=== PATIENT | female | born 1960 | race Caucasian/White ===

== ENCOUNTER → 2017-09-06 17:30 | Outpatient (CLI) | payer BC, SELFPAY ==
--- NOTE | 2017-09-06 17:23 | BI_ITS ---
MAMMOGRAPHY - BILATERAL SCREENING REASON FOR EXAM: Female, 57 years old. Routine annual screening examination. PERTINENT HISTORY: Mother with breast cancer. TECHNIQUE: Digital bilateral breast michael (3D mammographic acquisition) in the CC and MLO projections. 2-D mediolateral oblique (MLO) and craniocaudad (CC) views of both breasts were obtained. CAD: Full Field Digital Mammography with Computer Added Detection was performed. COMPARISON: Comparison is made with prior study dated August 08, 2016 and August 04, 2015. FINDINGS: Breast Composition: There are scattered areas of fibroglandular density. There are no dominant masses or suspicious calcifications. Stable benign-appearing bilateral axillary lymph nodes. Stable 5.5 mm well-defined nodule in the axillary region of the right breast No other significant abnormalities are identified. There has been no significant change since the prior study. BI/SCREENING MAMM (CAD), BILAT IMPRESSION: Stable bilateral screening mammogram. Yearly follow-up mammogram recommended. (A) ASSESSMENT CATEGORY: BIRADS Category 2: Benign. A letter regarding these results will be sent to the patient by the facility within 30 days. Approximately 10% of breast cancers are not detected by mammography. A normal mammogram should not delay biopsy of a clinically suspicious abnormality. [id number] Electronically Signed: Denys Radford MD at 8:23 EDT Tel [phone], Service support ,
== END ==
PROVIDERS: Family Provider Family Medicine; PCP Family Medicine; Visit Provider Family Medicine
DX: Z12.31 Encounter for screening mammogram for malignant neoplasm of breast (principal)
CPT/HCPCS: 77063; 77067

== ENCOUNTER → 2017-10-16 07:35 | Outpatient (CLI) | payer BC, SELFPAY ==
[2017-10-16 08:57] LABS: Cholesterol 206 mg/dL (200); High Density Lipoprotein 72 mg/dL; Triglycerides 88 mg/dL; Very Low Density Lipoprotein 18 mg/dL (5-40)
== END ==
PROVIDERS: Family Provider Family Medicine; PCP Family Medicine; Visit Provider Family Medicine
DX: E78.5 Hyperlipidemia, unspecified (principal)
CPT/HCPCS: 36415; 80061

== ENCOUNTER → 2018-09-21 | Outpatient (CLI) | payer BC, SELFPAY ==
--- NOTE | 2018-09-21 08:50 | BI_ITS ---
MAMMOGRAPHY - BILATERAL SCREENING REASON FOR EXAM: Female, 58 years old. Routine annual screening examination. PERTINENT HISTORY: Mother with breast cancer. TECHNIQUE: Digital bilateral breast bello (3D mammographic acquisition) in the CC and MLO projections. 2-D mediolateral oblique (MLO) and craniocaudad (CC) views of both breasts were obtained. CAD: Full Field Digital Mammography with Computer Added Detection was performed. COMPARISON: Comparison is made with prior study dated September 06, 2017 and August 08, 2016. FINDINGS: Breast Composition: There are scattered areas of fibroglandular density. There are no dominant masses or suspicious calcifications. Stable 5.5 mm well-defined nodule in the axillary region of the right breast suggestive of a small lymph node. No other significant abnormalities are identified. There has been no significant change since the prior study. BI/SCREEN MAMM (CAD) W/BELLO BILAT IMPRESSION: Stable bilateral screening mammogram. Yearly follow-up mammogram recommended. (A) ASSESSMENT CATEGORY: BIRADS Category 2: Benign. A letter regarding these results will be sent to the patient by the facility within 30 days. Approximately 10% of breast cancers are not detected by mammography. A normal mammogram should not delay biopsy of a clinically suspicious abnormality. [id number] Electronically Signed: Denys Radford, at 12:36 EDT , Service support ,
== END | disposition home or self-care (01) ==
LOC: OPBI 08:49
PROVIDERS: Family Provider Family Medicine; PCP Family Medicine; Referring Provider Family Medicine; Visit Provider Family Medicine
DX: Z12.31 Encounter for screening mammogram for malignant neoplasm of breast (principal)
CPT/HCPCS: 77063; 77067

== ENCOUNTER → 2018-10-16 | Outpatient (CLI) | payer BC, SELFPAY ==
[2018-10-16 12:19] LABS: Absolute Lymphocyte Count 1.86 X10^3/uL (0.83-4.51); Basophil# 0.05 X10^3/uL; Basophil% 0.8 % (0-1); Eosinophil# 0.16 X10^3/uL; Eosinophils% 2.4 % (0-5); Hematocrit 39.4 % (37-47); Hemoglobin 12.8 g/dL (12.0-15.0); Lymphocyte # 1.86 X10^3/ul (4.0); Mean Corp Hgb Conc 32.5 g/dL (32-36); Mean Corpuscular Hgb 28.1 pg (27.0-32.0); Mean Corpuscular Volume 86.6 fL (81-99); Mean Platelet Vol. 8.7 fl (6.2-12.0); Monocyte# 0.52 X10^3/uL; Monocyte% 7.8 % (0-10); NRBC Flagged by Analyzer 0 % (0-5); Neutrophil # 4.02 X10^3/uL (2.7-7.7); Neutrophil % 60.5 % (47-70); Platelet Count 369 K/mm3 (150-450); RBC Distribution Width CV 12.9 % (11.6-14.6); RBC Distribution Width SD 40.4 fl (35.1-43.9); Red Blood Count 4.55 M/mm3 (4.2-5.4); White Blood Count 6.6 K/mm3 (4.4-11.0)
[2018-10-16 12:57] LABS: AST(SGOT) 20 U/L (15-37); Alanine Aminotransfer ALT/SGPT 25 U/L (13-56); Albumin, Serum 3.7 g/dL (3.2-5.0); Alkaline Phosphatase 113 U/L (45-117); Anion Gap 5 (5-15); BUN 14 mg/dL (7-18); BUN/Creat Ratio 15.6 RATIO (10-20); Calcium,Total 9.2 mg/dL (8.5-10.1); Chloride 107 mmol/L (98-107); EST Glomerular Filtration Rate 69 mL/min (>60); Est Glom Filt Rate - Afr Amer 83 mL/min (>60); Free T3 2.5 pg/mL (2.18-3.98); Globulin 3.6 g/dL (2.2-4.2); Glucose 89 mg/dL (74-106); Protein, Total 7.3 g/dL (6.4-8.2); Sodium Level 138 mmol/L (136-145); T4 Free Direct 1.13 ng/dL (0.76-1.46); Thyroid Stim Hormone (TSH) 0.96 uIU/mL (0.358-3.74)
== END | disposition home or self-care (01) ==
LOC: BFHLAB 08:37
PROVIDERS: Family Provider Family Medicine; PCP Family Medicine; Visit Provider Family Medicine
DX: E78.5 Hyperlipidemia, unspecified (principal); R53.83 Other fatigue; Z51.81 Encounter for therapeutic drug level monitoring
CPT/HCPCS: 36415; 80053; 84439; 84443; 84481; 85025

== ENCOUNTER → 2018-12-20 | Outpatient (CLI) | payer BC, SELFPAY ==
[2018-12-12 13:25] VITALS: BMI 34.0
[2018-12-20 07:55] LABS: Absolute Lymphocyte Count 1.53 X10^3/uL (0.83-4.51); Absolute Neutrophil Count 2.3 X10^3/uL (2.0-7.7); Basophil# 0.08 X10^3/uL; Basophil% 1.7 % (0-1); Eosinophil# 0.22 X10^3/uL; Eosinophils% 4.8 % (0-5); Hematocrit 38.3 % (37-47); Hemoglobin 11.9 g/dL (12.0-15.0); Lymphocyte # 1.53 X10^3/ul (4.0); Lymphocyte % 33.3 % (19-41); Mean Corp Hgb Conc 31.1 g/dL (32-36); Mean Corpuscular Volume 83.8 fL (81-99); Mean Platelet Vol. 8.3 fl (6.2-12.0); Monocyte# 0.42 X10^3/uL; Monocyte% 9.1 % (0-10); NRBC Flagged by Analyzer 0 % (0-5); Neutrophil # 2.33 X10^3/uL (2.7-7.7); Neutrophil % 50.7 % (47-70); Platelet Count 378 K/mm3 (150-450); RBC Distribution Width CV 13.9 % (11.6-14.6); RBC Distribution Width SD 42.5 fl (35.1-43.9); Red Blood Count 4.57 M/mm3 (4.2-5.4); White Blood Count 4.6 K/mm3 (4.4-11.0)
== END | disposition home or self-care (01) ==
LOC: LAB 07:31
PROVIDERS: Family Provider Family Medicine; PCP Family Medicine; Referring Provider Family Medicine; Visit Provider Family Medicine
DX: A04.72 Enterocolitis due to Clostridium difficile, not specified as recurrent (principal)
CPT/HCPCS: 36415; 85025

== ENCOUNTER 2018-12-27 04:50 | Emergency (ER) | payer BC, SELFPAY ==
[2018-12-12 13:25] VITALS: BMI 34.0
[2018-12-27 04:50] VITALS: BP 140/73; PULSE 103; RESP 18; TEMP 36.4; O2SAT 96; BMI 33.6
--- NOTE | 2018-12-27 05:00 | CT_ITS ---
STUDY: CT ABDOMEN AND PELVIS WITH CONTRAST REASON FOR EXAM: Female, 58 years old. Abdomen pain elevated white blood count RADIATION DOSAGE (If Supplied By Facility): CTDIvol = ( 16.91 ) mGy, DLP = ( 1313.95 ) mGycm TECHNIQUE: Transaxial images were obtained from the dome of the diaphragm to the symphysis pubis without oral contrast. IV/Oral Isovue 300 100CC was administered. Sagittal and coronal images were reconstructed. Individualized dose optimization techniques were used for this CT. COMPARISON: None. FINDINGS: The visualized lung bases are unremarkable. The visualized portions of the heart are within normal limits. Normal liver. There are surgical clips in the gallbladder fossa consistent with a prior cholecystectomy. Normal spleen. Normal pancreas. Normal bilateral adrenal glands. Normal right kidney. Normal left kidney. Normal visualized stomach. Normal small intestine. There is thickening of the man of the descending colon and sigmoid colon suggesting colitis. Multiple diverticula are seen in the sigmoid colon. The appendix is visualized and appears normal. Normal abdominal aorta. Normal inferior vena cava. Normal retroperitoneum. Normal urinary bladder. Normal uterus and ovaries. Normal abdominal wall. Normal osseous structures. CT/Abdomen/Pelvis WITH Contrast IMPRESSION: Colitis in the descending colon and sigmoid colon. Electronically Signed: Libertad Morgan, at 7:37 EDT Tel , Service support ,
--- NOTE | 2018-12-27 05:02 | ED.VIS.GEN ---
History of Present Illness Chief Complaint: Nausea/Vomiting/Diarrhea Narrative: Patient is a 58-year-old female who presents with diarrhea. She is concerned she may have diverticulitis or C. difficile as she has had both of these in the past. She reports 8 episodes of diarrhea over the last 24 hours. She complains of intermittent lower abdominal cramping. She actually contacted her physician regarding the symptoms yesterday morning and asked if she should go to the emergency department. She was told to come to the office and give a stool sample instead. She did get the lab order and specimen collection, but due to ongoing diarrhea came to the emergency department this morning. She did bring a stool sample. No fevers. She reports nausea without vomiting. Past Medical History - Allergies and Home Meds Allergies/Adverse Reactions: Allergies No Known Allergies Allergy (Verified 12/12/18 13:25) Primary Care Physician: Yuliya Vasquez DO [Primary Care Provider] - Past Medical History: - - Anxiety, history of diverticulitis Smoking Status: Never smoker Review of Systems All systems negative except as indicated General: Denies: Fever Cardiovascular: Denies: Chest pain Respiratory: Denies: Dyspnea Gastrointestinal: Reports: Abdominal pain, Nausea, Diarrhea. Denies: Vomiting Physical Exam Vital Signs/Narrative: Vital Signs Temp Pulse Resp BP Pulse Ox 12/27/18 04:50 97.6 F L 103 H 18 140/73 H 96 Inital Vital Signs reviewed: Yes General: Well nourished Head: Normocephalic Eyes: EOMI ENT: Moist mucous membranes Neck: Supple Cardiovascular: - - Heart is regular rhythm, slightly tachycardic Respiratory: No distress, CTA bilaterally Abdomen: Soft, Tender - Lower abdominal tenderness without guarding without rebound Skin: Normal color Neurological: Alert Psychological: Normal affect Diagnostic/Tx/Re-eval 12/27/18 05:00 Abdomen/Pelvis WITH Contrast [CT] Stat 12/27/18 04:45 Stool C. difficile DNA Amplification - Final Toxigenic C. difficile DNA Laboratory Results 12/27/18 12/27/18 05:10 05:10 WBC 13.0 H RBC 4.60 Hgb 12.0 Hct 38.0 MCV 82.6 MCH 26.1 L MCHC 31.6 L RDW Std Deviation 41.8 RDW Coeff of Marsha 14.1 Plt Count 322 MPV 8.8 Immature Gran % (Auto) 0.400 Neut % (Auto) 80.0 H Lymph % (Auto) 11.8 L Wilkinson % (Auto) 6.5 Eos % (Auto) 0.8 Baso % (Auto) 0.5 Absolute Neuts (auto) 10.4 H Absolute Lymphs (auto) 1.53 Nucleated RBC % 0 Sodium 141 Potassium 3.5 Chloride 108 H Carbon Dioxide 23.0 Anion Gap 10 BUN 9 Creatinine 0.88 Estim Creat Clear Calc 52.58 Est GFR (MDRD) Af Amer 85 Est GFR (MDRD) Non-Af 70 BUN/Creatinine Ratio 10.3 Glucose 105 Calcium 8.9 - Medical Decision Making Labs as above notable for mild leukocytosis and C. difficile is positive. At the time of this dictation a CT of the abdomen and pelvis is pending but if this shows no acute intra-abdominal process patient will be discharged on oral vancomycin. She was advised to follow-up with Dr. Murphy and her family physician. ED Disposition - Plan for ED Patient: Disposition: Home or Assisted Living Diagnosis: C. difficile colitis Instructions: Clostridium difficile Infection Prescriptions: Vancomycin [Vancocin] 125 mg PO Q6H #40 cap Prescription Printed Referrals: Yuliya Vasquez DO [Primary Care Provider] - Selma Muprhy MD [STAFF PHYSICIAN] -
[2018-12-27] MEDS: 0.9% Normal Saline 1,000 ML 1000 ML IV (05:08)
[2018-12-27] MEDS: Ketorolac 30 MG/ML Syringe IV (05:09)
[2018-12-27] MEDS: Ondansetron 4 MG/2 ML Vial IV (05:09)
[2018-12-27 05:26] LABS: Absolute Lymphocyte Count 1.53 X10^3/uL (0.83-4.51); Absolute Neutrophil Count 10.4 X10^3/uL (2.0-7.7); Basophil# 0.07 X10^3/uL; Basophil% 0.5 % (0-1); Eosinophils% 0.8 % (0-5); Lymphocyte # 1.53 X10^3/ul (4.0); Lymphocyte % 11.8 % (19-41); Mean Corp Hgb Conc 31.6 g/dL (32-36); Mean Corpuscular Hgb 26.1 pg (27.0-32.0); Mean Corpuscular Volume 82.6 fL (81-99); Mean Platelet Vol. 8.8 fl (6.2-12.0); Monocyte# 0.84 X10^3/uL; Monocyte% 6.5 % (0-10); NRBC Flagged by Analyzer 0 % (0-5); Neutrophil # 10.41 X10^3/uL (2.7-7.7); Platelet Count 322 K/mm3 (150-450); RBC Distribution Width CV 14.1 % (11.6-14.6); RBC Distribution Width SD 41.8 fl (35.1-43.9)
[2018-12-27 05:37] LABS: Anion Gap 10 (5-15); BUN 9 mg/dL (7-18); BUN/Creat Ratio 10.3 RATIO (10-20); Calcium,Total 8.9 mg/dL (8.5-10.1); Chloride 108 mmol/L (98-107); Creatinine, Serum 0.88 mg/dL (0.55-1.02); EST Glomerular Filtration Rate 70 mL/min (>60); Est Glom Filt Rate - Afr Amer 85 mL/min (>60); Estimated Creatinine Clearance 52.58 ml/min; Glucose 105 mg/dL (74-106); Potassium 3.5 mmol/L (3.5-5.1); Sodium Level 141 mmol/L (136-145)
[2018-12-27 08:00] VITALS: BP 143/68; PULSE 99; RESP 18; TEMP 37; O2SAT 98
[2018-12-27 08:31] VITALS: BP 143/68; PULSE 89; RESP 18; TEMP 37; O2SAT 98; O2SAT 99
[2018-12-27] MEDS: Ondansetron 4 MG/2 ML Vial IM (08:57)
[2018-12-27] MEDS: Morphine 4 MG/ML Syringe IM (08:57)
== END 2018-12-27 09:16 | disposition home or self-care (01) ==
PROVIDERS: Emergency Medicine; Emergency Provider Emergency Medicine; Family Provider Family Medicine; PCP Family Medicine
DX: A04.72 Enterocolitis due to Clostridium difficile, not specified as recurrent (principal); F41.9 Anxiety disorder, unspecified; Z79.899 Other long term (current) drug therapy
CPT/HCPCS: 74177; 80048; 85025; 87493; 96361; 96374; 96375; 99283; J7030; Q9967; J2405

== ENCOUNTER → 2019-02-11 15:44 | Outpatient (CLI) | payer BC, SELFPAY ==
[2018-12-12 13:25] VITALS: BMI 34.0
[2019-01-22 13:10] VITALS: BMI 33.6
== END ==
PROVIDERS: Family Provider Family Medicine; PCP Family Medicine; Visit Provider Family Medicine
DX: A04.72 Enterocolitis due to Clostridium difficile, not specified as recurrent (principal); R19.7 Diarrhea, unspecified
CPT/HCPCS: 83630; 87493; 87506

== ENCOUNTER → 2019-02-13 08:33 | Outpatient (CLI) | payer BC, SELFPAY ==
[2019-01-22 13:10] VITALS: BMI 33.6
[2019-02-13 09:13] LABS: Absolute Lymphocyte Count 1.92 X10^3/uL (0.83-4.51); Absolute Neutrophil Count 4.1 X10^3/uL (2.0-7.7); Basophil# 0.05 X10^3/uL; Basophil% 0.8 % (0-1); Eosinophil# 0.09 X10^3/uL; Eosinophils% 1.4 % (0-5); Hematocrit 39.8 % (37-47); Hemoglobin 12.5 g/dL (12.0-15.0); Lymphocyte # 1.92 X10^3/ul (4.0); Lymphocyte % 29.2 % (19-41); Mean Corp Hgb Conc 31.4 g/dL (32-36); Mean Corpuscular Hgb 25.7 pg (27.0-32.0); Mean Corpuscular Volume 81.9 fL (81-99); Mean Platelet Vol. 8.5 fl (6.2-12.0); Monocyte# 0.42 X10^3/uL; Monocyte% 6.4 % (0-10); NRBC Flagged by Analyzer 0 % (0-5); Neutrophil # 4.08 X10^3/uL (2.7-7.7); Neutrophil % 61.9 % (47-70); Platelet Count 343 K/mm3 (150-450); RBC Distribution Width CV 15.4 % (11.6-14.6); Red Blood Count 4.86 M/mm3 (4.2-5.4); White Blood Count 6.6 K/mm3 (4.4-11.0)
[2019-02-13 09:56] LABS: ALB/GLOB Ratio 1.1 RATIO (0.9-2.4); AST(SGOT) 20 U/L (15-37); Alanine Aminotransfer ALT/SGPT 26 U/L (13-56); Albumin, Serum 3.8 g/dL (3.2-5.0); Alkaline Phosphatase 84 U/L (45-117); Anion Gap 7 (5-15); BUN 13 mg/dL (7-18); BUN/Creat Ratio 16.7 RATIO (10-20); Calcium,Total 9.5 mg/dL (8.5-10.1); Chloride 108 mmol/L (98-107); Creatinine, Serum 0.78 mg/dL (0.55-1.02); EST Glomerular Filtration Rate 81 mL/min (>60); Est Glom Filt Rate - Afr Amer 98 mL/min (>60); Globulin 3.4 g/dL (2.2-4.2); Glucose 86 mg/dL (74-106); Potassium 3.4 mmol/L (3.5-5.1); Protein, Total 7.2 g/dL (6.4-8.2); Sodium Level 140 mmol/L (136-145)
== END ==
PROVIDERS: Family Provider Family Medicine; PCP Family Medicine; Referring Provider Internal Medicine Infectious Disease; Visit Provider Internal Medicine Infectious Disease
DX: A04.71 Enterocolitis due to Clostridium difficile, recurrent (principal)
CPT/HCPCS: 36415; 80053; 85025

== ENCOUNTER 2019-05-26 06:57 | Day surgery (SDC) | payer BC, SELFPAY ==
[2019-05-07 13:10] VITALS: BMI 33.6
[2019-05-26 07:16] VITALS: BP 147/61; PULSE 83; RESP 15; TEMP 36.3; O2SAT 99; BMI 31.9
[2019-05-26] MEDS: Lactated Ringers 1,000 ML 100 ML IV (07:25)
--- NOTE | 2019-05-26 07:52 | HP.PCM_ITS ---
History and Physical Date of Admission: 05/26/19 Date of Service: 05/07/19 MR#: [id number] Acct: [id number] Name: JOSESITO EASLEY Rep #: [id number] : 1960 Provider: Selma lundberg MD Age/Sex: 58/F Location: [facility] Status: Signed Intake Vital Signs 05/07/19 Height 5 ft 1.5 in 05/07/19 Weight: 180 lb 05/07/19 BMI 33.4 05/07/19 BP 107/74 05/07/19 Blood Pressure Location Rt brachial 05/07/19 Position Sitting 05/07/19 Respiration 18 Intake Visit Reasons: negative for c diff, update for cscope Claim Attorney Required: No Is patient in pain?: No Allergies No Known Allergies Allergy (Verified 05/07/19 13:10) Medications etodolac 400 mg tablet 400 mg PO ONCE #180 tab 12/12/18 [History Confirmed 03/14] fluoxetine 10 mg capsule 10 mg PO DAILY #30 cap 12/12/18 [History Confirmed 05/07/19] lactobacillus combination no.8 3 billion cell capsule 3,000 mmu cells PO DAILY 12/12/18 [History Confirmed 05/07/19] polyethylene glycol 3350 17 gram/dose oral powder 17 g PO DAILY 12/12/18 [History Confirmed 05/07/19] Ondansetron [Zofran Odt] 4 mg PO Q8H PRN PRN #10 tab 12/27/18 [Rx Confirmed 05/07/19] PFSH Social History (Updated 05/07/19 @ 13:36 by Selma Murphy MD) Smoking Status: Never smoker alcohol intake: never HPI HPI HPI: JOSESITO EASLEY, is a 58 F who presents to the office today for HPI HPI HPI: JOSESITO EASLEY, is a 58 F who presents to the office today for scheduling of colonoscopy due to history of polyps. Patient's last colonoscopy was in [address] Saucedo she did have an adenomatous polyp at that time. Patient previously tried to schedule last year however she did have diverticulitis and then she went on to have C. difficile in January. Patient denies any further diarrhea since then. Patient also denies any abdominal pain, patient has bowel movements daily she does take MiraLAX about 3 times a day unsure the amount of fiber she gets. ROS General General: Yes appetite (Good); no fatigue Gastro Gastrointestinal: No abdominal pain, No nausea or vomiting, No diarrhea, No constipation, No blood in stool, No acid reflux, No hemorrhoids, No ulcers, No gallbladder problem, No black,tarry stools Exam Const General: cooperative, comfortable, no acute distress Resp Effort & Inspection: normal respiratory effort Cardio Rate: regular rate GI Inspection: non-distended Palpation: soft, no guarding, nontender Assessment & Plan Problems 1. Hx of diverticulitis of colon Z87.19 2. Hx of Clostridium difficile infection Z86.19 3. Hx of adenomatous polyp of colon Z86.010 Plan Did encourage patient to follow a high-fiber diet recommend 25 g of fiber daily this may be able to decrease amount of MiraLAX she takes. I have discussed the above with the patient. I have offered the patient colonoscopy for evaluation. I have explained the risks/benefits of the procedure and described the procedure. I have discussed the risks with the patient, including but not limited to: infection, bleeding, perforation of the GI tract requiring emergency surgery, inability to complete the procedure, injury to any internal organs, complications of anesthesia, etc. - the patient understands and agrees to proceed. I have answered all the patient's questions to the patient's satisfaction and the patient has no further questions. The patient has been given instructions for the colon cleansing preparation. One day of clears, MiraLAX/Dulcolax split prep Selma Murphy M.D. Pager: [phone] [facility] [address] [place] [address], [address] [place] [address] Office: [phone] Plan Detail Follow Up We will schedule screening colonoscopy Coding Level of Care Code Off vis,est,level 3 Diagnoses Hx of diverticulitis of colon Z87.19 Hx of Clostridium difficile infection Z86.19 Hx of adenomatous polyp of colon Z86.010 05/07/19 1336 <Electronically signed by Selma Mcmahon am, MD> Date _ Selma Murphy MD
--- NOTE | 2019-05-26 08:00 | COLBX_PTH ---
PATIENT: JOSESITO EASLEY LOC: EN U#:[id number] AGE/SX: 58/F ROOM: RE05/26/[address]: Dr. Selma Murphy MD : 1960 BED: DIS: 05/26/2019 SPEC #: [id number] RECD: 05/26/19 08:54 STATUS: HOANG REChris #: [id number] ANIYA: 05/26/19 08:[address]: Selma Murphy DEPT: SURGICAL PATHOLOGY RECD BY: Adrian Barrios ENTERED: 05/26/19 12:04 SP TYPE: COLON BX OTHR DR: Dr. Yuliya Vasquez DO Tissues: A - Transverse colon B - Rectum, NOS Procedures: Surgery Specimen Level IV HEADER OPERATION: Colonoscopy (MAC) PRE-OP DIAGNOSIS: Screening TISSUE SUBMITTED: A - Transverse polyp biopsy, B - Rectal polyp biopsy MICROSCOPIC DIAGNOSIS A. Transverse colon polyp, biopsy: Tubular adenoma. B. Rectal polyp, biopsy: Fragments of tubular adenoma. LISA:stacia 05/27/19 MICROSCOPIC DESCRIPTION Slides are reviewed. GROSS DESCRIPTION A - Received in fixative is one container labeled with the patient's name and designated transverse polyp biopsy. The specimen consists of two irregular fragments of light mcelroy soft tissue that in aggregate measure 0.3 x 0.2 x 0.1 cm. The specimen is totally submitted in one cassette. B - Received in fixative is one container labeled with the patient's name and designated rectal polyp biopsy. The specimen consists of multiple irregular fragments of light mcelroy soft tissue that in aggregate measure 1.5 x 0.3 x 0.1 cm. The specimen is totally submitted in one cassette. / LISA:stacia 05/26/19 TC:5 CPT: 68127 x2
[2019-05-26 08:37] VITALS: BP 147/61; BP 99/80; PULSE 78; RESP 16; TEMP 36.6; O2SAT 100
--- NOTE | 2019-05-26 08:41 | OP.COLON_ITS ---
Patient Name: Destinee Chapman Procedure Date: 05/26/2019 8:05 AM Date of : 1960 Age: 58 Procedure: Colonoscopy Indications: Surveillance: Personal history of adenomatous polyps on last colonoscopy > 5 years ago Providers: Selma Murphy MD Referring MD: Yuliya Vasquez Medicines: Monitored Anesthesia Care Patient Profile: This is a 58 year old female. Last Colonoscopy: 7 years ago. Complications: No immediate complications. Procedure: Pre-Anesthesia Assessment: - Prior to the procedure, a History and Physical was performed, and patient medications and allergies were reviewed. The patient's tolerance of previous anesthesia was also reviewed. The risks and benefits of the procedure and the sedation options and risks were discussed with the patient. All questions were answered, and informed consent was obtained. Prior Anticoagulants: The patient has taken no previous anticoagulant or antiplatelet agents. ASA Grade Assessment: II - A patient with mild systemic disease. After reviewing the risks and benefits, the patient was deemed in satisfactory condition to undergo the procedure. After I obtained informed consent, the scope was passed under direct vision. Throughout the procedure, the patient's blood pressure, pulse, and oxygen saturations were monitored continuously. The pediatric colonoscope was introduced through the anus and advanced to the cecum, identified by the appendiceal orifice, ileocecal valve and palpation. The colonoscopy was performed without difficulty. The patient tolerated the procedure well. The quality of the bowel preparation was good. Scope In: 8:11:42 AM Scope Withdrawal Time 0 hours 15 minutes 12 seconds Scope Out: 8:33:49 AM Total Procedure Duration Time 0 hours 22 minutes 7 seconds Findings: The perianal and digital rectal examinations were normal. Two sessile polyps were found in the rectum and transverse colon. The polyps were less than 5 mm in size. These polyps were removed with a cold biopsy forceps. Resection and retrieval were complete. A few small-mouthed diverticula were found in the sigmoid colon. The exam was otherwise without abnormality on direct and retroflexion views. Impression: - Two less than 5 mm polyps in the rectum and in the transverse colon, removed with a cold biopsy forceps. Resected and retrieved. - Diverticulosis in the sigmoid colon. - The examination was otherwise normal on direct and retroflexion views. Recommendation: - Discharge patient to home. - High fiber diet. - Continue present medications. - Await pathology results. - Repeat colonoscopy in 3 - 5 years for surveillance based on pathology results. Procedure Code(s): --- Professional --- 53995, PT, Colonoscopy, flexible; with biopsy, single or multiple Diagnosis Code(s): --- Professional --- Z86.010, Personal history of colonic polyps K62.1, Rectal polyp D12.3, Benign neoplasm of transverse colon (hepatic flexure or splenic flexure) K57.30, Diverticulosis of large intestine without perforation or abscess without bleeding CPT copyright 2017 [employer]. All rights reserved. The codes documented in this report are preliminary and upon credit portfolio advisor review may be revised to meet current compliance requirements. MD Selma Bowens MD 05/26/2019 8:41:05 AM This report has been signed electronically. Number of Addenda: 0 Note Initiated On: 05/26/2019 8:05 AM
--- NOTE | 2019-05-26 08:41 | OP.CCLET_ITS ---
05/26/2019 Yuliya Vasquez [address] [place] [address] Re : Colonoscopy procedure for Destinee Chapman Dear Dr. Vasquez This procedure was performed on Sunday, May 26, 2019. My impressions and recommendations are as follows: Impressions : - Two less than 5 mm polyps in the rectum and in the transverse colon, removed with a cold biopsy forceps. Resected and retrieved. - Diverticulosis in the sigmoid colon. - The examination was otherwise normal on direct and retroflexion views. Recommendations : - Discharge patient to home. - High fiber diet. - Continue present medications. - Await pathology results. - Repeat colonoscopy in 3 - 5 years for surveillance based on pathology results. My findings are described in the full procedure note, which is enclosed. If I can be of further assistance, please feel free to contact me at Doctor phone number(s): , Work: . Sincerely, MD Selma Bowens MD 05/26/2019 8:41:05 AM This report has been signed electronically.
[2019-05-26 08:42] VITALS: BP 106/63; BP 147/61; PULSE 70; RESP 16; O2SAT 98
[2019-05-26 08:47] VITALS: BP 112/58; BP 147/61; PULSE 76; RESP 16; O2SAT 99
[2019-05-26 08:52] VITALS: BP 117/67; BP 147/61; PULSE 69; RESP 16; TEMP 36.7; O2SAT 98
[2019-05-26 09:26] VITALS: BP 147/61
== END 2019-05-26 09:27 | disposition home or self-care (01) ==
LOC: EN 06:57 → AC 06:58
PROVIDERS: PCP Family Medicine; Referring Provider Family Medicine; Visit Provider Surgery
PROC: 0DJD8ZZ Inspection of Lower Intestinal Tract, Via Natural or Artificial Opening Endoscopic (ICD-10-PCS; CPT 45378; principal; 2019-05-26 07:55)
DX: D12.3 Benign neoplasm of transverse colon (principal); D12.8 Benign neoplasm of rectum; K57.30 Diverticulosis of large intestine without perforation or abscess without bleeding; F41.9 Anxiety disorder, unspecified; J45.909 Unspecified asthma, uncomplicated; Z87.19 Personal history of other diseases of the digestive system; Z86.19 Personal history of other infectious and parasitic diseases; Z79.51 Long term (current) use of inhaled steroids; Z79.899 Other long term (current) drug therapy
CPT/HCPCS: 45380; 88305; J7120; J2405

== ENCOUNTER → 2019-06-02 08:26 | Outpatient (CLI) | payer BC, SELFPAY ==
[2019-05-26 07:16] VITALS: BMI 31.9
[2019-06-02 09:01] LABS: Absolute Lymphocyte Count 1.88 X10^3/uL (0.83-4.51); Absolute Neutrophil Count 2.9 X10^3/uL (2.0-7.7); Basophil# 0.07 X10^3/uL; Basophil% 1.2 % (0-1); Eosinophil# 0.32 X10^3/uL; Eosinophils% 5.6 % (0-5); Hematocrit 37.7 % (37-47); Hemoglobin 11.7 g/dL (12.0-15.0); Lymphocyte # 1.88 X10^3/ul (4.0); Lymphocyte % 33.1 % (19-41); Mean Corpuscular Hgb 25.4 pg (27.0-32.0); Mean Corpuscular Volume 81.8 fL (81-99); Mean Platelet Vol. 8.2 fl (6.2-12.0); Monocyte# 0.48 X10^3/uL; Monocyte% 8.5 % (0-10); NRBC Flagged by Analyzer 0 % (0-5); Neutrophil # 2.91 X10^3/uL (2.7-7.7); Neutrophil % 51.2 % (47-70); Platelet Count 325 K/mm3 (150-450); RBC Distribution Width CV 14.9 % (11.6-14.6); RBC Distribution Width SD 44.7 fl (35.1-43.9); Red Blood Count 4.61 M/mm3 (4.2-5.4); White Blood Count 5.7 K/mm3 (4.4-11.0)
[2019-06-02 09:25] LABS: Calcium,Total 9.4 mg/dL (8.5-10.1)
== END ==
PROVIDERS: PCP Family Medicine; Referring Provider Internal Medicine Rheumatology; Visit Provider Internal Medicine Rheumatology
DX: D64.9 Anemia, unspecified (principal); E55.9 Vitamin D deficiency, unspecified
CPT/HCPCS: 36415; 82306; 82310; 85025

== ENCOUNTER → 2019-10-13 | Outpatient (CLI) | payer BC, SELFPAY ==
--- NOTE | 2019-10-13 07:23 | BI_ITS ---
MAMMOGRAPHY - BILATERAL SCREENING 3-D TOMOSYNTHESIS REASON FOR EXAM: Female, 59 years old. Routine screening PERTINENT HISTORY: Mother with breast cancer.. Previous left breast aspiration TECHNIQUE: 2-D mammograms and 3-D Tomosynthesis of the breast (s) were performed. CAD was performed. COMPARISON: 09/21/2018 FINDINGS: The breast composition is heterogeneously dense that can obscure small breast masses. Scattered benign calcifications are seen. No dense spiculated masses or suspicious microcalcifications are identified. No architectural distortion is identified. There is no skin thickening or retraction. There has been no significant change since the prior study. BI/SCREEN MAMM (CAD) W/BELLO BILAT IMPRESSION: No mammographic signs of malignancy. Routine yearly mammograms recommended. ASSESSMENT CATEGORY: BIRADS Category 2: Benign. A letter regarding these results will be sent to the patient by the facility within 30 days. FOLLOW UP RECOMMENDATION: Yearly follow up mammogram recommended. (A) Approximately 10% of breast cancers are not detected by mammography. A normal mammogram should not delay biopsy of a clinically suspicious abnormality. Electronically Signed: Arnol Kaur MD at 8:44 EDT , Service support ,
== END | disposition home or self-care (01) ==
LOC: OPBI 07:22
PROVIDERS: PCP Family Medicine; Referring Provider Family Medicine; Visit Provider Family Medicine
DX: Z12.31 Encounter for screening mammogram for malignant neoplasm of breast (principal)
CPT/HCPCS: 77063; 77067

== ENCOUNTER 2020-01-08 07:30 | Outpatient (RCR) | payer BC, SELFPAY ==
--- NOTE | 2019-12-22 13:37 | HP.PTEVAL ---
Patient's Visit Information JOSESITO EASLEY is a 59 year old F referred to Physical Therapy by BONY CAICEDO with a diagnosis of Right Shoulder Pain. Date of Evaluation: 12/22/19 Physical Therapist: Brinda Fulton DPT - Visit Plan Frequency: 2x /Week Duration: 4 Weeks Plan: Scapular strength/stabilization. HEP given 12/21:Postural education, MR, LAE, Adduction, IR, ER, [place] - Subjective In the winter she was going to an exercise class- she felt like she pulled something. It came and went and she just put up with it. Now when she is using it overhead it really bothers her. Right hand dominate. Went and saw her PCP who gave her a cortisone injection that put her back to 100% and now she wants to get stronger. Agg: sleeping on it, pushing off of it, getting her mail out of the inbox at work, curling iron. Worst: 7/10. Once she put it back down the pain subsided. Best: 0/10. Pain was in the shoulder and radiated to the deltoid. No pain since Cortisone injection on . Did not have finger dexterity issues- but does feel like she has some decreasedgrip strength. No blurred vision, dizziness- LAURA but its allergy season and some neck pain but needs a new mattress. Sleep: side sleeper- was waking her up but not anymore after the cortisone injection. She is active-walks and does weights 2x a week. Has 2 grandsons (1 years and 3 years) she takes care of 3 days a week. 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 PMHx: bilateral hip replacements (5 years and 7 years ago), asthma. Did have x-rays of the shoulder Meds: fluxotine, iron every other day. - Objective Posture: FH, RS, Increased kyphosis- can correct but does not maintain. Gait: no deviation noted- good arm swing and trunk rotation. Palpation: tender along infraspinatus, deltoid, upper trap- trigger points in medial border of the scapula. ROM: WFL in all planes of the cervical and UE- does report discomfort and tightness at end range flexion of the shoulder. Strength: scap: fair, Shoulder: 4+/5 throughout pain with abd and flexion testing, Elbow/Wrist/Hand: 5/5. Sensation: WNL to gross touch. Special Test: Impingment: positive, Empty can: positive - Goals Goal 1:: Patient will be I with HEP and progression Goal Time Frame: 4-6 Weeks Goal 2:: Patient will maintain proper posture t/o treatment session to demo increased scap s/s. Goal Time Frame: 4-6 Weeks Goal 3:: Patient will report 0/10 pain for 1 week with all normal ADL's. - Rehabilitation Potential Physical Therapy Diagnosis: Patient presents with hypomobility- she has decreased painfree ROM,strength and muscular endurance leading to poor posture and increased pain with ADL's. Rehabilitation Potential: Fair - Anticipated Interventions Patient/Client Instruction: Educate patient on: Benefits of Fitness Program Therapeutic Exercise to Include: Strength training, Endurance training, Balance training, Coordination, Agility training, Body mechanics, Postural training, Flexibilty training, Gait and locomotor training, Neuromotor development, Passive ROM, Active ROM, Dynamic Lumbar Stabilization, Scapular Strength/Stabilization For the Purpose of:: To improve muscle performance and motor function TENS: Yes Cryotherapy (ice pack, ice massage): Yes Thermo therapy (hot pack): Yes Ultrasound (thermal/non thermal): Yes Thank you for the opportunity to evaluate your patient. For Medicare and Medicare HMO plans, please review the plan of care and approve it. It will need to be FAXED BACK to us at [phone] for Medicare purposes. For Medicare only, by signing this I certify the plan of care. Please let me know if there are questions or concerns regarding this plan of care. Physician Signature: Date:
--- NOTE | 2020-01-08 08:07 | HP.PTDCSUM_ITS ---
It has been my pleasure to treat JOSESITO EASLEY referred by BONY CAICEDO, with the diagnosis of Right Shoulder Pain for a total of 4 visit(s). Discharge Date: Please see the following information for a summary of their discharge status. Subjective: Feels that she is getting better. % Improvement: 85 Objective/Function: Patient was able to complete without incidence. She has full ROM and only has pain with abduction with weights. Encouraged compliance with HEP and to call if questions arise. Goal 1:: Patient will be I with HEP and progression Goal Progress: Goal Met Goal 2:: Patient will maintain proper posture t/o treatment session to demo increased scap s/s. Goal Progress: Goal Met Goal 3:: Patient will report 0/10 pain for 1 week with all normal ADL's. Goal Progress: Progressing Plan: Discharge to [facility] If there are questions or concerns regarding this patient's physical therapy, please feel free to call me at [phone]. Thank you for the referral of this patient. Sincerely, Brinda Fulton DPT
== END 2020-01-08 10:12 | disposition home or self-care (01) ==
LOC: PT 07:30
PROVIDERS: PCP Family Medicine
DX: M75.41 Impingement syndrome of right shoulder (principal)
CPT/HCPCS: 97110; 97162

== ENCOUNTER → 2020-02-27 11:52 | Outpatient (CLI) | payer BC, SELFPAY ==
[2020-02-27 15:42] LABS: ALB/GLOB Ratio 1.2 RATIO (0.9-2.4); AST(SGOT) 17 U/L (15-37); Alanine Aminotransfer ALT/SGPT 23 U/L (13-56); Alkaline Phosphatase 88 U/L (45-117); Anion Gap 9 (5-15); BUN 12 mg/dL (7-18); BUN/Creat Ratio 14.2 RATIO (10-20); Calcium,Total 9.4 mg/dL (8.5-10.1); Chloride 109 mmol/L (98-107); Creatinine, Serum 0.85 mg/dL (0.55-1.02); EST Glomerular Filtration Rate 73 mL/min (>60); Est Glom Filt Rate - Afr Amer 88 mL/min (>60); Free T3 2.7 pg/mL (2.18-3.98); Globulin 3.4 g/dL (2.2-4.2); Glucose 91 mg/dL (74-106); Magnesium 2.3 mg/dL (1.6-2.6); Potassium 4.1 mmol/L (3.5-5.1); Protein, Total 7.4 g/dL (6.4-8.2); Sodium Level 142 mmol/L (136-145); T4 Free Direct 1.11 ng/dL (0.76-1.46); Thyroid Stim Hormone (TSH) 0.65 uIU/mL (0.358-3.74)
== END ==
PROVIDERS: PCP Family Medicine; Visit Provider Family Medicine
DX: R53.83 Other fatigue (principal); K59.00 Constipation, unspecified; R68.89 Other general symptoms and signs; Z51.81 Encounter for therapeutic drug level monitoring
CPT/HCPCS: 36415; 80053; 83735; 84439; 84443; 84481

== ENCOUNTER 2020-06-08 10:17 | Outpatient (RCR) | payer OTHER, SELFPAY ==
[2020-06-08] MEDS: COVID-19 VACC, MRNA(PFIZER)/PF 30 MCG/0.3 ML SYRINGE IM (10:18)
[2020-06-29] MEDS: COVID-19 VACC, MRNA(PFIZER)/PF 30 MCG/0.3 ML SYRINGE IM (10:03)
== END 2020-08-31 23:59 ==
LOC: IMMUN 10:17
PROVIDERS: PCP Family Medicine; Visit Provider Family Medicine
DX: Z23 Encounter for immunization (principal)
CPT/HCPCS: 0001A; 0002A; 91300

== ENCOUNTER → 2020-10-13 07:15 | Outpatient (CLI) | payer OTHER, SELFPAY ==
--- NOTE | 2020-10-13 07:18 | BI_ITS ---
MAMMOGRAPHY - BILATERAL SCREENING REASON FOR EXAM: Female, 60 years old. Routine annual screening examination. PERTINENT HISTORY: Mother with breast cancer. TECHNIQUE: Digital bilateral breast bello (3D mammographic acquisition) in the CC and MLO projections. 2-D mediolateral oblique (MLO) and craniocaudad (CC) views of both breasts were obtained. CAD: Full Field Digital Mammography with Computer Added Detection was performed. COMPARISON: Comparison is made with prior study 10/13/2019 and 09/21/2018 FINDINGS: Breast Composition: The breasts are heterogeneously dense, which may obscure small masses. There are no dominant masses or suspicious calcifications. Stable benign-appearing bilateral axillary lymph nodes. No other significant abnormalities are identified. There has been no significant change since the prior study. BI/SCRN MAMM (CAD)W/BELLO BILAT IMPRESSION: Stable bilateral screening mammogram. Yearly follow-up mammogram recommended. (A) ASSESSMENT CATEGORY: BIRADS Category 2: Benign. A letter regarding these results will be sent to the patient by the facility within 30 days. Approximately 10% of breast cancers are not detected by mammography. A normal mammogram should not delay biopsy of a clinically suspicious abnormality. [id number] Electronically Signed: Denys Radford MD at 8:50 EDT , Service support ,
== END ==
PROVIDERS: PCP Family Medicine; Referring Provider Family Medicine; Visit Provider Family Medicine
DX: Z12.31 Encounter for screening mammogram for malignant neoplasm of breast (principal)
CPT/HCPCS: 77063; 77067

== ENCOUNTER → 2021-10-13 | Outpatient (CLI) | payer BC, SELFPAY ==
[2021-10-19 09:08] LABS: Age Gdln ACOG Testing 30-65 (.)
[2021-10-19 10:54] LABS: HPV APTIMA, High Risk Negative (Negative)
[2021-10-19 10:56] LABS: HPV Reflexed? YES, CHARGE PATIENT
== END | disposition home or self-care (01) ==
PROVIDERS: PCP Family Medicine; Visit Provider Family Medicine
DX: Z01.419 Encounter for gynecological examination (general) (routine) without abnormal findings (principal); Z12.4 Encounter for screening for malignant neoplasm of cervix
CPT/HCPCS: 87624; 88175; G0145

== ENCOUNTER → 2021-10-17 | Outpatient (CLI) | payer BC, SELFPAY ==
--- NOTE | 2021-10-17 07:17 | BI_ITS ---
MAMMOGRAPHY - BILATERAL SCREENING REASON FOR EXAM: Female, 61 years old. Routine annual screening examination. PERTINENT HISTORY: Mother with breast cancer. TECHNIQUE: Digital bilateral breast bello (3D mammographic acquisition) in the CC and MLO projections. 2-D mediolateral oblique (MLO) and craniocaudad (CC) views of both breasts were obtained. CAD: Full Field Digital Mammography with Computer Added Detection was performed. COMPARISON: Comparison is made with prior study dated 10/13/2020 and 10/13/2019. FINDINGS: Breast Composition: The breasts are heterogeneously dense, which may obscure small masses. There are no dominant masses or suspicious calcifications. Stable small benign-appearing bilateral axillary lymph nodes. No other significant abnormalities are identified. There has been no significant change since the prior study. BI/SCRN MAMM (CAD)W/BELLO BILAT IMPRESSION: Stable bilateral screening mammogram. Yearly follow-up mammogram recommended. (A) ASSESSMENT CATEGORY: BIRADS Category 2: Benign. A letter regarding these results will be sent to the patient by the facility within 30 days. Approximately 10% of breast cancers are not detected by mammography. A normal mammogram should not delay biopsy of a clinically suspicious abnormality. [id number] Electronically Signed: Denys Radford MD at 8:31 EDT ,
== END | disposition home or self-care (01) ==
LOC: OPBI 07:15
PROVIDERS: PCP Family Medicine; Referring Provider Family Medicine; Visit Provider Family Medicine
DX: Z12.31 Encounter for screening mammogram for malignant neoplasm of breast (principal); Z80.3 Family history of malignant neoplasm of breast
CPT/HCPCS: 77063; 77067

== ENCOUNTER → 2021-10-26 | Outpatient (CLI) | payer BC, SELFPAY ==
[2021-10-26 10:03] LABS: Absolute Lymphocyte Count 2.16 X10^3/uL (0.83-4.51); Basophil# 0.07 X10^3/uL; Basophil% 1.2 % (0-1); Eosinophil# 0.16 X10^3/uL; Eosinophils% 2.7 % (0-5); Hematocrit 39.2 % (37-47); Hemoglobin 12.2 g/dL (12.0-15.0); Lymphocyte # 2.16 X10^3/ul (0.83-4.51); Lymphocyte % 36.5 % (19-41); Mean Corp Hgb Conc 31.1 g/dL (32-36); Mean Corpuscular Hgb 26.7 pg (27.0-32.0); Mean Corpuscular Volume 85.8 fL (81-99); Mean Platelet Vol. 8.3 fl (6.2-12.0); Monocyte# 0.51 X10^3/uL; Monocyte% 8.6 % (0-10); NRBC Flagged by Analyzer 0 % (0-5); Neutrophil % 50.8 % (47-70); Platelet Count 359 K/mm3 (150-450); RBC Distribution Width CV 13.2 % (11.6-14.6); RBC Distribution Width SD 41.1 fl (35.1-43.9); Red Blood Count 4.57 M/mm3 (4.2-5.4); White Blood Count 5.9 K/mm3 (4.4-11.0)
[2021-10-26 10:19] LABS: AST(SGOT) 18 U/L (15-37); Alanine Aminotransfer ALT/SGPT 26 U/L (13-56); Albumin, Serum 3.5 g/dL (3.2-5.0); Alkaline Phosphatase 87 U/L (45-117); Anion Gap 5 (5-15); BUN 12 mg/dL (7-18); BUN/Creat Ratio 13.2 RATIO (10-20); Calcium,Total 9.7 mg/dL (8.5-10.1); Chloride 110 mmol/L (98-107); Cholesterol 204 mg/dL (200); Creatinine, Serum 0.91 mg/dL (0.55-1.02); EST Glomerular Filtration Rate 67 mL/min (>60); Est Glom Filt Rate - Afr Amer 81 mL/min (>60); Globulin 3.5 g/dL (2.2-4.2); Glucose 86 mg/dL (74-106); High Density Lipoprotein 62 mg/dL; Potassium 3.9 mmol/L (3.5-5.1); Sodium Level 141 mmol/L (136-145); Triglycerides 78 mg/dL; Very Low Density Lipoprotein 16 mg/dL (5-40)
== END | disposition home or self-care (01) ==
LOC: MTLAB 07:21
PROVIDERS: PCP Family Medicine; Referring Provider Family Medicine; Visit Provider Family Medicine
DX: Z00.00 Encounter for general adult medical examination without abnormal findings (principal); E78.5 Hyperlipidemia, unspecified
CPT/HCPCS: 36415; 80053; 80061; 85025

== ENCOUNTER → 2022-05-08 | Outpatient (CLI) | payer BC, SELFPAY ==
[2022-05-08 18:11] LABS: Bacteria 0 SEEN /hpf (None Seen); Mucous, Urine 0 SEEN /hpf (<or=2+); Red Blood Cells-Urine 0 SEEN /hpf (0-5); Squamous Epithelial Cells - UA 0 SEEN /hpf (5-10); White Blood Cells 0 SEEN /hpf (0-5)
[2022-05-08 18:26] LABS: Color, Urine Yellow (Yellow); Glucose, Dipstick Normal (Normal); Ketone-Dipstick Negative (Negative); Leukocyte Esterase-Dipstick Negative /ul (Negative); Nitrite-Dipstick Negative (Negative); Occult Blood-Urine 50 /ul (Negative); Protein-Dipstick Negative (Negative); Urine Bilirubin Dipstick Negative (Negative); Urine Clarity Clear (Clear); Urine Urobilinogen Normal (Normal)
== END | disposition home or self-care (01) ==
PROVIDERS: PCP Family Medicine; Visit Provider Physician Assistant Surgical
DX: R30.0 Dysuria (principal)
CPT/HCPCS: 81001; 87086; 87088

== ENCOUNTER → 2022-11-14 | Outpatient (CLI) | payer BC, SELFPAY ==
--- NOTE | 2022-11-14 07:42 | BI_ITS ---
MAMMOGRAPHY - BILATERAL SCREENING REASON FOR EXAM: Female, 62 years old. Routine annual screening examination. PERTINENT HISTORY: Mother with breast cancer. TECHNIQUE: Digital bilateral breast bello (3D mammographic acquisition) in the CC and MLO projections. 2-D mediolateral oblique (MLO) and craniocaudad (CC) views of both breasts were obtained. CAD: Full Field Digital Mammography with Computer Added Detection was performed. COMPARISON: Screening mammogram from 10/17/2021, 10/13/2020. FINDINGS: Breast Composition: The breasts are heterogeneously dense, which may obscure small masses. There are no suspicious masses or suspicious calcifications. Stable small benign-appearing bilateral axillary and intramammary lymph nodes. No other significant abnormalities are identified. There has been no significant change since the prior study. BI/SCRN MAMM (CAD)W/BELLO BILAT IMPRESSION: Stable bilateral screening mammogram. Yearly follow-up mammogram recommended. (A) ASSESSMENT CATEGORY: BIRADS Category 2: Benign. A letter regarding these results will be sent to the patient by the facility within 30 days. Approximately 10% of breast cancers are not detected by mammography. A normal mammogram should not delay biopsy of a clinically suspicious abnormality. Electronically Signed: Sam Small DO at 11:49 EDT ,
== END | disposition home or self-care (01) ==
LOC: OPBI 07:40
PROVIDERS: PCP Family Medicine; Referring Provider Family Medicine; Visit Provider Family Medicine
DX: Z12.31 Encounter for screening mammogram for malignant neoplasm of breast (principal); Z80.3 Family history of malignant neoplasm of breast
CPT/HCPCS: 77063; 77067

== ENCOUNTER 2022-12-06 13:47 | Observation (INO) | payer BC, SELFPAY ==
[2022-12-06 13:49] VITALS: BP 127/87; PULSE 116; RESP 22; TEMP 36.6; O2SAT 99; BMI 34.6
--- NOTE | 2022-12-06 15:26 | ED.VIS.GI ---
HPI HPI - GI History of Present Illness Chief Complaint: Constipation Detail of Chief Complaint: Constipation Informant: patient Narrative Narrative: Patient presents to the emergency department complaining constipation. She has history of chronic constipation and takes Linzess. Patient recently had right knee replacement on November 21. She had been on oxycodone. Patient states that 5 days ago she started with just watery stool and went to the ER at [facility] where they did a CAT scan of her abdomen and pelvis and they put her on medication for diarrhea. Patient then unable to have bowel movement since that time and saw her primary care physician yesterday. She was told to stay on her Linzess. This morning patient went back to [facility] where they did a fleets enema and gave her magnesium citrate and discharge her to home. Patient continues to not be able to have a bowel movement. While waiting in the waiting room she states she is passed a small hard pebble of stool. She describes of diffuse abdominal discomfort. She had no vomiting. She had no fever. [facility] Medical History C. difficile diarrhea Depression Diverticulitis Home Medications etodolac 400 mg tablet 400 mg PO DAILY #180 tabs 12/12/18 [History Last Taken Unknown] albuterol sulfate 90 mcg/actuation aerosol inhaler 1 - 2 puff inhalation Q6H PRN PRN Sob &/Or Wheezing 05/21/19 [History Last Taken Unknown] aspirin 81 mg tablet,delayed release (Adult Aspirin Regimen) 81 mg PO BID 12/06/22 [History Last Taken Unknown] linaclotide .ROUTE 12/06/22 [History Last Taken Unknown] Allergy/AdvReac Type Severity Reaction Status Date / Time No Known Allergies Allergy Verified 12/06/22 19:49 Family History Father Asthma Diabetes Hypertension CAD (coronary artery disease) Sister Asthma Mother Breast cancer Diabetes Hypertension Surgical History H/O section S/P bilateral hip replacements S/P laparoscopic cholecystectomy Social History Smoking Status: Never smoker alcohol intake: never ROS ROS ED Review of Systems ROS Unobtainable: other Constitutional Constitutional ED: Reports lethargy; Denies chills, fever(s), sweats or weight loss Eyes Eyes: Denies blurry vision, change in vision or diplopia ENT ENT ED: Denies rhinorrhea or sore throat Cardiovascular Cardiovascular: Denies chest pain, orthopnea or racing heartbeat Respiratory/Chest Respiratory/Chest: Denies cough, dyspnea, dyspnea on exertion, orthopnea or sputum Gastrointestinal Gastrointestinal: Reports abdominal pain and constipation; Denies diarrhea, nausea or vomiting Genitourinary Genitourinary ED: Denies dysuria, hematuria or urinary frequency Musculoskeletal Musculoskeletal: Denies arthralgias, back pain, myalgias or neck pain Integumentary Denies abscess, Abrasions or rash Neurologic Neurologic: Denies headache(s) or weakness Psychiatric Psychiatric: Denies anxiety, depression or suicidal thoughts Endocrine Endocrinology: Denies polydipsia, polyphagia or polyuria Hematologic/Lymphatic Hematologic/Lymphatic: Denies easy bleeding, easy bruising or lymphadenopathy Allergic/Immunologic Allergic/Immunologic ED: Denies mouth swelling, tongue swelling or urticaria EXAM Physical Exam Const Vital Signs: 12/06/22 13:49 Temperature 97.8 F Temperature Source Temporal Pulse Rate 116 H Respiratory Rate 22 H Blood Pressure 127/87 H Blood Pressure Mean 100 Pulse Ox 99 Oxygen Delivery Method Room Air Positive well nourished and well developed General Appearance ED: well developed and NAD HEENT Reports TM's clear and moist mucous membranes normocephalic and atraumatic; Negative for trauma or tenderness Tympanic Membrane ED: Yes TM's clear Eyes PERRL and EOMs intact bilaterally General Eye ED: Negative for pale conjunctiva or scleral icterus Neck no lymphadenopathy, supple and no JVD General: Negative for tenderness Chest Wall inspection of chest normal and palpation of chest normal Chest: Negative for tenderness Resp normal respiratory effort and clear to auscultation bilaterally Effort and Inspection: Negative for respiratory distress or pain with movement Auscultation: Negative for rhonchi, wheezes or diminished lung sounds Cardio regular rate, regular rhythm, S1 normal heart sound, S2 normal heart sound and no murmurs Peripheral Pulses: pulses 2+ throughout GI normal to inspection, nondistended, normoactive bowel sounds, soft to palpation, non-distended and no masses GI Narrative: Mild diffuse tenderness throughout the abdomen. There is no rebound, rigidity, or peritoneal signs. No mass palpated. Rectal exam performed and patient did have brown stool in the rectal vault that seem to soft however not amenable to any type of disimpaction as it was relatively high up in the rectum. Back/Spine no CVA tenderness and no thoracic nor lumbar tenderness Extremity normal to inspection General Extremety ED: Negative for edema General Extremity: Negative for edema Neuro oriented x3, CN's II-XII intact bilaterally, no sensory deficits noted and gait normal Sensorium / Orientation: awake, alert, oriented to person, oriented to place and oriented to time Motor Exam: strength 5/5 throughout and strength abnormal Psych mental status grossly normal Skin no rashes or lesions noted and no wounds MDM MDM MDM Narrative Medical decision making narrative: We will obtain a KUB. We will perform soapsuds enemas. Patient had small results with enema here. She complains of being very uncomfortable having dry heaves and does not think she can tolerate a repeat enema right away. She does not feel she can go home as she is too uncomfortable. I discussed case with general surgeon on-call who recommended obtaining a CT scan to evaluate further. I did order basic labs and she had a white count of 12.7 with hemoglobin of 12 and platelet count of 773. Chemistries were unremarkable. CT scan of the abdomen pelvis without contrast obtained showed dilated colon with questionable transition point within the mid lower colon concerning for obstruction or ileus. Skin was evaluated by Dr. Murphy and she did not have any concerns regarding these findings. Recommend admission to medicine for enemas till relief. Discussed case with hospitalist will evaluate patient for admission. Etiology of thrombocytosis unclear though may be reactive. Lab Data Attestation: I reviewed the patient's lab results. Labs: Laboratory Results - last 24 hr 12/06/22 17:10 WBC 12.7 H RBC 4.70 Hgb 12.0 Hct 38.5 MCV 81.9 MCH 25.5 L MCHC 31.2 L RDW Std Deviation 50.8 H RDW Coeff of Marsha 17.1 H Plt Count 773 H* MPV 7.9 Immature Gran % (Auto) 0.500 Neut % (Auto) 85.1 H Lymph % (Auto) 9.4 L [place] % (Auto) 4.3 Eos % (Auto) 0.1 Baso % (Auto) 0.6 Absolute Neuts (auto) 10.8 H Absolute Lymphs (auto) 1.20 Nucleated RBC % 0 Diff Path Review May Sodium 137 Potassium 3.6 Chloride 106 Carbon Dioxide 23.0 Anion Gap 8 BUN 14 Creatinine 0.69 Estim Creat Clear Calc 63.79 Est GFR (MDRD) Af Amer 111 Est GFR (MDRD) Non-Af 92 BUN/Creatinine Ratio 20.4 H Glucose 104 Calcium 9.4 Radiography Diagnostic Testing: Clinical Impression(s) from Imaging Studies KUB X-Ray 12/06/22 15:40 IMPRESSION: Moderate amount of gas throughout the colon. Electronically Signed: Viridiana Hooks MD at 16:10 EDT , Abdomen/Pelvis CT 12/06/22 16:53 IMPRESSION: Limited examination given the lack of intravenous and oral contrast and significant beam hardening artifact secondary to bilateral hip arthroplasties demonstrating a dilated colon with a questionable transition point within the mid/lower colon, concerning for an obstruction or possible ileus, consider repeat examination with IV and oral contrast for further characterization. Electronically Signed: Viridiana Hooks MD at 17:49 EDT , 1 view abdomen/KUB obtained shows gaseous distention of the bowel on my interpretation without evidence of bowel obstruction. There was moderate stool within the sigmoid and rectum. Radiology in agreement. Discharge Plan Dx/Rx/DC Orders Clinical Impression: Thrombocytosis, Abdominal pain, Constipation Disposition Disposition: Acute Care Hospital [facility] Discharge Date/Time: 12/06/22 20:49
--- NOTE | 2022-12-06 15:40 | RAD_ITS ---
INDICATION: constipation EXAMINATION/TECHNIQUE: X-RAY - XR Abdomen 1 View COMPARISON: No relevant prior comparison study available FINDINGS: BOWEL GAS PATTERN: There is a moderate amount of gas throughout the colon. There is stool visualized within the rectum. Bowel or stomach distention. FREE AIR: Not assessed on a single supine view. LOWER CHEST: No acute pathology. BONES AND SOFT TISSUES: There are bilateral total hip arthroplasties in place and are grossly anatomic in alignment. RAD/Abdomen Single View (Portable) IMPRESSION: Moderate amount of gas throughout the colon. Electronically Signed: Viridiana Hooks MD at 16:10 EDT ,
--- NOTE | 2022-12-06 16:53 | CT_ITS ---
INDICATION: Pain EXAMINATION: CT ABDOMEN AND PELVIS WITHOUT CONTRAST - CT Abdomen And Pelvis W/O Contrast Injection TECHNIQUE: Helically acquired images were obtained of the abdomen and pelvis without oral or IV contrast. A radiation dose optimization technique was used for this scan. IV Contrast dosage and agent: None. Oral contrast: None. RADIATION DOSAGE (If Supplied By Facility): CTDIvol = ( 16.08 ) mGy, DLP = ( 771.41 ) mGycm COMPARISON: Prior study dated: December 27, 2018 FINDINGS: LOWER CHEST: Lung bases are clear. No cardiomegaly or pericardial effusion. The lack of intravenous contrast limits evaluation of solid visceral organs. LIVER: Homogeneous. No focal mass. GALLBLADDER AND BILIARY TREE: There are surgical clips within the gallbladder fossa consistent with prior cholecystectomy. No intra- or extrahepatic biliary ductal dilation. PANCREAS: No focal cystic or solid mass. SPLEEN: Normal size without focal cystic or solid mass. ADRENAL GLANDS: No nodules. KIDNEYS AND URETERS: Normal renal size and position. No hydronephrosis. PERITONEUM: No ascites or free air. No other fluid collection. BOWEL: No evidence of acute appendicitis. There are dilated gas-filled loops of colon. There appears to be a transition point within the left mid/lower abdomen. LYMPH NODES: No enlarged mesenteric or retroperitoneal lymph nodes. VESSELS: Aorta is non-dilated. URINARY BLADDER: Unremarkable. REPRODUCTIVE ORGANS: No pelvic masses. ABDOMINAL WALL: No discrete abdominal or pelvic wall hernia. BONES: Bilateral hip arthroplasties create significant beam hardening artifact and obscure anatomic detail within the pelvis. There are degenerative changes of the lumbar spine. CT/Abdomen/Pelvis without Cont IMPRESSION: Limited examination given the lack of intravenous and oral contrast and significant beam hardening artifact secondary to bilateral hip arthroplasties demonstrating a dilated colon with a questionable transition point within the mid/lower colon, concerning for an obstruction or possible ileus, consider repeat examination with IV and oral contrast for further characterization. Electronically Signed: Viridiana Hooks MD at 17:49 EDT ,
[2022-12-06] MEDS: 0.9% Normal Saline (1000mL) 1,000 ML 125 ML IV ×2 (17:12→21:29)
[2022-12-06 17:19] LABS: Absolute Neutrophil Count 10.8 X10^3/uL (2.0-7.7); Basophil# 0.08 X10^3/uL; Basophil% 0.6 % (0-1); Eosinophil# 0.01 X10^3/uL; Eosinophils% 0.1 % (0-5); Hematocrit 38.5 % (37-47); Lymphocyte % 9.4 % (19-41); Mean Corp Hgb Conc 31.2 g/dL (32-36); Mean Corpuscular Hgb 25.5 pg (27.0-32.0); Mean Corpuscular Volume 81.9 fL (81-99); Mean Platelet Vol. 7.9 fl (6.2-12.0); Monocyte# 0.55 X10^3/uL; Monocyte% 4.3 % (0-10); NRBC Flagged by Analyzer 0 % (0-5); Neutrophil # 10.81 X10^3/uL (2.7-7.7); Neutrophil % 85.1 % (47-70); POSITIVE COUNT YES; RBC Distribution Width CV 17.1 % (11.6-14.6); RBC Distribution Width SD 50.8 fl (35.1-43.9); White Blood Count 12.7 K/mm3 (4.4-11.0)
[2022-12-06 17:23] LABS: Differential Indicated SCAN CRITERIA MET; Platelet Count 773 K/mm3 (150-450)
[2022-12-06 17:45] LABS: Anion Gap 8 (5-15); BUN 14 mg/dL (7-18); BUN/Creat Ratio 20.4 RATIO (10-20); Calcium,Total 9.4 mg/dL (8.5-10.1); Chloride 106 mmol/L (98-107); Creatinine, Serum 0.69 mg/dL (0.55-1.02); EST Glomerular Filtration Rate 92 mL/min (>60); Est Glom Filt Rate - Afr Amer 111 mL/min (>60); Estimated Creatinine Clearance 63.79 ml/min; Glucose 104 mg/dL (74-106); Potassium 3.6 mmol/L (3.5-5.1); Sodium Level 137 mmol/L (136-145)
--- NOTE | 2022-12-06 19:42 | HP.PCM.HOS_ITS ---
HPI - General General Date of Admission: 12/06/22 Date of Service: 12/06/22 Chief Complaint: Constipation HPI Narrative JOSESITO EASLEY, is a 62 F with a significant history of chronic constipation on Linzess that she takes about 2-3 times per week and with knee replacement on November 21, 2022 presents emergency department with 3-day history of constipation. Patient has been to [facility] ER 2 times because of her constipation. The first that she was given Bentyl. The second time reportedly she was given a Fleet enema and then discharged home on magnesium citrate. Reportedly she had some loose stools following the intervention at the [facility] ED. On presentation to the hospital ED physician had a KUB. ED physician discussed the case with general surgeon who recommended the patient stay at the hospital for further fluids. On this presentation at [facility] ED; of note the patient received a first Fleet at the emergency department and had a bowel movement. However she did not feel adequately emptied from her stool plus she had abdominal pain. She felt uncomfortable and could not receive a second enema as she was nauseous and had dry heaving. [facility] Medical History C. difficile diarrhea Depression Diverticulitis Home Medications etodolac 400 mg tablet 400 mg PO DAILY #180 tabs 12/12/18 [History Last Taken Unknown] albuterol sulfate 90 mcg/actuation aerosol inhaler 1 - 2 puff inhalation Q6H PRN PRN Sob &/Or Wheezing 05/21/19 [History Last Taken Unknown] aspirin 81 mg tablet,delayed release (Adult Aspirin Regimen) 81 mg PO BID 12/06/22 [History Last Taken Unknown] linaclotide .ROUTE 12/06/22 [History Last Taken Unknown] Allergy/AdvReac Type Severity Reaction Status Date / Time No Known Allergies Allergy Verified 12/06/22 19:49 Family History Father Asthma Diabetes Hypertension CAD (coronary artery disease) Sister Asthma Mother Breast cancer Diabetes Hypertension Surgical History H/O section S/P bilateral hip replacements S/P laparoscopic cholecystectomy Social History Smoking Status: Never smoker alcohol intake: never ROS ROS Narrative Pertinent positives and pertinent negatives as noted in HPI. All other systems were reviewed and are negative Vital Signs Vital Signs Vital Signs: 12/06/22 13:49 Temperature 97.8 F Temperature Source Temporal Pulse Rate 116 H Respiratory Rate 22 H Blood Pressure 127/87 H Blood Pressure Mean 100 Pulse Ox 99 Oxygen Delivery Method Room Air Weight Weight: 83.189 kg Body Mass Index (BMI) 34.6 Physical Exam Narrative Physical exam: General: Well-nourished, well-developed. Head: Normocephalic, atraumatic, no tenderness Eyes: Vision is grossly intact. EOMI ENT, no trauma, moist mucous membranes, no rhinorrhea Neck: Nontender, No thyromegaly. CVS: Regular rate and rhythm. S1-S2 present. No murmur, gallop or rub. Respiratory : clear to auscultation bilaterally, chest wall nontender Abdomen: Soft, tender abdomen, nondistended, normal bowel sounds, no masses : Deferred Back: Nontender, no CVA tenderness. Extremities: Right knee with hutchinson of removed archie, tender. Left knee nontender. Skin: Normal color, no trauma, abrasions Neuro: Alert, oriented, cranial nerves II through XII grossly intact. Psychiatry: Normal mood. Normal affect. Not depressed. Not anxious. Results Lab / Micro Data 12/06/22 17:10 12/06/22 17:10 Labs: Laboratory Results - last 24 hr 12/06/22 17:10: WBC 12.7 H, RBC 4.70, Hgb 12.0, Hct 38.5, MCV 81.9, MCH 25.5 L, MCHC 31.2 L, RDW Std Deviation 50.8 H, RDW Coeff of Marsha 17.1 H, Plt Count 773 H* , MPV 7.9, Immature Gran % (Auto) 0.500, Neut % (Auto) 85.1 H, Lymph % (Auto) 9.4 L, [place] % (Auto) 4.3, Eos % (Auto) 0.1, Baso % (Auto) 0.6, Absolute Neuts (auto) 10.8 H, Absolute Lymphs (auto) 1.20, Nucleated RBC % 0, Diff Path Review May foll, Sodium 137, Potassium 3.6, Chloride 106, Carbon Dioxide 23.0, Anion Gap 8, BUN 14, Creatinine 0.69, Estim Creat Clear Calc 63.79, Est GFR (MDRD) Af Amer 111, Est GFR (MDRD) Non-Af 92, BUN/Creatinine Ratio 20.4 H, Glucose 104, Calcium 9.4 Radiology Impression KUB X-Ray 12/06/22 15:40 IMPRESSION: Moderate amount of gas throughout the colon. Electronically Signed: Viridiana Hooks MD at 16:10 EDT , Abdomen/Pelvis CT 12/06/22 16:53 IMPRESSION: Limited examination given the lack of intravenous and oral contrast and significant beam hardening artifact secondary to bilateral hip arthroplasties demonstrating a dilated colon with a questionable transition point within the mid/lower colon, concerning for an obstruction or possible ileus, consider repeat examination with IV and oral contrast for further characterization. Electronically Signed: Viridiana Hooks MD at 17:49 EDT , Assessment & Plan Assessment/Plan (1) Constipation: QUALIFIERS: Constipation type: drug induced constipation Quali fied Code(s): K59.03 - Drug induced constipation (2) Abdominal pain: QUALIFIERS: Abdominal location: right upper quadrant Qualified Code(s): R10.11 - Right upper quadrant pain (3) Thrombocytosis: PLAN: Plan Constipation Per General surgery recommendation will repeat Fleet enema in a.m. Radiologist impression of CT scan of abdomen and pelvis: Limited examination given the lack of intravenous and oral contrast and significant beam hardening artifact secondary to bilateral hip arthroplasties demonstrating a dilated colon with a questionable transition point within the mid/lower colon, concerning for an obstruction or possible ileus, consider repeat examination with IV and oral contrast for further characterization. Abdomen/pelvis CT was independently interpreted. Dilated bowels seen. Transition point not appreciated. General surgery recommendations as above. CBC showed white count of 12,700. Platelet count of 773,000. Likely reactive. Trend. DVT prophylaxis Subcutaneous Lovenox ordered. Time spent in the patient's overall evaluation,decision-making process, review of diagnostic data, adjustment of management, discussion with other providers, nursing and ancillary staff involved in patient's care documentation, 45 minutes. Charges/Coding Visit Charges Inpatient E&M: 32644 Init Hosp L2
[2022-12-06 19:58] VITALS: BP 156/83; PULSE 95; RESP 18; TEMP 37; O2SAT 97
[2022-12-06 21:03] VITALS: BP 172/85; PULSE 100; RESP 18; TEMP 36.4; O2SAT 97
[2022-12-06 21:08] VITALS: BP 172/85; PULSE 100; RESP 18; TEMP 37.1; O2SAT 97
[2022-12-06] MEDS: Acetaminophen 325 MG Tablet 650 MG PO (21:22)
[2022-12-06] MEDS: Ondansetron 4 MG/2 ML Vial IV (21:23)
[2022-12-06] MEDS: 0.9% Saline Lock 10 ML Syringe IV (21:24)
[2022-12-06 21:32] VITALS: BMI 35.2
[2022-12-07] MEDS: MELATONIN 3 MG TABLET PO (01:25)
[2022-12-07 03:00] VITALS: BP 168/81; PULSE 98; RESP 16; RESP 18; TEMP 37.1; O2SAT 96
[2022-12-07] MEDS: Acetaminophen 325 MG Tablet 650 MG PO ×2 (03:27→19:56)
[2022-12-07] MEDS: 0.9% Normal Saline (1000mL) 1,000 ML 125 ML IV ×2 (05:34→13:35)
[2022-12-07] MEDS: Fleet Enema 1 ML RC (05:45)
[2022-12-07 07:28] LABS: Absolute Lymphocyte Count 1.81 X10^3/uL (0.83-4.51); Absolute Neutrophil Count 7.7 X10^3/uL (2.0-7.7); Basophil# 0.09 X10^3/uL; Basophil% 0.9 % (0-1); Eosinophil# 0.09 X10^3/uL; Eosinophils% 0.9 % (0-5); Hematocrit 34.5 % (37-47); Hemoglobin 10.4 g/dL (12.0-15.0); Lymphocyte # 1.81 X10^3/ul (0.83-4.51); Lymphocyte % 17.4 % (19-41); Mean Corp Hgb Conc 30.1 g/dL (32-36); Mean Corpuscular Hgb 25.2 pg (27.0-32.0); Mean Corpuscular Volume 83.7 fL (81-99); Monocyte# 0.64 X10^3/uL; Monocyte% 6.2 % (0-10); NRBC Flagged by Analyzer 0 % (0-5); Neutrophil # 7.71 X10^3/uL (2.7-7.7); Neutrophil % 74.2 % (47-70); POSITIVE COUNT YES; RBC Distribution Width CV 17.2 % (11.6-14.6); RBC Distribution Width SD 52.7 fl (35.1-43.9); Red Blood Count 4.12 M/mm3 (4.2-5.4); White Blood Count 10.4 K/mm3 (4.4-11.0)
[2022-12-07 07:49] LABS: Differential Indicated SCAN CRITERIA MET; Platelet Count 762 K/mm3 (150-450)
[2022-12-07 07:50] LABS: Anion Gap 8 (5-15); BUN 11 mg/dL (7-18); BUN/Creat Ratio 17.2 RATIO (10-20); Calcium,Total 8.7 mg/dL (8.5-10.1); Chloride 109 mmol/L (98-107); Creatinine, Serum 0.64 mg/dL (0.55-1.02); EST Glomerular Filtration Rate 100 mL/min (>60); Est Glom Filt Rate - Afr Amer 121 mL/min (>60); Estimated Creatinine Clearance 68.77 ml/min; Glucose 104 mg/dL (74-106); Potassium 3.5 mmol/L (3.5-5.1); Sodium Level 140 mmol/L (136-145)
[2022-12-07 08:45] LABS: Platelet Count 766 K/mm3 (150-450); RET-HE 26.6 pg (30-35); Reticulocyte Count 2.68 % (0.5-1.5)
[2022-12-07 09:02] LABS: Ferritin 44 ng/mL (8-252); Iron 31 ug/dL (50-170); Iron Binding Capacity,Total 308 ug/dL (250-450); PERCENT IRON SATURATION 10.1 % (15.0-55.0)
[2022-12-07 09:26] LABS: Platelet Estimate MKD INC (ADEQ)
[2022-12-07 10:00] VITALS: BP 144/84; PULSE 98; RESP 16; TEMP 36.9; O2SAT 98
[2022-12-07] MEDS: Etodolac 200 MG Capsule 400 MG PO (10:39)
[2022-12-07] MEDS: Aspirin E.C. 81 MG Tablet PO ×2 (10:39→18:14)
[2022-12-07] MEDS: Enoxaparin 40 MG/0.4 ML Syringe SC (10:39)
[2022-12-07] MEDS: Polyethylene Glycol 3350 17 GM PACKET PO ×2 (12:24→22:03)
[2022-12-07] MEDS: Ondansetron 4 MG/2 ML Vial IV (12:24)
[2022-12-07] MEDS: 0.9% Saline Lock 10 ML Syringe IV (12:25)
[2022-12-07 16:00] VITALS: BP 144/82; PULSE 85; RESP 16; TEMP 36.9; O2SAT 98
--- NOTE | 2022-12-07 17:01 | PCM.PN.HOSP ---
Reason for Visit Reason for Visit: Constipation Subjective Subjective Mrs. Chapman is a 62-year-old white female who came to the emergency department for constipation. She has a history of chronic constipation due to IBS and takes Linzess to 3 times a week. She had a total knee arthroplasty done on 11/21/2022 and has been on oxycodone with decreased mobility and decreased fluid intake since that point time. She reports she has a 3-day history of constipation. She was at [place] emergency department 2 times because of her constipation. Initially they gave her Benadryl and the second time she was given a fleets enema then discharged home on mag citrate. She had not been taking any stool softeners prior to this. She states she eats prunes intermittently but does not like prune juice. KUB in the emergency department showed moderate gas throughout the colon and general surgery was called by the emergency department physician. They recommended a CT scan of the abdomen pelvis was performed and this showed limited examination due to lack of contrast however there was some concern of obstruction. The images were reviewed by general surgery and they feel that she has a large stool burden that is causing the obstruction and there is no mechanical etiology for this other than stool. Objective Data Objective Data Vital Signs: Vital Signs Temp Pulse Resp BP Pulse Ox O2 Del Method 98.5 F 98 16 144/84 H 88 Room Air 12/07/22 10:00 12/07/22 10:00 12/07/22 10:00 12/07/22 10:00 12/07/22 10:00 12/07/22 10:00 Oxygen Delivery Method Room Air Weight: 84.5 kg Body Mass Index (BMI) 35.2 Intake & Output: Intake and Output for Last 24 Hours 12/05/22 12/06/22 12/07/22 23:59 23:59 23:59 Intake Total 1000 / 1100 2200 / 2200 Balance 1000 / 1100 2200 / 2200 Lab / Micro Data 12/07/22 06:35 12/07/22 06:35 Labs: Laboratory Results - last 24 hr 12/06/22 17:10: WBC 12.7 H, RBC 4.70, Hgb 12.0, Hct 38.5, MCV 81.9, MCH 25.5 L, MCHC 31.2 L, RDW Std Deviation 50.8 H, RDW Coeff of Marsha 17.1 H, Plt Count 773 H*, MPV 7.9, Immature Gran % (Auto) 0.500, Neut % (Auto) 85.1 H, Lymph % (Auto) 9.4 L, [place] % (Auto) 4.3, Eos % (Auto) 0.1, Baso % (Auto) 0.6, Absolute Neuts (auto) 10.8 H, Absolute Lymphs (auto) 1.20, Nucleated RBC % 0, Diff Path Review July abhijit, Sodium 137, Potassium 3.6, Chloride 106, Carbon Dioxide 23.0, Anion Gap 8, BUN 14, Creatinine 0.69, Estim Creat Clear Calc 63.79, Est GFR (MDRD) Af Amer 111, Est GFR (MDRD) Non-Af 92, BUN/Creatinine Ratio 20.4 H, Glucose 104, Calcium 9.4 12/07/22 06:35: WBC 10.4, RBC 4.12 L, Hgb 10.4 L, Hct 34.5 L, MCV 83.7, MCH 25.2 L, MCHC 30.1 L, RDW Std Deviation 52.7 H, RDW Coeff of Marsha 17.2 H, Plt Count 762 H*, MPV 8.0, Immature Gran % (Auto) 0.400, Neut % (Auto) 74.2 H, Lymph % (Auto) 17.4 L, [place] % (Auto) 6.2, Eos % (Auto) 0.9, Baso % (Auto) 0.9, Absolute Neuts (auto) 7.7, Absolute Lymphs (auto) 1.81, Nucleated RBC % 0, Diff Path Review July abhijit, Platelet Estimate MKD INC, Retic Count 2.68 H, Immature Retic Fraction 24.60 H, Retic Hgb Equivalent 26.6 L, Sodium 140, Potassium 3.5, Chloride 109 H, Carbon Dioxide 23.0, Anion Gap 8, BUN 11, Creatinine 0.64, Estim Creat Clear Calc 68.77, Est GFR (MDRD) Af Amer 121, Est GFR (MDRD) Non-Af 100, BUN/Creatinine Ratio 17.2, Glucose 104, Calcium 8.7, Iron 31 L, TIBC 308, Iron Saturation 10.1 L, Ferritin 44 Radiography Diagnostic Testing: Radiology Impression Abdomen/Pelvis CT 12/06/22 16:53 IMPRESSION: Limited examination given the lack of intravenous and oral contrast and significant beam hardening artifact secondary to bilateral hip arthroplasties demonstrating a dilated colon with a questionable transition point within the mid/lower colon, concerning for an obstruction or possible ileus, consider repeat examination with IV and oral contrast for further characterization. Electronically Signed: Viridiana Hooks MD at 17:49 EDT , Physical Exam Const alert, oriented x3, healthy appearing and well nourished Constitutional Narrative: Tearful, upper middle-aged, obese, white female, sitting up in bed, appears comfortable and nontoxic however quite emotional HEENT head/scalp atraumatic and moist oral mucous membranes HEENT Narrative: Mallampati 3, no thrush Head and Scalp: normocephalic Resp normal respiratory effort, no retractions, no use of accessory muscles and clear to auscultation bilaterally Auscultation: Negative for rales, rhonchi or wheezes Cardio regular rate, regular rhythm, S1 normal heart sound, S2 normal heart sound, no murmurs, no rub, no gallops and no clicks GI soft to palpation GI Narrative: Mild distention but abdomen is not tense, mild diffuse tenderness with no focal point tenderness, bowel sounds are normoactive Extremity no clubbing, cyanosis or edema Extremity Narrative: Pedal pulses are 2+, right knee incision appears to be healing well, appears that there is just about full extension but flexion seems to be limited to 45 to 60 degrees at this time Neuro oriented x3, moves all extremities and no focal motor deficits Speech: speech normal Psych Psych Narrative: Affect is flat and mood is depressed, patient is tearful during our conversation Assessment & Plan Assessment/Plan (1) Constipation: QUALIFIERS: Constipation type: drug induced constipation Qualified Code(s): K59.03 - Drug induced constipation (2) Abdominal pain: QUALIFIERS: Abdominal location: right upper quadrant Qualified Code(s): R10.11 - Right upper quadrant pain (3) Thrombocytosis: PLAN: Plan Abdominal pain secondary to constipation -Constipation is likely multifactorial related to her baseline tendencies towards constipation with IBS, decreased water intake, decreased activity, and narcotic use -Patient has not really been on a bowel regimen at home -Start MiraLAX 17 g twice daily -We will give 2 doses of lactulose -Start Dulcolax -Continue enemas to help clean up the stool and hopefully help stimulate gut motility -Once patient is having bowel movements and eating I think we can get her home Thrombocytosis -Suspect reactive -We do not have any baseline lab on her previous to yesterday and about the last 9 years -We will repeat in a.m. Leukocytosis -Resolved Anemia -Mild -May be related to recent surgery -Baseline is unclear -Was 12 on admission but did get IV fluids -I did obtain iron studies and they do appear to be low with a total iron of 31 TIBC of 308 and iron saturation of 10.1 -I will dose some IV iron and start her on some oral iron but will have to discuss with her the impact of oral iron on constipation as well prior to discharge IBS -Continue Linzess after discharge Right knee osteoarthritis with recent right knee arthroplasty -Surgical date was 11/21/2022 -We will have PT/OT see her tomorrow if she is not able to go home -Recommend outpatient follow-up History of C. difficile with diarrhea -No current concerns DVT prophylaxis -Continue enoxaparin daily -We will continue aspirin 81 mg p.o. twice daily at discharge CODE STATUS -Full code Charges/Coding Visit Charges Inpatient E&M: 68006 Subs Hosp L2
[2022-12-07] MEDS: Sodium Ferric Gluconat/Sucrose 250 MG in 0.9% Normal Saline (250mL Bag) 250 ML 135 MG IV (18:11)
[2022-12-07 20:10] VITALS: BP 184/91; PULSE 85; RESP 18; TEMP 36.8; O2SAT 97
[2022-12-07 20:12] VITALS: O2SAT 97
--- NOTE | 2022-12-07 20:17 | NURSING ---
Pt refused 2200 and 0600 enemas as she states she has had seven already and is very sore. Educated on need for enemas, states she will drink the lactolose.
[2022-12-07 21:07] VITALS: BP 184/91; PULSE 85
[2022-12-07] MEDS: hydrALAZINE 20 MG/ML Vial 5 MG IV (21:07)
[2022-12-07] MEDS: Lactulose 20 GM/30 ML UDC PO (22:03)
[2022-12-08] MEDS: Ondansetron 4 MG/2 ML Vial IV (01:23)
[2022-12-08] MEDS: 0.9% Saline Lock 10 ML Syringe IV ×2 (01:26→03:21)
[2022-12-08 02:45] VITALS: BP 169/89; PULSE 82; RESP 16; TEMP 36.3; O2SAT 99
[2022-12-08 03:16] VITALS: BP 161/79; PULSE 84
[2022-12-08 03:18] VITALS: BP 161/79; PULSE 84
[2022-12-08] MEDS: hydrALAZINE 20 MG/ML Vial 5 MG IV (03:18)
[2022-12-08 05:16] VITALS: BP 157/80; PULSE 96; RESP 18; TEMP 36.4; O2SAT 96
[2022-12-08] MEDS: Acetaminophen 325 MG Tablet 650 MG PO (05:20)
[2022-12-08 06:52] LABS: Absolute Lymphocyte Count 1.59 X10^3/uL (0.83-4.51); Absolute Neutrophil Count 5.2 X10^3/uL (2.0-7.7); Basophil# 0.11 X10^3/uL; Basophil% 1.4 % (0-1); Eosinophil# 0.26 X10^3/uL; Eosinophils% 3.3 % (0-5); Hematocrit 34.6 % (37-47); Hemoglobin 10.4 g/dL (12.0-15.0); Lymphocyte # 1.59 X10^3/ul (0.83-4.51); Lymphocyte % 20.2 % (19-41); Mean Corp Hgb Conc 30.1 g/dL (32-36); Mean Corpuscular Hgb 25.1 pg (27.0-32.0); Mean Corpuscular Volume 83.4 fL (81-99); Mean Platelet Vol. 7.9 fl (6.2-12.0); Monocyte% 8.9 % (0-10); NRBC Flagged by Analyzer 0 % (0-5); Neutrophil # 5.16 X10^3/uL (2.7-7.7); Neutrophil % 65.7 % (47-70); Platelet Count 694 K/mm3 (150-450); RBC Distribution Width CV 17.1 % (11.6-14.6); RBC Distribution Width SD 51.8 fl (35.1-43.9); Red Blood Count 4.15 M/mm3 (4.2-5.4); White Blood Count 7.9 K/mm3 (4.4-11.0)
[2022-12-08 10:07] VITALS: BP 117/64; PULSE 90; RESP 18; TEMP 36.8; O2SAT 97
[2022-12-08] MEDS: Etodolac 200 MG Capsule 400 MG PO (10:14)
[2022-12-08] MEDS: Polyethylene Glycol 3350 17 GM PACKET PO (10:14)
[2022-12-08] MEDS: Aspirin E.C. 81 MG Tablet PO (10:14)
--- NOTE | 2022-12-08 10:49 | PCM.DC.SUM ---
Providers Date of Admission: 12/06/22 Date of Discharge: 12/08/22 Primary Care Physician: Dr. Yuliya Vasquez DO Reason For Visit: CONSTIPATION Diagnosis Discharge Diagnosis (1) Constipation: Status: Acute Code(s): K59.00 - Constipation, unspecified Qualifiers: Constipation type: drug induced constipation Qualified Code(s): K59.03 - Drug induced constipation (2) Abdominal pain: Status: Acute Code(s): R10.9 - Unspecified abdominal pain Qualifiers: Abdominal location: right upper quadrant Qualified Code(s): R10.11 - Right upper quadrant pain (3) Thrombocytosis: Status: Acute Code(s): D75.839 - Thrombocytosis, unspecified Medications at Discharge Home Medications etodolac 400 mg tablet 400 mg PO DAILY #180 tabs 12/12/18 albuterol sulfate 90 mcg/actuation aerosol inhaler 1 - 2 puff inhalation Q6H PRN PRN Sob &/Or Wheezing 05/21/19 aspirin 81 mg tablet,delayed release (Adult Aspirin Regimen) 81 mg PO BID 12/06/22 linaclotide .ROUTE 12/06/22 ferrous sulfate 325 mg (65 mg iron) tablet (FeroSul) 325 mg PO 1200,1700 #60 tabs 12/08/22 polyethylene glycol 3350 17 gram oral powder packet 17 g PO BID #0 ea 12/08/22 Hospital Course Operations None Procedures - (KUB/CT abdomen pelvis) Summary of Care Provided Minutes Spent on Discharge: 30 Hospital Course: Mrs. Chapman is a 62-year-old white female who came to the emergency department for constipation. She has a history of chronic constipation due to IBS and takes Linzess to 3 times a week. She had a total knee arthroplasty done on 11/21/2022 and has been on oxycodone with decreased mobility and decreased fluid intake since that point time. She reports she has a 3-day history of constipation. She was at [place] emergency department 2 times because of her constipation. Initially they gave her Benadryl and the second time she was given a fleets enema then discharged home on mag citrate. She had not been taking any stool softeners prior to this. She states she eats prunes intermittently but does not like prune juice. KUB in the emergency department showed moderate gas throughout the colon and general surgery was called by the emergency department physician. They recommended a CT scan of the abdomen pelvis was performed and this showed limited examination due to lack of contrast however there was some concern of obstruction. The images were reviewed by general surgery and they feel that she has a large stool burden that is causing the obstruction and there is no mechanical etiology for this other than stool. She received multiple enemas and was placed on an aggressive bowel regimen with MiraLAX twice daily, Dulcolax, and received 1 dose of lactulose. We were finally able to get a nice large bowel movement overnight from 12/07/2022 to 12/08/2022 and her abdominal pain had significantly improved. We did note that she had a thrombocytosis and a mild anemia. Hemoglobin was 10.4 and stable while she was hospitalized. I did assess iron studies and her iron studies are consistent with iron deficiency anemia. She was given 1 dose of IV iron and discharged home on ferrous sulfate 325 mg p.o. twice daily. We did advise her that this could worsen constipation and also make her stool dark. She was encouraged to use MiraLAX 17 g twice daily and decrease to once daily if she started having loose stool or diarrhea. I recommended a repeat CBC to be done in the next month after she has had 1 month of iron supplementation. I have asked her to take her iron supplementation with orange juice to improve absorption. I suspect this is likely related to her recent knee surgery however if it does not improve she may need to pursue colonoscopy if she has not done one recently. I have asked her to follow-up with her primary care physician within the next 2 weeks. She is to continue her physical therapy for her right knee and follow-up with orthopedic surgery as previously scheduled. She was able to be discharged home in stable condition on 12/08/2022. Discharge diagnoses: Abdominal pain Severe constipation Thrombocytosis Leukocytosis-resolved Iron deficiency anemia IBS Right knee osteoarthritis status post right knee total arthroplasty History of C. difficile colitis Weight / BMI Weight Weight: 84.5 kg Body Mass Index (BMI) 35.2 ABG / Lab / Microbiology Data 12/08/22 06:20 12/07/22 06:35 Laboratory: Laboratory Results - last 24 hr 12/08/22 06:20: WBC 7.9, RBC 4.15 L, Hgb 10.4 L, Hct 34.6 L, MCV 83.4, MCH 25.1 L, MCHC 30.1 L, RDW Std Deviation 51.8 H, RDW Coeff of Marsha 17.1 H, Plt Count 694 H, MPV 7.9, Immature Gran % (Auto) 0.500, Neut % (Auto) 65.7, Lymph % (Auto) 20.2, [place] % (Auto) 8.9, Eos % (Auto) 3.3, Baso % (Auto) 1.4 H, Absolute Neuts (auto) 5.2, Absolute Lymphs (auto) 1.59, Nucleated RBC % 0 D/C Instructions Discharge Diet: No restrictions Discharge Activity: Return to Normal Activity Meaningful Use Info Meaningful Use Diagnoses (Choose all that apply): None applicable Discharge Plan Admission Admit Date/Time: 12/06/22 19:37 Primary Reason for Your Visit: Constipation Attending Provider: Florencia Kim Primary Care Provider: Yuliya Vasquez Consulting Providers: Wilfrid Ruelas Instructions Additional Instructions / Restrictions: 1. Please take MiraLAX 17 g twice daily and continue unless having significantly loose stool. If that occurs, decrease to once daily and may stop altogether if loose stool or diarrhea continues. 2. Would recommend continuing some sort of stool softener while on narcotics and having decreased mobility 3. Your blood counts were found to be slightly low and I assessed iron studies. Your iron was found to be a bit low so I did start iron tablets. I would continue this for 1 month supply and then have your primary care physician repeat a complete blood count to reassess your anemia. Your hemoglobin at the time of discharge was stable at 10.4. Iron can make you constipated and make your stool a bit darker than normal so please be aware of this. 4. Please take your iron with orange juice to help with absorption Discharge Orders/Prescriptions Prescriptions: New ferrous sulfate [FeroSul] 325 mg (65 mg iron) Tablet 325 mg PO 1200,1700 Qty: 60 0RF polyethylene glycol 3350 17 gram Powder In Packet 17 g PO BID Qty: 0 0RF Continued etodolac 400 mg tablet 400 mg PO DAILY Qty: 180 albuterol sulfate 1 PUFF inhaler 1 - 2 puff inhalation Q6H PRN PRN (Reason: Sob &/Or Wheezing) linaclotide [Linzess] .ROUTE aspirin [Adult Aspirin Regimen] 81 mg tablet,delayed release (DR/EC) 81 mg PO BID Referrals / Follow Up: Yuliya Vasquez DO [Primary Care Provider] - Within 2 Weeks Disposition Disposition (needs filled in before D/C Order can be placed): Home, Self Care Charges/Coding Visit Charges Inpatient E&M: 36837 Disch Hosp
--- NOTE | 2022-12-08 11:20 | CASEMGMT ---
Patient has order for discharge. RN CM in to discuss needs at discharge. Patient denies needs at discharge. Patient had no further questions or concerns.
[2022-12-08] MEDS: Ferrous Sulfate 325 MG Tablet PO (11:34)
[2022-12-11 09:38] LABS: Pathologist Review Reviewed
[2022-12-11 09:39] LABS: Pathologist Review Reviewed
== END 2022-12-08 12:00 | disposition home or self-care (01) ==
LOC: ED 19:42 → PCU 20:48
PROVIDERS: Admitting Provider Hospitalist; Emergency Provider Emergency Medicine; PCP Family Medicine; Visit Provider Internal Medicine
DX: K59.03 Drug induced constipation (principal); R11.0 Nausea; D50.9 Iron deficiency anemia, unspecified; I10 Essential (primary) hypertension; K58.1 Irritable bowel syndrome with constipation; T50.905A Adverse effect of unspecified drugs, medicaments and biological substances, initial encounter; Z79.82 Long term (current) use of aspirin; Z79.899 Other long term (current) drug therapy; D75.839 Thrombocytosis, unspecified; R10.11 Right upper quadrant pain; Z98.890 Other specified postprocedural states
CPT/HCPCS: 36415; 74018; 74176; 80048; 82728; 83540; 83550; 85025; 85045; 96361; 96365; 96366; 96372; 96375; 96376; 97802; 99221; 99285; J7030; J7050; A4216; G0378; J2405; J2916

== ENCOUNTER → 2023-10-18 | Outpatient (CLI) | payer BC, SELFPAY ==
[2023-10-18 09:58] LABS: Absolute Lymphocyte Count 2.19 X10^3/uL (0.83-4.51); Absolute Neutrophil Count 3.9 X10^3/uL (2.0-7.7); Basophil# 0.09 X10^3/uL; Basophil% 1.3 % (0-1); Eosinophil# 0.28 X10^3/uL; Hematocrit 43.2 % (37-47); Hemoglobin 13.9 g/dL (12.0-15.0); Lymphocyte # 2.19 X10^3/ul (0.83-4.51); Lymphocyte % 31.2 % (19-41); Mean Corp Hgb Conc 32.2 g/dL (32-36); Mean Corpuscular Hgb 27.9 pg (27.0-32.0); Mean Corpuscular Volume 86.6 fL (81-99); Mean Platelet Vol. 8.2 fl (6.2-12.0); Monocyte# 0.57 X10^3/uL; Monocyte% 8.1 % (0-10); NRBC Flagged by Analyzer 0 % (0-5); Neutrophil # 3.86 X10^3/uL (2.7-7.7); Neutrophil % 55.1 % (47-70); Platelet Count 361 K/mm3 (150-450); RBC Distribution Width CV 13.2 % (11.6-14.6); Red Blood Count 4.99 M/mm3 (4.2-5.4)
[2023-10-18 10:24] LABS: ALB/GLOB Ratio 0.9 RATIO (0.9-2.4); AST(SGOT) 17 U/L (15-37); Alanine Aminotransfer ALT/SGPT 24 U/L (13-56); Albumin, Serum 3.5 g/dL (3.2-5.0); Alkaline Phosphatase 101 U/L (45-117); Anion Gap 5 (5-15); BUN 15 mg/dL (7-18); BUN/Creat Ratio 16.3 RATIO (10-20); Calcium,Total 9.5 mg/dL (8.5-10.1); Chloride 111 mmol/L (98-107); Cholesterol 199 mg/dL (200); Creatinine, Serum 0.92 mg/dL (0.55-1.02); EST Glomerular Filtration Rate 65 mL/min (>60); Est Glom Filt Rate - Afr Amer 79 mL/min (>60); Free T3 2.3 pg/mL (2.18-3.98); Globulin 3.8 g/dL (2.2-4.2); Glucose 89 mg/dL (74-106); High Density Lipoprotein 64 mg/dL; Protein, Total 7.3 g/dL (6.4-8.2); Sodium Level 143 mmol/L (136-145); T4 Free Direct 1.08 ng/dL (0.76-1.46); Thyroid Stim Hormone (TSH) 0.81 uIU/mL (0.358-3.74); Triglycerides 67 mg/dL; Very Low Density Lipoprotein 13 mg/dL (5-40)
== END | disposition home or self-care (01) ==
LOC: MTLAB 07:02
PROVIDERS: PCP Family Medicine; Referring Provider Family Medicine; Visit Provider Family Medicine
DX: E03.9 Hypothyroidism, unspecified (principal); E78.5 Hyperlipidemia, unspecified; R53.83 Other fatigue
CPT/HCPCS: 36415; 80053; 80061; 84439; 84443; 84481; 85025

== ENCOUNTER → 2023-11-16 | Outpatient (CLI) | payer BC, SELFPAY ==
--- NOTE | 2023-11-16 07:09 | BI_ITS ---
MAMMOGRAPHY - BILATERAL SCREENING REASON FOR EXAM: Female, 63 years old. Routine annual screening examination. PERTINENT HISTORY: Mother with breast cancer. TECHNIQUE: Digital bilateral breast bello (3D mammographic acquisition) in the CC and MLO projections. 2-D mediolateral oblique (MLO) and craniocaudad (CC) views of both breasts were obtained. CAD: Full Field Digital Mammography with Computer Added Detection was performed. COMPARISON: Comparison is made with prior study dated November 14, 2022 and October 17, 2021. FINDINGS: Breast Composition: The breasts are heterogeneously dense, which may obscure small masses. There are no dominant masses or suspicious calcifications. Stable small benign appearing bilateral axillary lymph nodes. No other significant abnormalities are identified. There has been no significant change since the prior study. BI/SCRN MAMM (CAD)W/BELLO BILAT IMPRESSION: Stable bilateral screening mammogram. Yearly follow-up mammogram recommended. (A) ASSESSMENT CATEGORY: BIRADS Category 2: Benign. A letter regarding these results will be sent to the patient by the facility within 30 days. Approximately 10% of breast cancers are not detected by mammography. A normal mammogram should not delay biopsy of a clinically suspicious abnormality. [id number] Electronically Signed: Denys Radford MD at 7:50 EDT ,
== END | disposition home or self-care (01) ==
PROVIDERS: PCP Family Medicine; Referring Provider Family Medicine; Visit Provider Family Medicine
DX: Z12.31 Encounter for screening mammogram for malignant neoplasm of breast (principal); Z80.3 Family history of malignant neoplasm of breast
CPT/HCPCS: 77063; 77067

== ENCOUNTER → 2024-01-29 | Outpatient (CLI) | payer BC, SELFPAY ==
--- NOTE | 2024-01-29 10:44 | RAD_ITS ---
STUDY: X-RAY - ABDOMEN/PELVIS REASON FOR EXAM: Female, 63 years old. KUB- STONES TECHNIQUE: Single AP view of the abdomen / pelvis. COMPARISON: 12/06/2022 FINDINGS: Status post cholecystectomy. There is an unremarkable bowel gas pattern. The visualized liver, spleen and kidneys are grossly normal in size and morphology. Normal soft tissue structures. Status post bilateral total hip arthroplasty. RAD/Abdomen Single View IMPRESSION: Normal x-ray examination of the abdomen and pelvis. Electronically Signed: Geovany Hutson MD at 9:40 EST ,
[2024-01-29 12:07] LABS: Absolute Lymphocyte Count 1.94 X10^3/uL (0.83-4.51); Absolute Neutrophil Count 7.2 X10^3/uL (2.0-7.7); Basophil# 0.04 X10^3/uL; Basophil% 0.4 % (0-1); Eosinophil# 0.17 X10^3/uL; Eosinophils% 1.7 % (0-5); Hematocrit 40.8 % (37-47); Hemoglobin 12.9 g/dL (12.0-15.0); Lymphocyte # 1.94 X10^3/ul (0.83-4.51); Lymphocyte % 19.2 % (19-41); Mean Corp Hgb Conc 31.6 g/dL (32-36); Mean Corpuscular Hgb 27.9 pg (27.0-32.0); Mean Corpuscular Volume 88.3 fL (81-99); Mean Platelet Vol. 8.3 fl (6.2-12.0); Monocyte# 0.75 X10^3/uL; Monocyte% 7.4 % (0-10); NRBC Flagged by Analyzer 0 % (0-5); Neutrophil # 7.21 X10^3/uL (2.7-7.7); Neutrophil % 71.1 % (47-70); Platelet Count 393 K/mm3 (150-450); RBC Distribution Width SD 41.7 fl (35.1-43.9); Red Blood Count 4.62 M/mm3 (4.2-5.4); White Blood Count 10.1 K/mm3 (4.4-11.0)
[2024-01-29 12:30] LABS: AST(SGOT) 24 U/L (15-37); Alanine Aminotransfer ALT/SGPT 36 U/L (13-56); Albumin, Serum 3.8 g/dL (3.2-5.0); Alkaline Phosphatase 101 U/L (45-117); Amylase 57 U/L (25-115); Anion Gap 9 (5-15); BUN 14 mg/dL (7-18); BUN/Creat Ratio 16.5 RATIO (10-20); Calcium,Total 9.5 mg/dL (8.5-10.1); Chloride 108 mmol/L (98-107); Creatinine, Serum 0.85 mg/dL (0.55-1.02); EST Glomerular Filtration Rate 72 mL/min (>60); Est Glom Filt Rate - Afr Amer 87 mL/min (>60); Globulin 3.7 g/dL (2.2-4.2); Glucose 93 mg/dL (74-106); Lipase 24 U/L (13-75); Potassium 3.7 mmol/L (3.5-5.1); Protein, Total 7.5 g/dL (6.4-8.2); Sodium Level 140 mmol/L (136-145)
== END | disposition home or self-care (01) ==
PROVIDERS: PCP Nurse Practitioner Family; Referring Provider Nurse Practitioner Family; Visit Provider Nurse Practitioner Family
DX: R10.12 Left upper quadrant pain (principal); M54.6 Pain in thoracic spine
CPT/HCPCS: 36415; 74018; 80053; 82150; 83690; 85025

== ENCOUNTER → 2024-02-04 | Outpatient (CLI) | payer BC, SELFPAY ==
--- NOTE | 2024-02-04 14:02 | CT_ITS ---
STUDY: CT ABDOMEN AND PELVIS WITHOUT CONTRAST REASON FOR EXAM: Female, 63 years old. ASSESS FOR KIDNEY STONES OR ANY ABNORMALITIES RADIATION DOSAGE (If Supplied By Facility): CTDIvol = ( 19.5 ) mGy, DLP = ( 867.04 ) mGycm TECHNIQUE: Transaxial images were obtained from the dome of the diaphragm to the symphysis pubis without oral contrast, and without intravenous contrast. Sagittal and coronal images were reconstructed. Individualized dose optimization techniques were used for this CT. COMPARISON: Comparison is made with prior study dated December 06, 2022. FINDINGS: The visualized lung bases are unremarkable. The visualized portions of the heart are within normal limits. Normal liver. There are surgical clips in the gallbladder fossa consistent with a prior cholecystectomy. Normal spleen. Normal pancreas. Normal bilateral adrenal glands. Normal right kidney. Normal left kidney. There is a small hiatal hernia. Normal small intestine. Normal colon. The appendix is visualized and appears normal. Normal abdominal aorta. Normal inferior vena cava. Normal retroperitoneum. Normal urinary bladder. Normal abdominal wall. Status post bilateral total hip replacement limits the evaluation of pelvic structures. CT/Abdomen/Pelvis without Cont IMPRESSION: No renal calcification is seen. Status post cholecystectomy. Electronically Signed: Denys Radford MD at 15:33 EST ,
== END | disposition home or self-care (01) ==
PROVIDERS: PCP Nurse Practitioner Family; Referring Provider Nurse Practitioner Family; Visit Provider Nurse Practitioner Family
DX: R10.9 Unspecified abdominal pain (principal); M54.6 Pain in thoracic spine
CPT/HCPCS: 74176

== ENCOUNTER → 2024-02-12 | Outpatient (CLI) | payer BC, SELFPAY ==
--- NOTE | 2024-02-12 | CYSPIN_PTH ---
PATIENT: JOSESITO EASLEY LOC: [place] U#:[id number] AGE/SX: 63/F ROOM: RE02/12/[address]: SUSAN Prabhakar : 1960 BED: DIS: 02/12/2024 SPEC #: [id number] RECD: 02/12/24 15:00 STATUS: HOANG CHERRY #: [id number] ANIYA: 02/12/24 00:[address]: Jayda Jolly DEPT: CYTOLOGY RECD BY: José Miguel Schroeder Tissues: Urine Procedures: Pap Stain (control) Special Stain Group II Cytospin Fluid HEADER OPERATION: Not noted PRE-OP DIAGNOSIS: Hematuria TISSUE SUBMITTED: Urine for cytology DIAGNOSIS CYTOLOGY Urine for cytology (cytospin): Negative for high grade urothelial carcinoma (NHGUC), Livia System category II. See lagn. 02/13/2024 COMMENT This specimen predominantly consists of squamous epithelial cells. The Livia System for urine cytology diagnostic categorization was used in the evaluation of this case. CYTOLOGY STUDY Slides are reviewed. CYTOLOGY GROSS Received is 5 ml of hazy-yellow fluid labeled with the patient's name and and designated per the requisition as urine. Submitted for cytology preparation. 02/13/2024 TC:4 CPT: 10357
[2024-02-12 13:22] LABS: Cytology, Body Fluid / CSF SEE PATHOLOGY REPORT
[2024-02-12 16:32] LABS: Color, Urine Straw (Yellow); Glucose, Dipstick Normal (Normal); Ketone-Dipstick Negative (Negative); Leukocyte Esterase-Dipstick Negative /ul (Negative); Nitrite-Dipstick Negative (Negative); Occult Blood-Urine 50 /ul (Negative); Protein-Dipstick Negative (Negative); Urine Bilirubin Dipstick Negative (Negative); Urine Clarity Clear (Clear); Urine Urobilinogen Normal (Normal)
== END | disposition home or self-care (01) ==
LOC: LABSPEC 13:20
PROVIDERS: PCP Nurse Practitioner Family; Referring Provider Nurse Practitioner Family; Visit Provider Nurse Practitioner Family
DX: R31.9 Hematuria, unspecified (principal)
CPT/HCPCS: 81002; 87086; 88108; 88313

== ENCOUNTER → 2024-06-16 | Outpatient (CLI) | payer BC, SELFPAY ==
[2024-06-16 08:37] LABS: Bacteria 0 SEEN /hpf (None Seen); Mucous, Urine 0 SEEN /hpf (<or=2+); Squamous Epithelial Cells - UA 0 SEEN /hpf (5-10); White Blood Cells 0 SEEN /hpf (0-5)
[2024-06-16 10:28] LABS: Color, Urine Straw (Yellow); Glucose, Dipstick Normal (Normal); Ketone-Dipstick Negative (Negative); Leukocyte Esterase-Dipstick Negative /ul (Negative); Nitrite-Dipstick Negative (Negative); Occult Blood-Urine 25 /ul (Negative); Protein-Dipstick Negative (Negative); Specific Gravity, Urine 1.005 (1.002-1.030); Urine Bilirubin Dipstick Negative (Negative); Urine Clarity Clear (Clear); Urine Urobilinogen Normal (Normal); Urine pH 6.5 (5.0 - 8.0)
[2024-06-16 15:16] LABS: Red Blood Cells-Urine 0 SEEN /hpf (0-5)
== END | disposition home or self-care (01) ==
LOC: LABSPEC 08:35
PROVIDERS: PCP Nurse Practitioner Family; Visit Provider Nurse Practitioner Family
DX: N39.0 Urinary tract infection, site not specified (principal); R30.0 Dysuria
CPT/HCPCS: 81001; 87086; 87088

== ENCOUNTER 2024-07-21 06:53 | Day surgery (SDC) | payer BC, SELFPAY ==
[2024-07-21] VITALS (8 sets, daily range): BP systolic 111–148; BP diastolic 66–90; PULSE 70–81; RESP 16; TEMP 36.2–36.4; O2SAT 97–100; BMI 35.9
--- NOTE | 2024-07-21 07:14 | PCM.PRE.AN2 ---
ASA Classification* ASA Classification ASA Classification: 2 Assessment & Plan Anesthesia* Anesthesia Assessment Anesthesia Assessment: Discussed sedation and/or anesthesia options, risks, benefits, and alternatives with patient/parents/legal guardian/POA. Questions invited. The patient/parents/legal guardian/POA seems to understand and agrees to proceed with anesthesia plan. Reviewed the physical assessment, medical history, allergy history and patient home medications list prior to surgery/procedure/anesthetic and documented any changes. Performed airway and anesthesia risk assessments. Anesthesia Type Anesthesia Type: MAC Anesthesia Focused Assessment* Airway Assessment Mouth opens: >3 cm Mallampati Score: II Focused Labs Anesthesia Preop lab: CBC WBC 10.1 K/mm3 (4.4-11.0) 01/29/24 10:01/29/24 RBC 4.62 M/mm3 (4.2-5.4) 01/29/24 10:01/29/24 Hgb 12.9 g/dL (12.0-15.0) 01/29/24 10:01/29/24 Hct 40.8 % (37-47) 01/29/24 10:01/29/24 Plt Count 393 K/mm3 (150-450) 01/29/24 10:01/29/24 CHEMISTRY Potassium 3.7 mmol/L (3.5-5.1) 01/29/24 10:01/29/24 Sodium 140 mmol/L (136-145) 01/29/24 10:01/29/24 Magnesium 2.3 mg/dL (1.6-2.6) 02/27/20 11:53 02/27/20 BUN 14 mg/dL (7-18) 01/29/24 10:01/29/24 Creatinine 0.85 mg/dL (0.55-1.02) 01/29/24 10:01/29/24 Glucose 93 mg/dL (74-106) 01/29/24 10:01/29/24 TSH 0.81 uIU/mL (0.358-3.74) 10/18/23 07:02 10/18/23 COAG Pre-Assessment Diagnosis/Proposed Procedure Planned Operative Procedure(s): COLONOSCOPY Anesthesia History 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 When Was Last Pacemaker Check QUESTION #4 FULL TEXT: You/Your Family Experience fever (hyperthermia) with Anesthesia Last Oral Intake Last Oral intake: Last Oral Intake NPO since Meds taken in AM with sips of water? Meds patient instructed to take am of surgery PONV PONV - hog pusher: PONV - hog pusher Female Yes 07/17/24 08:57 HX of Motion Sickness No 07/17/24 08:57 HX of N/V After Surgery No 07/17/24 08:57 Non-Smoker Yes 07/17/24 08:57 Duration of Surgery greater No 07/17/24 08:57 than 60 minutes Number of Risk Factors 2 07/17/24 08:57 PONV Score Moderate Risk 07/17/24 08:57 Height & Weight Height & Weight: Anesthesia: Height & Weight Height 5 ft 1 in 04/30/24 13:54 Respiratory Assessment Respiratory Assessment - hog pusher: Respiratory Tract Infection Hx - hog pusher Hx Respiratory Tract Infection No 07/17/24 08:57 STOP Sleep Apnea STOP Sleep Apnea - hog pusher: STOP Sleep Apnea - hog pusher Hx Hypertension No 07/17/24 08:57 Hx Sleep Apnea No 07/17/24 08:57 CPAP BIPAP Do you snore loudly (louder No 07/17/24 08:57 than talking or can be heard Do you often feel tired/ No 07/17/24 08:57 fatigued/ sleepy during daytime? Has anyone observed you stop No 07/17/24 08:57 breathing during sleep? STOP Results Negative 07/17/24 08:57 QUESTION #5 FULL TEXT : Do you snore loudly (louder than talking or can be heard through closed doors)? 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 Specify any problems Hx of Preganancy in last 3 No 07/17/24 08:57 Months Nurse Filling Out Transfusion VLEHMAN 07/17/24 08:57 & Questions: Date: 07/17/24 07/17/24 08:57 Time: 09:03 07/17/24 08:57 Patient unable to answer at this time (ie. confused, unrespo /Reproduction History /Reproductive History - hog pusher: /Reproductive Hx- hog pusher Hx Now No 07/17/24 08:57 Gestational Age (in weeks): EDC: Hx Hx Para Hx Section SAB Active Medications Active Medications: Current Medications Generic Name Dose Route Start Last Admin Trade Name Freq PRN Reason Stop Dose Admin Lactated Ringer's 1,000 mls @ 15 mls/hr 07/21/24 07:15 IV .Q48H JILLIAN PFSH Medical History Wears glasses Wears contact lenses History of Clostridium difficile infection Anxiety Arthritis Low iron Gastric reflux Non-smoker Asthma GERD (gastroesophageal reflux disease) Depression Diverticulitis C. difficile diarrhea Home Medications ?Medication ?Instructions ?Recorded ?Last Taken ?Type etodolac 400 mg tablet 400 mg PO DAILY #180 tabs 12/12/18 Unknown History albuterol sulfate 90 mcg/actuation 1 - 2 puff inhalation Q6H PRN PRN 05/21/19 Unknown History aerosol inhaler Sob &/Or Wheezing buspirone 5 mg tablet 5 mg PO BID 04/30/24 Unknown History cetirizine 10 mg tablet 10 mg PO QDAY PRN allergy symptoms 04/30/24 Unknown History ferrous sulfate 325 mg (65 mg 325 mg PO 1200,1700 04/30/24 Unknown History iron) tablet (FeroSul) linaclotide [Linzess] 145 mcg PO 3XW 04/30/24 Unknown History Allergy/AdvReac Type Severity Reaction Status Date / Time No Known Allergies Allergy Verified 07/17/24 08:54 Family History Father Asthma Diabetes Hypertension CAD (coronary artery disease) Sister Asthma Mother Breast cancer Diabetes Hypertension Surgical History History of right knee joint replacement Hx of colonoscopy with polypectomy S/P bilateral hip replacements H/O section S/P laparoscopic cholecystectomy Social History current occupational status: employed Smoking Status: Never smoker alcohol intake: never substance use type: does not use Review of Systems (Anesthesia) ROS Narrative System reviewed and no additional complaints, except as documented.
[2024-07-21] MEDS: Lactated Ringers 1,000 ML 15 ML IV (07:36)
--- NOTE | 2024-07-21 08:24 | PCM.HP.STD ---
[facility] - General General Date of Admission: 07/21/24 Date of Service: 07/21/24 Chief Complaint: Surveillance colonoscopy HPI Narrative JOSESITO EASLEY, is a 63 F who presents today for his surveillance colonoscopy. She had a colonoscopy back in 2019. She had 2 adenomatous polyps that removed on a time. She comes back in for surveillance colonoscopy. [facility] Medical History Wears glasses Wears contact lenses History of Clostridium difficile infection Anxiety Arthritis Low iron Gastric reflux Non-smoker Asthma GERD (gastroesophageal reflux disease) Depression Diverticulitis C. difficile diarrhea Home Medications ?Medication ?Instructions ?Recorded ?Last Taken ?Type etodolac 400 mg tablet 400 mg PO DAILY #180 tabs 12/12/18 07/19/24 History albuterol sulfate 90 mcg/actuation 1 - 2 puff inhalation Q6H PRN PRN 05/21/19 Unknown History aerosol inhaler Sob &/Or Wheezing buspirone 5 mg tablet 5 mg PO BID 04/30/24 07/20/24 History cetirizine 10 mg tablet 10 mg PO QDAY PRN allergy symptoms 04/30/24 Unknown History ferrous sulfate 325 mg (65 mg 325 mg PO 1200,1700 04/30/24 06/30/24 History iron) tablet (FeroSul) linaclotide [Linzess] 145 mcg PO 3XW 04/30/24 07/17/24 History mometasone 100 mcg/actuation HFA 1 puff inhalation DAILY 07/21/24 07/20/24 History aerosol inhaler (Asmanex HFA) Allergy/AdvReac Type Severity Reaction Status Date / Time No Known Allergies Allergy Verified 07/21/24 07:18 Family History Father Asthma Diabetes Hypertension CAD (coronary artery disease) Sister Asthma Mother Breast cancer Diabetes Hypertension Surgical History History of right knee joint replacement Hx of colonoscopy with polypectomy S/P bilateral hip replacements H/O section S/P laparoscopic cholecystectomy Social History current occupational status: employed Smoking Status: Never smoker alcohol intake: never substance use type: does not use ROS Constitutional Constitutional: Denies fatigue, fever(s), poor appetite, weight gain or weight loss Gastrointestinal Gastrointestinal: Denies belching, bloating, change in bowel habits, change in stool character, chewing difficulty, coffee ground emesis, constipation, cramping, diarrhea, dyspepsia, dysphagia, early satiety, excessive flatus, fecal incontinence, heartburn, hematemesis, hematochezia, hemorrhoids, loose stools, melena, nausea, odynophagia, rectal bleeding, tenesmus, vomiting or weight changes Vital Signs Vital Signs Vital Signs: 07/21/24 07:22 07/21/24 07:25 Temperature 97.1 F L Temperature Source Temporal Pulse Rate 81 Respiratory Rate 16 Respiratory Pattern Normal Blood Pressure 148/90 H Blood Pressure Mean 109 Blood Pressure Source Monitor Blood Pressure Position Semi-Fowlers Blood Pressure Location Left Arm Pulse Ox 100 Oxygen Delivery Method Room Air Weight Weight: 190 lb Body Mass Index (BMI) 35.9 Physical Exam Const alert, oriented x3, no apparent distress and healthy appearing General Appearance: cooperative GI normal to inspection, nondistended, normoactive bowel sounds, soft to palpation, non-tender and non-distended Percussion: normal to percussion Rectal Exam: deferred Assessment & Plan Assessment/Plan (1) Encounter for screening for malignant neoplasm of colon: PLAN: She will undergo surveillance colonoscopy. She was explained alternatives, risk and benefits include understanding bleeding, infection, sepsis, perforation, need emergent surgery . She will have an ASA of 3.
--- NOTE | 2024-07-21 09:03 | OP.CCLET_ITS ---
07/21/2024 Corina Prabhakar Re : Colonoscopy procedure for Destinee Chapman Dear Rik This procedure was performed on Sunday, July 21, 2024. My impressions and recommendations are as follows: Impressions : - Four 1 to 2 mm polyps in the sigmoid colon, at the splenic flexure and at the hepatic flexure, removed with a hot snare. Resected and retrieved. - One 4 mm polyp in the transverse colon, removed with a jumbo cold forceps. Resected and retrieved. - Diverticulosis in the recto-sigmoid colon, in the sigmoid colon and in the descending colon. Recommendations : - Discharge patient to home. - Resume previous diet. - Continue present medications. - Await pathology results. - Repeat colonoscopy in 3 years for surveillance. - Return to GI office. My findings are described in the full procedure note, which is enclosed. If I can be of further assistance, please feel free to contact me at . Sincerely, Roderick Dye, 07/21/2024 9:03:00 AM This report has been signed electronically.
--- NOTE | 2024-07-21 09:03 | OP.COLON_ITS ---
Patient Name: Destinee Chapman Procedure Date: 07/21/2024 8:30 AM Date of : 1960 Age: 63 Procedure: Colonoscopy Indications: Screening for colorectal malignant neoplasm Providers: Roderick Dye DO Referring MD: Corina Prabhakar Medicines: Monitored Anesthesia Care Patient Profile: This is a 63 year old female. Refer to note in patient chart for documentation of history and physical. Last Colonoscopy: 5 years ago. Complications: No immediate complications. Procedure: Pre-Anesthesia Assessment: - Prior to the procedure, a History and Physical was performed, and patient medications and allergies were reviewed. The patient is competent. The risks and benefits of the procedure and the sedation options and risks were discussed with the patient. All questions were answered and informed consent was obtained. Patient identification and proposed procedure were verified by the physician in the pre-procedure area. Mental Status Examination: alert and oriented. Airway Examination: normal oropharyngeal airway and neck mobility. Respiratory Examination: clear to auscultation. CV Examination: normal. Prophylactic Antibiotics: The patient does not require prophylactic antibiotics. Prior Anticoagulants: The patient has taken no anticoagulant or antiplatelet agents except for NSAID medication. ASA Grade Assessment: II - A patient with mild systemic disease. After reviewing the risks and benefits, the patient was deemed in satisfactory condition to undergo the procedure. The anesthesia plan was to use monitored anesthesia care (MAC). Immediately prior to administration of medications, the patient was re-assessed for adequacy to receive sedatives. The heart rate, respiratory rate, oxygen saturations, blood pressure, adequacy of pulmonary ventilation, and response to care were monitored throughout the procedure. The physical status of the patient was re-assessed after the procedure. After I obtained informed consent, the scope was passed under direct vision. Throughout the procedure, the patient's blood pressure, pulse, and oxygen saturations were monitored continuously. The adult colonoscope was introduced through the anus and advanced to the cecum, identified by appendiceal orifice and ileocecal valve. The colonoscopy was performed without difficulty. The patient tolerated the procedure well. The quality of the bowel preparation was adequate. The ileocecal valve, appendiceal orifice, and rectum were photographed. Scope In: 8:38:55 AM Scope Withdrawal Time 0 hours 11 minutes 15 seconds Scope Out: 8:55:33 AM Total Procedure Duration Time 0 hours 16 minutes 38 seconds Findings: The perianal and digital rectal examinations were normal. Four sessile polyps were found in the sigmoid colon, splenic flexure and hepatic flexure. The polyps were 1 to 2 mm in size. These polyps were removed with a hot snare. Resection and retrieval were complete. Verification of patient identification for the specimen was done. Estimated blood loss was minimal. A 4 mm polyp was found in the transverse colon. The polyp was sessile. The polyp was removed with a jumbo cold forceps. Resection and retrieval were complete. Verification of patient identification for the specimen was done. Estimated blood loss was minimal. Multiple small and large-mouthed diverticula were found in the recto-sigmoid colon, sigmoid colon and descending colon. Impression: - Four 1 to 2 mm polyps in the sigmoid colon, at the splenic flexure and at the hepatic flexure, removed with a hot snare. Resected and retrieved. - One 4 mm polyp in the transverse colon, removed with a jumbo cold forceps. Resected and retrieved. - Diverticulosis in the recto-sigmoid colon, in the sigmoid colon and in the descending colon. Recommendation: - Discharge patient to home. - Resume previous diet. - Continue present medications. - Await pathology results. - Repeat colonoscopy in 3 years for surveillance. - Return to GI office. Procedure Code(s): --- Professional --- 15955, Colonoscopy, flexible; with removal of tumor(s), polyp(s), or other lesion(s) by snare technique 32743, 59, Colonoscopy, flexible; with biopsy, single or multiple CPT copyright 2021 [employer]. All rights reserved. The codes documented in this report are preliminary and upon bale opener review may be revised to meet current compliance requirements. Roderick Dye DO 07/21/2024 9:03:00 AM This report has been signed electronically. Number of Addenda: 0 Note Initiated On: 07/21/2024 8:30 AM
--- NOTE | 2024-07-21 09:05 | PCM.POST.ANE ---
Anesthesia: Postop Eval I Current Vital Signs Temperature: 97.1 F Pulse Rate: 77 Blood Pressure: 117/70 Respiratory Rate: 16 Pulse Ox: 98 Oxygen Delivery Method: Room Air Assessment Airway patent: Yes Spontaneous unlabored respirations: Yes Mental status: Awake and Calm nausea: No Vomiting: No Anesthesia Complication: No Fluid Hydration Crystalloid volume administer (ml): 400 Total IV fluid infused: 400 Progress Note Anesthesia document: Postop Eval 1 completed: Yes
--- NOTE | 2024-07-21 09:29 | PCM.POSTANE2 ---
Anesthesia Postop Eval I Sum Postop Eval Completion status Anesthesia document: Postop Eval 1 completed: Yes Anesthesia Postop Eval I Summary Anesthesia Postop Eval I Summary: Anesthesia Postop Eval I: Assessment Summary Airway patent Yes 07/21/24 09:06 [email or web address] Spontaneous unlabored Yes 07/21/24 09:06 [email or web address] respirations Mental status Awake,Calm 07/21/24 09:06 [email or web address] nausea No 07/21/24 09:06 [email or web address] Vomiting No 07/21/24 09:06 [email or web address] Anesthesia Postop Eval I: Fluid Summary Crystalloid volume administer 400 07/21/24 09:06 [email or web address] (ml) Colloids volume administered ( ml) Blood Product volume administered (ml) Total IV fluid infused 400 07/21/24 09:06 [email or web address] Anesthesia Postop Eval I: Summary Notes Anesthesia Complication No 07/21/24 09:06 [email or web address] Anesthesia Complication Comment: Post-operative progress note Anesthesia: Postop Eval II Evaluation Mental status: Awake Pain Level: 0 nausea: No Vomiting: No
--- NOTE | 2024-07-21 12:54 | COLBX_PTH ---
PATIENT: JOSESITO EASLEY LOC: EN U#:[id number] AGE/SX: 63/F ROOM: RE07/21/[address]: Dr. Roderick Dye DO : 1960 BED: DIS: 07/21/2024 SPEC #: [id number] RECD: 07/21/24 13:58 STATUS: HOANG REQ #: [id number] ANIYA: 07/21/24 12:[address]: Roderick Dye DEPT: SURGICAL PATHOLOGY RECD BY: Marcelo Campbell ENTERED: 07/21/24 13:58 SP TYPE: COLON BX OTHR DR: Jayda Jolly, HOSPITAL LABORATORY TECHNICIAN-C Tissues: A - Sigmoid colon biopsy B - Transverse colon C - COLON BIOPSY D - COLON BIOPSY Procedures: Surgery Specimen Level IV HEADER OPERATION: Colonoscopy, polypectomy PRE-OP DIAGNOSIS: Screening TISSUE SUBMITTED: A- Sigmoid polyp, B- Transverse colon polyp, C- Hepatic flexure polyp biopsy, D- Splenic flexure polyp MICROSCOPIC DIAGNOSIS A. Sigmoid colon, polyp, biopsy: Tubulovillous adenoma, multiple fragments. B. Transverse colon, polyp, biopsy: Tubulovillous adenoma, multiple fragments. C. Colon, hepatic flexure, polyp, biopsy: Tubular adenoma. D. Colon, splenic flexure, polyp, biopsy: Tubulovillous adenoma, multiple fragments. MICROSCOPIC DESCRIPTION Slides are reviewed. GROSS DESCRIPTION A. Received in formalin in a container labeled with the patient's name, date of , and sigmoid polyp are 2 mcelroy-pink and polypoid fragments of mucosal tissue measuring 0.6 x 0.5 x 0.4 cm and 0.9 x 0.9 x 0.6 cm. No margin is identified. Each are sectioned and submitted entirely in A1. B. Received in formalin in a container labeled with the patient's name, date of , and transverse colon polyp are multiple small mcelroy-pink fragments of mucosal tissue measuring 0.7 x 0.4 x 0.2 cm in aggregate. Submitted in toto in B1. C. Received in formalin in a container labeled with the patient's name, date of , and hepatic flexure polyp biopsy is a 0.3 x 0.3 x 0.3 cm fragment of mcelroy-pink mucosal tissue. Submitted in toto in C1. D. Received in formalin in a container labeled with the patient's name, date of , and splenic flexure polyp are multiple mcelroy-pink fragments of mucosal tissue measuring 1.3 x 0.7 x 0.3 cm in aggregate. Submitted in toto in D1. B 07-21-2024 CPT:20346y3
== END 2024-07-21 09:46 | disposition home or self-care (01) ==
LOC: EN 06:54 → AC 06:55
PROVIDERS: PCP Nurse Practitioner Family; Referring Provider Nurse Practitioner Family; Visit Provider Internal Medicine Gastroenterology
PROC: 0DJD8ZZ Inspection of Lower Intestinal Tract, Via Natural or Artificial Opening Endoscopic (ICD-10-PCS; CPT 45378; principal; 2024-07-21 08:10)
DX: Z12.11 Encounter for screening for malignant neoplasm of colon (principal); K63.5 Polyp of colon; Z79.51 Long term (current) use of inhaled steroids; K57.30 Diverticulosis of large intestine without perforation or abscess without bleeding; Z86.0100 Personal history of colon polyps, unspecified; K21.9 Gastro-esophageal reflux disease without esophagitis; J45.909 Unspecified asthma, uncomplicated; D12.5 Benign neoplasm of sigmoid colon; D12.3 Benign neoplasm of transverse colon
CPT/HCPCS: 45380; 45385; 88305; J2405

== ENCOUNTER → 2024-10-03 | Outpatient (CLI) | payer BC, SELFPAY ==
[2024-10-03 12:44] LABS: Hematocrit 38.1 % (37-47); Hemoglobin 11.9 g/dL (12.0-15.0); Immature Granulocytes Count 0.010 X10^3/uL (0.0-0.0); Mean Corp Hgb Conc 31.2 g/dL (32-36); Mean Corpuscular Volume 78.7 fL (81-99); Mean Platelet Vol. 8.3 fl (6.2-12.0); NRBC Flagged by Analyzer 0 % (0-5); Platelet Count 396 K/mm3 (150-450); RBC Distribution Width CV 16.3 % (11.6-14.6); RBC Distribution Width SD 46.5 fl (35.1-43.9); Red Blood Count 4.84 M/mm3 (4.2-5.4); White Blood Count 7.4 K/mm3 (4.4-11.0)
[2024-10-03 13:40] LABS: AST(SGOT) 27 U/L (<=31); Alanine Aminotransfer ALT/SGPT 23 U/L (<=34); Albumin, Serum 4.1 g/dL (3.4-4.8); Alkaline Phosphatase 88 U/L (35-104); Anion Gap 12 (5-15); BUN 12 mg/dL (4-19); BUN/Creat Ratio 15.0 RATIO (10-20); Calcium,Total 9.4 mg/dL (7.6-11.0); Carbon Dioxide 22.3 mmol/L (21.0-32.0); Chloride 106 mmol/L (98-108); Ferritin 28 ng/mL (22-378); Globulin 2.9 g/dL (2.2-4.2); Glucose 95 mg/dL (70-99); Iron 48 ug/dL (50-170); Potassium 3.7 mmol/L (3.3-5.1); Vitamin B12 1578 pg/mL (180-914); Vitamin D,25 Hydroxy 22.9 ng/mL (30-100)
--- OUTSIDE RECORDS SUMMARY | 2024-10-03 18:55 | XMS RPT_ITS | CCD ---
Author Organization [facility] Care Team Providers Care Certified Diabetes Educator Name Role Phone Yuliya Vasquez Primary Care Provider PEDRO MENDOZA, DR YULIYA Brunner Primary Care Physician Dr. Yuliya Vasquez Primary Care Provider [phone] Dr. Reece Stein Emergency Provider Dr. Wilfrid Ruelas Admit Provider Dr. Wilfrid Ruelas Attending Provider Dr. Wilfrid Ruelas Other Provider Dr. Florencia Kim Attending Provider [phone] Florencia Kim Other Provider PEDRO MENDOZA, DR YULIYA Brunner Primary Care Unavailable TONY AKHTAR, PATRICIA Méndez Attending Unavail able PEDRO MENDOZA, DR YULIYA Brunner Primary Care Unavailable NINO AKHTAR, SHIRA Shaver Attending Unavailable PEDRO MENDOZA, DR YULIYA Brunner Primary Care Unavailable MALLORY AKHTAR, PATRICIA Lauren Attending Unavailable PEDRO MENDOZA, DR YULIYA Brunner Primary Care Unavailable SPENCER AKHTAR, DR RIC Brunner Attending Unavailab le PEDRO MENDOZA, DR YULIYA Brunner Primary Care Unavailable BONNY RICHARDSON, RAY W Attending Unavailable PEDRO MENDOZA, DR YULIYA Brunner Primary Care Unavailable SPENCER AKHTAR, DR RIC Brunner Attending Unavailab YULIYA Portillo Consulting Unavaila ble PEDRO MENDOZA, DR YULIYA Brunner Primary Care Unavailable SPENCER AKHTAR, DR RIC Brunner Referring Unavailab maría PALMER MD, DR RIC Brunner Admitting Unavailab maría MCKEON, YULIYA Logan Attending Unavaila ble Pedro MENDOZA, Yuliya Brunner Primary Care Provider Rik JUNIOR DATA ANALYST-C, Jayda Primary Care Provider Leesa Crockett Attending Provider Unavailable Rik JUNIOR DATA ANALYST-C, Jayda Referring Provider Roof JUNIOR DATA ANALYST-C, Juan Luis Knox Attending Provider [phone] Rik, Jayda Primary Care Unavailable Rik, Jayda Attending Unavailable Rik, Jayda Referring Unavailable Rik, Jayda Primary Care Unavailable Roof JUNIOR DATA ANALYST, Juan Luis Knox Attending Unavailable Rik, Jayda Referring Unavailable Rik, Jayda Primary Care Unavailable Leesa Crockett Attending Unavailable Friend, Roderick Consulting Unavailable Friend, Roderick Attending Unavailable Rik, Jayda Referring Unavailable Rik, Jayda Primary Care Unavailable Malys, Yuliya Primary Care Unavailable Malys, Yuliya Attending Unavailable Malys, Yuliya Referring Unavailable Malys, Yuliya Attending Unavailable Malys, Yuliya Referring Unavailable Malys, Yuliya Primary Care Unavailable Rik, Jayda Primary Care Unavailable Roof JUNIOR DATA ANALYST, Juan Luis Knox Attending Unavailable Rik, Jayda Primary Care Unavailable Rik, Jayda Attending Unavailable Rik, Jayda Referring Unavailable Rik, Jayda Primary Care Unavailable Rik, Jayda Attending Unavailable Rik, Jayda Referring Unavailable Rik, Jayda Primary Care Unavailable Friend, Roderick Attending Unavailable Rik, Jayda Referring Unavailable MALYS DO, DR YULIYA Brunner Primary Care Unavailable OWOC DO, DR LUIS Otero Attending Unavailabl e Allergies Allergy Classification Reported Allergen(s) Allergy Type Date of Onset Reaction(s) Facility (1 source) Seasonal allergy Propensity to adverse reactions to substance 12-18-2019 [place], [place] Medications Current Medications Medication Drug Class(es) Dates Sig (Normalized) Sig (Original) acetaminophen 500 mg oral tablet (1 source) Start: 11-22-2022 End: 12-06-2022 take 1 tablet by mouth once daily acetaminophen 500 mg oral tablet Dose : 1,000 mg = 2 tab(s), Oral, TID, PRN as needed for pain, not to exceed 3000 mg/day, # 100 tab(s), 0 Refill(s), 12/06/22 7:20:00 AM EDT, Pharmacy: [id number], 154.9, cm, 11/21/22 14:49:00 EDT, Height, kg, 11/21/22 14:49:00 EDT, Dosing Weight Start Date: 11/22/22 Stop Date: 12/06/22 Status: Ordered acetaminophen 325 mg / HYDROcodone bitartrate 5 mg oral tablet (12 sources) Opioid Agonist Start: 10-29-2022 End: 11-01-2022 take 1 tablet by mouth every four hours as needed for pain [place] 325- 5 mg oral tablet Dose = 1 tab(s), Oral, q4h, PRN for pain, X 3 day(s), # 12 tab(s), 0 Refill(s), Diverticulitis, 81.8 Start Date: 10/29/22 Stop Date: 11/01/22 Status: Ordered Start: 12-27-2018 End: 01-01-2019 Hydrocodone-Acetaminophen 1 TABLET tablet Discontinued 1 {tbl} PO EVERY 4 HOURS NEEDED as needed for Pain 12 25December 27, 2018 December 28, 2018 12:00am January 01, 2019 12:09am Start: 12-27-2018 End: 01-01-2019 take 1 tablet by mouth every four hours as needed Hydrocodone-Acetaminophen Discontinued 1 TABLET PO EVERY 4 HOURS NEEDED 12 25December 27, 2018 January 01, 2019 12:09am Start: 11-12-2018 End: 11-14-2018 take 1 tablet by mouth every six hours as needed for pain [place] 325- 5 mg oral tablet Dose = 1 tab(s), Oral, q6h, PRN as needed for pain, # 7 tab(s), 0 Refill(s), Acute diverticulitis Start Date: 11/12/18 Stop Date: 11/14/18 Status: Ordered Start: 12-18-2014 HYDROcodone-ac etaminophen (NORCO) 5-325 mg per tablet [id number] actuat albuterol 0.09 mg/actuat metered dose inhaler (8 sources) beta2-Adrenergic Agonist Start: 05-21-2019 Albut lazara Sulfate 1 PUFF inhaler Active 1 - 2 NMA INHALATION EVERY 6 HOURS NEEDED as needed for Sob &/Or Wheezing May 21, 2019 1:00am Start: 05-21-2019 take 1 puff(s) by in halation every six hours as needed Albuterol Sulfate Active 1 - 2 PUFF inhalation EVERY 6 HOURS NEEDED May 21, 2019 1:00am Start: 09-22-2014 PROVENTIL HFA 90 mcg/actuation inhaler busPIRone hydrochloride 5 mg oral tablet (2 sources) Start: 04-30-2024 take 1 tablet by mouth twice daily Buspirone 5 mg tablet Active 5 mg PO TWICE A DAY April 30, 2024 1:00am Start: 09-04-2016 busPIRone (BUS PAR) 5 mg tablet cetirizine hydrochloride 10 mg oral tablet (3 sources) Histamine-1 Receptor Antagonist Start: 04-30-2024 take 1 tablet by mouth once daily as needed Cetirizine 10 mg tablet Active 10 mg PO daily as needed April 30, 2024 1:00am CETIRIZINE HCL ( ZYRTEC ORAL) Take by mouth. 0 Active take 1 tablet by mouth once [place] y cetirizine (ZYRTEC) 10 MG tablet Take 10 mg by mouth daily 0 Active Comment on above: Take by mouth. ciprofloxacin 500 mg oral tablet (3 sources) Quinolone Antimicrobial Start: 11-03-2022 End: 11-12-2022 ciprofloxacin 500 mg oral tablet Dose : 500 mg = 1 tab(s), Oral, q12h, # 20 tab(s), 0 Refill(s), 81.8 Start Date: 11/03/22 Stop Date: 11/12/22 Status: Ordered Start: 10-29-2022 End: 10-30-2022 Cipro 500 mg oral tablet Dos e : 500 mg = 1 tab(s), PO, q12hr, # 14 tab(s), 0 Refill(s), 10/30/22 7:46:00 AM EDT, 81.8 Start Date: 10/29/22 Stop Date: 10/30/22 Status: Ordered cyclobenzaprine hydrochloride 5 mg oral tablet (1 source) Muscle Relaxant Start: 09-27-2024 End: 10-04-2024 cyclobenzaprine 5 mg oral tablet Dose : 5 mg = 1 tab(s), Oral, TID, X 7 day(s), # 21 tab(s), 0 Refill(s), 10/04/24 10:51:00 AM EDT Start Date: 09/27/24 Stop Date: 10/04/24 Status: Ordered Quantity: 21.0 Unit: tab(s) Repeat number: 1 etodolac 400 mg oral tablet (20 sources) Nonsteroidal Anti-inflammatory Drug Start: 12-24-2014 End: 12-12-2018 etodolac 400 mg oral tablet Dose : 400 mg = 1 tab(s), Oral, BID, # 180 tab(s), 0 Refill(s) Start Date: 11/12/18 Status: Ordered Quantity: 180.0 Unit: tab(s) Repeat number: 1 famotidine 20 mg oral tablet (4 sources) Histamine-2 Receptor Antagonist Start: 11-22-2022 Pepcid 20 mg oral tablet Dose : 20 mg = 1 tab(s), Oral, qDay, # 30 tab(s), 0 Refill(s), Pharmacy: [id number], 154.9, cm, 11/21/22 14:49:00 EDT, Height, kg, 11/21/22 14:49:00 EDT, Dosing Weight Start Date: 11/22/22 Status: Ordered Quantity: 30.0 Unit: tab(s) Repeat number: 1 ferrous gluconate 240 mg oral tablet (1 source) take 1 tablet by mouth every other day ferrous gluconate (IRON 27) 240 (27 Fe) MG tablet Take 240 mg by mouth every other day 0 Active ferrous sulfate 325 mg oral tablet (3 sources) Start: 04-30-2024 take 1 tablet by mouth once Ferrous Sulfate (Ferosul) 325 mg (65 mg iron) tablet Active 325 mg PO 1200,1700 April 30, 2024 2:48pm For the week prior to giving blood Start: 12-08-2022 End: 04-30-2024 Ferrous Sulfate (Ferosul) 32 5 mg (65 mg iron) Tablet Discontinued 325 mg PO 1200,1700 60 December 08, 2022 12:00am April 30, 2024 2:51pm linaclotide (4 sources) Guanylate Cyclase-C Agonist Start: 04-30-2024 take 145 ug by mouth three times weekly linaclotide (Linzess) Active 145 ug PO 3 TIMES A WEEK April 30, 2024 2:49pm Start: 12-06-2022 End: 04-30-2024 linaclotide Discontinued .[place] December 06, 2022 12:00am April 30, 2024 2:51pm Start: 09-13-2023 linaclotide Ac tive .ROUTE December 06, 2022 12:00am metroNIDAZOLE 500 mg oral tablet (3 sources) Nitroimidazole Antimicrobial Start: 10-29-2022 End: 11-05-2022 metroNIDAZOLE 500 mg oral tablet Dose : 500 mg = 1 tab(s), Oral, q8hr, X 7 day(s), # 21 tab(s), 0 Refill(s), 11/05/22 7:45:00 AM EDT, 81.8 Start Date: 10/29/22 Stop Date: 11/05/22 Status: Ordered Mometasone 220 mcg/ actuation (14) aerosol powdr breath activated (1 source) Start: 04-30-2024 Mometasone 220 mcg/ actuation (14) aerosol powdr breath activated Active 1 NMA INHALATION daily April 30, 2024 1:00am ondansetron 4 mg oral tablet (8 sources) Serotonin-3 Receptor Antagonist Start: 10-29-2022 End: 10-30-2022 Zofran 4 mg oral tablet Dose : 4 mg = 1 tab(s), PO, q8h, # 12 tab(s), 0 Refill(s), 10/30/22 7:46:00 AM EDT Start Date: 10/29/22 Stop Date: 10/30/22 Status: Ordered Start: 12-27-2018 End: 12-06-2022 take 1 tablet by mouth every eight hours as needed for nausea Ondansetron 4 MG tablet Discontinued 4 mg PO EVERY 8 HOURS NEEDED as needed for Nausea December 27, 2018 12:00am December 06, 2022 7:30pm pantoprazole 40 mg delayed release oral tablet (1 source) Proton Pump Inhibitor Start: 11-30-2018 Protonix 40 mg oral enteric coated tablet Dose : 40 mg = 1 tab(s), Oral, qDay, # 30 tab(s), 0 Refill(s), Pharmacy: [id number] Start Date: 11/30/18 Status: Ordered vancomycin 125 mg oral capsule (20 sources) Glycopeptide Antibacterial Start: 12-03-2022 End: 12-13-2022 vancomycin 125 mg oral capsule Dose : 125 mg = 1 cap(s), Oral, q6h, X 10 day(s), # 40 cap(s), 0 Refill(s), 12/13/22 6:56:00 AM EDT, 81.8 Start Date: 12/03/22 Stop Date: 12/13/22 Status: Ordered Start: 12-27-2018 End: 05-07-2019 take 1 capsule by mouth every six hours Vancomycin (Vancocin) 125 MG capsule Discontinued 125 mg PO EVERY 6 HOURS 40 December 27, 2018 12:00am May 07, 2019 2:10pm Start: 12-12-2018 End: 12-12-2018 take 500 mg by mouth every six hours Vancomycin 50 mg/mL recon soln Discontinued 500 mg PO EVERY 6 HOURS 300 December 12, 2018 1:24pm December 12, 2018 1:25pm Start: 12-12-2018 End: 12-12-2018 Vancomycin 50 mg/mL recon so ln Discontinued PO 300 December 12, 2018 12:00am December 12, 2018 1:24pm Start: 12-12-2018 End: 12-12-2018 take 500 mg by mouth every six hours Vancomycin Discontinued 500 MG PO EVERY 6 HOURS 300 December 12, 2018 1:24pm December 12, 2018 1:25pm Vitamin D3 (6 sources) Start: 11-03-2022 Vitamin D3 Dos e : 100 mcg = 1 tab(s), Oral, Daily, 0 Refill(s) Start Date: 11/03/22 Status: Ordered Repeat number: 1 Start: 11-03-2022 Vitamin D3 Dos e : 100 mcg = 1 tab(s), Oral, Daily, 0 Refill(s) Start Date: 11/03/22 Status: Ordered Zofran ODT 4 mg oral tablet, disintegrating (3 sources) Start: 11-12-2018 Zofran ODT 4 m g oral tablet, disintegrating Dose : 4 mg = 1 tab(s), Oral, q4h, PRN as needed for nausea/vomiting, # 10 tab(s), 0 Refill(s) Start Date: 11/12/18 Status: Ordered Completed/Discontinued Medications Medication Drug Class(es) Dates Sig (Normalized) Sig (Original) amoxicillin 500 mg oral capsule (1 source) Penicillin-class Antibacterial Start: 10-08-2014 amoxicillin (POLYMOX, AMOXIL) 500 mg capsule amoxicillin 875 mg / clavulanate 125 mg oral tablet (1 source) Penicillin-class Antibacterial Start: 11-11-2014 amoxicillin-clavulan ic acid (AUGMENTIN) 875-125 mg per tablet aspirin 81 mg delayed release oral tablet (7 sources) Platelet Aggregation Inhibitor, Nonsteroidal Anti-inflammatory Drug Start: 11-22-2022 End: 04-30-2024 take 1 tablet by mouth twice daily aspirin 81 mg oral delayed release tablet Dose : 81 mg = 1 tab(s), Oral, BID, Take 81 mg aspirin twice daily with food for 4 weeks postoperatively for DVT prophylaxis., # 60 tab(s), 0 Refill(s), Pharmacy: [id number], 154.9, cm, 11/21/22 14:49:00 EDT, Height, kg, 11/21/22 14:49:00 EDT, Dosing Weight Start Date: 11/22/22 Stop Date: 12/22/22 Status: Ordered Quantity: 60.0 Unit: tab(s) Repeat number: 1 cholecalciferol 0.075 mg oral tablet (2 sources) Vitamin D Cholecalciferol, Vitamin D3, 3,000 unit tab Take by mouth. 0 Active Cholecalciferol (VITAMIN D3) 125 MCG (5000 UT) TABS Take by mouth 0 Active Comment on above: Take by mouth. dicyclomine hydrochloride 10 mg oral capsule (4 sources) Anticholinergic Start: 12-03-2022 End: 12-10-2022 dicyclomine 10 mg oral capsule Dose : 10 mg = 1 cap(s), Oral, QID, # 30 cap(s), 0 Refill(s) Start Date: 12/03/22 Stop Date: 12/10/22 Status: Ordered Quantity: 30.0 Unit: cap(s) Repeat number: 1 docosahexaenoic acid 350 mg / eicosapentaenoic acid 35 mg / folic acid 1 mg / phytosterols 200 mg / vitamin b12 0.5 mg / vitamin b6 12.5 mg oral capsule (1 source) Vitamin B12 [place] [id number] l 500 mg-500 mcg -1 mg-12.5 mg cap Take by mouth. 0 Active Comment on above: Take by mouth. doxycycline anhydrous 40 mg delayed release oral capsule (2 sources) Tetracycline-class Drug Start: 10-09-2014 ORACEA 40 mg capsule Comment on above: Take 40 mg by mouth. 0.4 ml enoxaparin sodium 100 mg/ml prefilled syringe (1 source) Low Molecular Weight Heparin Start: 12-11-2014 enoxaparin (LOVENOX) 40 mg/0.4 mL syrg FLUoxetine 10 mg oral capsule (16 sources) Serotonin Reuptake Inhibitor Start: 12-12-2018 End: 12-12-2018 Fluoxetine 10 mg capsule Discontinued PO December 12, 2018 12:00am December 12, 2018 1:24pm Start: 11-12-2018 End: 12-06-2022 take 1 capsule by mouth once daily Fluoxetine 10 mg capsule Discontinued 10 mg PO DAILY December 12, 2018 1:24pm December 06, 2022 7:30pm fluticasone propionate 0.05 mg/actuat metered dose nasal spray (9 sources) Corticosteroid Start: 02-11-2023 End: 02-26-2023 take 50 ug nasal route twice daily Fluticasone Propionate (Flonase Allergy Relief) 50 mcg/actuation spray,suspension Discontinued 1 NMA INTRANASAL TWICE A DAY February 11, 2023 1:00am February 25, 2023 1:00am February 26, 2023 1:04am administer into each nostril Start: 11-27-2018 take 1 puff(s) by in halation twice daily as needed for wheezing Flovent HFA 220 mcg/inh inhalation aerosol 1 puff(s), Inhalation, BID, PRN Shortness of breath or wheezing, 0 Refill(s) Start Date: 11/27/18 Status: Ordered Repeat number: 1 Start: 09-05-2016 FLOVENT DISKUS 50 mcg/actuation diskus inhaler L.ACID/L.CASEI/B.BIF/B.CASSIDY/F OS (PROBIOTIC BLEND ORAL) (1 source) L.ACID/L.CASEI/B .BIF/B.CASSIDY/FOS (PROBIOTIC BLEND ORAL) Take by mouth. 0 Active Comment on above: Take by mouth. Lactobacillus Combination No .8 (Adult Probiotic) 3 billion cell capsule (7 sources) Sta rt: 9 End : 3 take 3 capsules by mouth once daily Lactobacillus Combination No.8 (Adult Probiotic) 3 billion cell capsule Discontinued 3000 NMA PO DAILY December 12, 2018 12:00am December 06, 2022 7:30pm Start: 12-12-2018 End: 12-06-2022 take 3 capsules by mouth once daily Lactobacillus Combination No.8 (Adult Probiotic) 3 billion cell capsule Discontinued 3000 MMU CELLS PO DAILY December 12, 2018 12:00am December 06, 2022 7:30pm Start: 12-12-2018 take 3 capsules by m outh once daily Lactobacillus Combination No.8 (Adult Probiotic) 3 billion cell capsule Active 3000 MMU CELLS PO DAILY December 12, 2018 12:00am LORazepam 0.5 mg oral tablet (1 source) Benzodiazepine Start: 12-20-2015 LORazepam (ATIVAN) 0.5 mg tab methylPREDNISolone 4 mg oral tablet (7 sources) Corticosteroid Start: 05-09-2021 End: 05-14-2021 take 1 tablet by mouth once Methylprednisolone (Medrol (Kushal)) 4 mg tablets,dose pack Discontinued 4 mg PO per package directions 13 08May 09, 2021 1:00am May 13, 2021 1:00am May 14, 2021 1:05am 30 actuat mometasone furoate 0.22 mg/actuat dry powder inhaler (3 sources) Corticosteroid Start: 12-12-2015 ASMANEX TWISTHALER 220 mcg (30 doses) inhaler Start: 11-27-2014 ASMANEX TWISTH ALER 220 mcg (60 doses) aepb MOMETASONE FUROA TE (ASMANEX HFA INHALATION) Inhale as instructed. 0 Active Comment on above: Inhale as instructed . nitrofurantoin, macrocrystals 25 mg / nitrofurantoin, monohydrate 75 mg oral capsule (5 sources) Nitrofuran Antibacterial Start: 025 End: 025 take 1 capsule by mouth every twelve hours at mealtime Nitrofurantoin Monohyd/M-Cryst (Macrobid) 100 mg capsule Discontinued 100 mg PO Q12H 14 June 15, 2024 12:00am June 21, 2024 12:00am June 22, 2024 6:34am must administer with a meal/food Start: 05-08-2022 End: 05-15-2022 take 1 capsule by mouth every twelve hours at mealtime Nitrofurantoin Monohyd/M-Cryst 100 mg capsule Discontinued 1 NMA PO Q12H 14 May 08, 2022 1:00am May 14, 2022 1:00am May 15, 2022 1:04am administer with a meal/food; swallow whole; do not open, crush, dissolve , or chew olopatadine hydrochloride 0.665 mg/actuat metered dose nasal spray (1 source) Histamine-1 Receptor Inhibitor Start: 02-04-2015 Olopatadine 0.6 % spry oxyCODONE hydrochloride 5 mg oral tablet (1 source) Opioid Agonist Start: 12-11-2014 oxyCODONE immediate release (PERCOLONE) 5 mg immediate release tablet pimecrolimus 10 mg/ml topical cream (1 source) Calcineurin Inhibitor Immunosuppressant Start: 02-19-2015 ELIDEL 1 % cream polyethylene glycol 3350 72420 mg powder for oral solution (10 sources) Osmotic Laxative Start: 12-08-2022 End: 04-30-2024 take 17 g by mouth twice daily Polyethylene Glycol 3350 17 gram Powder In Packet Discontinued 17 g PO TWICE A DAY 0 December 08, 2022 12:00am April 30, 2024 2:49pm Start: 12-12-2018 End: 12-06-2022 Polyethylene Glycol 3350 (Mi ralax) 17 gram/dose powder Discontinued 17 g PO MOWEFR December 12, 2018 12:00am December 06, 2022 7:30pm Start: 12-12-2018 End: 12-06-2022 Polyethylene Glycol 3350 (Mi ralax) 17 gram/dose powder Discontinued 17 GM PO MOWEFR December 12, 2018 12:00am December 06, 2022 7:30pm traMADol hydrochloride 50 mg oral tablet (1 source) Opioid Agonist Start: 10-07-2014 traMADol (ULTR AM) 50 mg tablet Problems Active Problems Problem Classification Problem Date Documented Da te Episodic/Chronic Administrative/social admission (4 sources) Patient encounter status; Translations: [Persons encountering health services in other specified circumstances] Onset: 01-29-2023 01-29-2023 Episodic Asthma (7 sources) Asthma 12-06-2014 Chronic Diverticulosis and diverticulitis (15 sources) Diverticulitis; Translations: [Diverticulitis of intestine, part unspecified, without perforation or abscess without bleeding] Onset: 10-29-2022 Chronic Genitourinary symptoms and ill-defined conditions (2 sources) Dysuria; Translations: [Hematuria, unspecified] Onset: 03-04-2024 Episodic Intestinal infection (14 sources) Clostridium difficile colitis; Translations: [Enterocolitis due to Clostridium difficile, not specified as recurrent] 12-28-2018 Episodic Mood disorders (7 sources) Depressive disorder; Translations: [Depression] 05-07-2019 Chronic Neoplasms of unspecified nature or uncertain behavior (5 sources) Thrombocytosis; Translations: [Thrombocythemia] 12-06-2022 Episodic Open wounds of head; neck; and trunk (2 sources) Laceration of head; Translations: [Laceration without foreign body of other part of head, initial encounter] Onset: 09-27-2024 Episodic Osteoarthritis (2 sources) Osteoarthritis; Translations: [Unspecified osteoarthritis, unspecified site] Onset: 02-16-2016 01-07-2016 Chronic Other aftercare (1 source) Follow-up orthopedic assessment; Translations: [Aftercare following joint replacement surgery] Chronic Other connective tissue disease (7 sources) History of repair of hip joint; Translations: [Presence of artificial hip joint, bilateral] 05-07-2019 Chronic Other connective tissue disease (1 source) Artificial knee joint present; Translations: [Presence of right artificial knee joint] Chronic Other connective tissue disease (1 source) History of total hip arthroplasty; Translations: [Presence of unspecified artificial hip joint] Onset: 02-16-2016 02-16-2016 Chronic Other connective tissue disease (1 source) Other symptoms and signs involving the musculoskeletal system; Translations: [Other symptoms and signs involving the musculoskeletal system] Episodic Other gastrointestinal disorders (1 source) Diarrhea; Translations: [Diarrhea, unspecified] Onset: 12-03-2022 Episodic Other gastrointestinal disorders (3 sources) Constipation; Translations: [Constipation, unspecified] 12-06-2022 Episodic Other gastrointestinal disorders (2 sources) Constipation, unspecified; Translations: [Constipation, unspecified] 12-06-2022 Episodic Other gastrointestinal disorders (1 source) Other constipation; Translations: [Other constipation] Onset: 12-06-2022 Episodic Other injuries and conditions due to external causes (1 source) Injury of head; Translations: [Unspecified injury of head, initial encounter] Onset: 09-27-2024 Episodic Other injuries and conditions due to external causes (1 source) Unspecified injury of head, initial encounter; Translations: [Unspecified injury of head, initial encounter] Onset: 09-27-2024 Episodic Other nervous system disorders (1 source) Walking disability; Translations: [Difficulty in walking, not elsewhere classified] Chronic Other nervous system disorders (1 source) Incoordination; Translations: [Other lack of coordination] Episodic Other non-traumatic joint disorders (1 source) Pain in right knee; Translations: [Pain of right knee joint] Episodic Other non-traumatic joint disorders (1 source) Knee stiff; Translations: [Stiffness of right knee, not elsewhere classified] Episodic Other screening for suspected conditions (not mental disorders or infectious disease) (3 sources) Encounter for screening for malignant neoplasm of colon; Translations: [Encounter for screening mammogram for malignant neoplasm of breast] Onset: 12-03-2023 Episodic Other upper respiratory infections (2 sources) Viral upper respiratory tract infection; Translations: [Acute upper respiratory infection, unspecified] 02-11-2023 Episodic Sprains and strains (5 sources) Strain of foot; Translations: [Strain of unspecified muscle and tendon at ankle and foot level, left foot, initial encounter] 05-09-2021 Episodic Syncope (2 sources) Syncope and collapse; Translations: [Syncope and collapse] Onset: 09-27-2024 Episodic Thyroid disorders (1 source) Hypothyroidism, unspecified; Translations: [Hypothyroidism, unspecified] Onset: 11-09-2023 Chronic Urinary tract infections (5 sources) Cystitis; Translations: [Cystitis, unspecified without hematuria] Onset: 06-15-2024 05-08-2022 Episodic Past or Other Problems Problem Classification Problem Date Documented Da te Episodic/Chronic Abdominal pain (8 sources) Abdominal pain; Translations: [Unspecified abdominal pain] Onset: 12-03-2022 Episodic Results Test Name Value Interpretation Reference Range Facility .Auto Diffon 09-27-2024 Basophil, Absolute 0.1 10 3/mcL Normal 0.0-0.3 [facility] Comment on above: Performed By: #### A DIFF, GFR, ALC, CMP, TROPHS, CBC, ANEU, MDW #### [facility] [address] [place], [place] [address] Basophils/100 WBC (Bld) 0.9 % Normal 0.0-2.5 [facility] Comment on above: Performed By: #### A DIFF, GFR, ALC, CMP, TROPHS, CBC, ANEU, MDW #### [address] [address] Eosinophil, Absolute 0.2 10 3/mcL Normal 0.0-0.7 [facility] Comment on above: Performed By: #### A DIFF, GFR, ALC, CMP, TROPHS, CBC, ANEU, MDW #### [address] [address] Eosinophils/100 WBC (Bld) 3.2 % Normal 0.0-6.0 [facility] Comment on above: Performed By: #### A DIFF, GFR, ALC, CMP, TROPHS, CBC, ANEU, MDW #### [address] [address] Lymphocyte, Absolute 2.3 10 3/mcL Normal 0.9-4.3 [facility] Comment on above: Performed By: #### A DIFF, GFR, ALC, CMP, TROPHS, CBC, ANEU, MDW #### [address] [address] Lymphocytes/100 WBC (Bld) 32.1 % Normal 20.0-40.0 [facility] Comment on above: Performed By: #### A DIFF, GFR, ALC, CMP, TROPHS, CBC, ANEU, MDW #### [address] [address] Monocyte, Absolute 0.8 10 3/mcL Normal 0.1-1.4 [facility] Comment on above: Performed By: #### A DIFF, GFR, ALC, CMP, TROPHS, CBC, ANEU, MDW #### [address] [address] Monocytes/100 WBC (Bld) 10.6 % Normal 2.0-13.0 [facility] Comment on above: Performed By: #### A DIFF, GFR, ALC, CMP, TROPHS, CBC, ANEU, MDW #### [address] [address] Neutrophils/100 WBC (Bld) 53.2 % Normal 50.0-75.0 [facility] Comment on above: Performed By: #### A DIFF, GFR, ALC, CMP, TROPHS, CBC, ANEU, PIETER #### [address] [address] .GFRon 09-27-2024 Estimated Glomerular Filtration Rate 65 ml/min/1.73sqm Normal [facility] Comment on above: Result Comment: Stages of Chronic Kidney Disease (CKD) Stage Description eGFR(ml/min/1.73 sq.m.) CKD 1 Normal kidney function or >=90 normal kindney function with possible kidney damage (ex. Proteinuria) CKD 2 Kidney damage with mild loss 60-89 of kidney function CKD 3a Mild to moderate loss of kidney 45-59 function CKD 3b Moderate to severe loss of 30-44 of kindey function CKD 4 Severe loss of kidney function 15-29 CKD 5 Kidney failure <15 Note: (go live 2024) the eGFR calculation was updated to the 2020 CKD-EPI creatinine equation without a race factor to calculate the eGFR results. Performed By: #### A DIFF, GFR, ALC, CMP, TROPHS, CBC, ANEU, MDW ####[address] [address] .MDWon 09-27-2024 Monocyte Distribution Width 19.39 Normal 0.00-20.00 [facility] Comment on above: Result Comment: For ED adult patients suspected of sepsis, MDW<=20.0 does not rule out sepsis or risk of sepsis Performed By: #### A DIFF, GFR, ALC, CMP, TROPHS, CBC, ANEU, MDW #### [address] [address] .NEUABSon 09-27-2024 Neutrophil, Absolute 3.8 10 3/mcL Normal 2.3-8.1 [facility] Comment on above: Performed By: #### A DIFF, GFR, ALC, CMP, TROPHS, CBC, ANEU, MDW #### [address] [address] Alexis 09-27-2024 Ethanol Level <3 Normal [facility] Comment on above: Performed By: #### A DIFF, GFR, ALC, CMP, TROPHS, CBC, PIETER CARTAGENA ####[address] [address] CBCon 09-27-2024 Erythrocyte distribution width (RBC) [Ratio] 17.9 % High 11.5-15.5 [facility] Comment on above: Performed By: #### A DIFF, GFR, ALC, CMP, TROPHS, CBC, PIETER CARTAGENA #### [place] [address] Hematocrit (Bld) [Volume fraction] 42.6 % Normal 34.0-46.0 [facility] Comment on above: Performed By: #### A DIFF, GFR, ALC, CMP, TROPHS, CBC, PIETER CARTAGENA #### [place] [address] Hgb 13.7 G/dL Normal 12.0-16.0 [facility] Comment on above: Performed By: #### A DIFF, GFR, ALC, CMP, TROPHS, CBC, PIETER CARTAGENA #### [place] [id number] MCH (RBC) [Entitic mass] 24.8 pg Low 27.0-33.0 [facility] Comment on above: Performed By: #### A DIFF, GFR, ALC, CMP, TROPHS, CBC, PIETER CARTAGENA #### [place] [address] MCHC 32.1 G/dL Normal 32.0-36.0 [facility] Comment on above: Performed By: #### A DIFF, GFR, ALC, CMP, TROPHS, CBC, PIETER CARTAGENA #### [place] [id number] MCV (RBC) [Entitic vol] 77.2 fL Low 80.0-99.0 [facility] Comment on above: Performed By: #### A DIFF, GFR, ALC, CMP, TROPHS, CBC, PIETER CARTAGENA #### [place] [address] Platelet 333 10 3/mcL Normal 150-450 [facility] Comment on above: Performed By: #### A DIFF, GFR, ALC, CMP, TROPHS, CBC, PIETER CARTAGENA #### [address] [address] Platelet mean volume (Bld) [Entitic vol] 6.5 fL Low 6.6-10.5 [facility] Comment on above: Performed By: #### A DIFF, GFR, ALC, CMP, TROPHS, CBC, PIETER CARTAGENA #### [address] [address] RBC 5.52 10 6/mcL High 4.10-5.30 [facility] Comment on above: Performed By: #### A DIFF, GFR, ALC, CMP, TROPHS, CBC, PIETER CARTAGENA #### [address] [address] WBC 7.2 10 3/mcL Normal 4.5-10.8 [facility] Comment on above: Performed By: #### A DIFF, GFR, ALC, CMP, TROPHS, MARIA ELENA, PIETER CARTAGENA #### [address] [address] CMPon 09-27-2024 Albumin Level 3.6 G/dL Normal 3.4-4.8 [facility] Comment on above: Performed By: #### A DIFF, GFR, ALC, CMP, TROPHS, CBC, PIETER CARTAGENA ####[address] [address] Albumin/Globulin [Mass ratio] 0.8 {ratio} Low 1.1-2.5 [facility] Comment on above: Performed By: #### A DIFF, GFR, ALC, CMP, TROPHS, CBC, PIETER CARTAGENA ####[address] [address] ALP [Catalytic activity/Vol] 104 U/L Normal 40-135 [facility] Comment on above: Performed By: #### A DIFF, GFR, ALC, CMP, TROPHS, CBC, PIETER CARTAGENA ####[facility] [place], [place] [address] ALT [Catalytic activity/Vol] 36 U/L Normal 14-59 [facility] Comment on above: Performed By: #### A DIFF, GFR, ALC, CMP, TROPHS, CBC, PIETER CARTAGENA ####[facility] [place], [place] [address] AST [Catalytic activity/Vol] 23 U/L Normal 10-40 [facility] Comment on above: Performed By: #### A DIFF, GFR, ALC, CMP, TROPHS, CBC, PIETER CARTAGENA ####[facility] [place], [place] [address] Bili Total 0.2 mg/dL Normal 0.2-1.0 [facility] Comment on above: Result Comment: Use of this assay is not recommended for patients undergoing treatment with eltrombopag due to the potential for falsely elevated results. Performed By: #### A DIFF, GFR, ALC, CMP, TROPHS, CBC, PIETER CARTAGENA ####[address] [place], [place] [address] BUN/Creatinine Ratio 14 ratio Normal 7-27 [facility] Comment on above: Performed By: #### A DIFF, GFR, ALC, CMP, TROPHS, CBC, PIETER CARTAGENA ####[facility] [place], [place] [address] Calcium [Mass/Vol] 9.2 mg/dL Normal 8.4-10.2 [facility] Comment on above: Performed By: #### A DIFF, GFR, ALC, CMP, TROPHS, CBC, PIETER CARTAGENA ####[facility] [place], [place] [address] Chloride [Moles/Vol] 105 mmol/L Normal 98-107 [facility] Comment on above: Performed By: #### A DIFF, GFR, ALC, CMP, TROPHS, CBC, PIETER CARTAGENA ####[facility] [place], [place] [address] CO2 [Moles/Vol] 26 mmol/L Normal 23-31 [facility] Comment on above: Performed By: #### A DIFF, GFR, ALC, CMP, TROPHS, CBC, ANEUMDW ####[address] [place], [place] [address] Creatinine [Mass/Vol] 0.97 mg/dL High 0.51-0.95 [facility] Comment on above: Performed By: #### A DIFF, GFR, ALC, CMP, TROPHS, CBC, ANEUMDW ####[address] [place], [place] [address] Electrolyte Balance 13.0 mEq/L Normal 4.0-15.0 [facility] Comment on above: Performed By: #### A DIFF, GFR, ALC, CMP, TROPHS, CBC, ANEUMDW ####[address] [place], [place] [address] Globulin 4.6 G/dL High 2.7-4.4 [facility] Comment on above: Performed By: #### A DIFF, GFR, ALC, CMP, TROPHS, CBC, ANEU, PIETER ####[address] [place], [place] [address] Glucose [Mass/Vol] 131 mg/dL High 80-115 [facility] Comment on above: Performed By: #### A DIFF, GFR, ALC, CMP, TROPHS, CBC, ANEU, W ####[address] [place], [place] [address] Potassium [Moles/Vol] 3.6 mmol/L Normal 3.5-5.1 [facility] Comment on above: Performed By: #### A DIFF, GFR, ALC, CMP, TROPHS, CBC, ANEU, W ####[address] [place], [place] [address] Sodium [Moles/Vol] 144 mmol/L Normal 136-145 [facility] Comment on above: Performed By: #### A DIFF, GFR, ALC, CMP, TROPHS, CBC, ANEUMDW ####[address] [place], [place] [address] Total Protein 8.2 G/dL Normal 6.4-8.2 [facility] Comment on above: Performed By: #### A DIFF, GFR, ALC, CMP, TROPHS, CBC, MD MITZIW ####[facility] [place], [place] [address] Urea nitrogen [Mass/Vol] 14 mg/dL Normal 7-18 [facility] Comment on above: Performed By: #### A DIFF, GFR, ALC, CMP, TROPHS, CBC, MD MITZIW ####[facility] [place], [place] [address] CT HEAD OR BRAIN W/O CONTRAS Ton 09-27-2024 CT HEAD OR BRAIN W/O CONTRAST ORIGINAL EXAMINATION: CT OF THE HEAD WITHOUT CONTRAST09/27/2024 8:58 am TECHNIQUE: CT of the head was performed without the administration of intravenous contrast. Automated exposure control, iterative reconstruction, and/or weight based adjustment of the mA/kV was utilized to reduce the radiation dose to as low as reasonably achievable. COMPARISON: None. HISTORY: ORDERING SYSTEM PROVIDED HISTORY: Reason for Exam: Head trauma, abnormal mental status FINDINGS: There is no intracranial hemorrhage, mass, mass effect or abnormal extra-axial fluid collection. No evidence of an acute territorial infarct. The ventricles are normal. The skull base and calvarium demonstrate no abnormality. The included paranasal sinuses and mastoid air cells are clear. IMPRESSION: No acute intracranial abnormality. Interpreted by: Hubert Hunt MD Preliminary Report By: Hubert Hunt MD Electronically signed By Hubert Hunt MD Dictated Date: 09/27/2024 9:18:45 AM Prelim Date: 09/27/2024 9:19:44 AM Sign Date: 09/27/2024 9:19:44 AM Ordering Provider: LUIS ALBARADO Interpreted by: Hubetr Hunt MD Preliminary Report By: Hubert Hunt MD Electronically signed By Hubert Hunt MD Dictated Date: 09/27/2024 9:18:45 AM Prelim Date: 09/27/2024 9:19:44 AM Sign Date: 09/27/2024 9:19:44 AM Ordering Provider: LUIS ALBARADO Normal [facility] CT SPINE CERVICAL W/O CONTRA STon 09-27-2024 CT SPINE CERVICAL W/O CONTRAST ORIGINAL EXAMINATION: CT OF THE CERVICAL SPINE WITHOUT CONTRAST09/27/2024 8:58 am TECHNIQUE: CT of the cervical spine was performed without the administration of intravenous contrast. Multiplanar reformatted images are provided for review. Automated exposure control, iterative reconstruction, and/or weight based adjustment of the mA/kV was utilized to reduce the radiation dose to as low as reasonably achievable. COMPARISON: None. HISTORY: ORDERING SYSTEM PROVIDED HISTORY: Reason for Exam: Neck pain, acute, no red flags FINDINGS: No fracture or traumatic malalignment. Vertebral body heights are maintained. There are mild to moderate multilevel degenerative changes in the spine. The prevertebral and paraspinal soft tissues demonstrate no acute abnormality. There is a 1.7 cm left thyroid lobe nodule. IMPRESSION: No acute fracture or traumatic malalignment. 1.7 cm left thyroid lobe nodule. Further evaluation with a non emergent thyroid ultrasound is recommended. Interpreted by: Hubert Hunt MD Preliminary Report By: Hubert Hunt MD Electronically signed By Hubert Hunt MD Dictated Date: 09/27/2024 9:12:14 AM Prelim Date: 09/27/2024 9:17:04 AM Sign Date: 09/27/2024 9:17:04 AM Ordering Provider: LUIS ALBARADO Interpreted by: Hubert Hunt MD Preliminary Report By: Hubert Hunt MD Electronically signed By Hubert Hunt MD Dictated Date: 09/27/2024 9:12:14 AM Prelim Date: 09/27/2024 9:17:04 AM Sign Date: 09/27/2024 9:17:04 AM Ordering Provider: LUIS ALBARADO Normal [facility] LABORATORYOrdered By: Karina Jones on 09-27-2024 Appearance (U) Clear (09/27/24 10:07 AM) Normal Clear AO Auto Urine SS Bilirubin Ql (U) Negative (09/27/24 10:07 AM) Normal Negative AO Auto Urine SS Color (U) Yellow (09/27/24 10:07 AM) Normal AO Auto Urine SS Glucose Test strip (U) [Mass/Vol] Negative Normal Negative AO Auto Urine SS Hemoglobin Auto test strip (U) [Mass/Vol] Large *ABN* (09/27/24 10:07 AM) Invalid Interpretation Code Negative AO Auto Urine SS Ketones Ql (U) Negative Normal Negative AO Auto Ur ine SS UA Hyal Cast 0-2 /LPF Invalid Interpretation Code AO Auto Urine SS UA Leuk Est Negative (09/27/24 10:07 AM) Normal Negative AO Auto Urine SS UA Mucous 1+ /HPF Normal AO Auto Urine SS UA Nitrite Negative (09/27/24 10:07 AM) Normal Negative AO Auto Urine SS UA pH 5.5 (09/27/24 10:07 AM) Normal 5.0 - 8.0 AO Auto Urine SS UA Protein 30 mg/dL Normal Negative AO Auto Urine SS UA RBC 10-20 /HPF Invalid Interpretation Code 0-2 AO Auto Urine SS UA Spec Grav 1.025 (09/27/24 10:07 AM) Normal 1.015-1.025 AO Auto Urine SS UA Specimen Type Void (09/27/24 10:07 AM) Normal AO Auto Urine SS UA Squam Epithelial 3-5 /HPF Normal 0-20 AO Au to Urine SS UA Urobilinogen 0.2 E.U./dL Normal 0.2-1.0 AO Auto Urine SS WBC LM.HPF (Urine sed) [#/Area] 0-2 /HPF Normal 0-5 AO Auto Urine SS Ethanol [Mass/Vol] mg/dL Invalid Interpretation Code AO Chemistry S LABORATORYOrdered By: SYSTEM SYSTEM on 09-27-2024 Troponin I.cardiac DL <= 0.01 ng/mL [Mass/Vol] 13 ng/L Normal 0 - 51 ng/L AO ADM SS Comment on above: Interpretive Data: H igh Sensitive Troponin I Reference Ranges: Female: 0-51 ng/L Male: 0-76 ng/L Testing performed on [employer] using a homogeneous sandwich chemiluminescent immunoassay based on [employer] technology. Albumin BCP dye [Mass/Vol] 3.6 G/dL Normal 3.4 - 4.8 G/dL AO ADM SS Albumin/Globulin [Mass ratio] 0.8 {ratio} Low 1.1 - 2.5 ratio AO ADM SS ALP [Catalytic activity/Vol] 104 U/L Normal 40 - 135 U/L AO ADM SS ALT With P-5'-P [Catalytic activity/Vol] 36 U/L Normal 14 - 59 U/L AO ADM SS AST With P-5'-P [Catalytic activity/Vol] 23 U/L Normal 10 - 40 U/L AO ADM SS Basophils (Bld) [#/Vol] 0.1 103/mcL Normal 0.0 - 0.3 10^3/mcL AO Workflow SS Basophils/100 WBC (Bld) 0.9 % Normal 0.0 - 2.5 % AO Workflow SS Bilirubin [Mass/Vol] 0.2 mg/dL Normal 0.2 - 1 .0 mg/dL AO ADM SS Comment on above: Interpretive Data: U se of this assay is not recommended for patients undergoing treatment with eltrombopag due to the potential for falsely elevated results. Calcium [Mass/Vol] 9.2 mg/dL Normal 8.4 - 10. 2 mg/dL AO ADM SS Chloride [Moles/Vol] 105 mmol/L Normal 98 - 10 7 mmol/L AO ADM SS CO2 [Moles/Vol] 26 mmol/L Normal 23 - 31 mmol/L AO ADM SS Creatinine [Mass/Vol] 0.97 mg/dL High 0.51 - 0.95 mg/dL AO ADM SS Electrolyte Balance 13.0 mEq/L Normal 4.0 - 15 .0 mEq/L AO ADM SS Eosinophil, Absolute 0.2 103/mcL Normal 0.0 - 0 .7 10^3/mcL AO Workflow SS Eosinophils/100 WBC (Bld) 3.2 % Normal 0.0 - 6.0 % AO Workflow SS Erythrocyte distribution width (RBC) [Ratio] 17.9 % High 11.5 - 15.5 % AO Workflow SS Estimated Glomerular Filtration Rate 65 ml/min/1.73sqm Invalid Interpretation Code AO Chemistry S Comment on above: Interpretive Data: Stages of Chronic Kidney Disease (CKD) Stage Description eGFR(ml/min/1.73 sq.m.) CKD 1 Normal kidney function or >=90 normal kindney function with possible kidney damage (ex. Proteinuria) CKD 2 Kidney damage with mild loss 60-89 of kidney function CKD 3a Mild to moderate loss of kidney 45-59 function CKD 3b Moderate to severe loss of 30-44 of kindey function CKD 4 Severe loss of kidney function 15-29 CKD 5 Kidney failure <15 Note: (go live 2024) the eGFR calculation was updated to the 2020 CKD-EPI creatinine equation without a race factor to calculate the eGFR results. Globulin 4.6 G/dL High 2.7 - 4.4 G/dL AO ADM SS Glucose [Mass/Vol] 131 mg/dL High 80 - 115 mg/dL AO ADM SS Hematocrit (Bld) [Volume fraction] 42.6 % Normal 34.0 - 46.0 % AO Workflow SS Hemoglobin (Bld) [Mass/Vol] 13.7 G/dL Normal 12.0 - 16.0 G/dL AO Workflow SS Lymphocytes (Bld) [#/Vol] 2.3 103/mcL Normal 0.9 - 4.3 10^3/mcL AO Workflow SS Lymphocytes/100 WBC (Bld) 32.1 % Normal 20.0 - 40.0 % AO Workflow SS MCH (RBC) [Entitic mass] 24.8 pg Low 27.0 - 33.0 pg AO Workflow SS MCHC 32.1 G/dL Normal 32.0 - 36.0 G/dL AO Workflow SS MCV (RBC) [Entitic vol] 77.2 fL Low 80.0 - 99.0 fL AO Workflow SS Monocyte distribution width Auto (Bld) [Entitic vol] 19.39 1 Normal 0.00 - 20.00 AO Workflow SS Comment on above: Result Comment: For ED adult patients suspected of sepsis, MDW<=20.0 does not rule out sepsis or risk of sepsis Monocytes (Bld) [#/Vol] 0.8 103/mcL Normal 0.1 - 1.4 10^3/mcL AO Workflow SS Monocytes/100 WBC (Bld) 10.6 % Normal 2.0 - 13.0 % AO Workflow SS Neutrophils (Bld) [#/Vol] 3.8 103/mcL Normal 2.3 - 8.1 10^3/mcL AO Workflow SS Neutrophils/100 WBC (Bld) 53.2 % Normal 50.0 - 75.0 % AO Workflow SS Platelet mean volume (Bld) [Entitic vol] 6.5 fL Low 6.6 - 10.5 fL AO Workflow SS Platelets (Bld) [#/Vol] 333 103/mcL Normal 150 - 450 10^3/mcL AO Workflow SS Potassium [Moles/Vol] 3.6 mmol/L Normal 3.5 - 5.1 mmol/L AO ADM SS Protein [Mass/Vol] 8.2 G/dL Normal 6.4 - 8.2 G/dL AO ADM SS RBC (Bld) [#/Vol] 5.52 106/mcL High 4.10 - 5.3 0 10^6/mcL AO Workflow SS Sodium [Moles/Vol] 144 mmol/L Normal 136 - 145 mmol/L AO ADM SS Troponin I.cardiac DL <= 0.01 ng/mL [Mass/Vol] 5 ng/L Normal 0 - 51 ng/L AO ADM SS Comment on above: Interpretive Data: H igh Sensitive Troponin I Reference Ranges: Female: 0-51 ng/L Male: 0-76 ng/L Testing performed on [employer] using a homogeneous sandwich chemiluminescent immunoassay based on [employer] technology. Urea nitrogen [Mass/Vol] 14 mg/dL Normal 7 - 18 mg/dL AO ADM SS Urea nitrogen/Creatinine [Mass ratio] 14 ratio Normal 7 - 27 ratio AO ADM SS WBC (Bld) [#/Vol] 7.2 103/mcL Normal 4.5 - 10.8 10^3/mcL AO Workflow SS TROPHSon 09-27-2024 High Sensitivity Troponin I 13 ng/L Normal 0-51 [facility] Comment on above: Result Comment: High Sensitive Troponin I Reference Ranges: Female: 0-51 ng/L Male: 0-76 ng/L Testing performed on [employer] using a homogeneous sandwich chemiluminescent immunoassay based on [employer] technology. Performed By: #### T ROP #### [address] [address] High Sensitivity Troponin I 5 ng/L Normal 0-51 [facility] Comment on above: Result Comment: High Sensitive Troponin I Reference Ranges: Female: 0-51 ng/L Male: 0-76 ng/L Testing performed on [employer] [facility] using a homogeneous sandwich chemiluminescent immunoassay based on [employer] technology. Performed By: #### A DIFF, GFR, ALC, CMP, TROPHS, CBC, ANEU, MDW #### [address] [address] UAon 09-27-2024 Color (U) Yellow Normal [facility] Comment on above: Performed By: #### U AMIC, UA #### [address] [address] Glucose (U) [Mass/Vol] Negative Normal Negative [facility] Comment on above: Performed By: #### U AMIC, UA #### [address] [address] Ketones Ql (U) Negative Normal Negative [facility] Comment on above: Performed By: #### U AMIC, UA #### [address] [address] UA Appear Clear Normal Clear [facility] Comment on above: Performed By: #### U AMIC, UA #### [address] [address] UA Blood Large Abnormal Negative [facility] Comment on above: Performed By: #### U AMIC, UA #### [address] [address] UA Leuk Est Negative Normal Negative [facility] Comment on above: Performed By: #### U AMIC, UA #### [address] [address] UA Nitrite Negative Normal Negative [facility] Comment on above: Performed By: #### U AMIC, UA #### [place] [address] UA pH 5.5 Normal 5.0 - 8.0 [facility] Comment on above: Performed By: #### U AMIC, UA #### [address] [address] UA Protein 30 mg/dL Normal Negative [facility] Comment on above: Performed By: #### U AMIC, UA #### [address] [address] UA Spec Grav 1.025 Normal 1.015-1.025 [facility] Comment on above: Performed By: #### U AMIC, UA #### [address] [address] UA Specimen Type Void Normal [facility] Comment on above: Performed By: #### U AMIC, UA #### [address] [address] UA Urobilinogen 0.2 E.U./dL Normal 0.2-1.0 [facility] Comment on above: Performed By: #### U AMIC, UA #### [address] [address] Urobilinogen (U) [Mass/Vol] Negative Normal Negative [facility] Comment on above: Performed By: #### U AMIC, UA #### [place] [address] [place], [place] [address] UAMICon 09-27-2024 UA Hyal Cast 0-2 Abnormal [facility] Comment on above: Performed By: #### U AMIC, UA #### [address] [address] UA Mucous 1+ /hpf Normal [facility] Comment on above: Performed By: #### U AMIC, UA #### [place] [address] UA RBC 10-20 Abnormal 0-2 [facility] Comment on above: Performed By: #### U AMIC, UA #### [place] [address] UA Squam Epithelial 3-5 Normal 0-20 [facility] Comment on above: Performed By: #### U AMIC, UA #### [place] [address] UA WBC 0-2 Normal 0-5 [facility] Comment on above: Performed By: #### U AMIC, UA #### [place] [address] XR CHEST 1 VIEWon 09-27-2024 XR CHEST 1 VIEW ORIGINAL EXAMINATION: ONE XRAY VIEW OF THE CHEST09/27/2024 8:58 am CHEST ONE VIEW AP/PA COMPARISON: None HISTORY: ORDERING SYSTEM PROVIDED HISTORY: Reason for Exam: pain; trauma patient FINDINGS: The cardiomediastinal contours are normal. There are low lung volumes with hypoventilatory changes. There is no pleural effusion or pneumothorax. No acute osseous abnormality. IMPRESSION: Low lung volumes with hypoventilatory changes. Otherwise, no acute radiographic findings. Interpreted by: Hubert Hunt MD Preliminary Report By: Hubert Hunt MD Electronically signed By Hubert Hunt MD Dictated Date: 09/27/2024 9:18:11 AM Prelim Date: 09/27/2024 9:18:37 AM Sign Date: 09/27/2024 9:18:37 AM Ordering Provider: LUIS ALBARADO Interpreted by: Hubert Hunt MD Preliminary Report By: Hubert Hunt MD Electronically signed By Hubert Hunt MD Dictated Date: 09/27/2024 9:18:11 AM Prelim Date: 09/27/2024 9:18:37 AM Sign Date: 09/27/2024 9:18:37 AM Ordering Provider: LUIS ALBARADO Normal [facility] XR PELVIS 1 OR 2 VIEWSon XR PELVIS 1 OR 2 VIEWS ORIGINAL EXAMINATION: ONE XRAY VIEW OF THE PELVIS 09/27/2024 8:59 am COMPARISON: None. HISTORY: ORDERING SYSTEM PROVIDED HISTORY: Reason for Exam: pain; trauma patient FINDINGS: Bilateral hip prostheses are noted. Surgical hardware appears intact without evidence of loosening. There is no acute fracture. The bones are in anatomic alignment. There is no radiopaque foreign body. IMPRESSION: No acute osseous abnormality. Interpreted by: Hubert Hunt MD Preliminary Report By: Hubert Hunt MD Electronically signed By Hubert Hunt MD Dictated Date: 09/27/2024 9:19:48 AM Prelim Date: 09/27/2024 9:20:31 AM Sign Date: 09/27/2024 9:20:31 AM Ordering Provider: LUIS ALBARADO Interpreted by: Hubert Hunt MD Preliminary Report By: Hubert Hunt MD Electronically signed By Hubert Hunt MD Dictated Date: 09/27/2024 9:19:48 AM Prelim Date: 09/27/2024 9:20:31 AM Sign Date: 09/27/2024 9:20:31 AM Ordering Provider: LUIS ALBARADO Normal [facility] Colonoscopy Reporton 025 Colonoscopy Report [facility] Medical Records Department [address] [place] [address] Colonoscopy Report MR#: [id number] Acct: [id number] Name: DESTINEE EASLEY Rep #: [id number] : 1960 63 From: Roderick Friend PCP: SUSAN Prabhakar Status:REG MEC Patient Name: Destinee Easley Procedure Date: 07/21/2024 8:30 AM Date of : 1960 Age: 63 Procedure: Colonoscopy Indications: Screening for colorectal malignant neoplasm Providers: Roderick Dye DO Referring MD: Susan Prabhakar Medicines: Monitored Anesthesia Care Patient Profile: This is a 63 year old female. Refer to note in patient chart for documentation of history and physical. Last Colonoscopy: 5 years ago. Complications: No immediate complications. Procedure: Pre-Anesthesia Assessment: - Prior to the procedure, a History and Physical was performed, and patient medications and allergies were reviewed. The patient is competent. The risks and benefits of the procedure and the sedation options and risks were discussed with the patient. All questions were answered and informed consent was obtained. Patient identification and proposed procedure were verified by the physician in the pre-procedure area. Mental Status Examination: alert and oriented. Airway Examination: normal oropharyngeal airway and neck mobility. Respiratory Examination: clear to auscultation. CV Examination: normal. Prophylactic Antibiotics: The patient does not require prophylactic antibiotics. Prior Anticoagulants: The patient has taken no anticoagulant or antiplatelet agents except for NSAID medication. ASA Grade Assessment: II - A patient with mild systemic disease. After reviewing the risks and benefits, the patient was deemed in satisfactory condition to undergo the procedure. The anesthesia plan was to use monitored anesthesia care (MAC). Immediately prior to administration of medications, the patient was re-assessed for adequacy to receive sedatives. The heart rate, respiratory rate, oxygen saturations, blood pressure, adequacy of pulmonary ventilation, and response to care were monitored throughout the procedure. The physical status of the patient was re-assessed after the procedure. After I obtained informed consent, the scope was passed under direct vision. Throughout the procedure, the patient's blood pressure, pulse, and oxygen saturations were monitored continuously. The adult colonoscope was introduced through the anus and advanced to the cecum, identified by appendiceal orifice and ileocecal valve. The colonoscopy was performed without difficulty. The patient tolerated the procedure well. The quality of the bowel preparation was adequate. The ileocecal valve, appendiceal orifice, and rectum were photographed. Scope In: 8:38:55 AM Scope Withdrawal Time 0 hours 11 minutes 15 seconds Scope Out: 8:55:33 AM Total Procedure Duration Time 0 hours 16 minutes 38 seconds Findings: The perianal and digital rectal examinations were normal. Four sessile polyps were found in the sigmoid colon, splenic flexure and hepatic flexure. The polyps were 1 to 2 mm in size. These polyps were removed with a hot snare. Resection and retrieval were complete. Verification of patient identification for the specimen was done. Estimated blood loss was minimal. A 4 mm polyp was found in the transverse colon. The polyp was sessile. The polyp was removed with a jumbo cold forceps. Resection and retrieval were complete. Verification of patient identification for the specimen was done. Estimated blood loss was minimal. Multiple small and large-mouthed diverticula were found in the recto-sigmoid colon, sigmoid colon and descending colon. Impression: - Four 1 to 2 mm polyps in the sigmoid colon, at the splenic flexure and at the hepatic flexure, removed with a hot snare. Resected and retrieved. - One 4 mm polyp in the transverse colon, removed with a jumbo cold forceps. Resected and retrieved. - Diverticulosis in the recto-sigmoid colon, in the sigmoid colon and in the descending colon. Recommendation: - Discharge patient to home. - Resume previous diet. - Continue present medications. - Await pathology results. - Repeat colonoscopy in 3 years for surveillance. - Return to GI office. Procedure Code(s): --- Professional --- 08486, Colonoscopy, flexible; with removal of tumor(s), polyp(s), or other lesion(s) by snare technique 98288, 59, Colonoscopy, flexible; with biopsy, single or multiple CPT copyright 2021 [employer]. All rights reserved. The codes documented in this report are preliminary and upon director investment banking review may be revised to meet current compliance requirements. Roderick Dye DO 07/21/2024 9:03:00 AM This report has been signed electronically. Number of Addenda: 0 Note Initiated On: (more content not included)... Normal [facility] MR/POSTOP.Georgina 07-21-2024 MR/POSTOP.[facility] Medical Records Department [address] [place] [address] Anesthesia Postop Eval I 07/21/24 0905 MR#: [id number] Acct: [id number] Name: DESTINEE EASLEYN Rep #: [id number] : 1960 63 From: Patricia Hood PCP: SUSAN Prabhakar Status:REG SDC Y Race: C Location: [place] [address] Anesthesia: Postop Eval I Current Vital Signs Temperature: 97.1 F Pulse Rate: 77 Blood Pressure: 117/70 Respiratory Rate: 16 Pulse Ox: 98 Oxygen Delivery Method: Room Air Assessment Airway patent: Yes Spontaneous unlabored respirations: Yes Mental status: Awake and Calm nausea: No Vomiting: No Anesthesia Complication: No Fluid Hydration Crystalloid volume administer (ml): 400 Total IV fluid infused: 400 Progress Note Anesthesia document: Postop Eval 1 completed: Yes 07/21/24905 Date Patricia Murrietaigntony Signature: Date CC: Signed Normal [facility] MR/[id number] 07-21-2024 [facility] Medical Records Department [address] [place] [address] Anesthesia Postop Eval II 07/21/24928 MR#: [id number] Acct: [id number] Name: DESTINEE EASLEY Rep #: [id number] : 1960 63 From: Saman Mcbride MD PCP: SUSAN Prabhakar Status:REG SDC Y Race: C Location: [place] [address] Anesthesia Postop Eval I Sum Postop Eval Completion status Anesthesia document: Postop Eval 1 completed: Yes Anesthesia Postop Eval I Summary Anesthesia Postop Eval I Summary: Anesthesia Postop Eval I: Assessment Summary Airway patent Yes 07/21/24 09:06 [email or web address] Spontaneous unlabored Yes 07/21/24 09:06 [email or web address] respirations Mental status Awake,Calm 07/21/24 09:06 [email or web address] nausea No 07/21/24 09:06 [email or web address] Vomiting No 07/21/24 09:06 [email or web address] Anesthesia Postop Eval I: Fluid Summary Crystalloid volume administer 400 07/21/24 09:06 [email or web address] (ml) Colloids volume administered ( ml) Blood Product volume administered (ml) Total IV fluid infused 400 07/21/24 09:06 [email or web address] Anesthesia Postop Eval I: Summary Notes Anesthesia Complication No 07/21/24 09:06 [email or web address] Anesthesia Complication Comment: Post-operative progress note Anesthesia: Postop Eval II Evaluation Mental status: Awake Pain Level: 0 nausea: No Vomiting: No 07/21/24929 Date Saman Alvares Signature: Date CC: Signed Normal [facility] Surgery Specimen Level Leena 07-21-2024 Surgery Specimen Level IV Patient Age/Sex Location Account Attending Physician DESTINEE EASLEY 63/F EN [id number] Roderick Dye DO Specimen: [id number] Received: 07/21/24 Status: HOANG George Num: [id number] Spec Type: COLON BX Subm Dr: Roderick Dye DO HEADER OPERATION: Colonoscopy, polypectomy PRE-OP DIAGNOSIS: Screening TISSUE SUBMITTED: A- Sigmoid polyp, B- Transverse colon polyp, C- Hepatic flexure polyp biopsy, D- Splenic flexure polyp MICROSCOPIC DIAGNOSIS A. Sigmoid colon, polyp, biopsy: Tubulovillous adenoma, multiple fragments. B. Transverse colon, polyp, biopsy: Tubulovillous adenoma, multiple fragments. C. Colon, hepatic flexure, polyp, biopsy: Tubular adenoma. D. Colon, splenic flexure, polyp, biopsy: Tubulovillous adenoma, multiple fragments. MICROSCOPIC DESCRIPTION Slides are reviewed. GROSS DESCRIPTION A. Received in formalin in a container labeled with the patient's name, date of , and sigmoid polyp are 2 mcelroy-pink and polypoid fragments of mucosal tissue measuring 0.6 x 0.5 x 0.4 cm and 0.9 x 0.9 x 0.6 cm. No margin is identified. Each are sectioned and submitted entirely in A1. B. Received in formalin in a container labeled with the patient's name, date of , and transverse colon polyp are multiple small mcelroy-pink fragments of mucosal tissue measuring 0.7 x 0.4 x 0.2 cm in aggregate. Submitted in toto in B1. C. Received in formalin in a container labeled with the patient's name, date of , and hepatic flexure polyp biopsy is a 0.3 x 0.3 x 0.3 cm fragment of mcelroy-pink mucosal tissue. Submitted in toto in C1. D. Received in formalin in a container labeled with the patient's name, date of , and splenic flexure polyp are multiple mcelroy-pink fragments of mucosal tissue measuring 1.3 x 0.7 x 0.3 cm in aggregate. Submitted in toto in D1. [facility] 07-21-2024 CPT:36967t1 Patient Age/Sex Location Account Attending Physician DESTINEE EASLEY 63/F EN [id number] Roderick Dye DO Signed (signature on file) Dr. Manda Thompson MD 07/25/24 1800 Normal [facility] Comment on above: Performed By: #### P SUIV ####[facility] [id number] [place], [place], [id number] Urine Cultureon 06-18-2024 URC Mixed Gram Pos Gram Neg Org Moira Count 25,000-50,000 MIXC Mixed contaminants. Submit a new specimen if indicated. Normal [facility] Comment on above: Performed By: #### M 100.2200, L400.0001 ####[facility] [id number] [place], [place], [phone] Bilirubin Test strip Ql (U)O rdered By: Juan Luis Goldsmith on 06-16-2024 Bilirubin Ql (U) Negative Negative [facility] Epithelial cells.squamous LM Ql (Urine sed)Ordered By: Juan Luis Goldsmith on 06-16-2024 Epithelial cells.squamous LM.HPF (Urine sed) [#/Area] 0 /[HPF] 5-10 [facility] Glucose Ql (U)Ordered By: Kalyn Goldsmith on 06-16-2024 Urine Glucose (UA) Normal mg/dl Normal [facility] Ketones Test strip Ql (U)Ord ered By: Juan Luis Goldsmith on 06-16-2024 Ketones Ql (U) Negative Negative [facility] Microscopic analysis of urin e for red blood cells (RBC)Ordered By: Juan Luis Goldsmith on 06-16-2024 Urine RBC 0 SEEN /hpf 0-5 [facility] Mucus LM Ql (Urine sed)Order ed By: Juan Luis Goldsmith on 06-16-2024 Mucus Ql (Urine sed) 0 SEEN /hpf [facility] Nitrite Test strip Ql (U)Ord ered By: Juan Luis Goldsmith on 06-16-2024 Nitrite Ql (U) Negative Negative [facility] Protein Test strip Ql (U)Ord ered By: Juan Luis Goldsmith on 06-16-2024 Protein Ql (U) Negative Negative [facility] Urinalysis, Completeon 06-16 RBC 0 SEEN Normal 0-5 [facility] Comment on above: Order Comment: COLLE CTOR TO SPECIFY Performed By: #### M 100.2200, L400.0001 ####[facility] [id number] [place], [address] Urine blood detectionOrdered By: Juan Luis Goldsmith on 06-16-2024 Urine Occult Blood 25 /ul High Negative [facility] Urine clarityOrdered By: Rki Goldsmith on 06-16-2024 Clarity (U) Clear Clear [facility] Urine color determinationOrd ered By: Juan Luis Goldsmith on 06-16-2024 Color (U) Straw Yellow [facility] Urine cultureOrdered By: Rik Goldsmith on 06-16-2024 Bacteria identified Cx Nom (U) Mixed Gram Pos & Gram Neg Org Abnormal [facility] Urine leukocyte esterase det ection by dipstickOrdered By: Juan Luis Goldsmith on 06-16-2024 Leukocyte esterase Test strip Ql (U) Negative Negative [facility] Urine pHOrdered By: Juan Luis stout on 06-16-2024 pH (U) 6.5 [pH] 5.0 - 8.0 [facility] Urine sediment bacteria coun t by microscopy (number/high power field)Ordered By: Juan Luis Goldsmith on 06-16-2024 Bacteria LM.HPF (Urine sed) [#/Area] 0 /[HPF] None Seen [facility] Urine specific gravity measu rementOrdered By: Juan Luis Goldsmith on 06-16-2024 Specific gravity (U) [Rel density] 1.005 1.002-1.030 [facility] Urobilinogen Ql (U)Ordered B y: Juan Luis Goldsmith on 06-16-2024 Urine Urobilinogen Normal mg/dl Normal [facility] White blood cell countOrdere d By: Juan Luis Goldsmith on 06-16-2024 Urine WBC 0 SEEN /hpf 0-5 [facility] Laboratory - Chemistry and C hemistry - challengeOrdered By: Juan Luis Goldsmith on 06-15-2024 Bilirubin Ql (U) Negative [facility] Glucose Ql (U) Negative [facility] Ketones Ql (U) Trace (5) [facility] pH (U) 5.0 [pH] [facility] Specific gravity (U) [Rel density] 1.005 [facility] Urobilinogen (U) [Mass/Vol] Negative [facility] Laboratory - Hematology and Cell countsOrdered By: Juan Luis Goldsmith on 06-15-2024 Hemoglobin Ql (U) Moderate [facility] Laboratory - Specimen inform ationOrdered By: Juan Luis Goldsmith on 06-15-2024 Clarity (U) Clear [facility] Color (U) Colorless [facility] Laboratory - UrinalysisOrder ed By: Juan Luis Goldsmith on 06-15-2024 Nitrite Ql (U) Negative [facility] Protein Ql (U) Negative [facility] No Panel InformationOrdered By: Juan Luis Goldsmith on 06-15-2024 Urine Leukocytes Negatve [facility] Urine Non-Hemolyzed Blood Non-Hemolyzed [facility] Urgent Care Visit Reporton 0 06-15-2024 Urgent Care Visit Report [facility] [address] , [address] [place] [address] OFFICE VISIT Date of Service: 06/15/24 MR#: [id number] Acct: [id number] Name: DESTINEE EASLEY Rep #: [id number] : 1960 Provider: SUSAN stout Age/Sex: 63/F Location: [facility] Status: Signed Intake Vital Signs 04/30/24 13:54 06/15/24 11:25 Height 5 ft 1 in Weight: 185 lb BMI 34.9 BP 110/60 Position Sitting Pulse 78 Temp 97.8 F Temp Source Oral Pulse Oximetry (%) 98 Oxygen Delivery Method room air Intake Visit Reasons: CONCERN FOR BLADDER INFECTION Accompanied by: Self Allergies No Known Allergies Allergy (Verified 06/15/24 11:25) Medications ???Medication ???Instructions ???Recorded ???Confirmed ???Type etodolac 400 mg tablet 400 mg PO DAILY #180 tabs 12/12/18 06/15/24 History albuterol sulfate 90 mcg/actuation 1 - 2 puff inhalation Q6H PRN LA N 05/21/19 06/15/24 History aerosol inhaler Sob /Or Wheezing buspirone 5 mg tablet 5 mg PO BID 04/30/24 06/15/24 Hist ory cetirizine 10 mg tablet 10 mg PO QDAY PRN 04/30/24 5 History ferrous sulfate 325 mg (65 mg 325 mg PO 1200,1700 04/30/2406/15 History iron) tablet (FeroSul) linaclotide [Linzess] 145 mcg PO 3XW 04/30/24 06/15/24 H istory mometasone 220 mcg/actuation(14 1 inh inhalation QDAY 04/30/24 History doses) breath activated powder inhaler nitrofurantoin 100 mg PO Q12H 7 days #14 caps 06/15/24 Rx monohydrate/macrocry stals 100 mg capsule (Macrobid) Nurse's Note: Patient has frequency and burning and lower back pain that started Sunday. 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 difficile diarrhea Surgical History (Updated 04/30/24 @ 13:43 by Leesa Crockett) Hx of colonoscopy with polypectomy S/P bilateral hip replacements H/O section S/P laparoscopic cholecystectomy Family History Father Asthma Diabetes Hypertension CAD (coronary artery disease) Sister Asthma Mother Breast cancer Diabetes Hypertension Social History (Updated 04/30/24 @ 13:44 by Leesa Crockett) current occupational status: employed Smoking Status: Never smoker alcohol intake: never substance use type: does not use HPI HPI Details: DESTINEE EASLEY, is a 63 F who presents to the office today for concerns regarding urinary frequency and dysuria. This is not worsening. She also states low back pain. She states this feels similar to previous UTIs. ROS Const Constitutional: No body ache, chills, fatigue, fever(s) (no fever greater than 99.9 F), malaise, night sweats or other (rigors) Resp Respiratory: No shortness of breath Cardio Cardiology: No chest pain at rest or chest pain with exertion Gastro GI: No abdominal pain Genitourinary-Female : Positive for burning urination and urinary frequency; No painful urination, urinary urgency, blood in urine, suprapubic fullness or side pain Endo Endocrine: No fatigue Exam Const General: cooperative, healthy appearing, comfortable and no acute distress Orientation: alert, awake and oriented x3 Chest Chest palpation inspection: normal inspection of the chest Resp Effort Inspection: normal respiratory effort Auscultation: Bilateral: Clear to Auscultation Cardio Rhythm: other (Normal) Heart Sounds: S1 normal, S2 normal and no murmurs GI Inspection: normal to inspection and non-distended Auscultation: normal bowel sounds Palpation: soft and nontender General: No CVA tenderness Skin General: no rashes or lesions noted Results POC Urinalysis Dip (Clinic) Office Urine Color Colorless Last Edit by Melissa Ramirez MA on 06/15/24 11:38 Office Urine Clarity Clear Last Edit by Melissa Ramirez MA on 06/15/24 11:38 Office Urine Glucose Negative Last Edit by Melissa Ramirez MA on 06/15/24 11:38 Office Urine Ketones Trace (5) Last Edit by Melissa Ramirez MA on 06/15/24 11:38 Off Ur Spec [place] 1.005 Last Edit by Melissa Ramirez MA on 06/15/24 11:38 Office Urine pH 5.0 Last Edit by Melissa Ramirez MA on 06/15/24 11:38 Office Urine Bilirubin Negative Last Edit by Melissa Ramirez MA on 06/15/24 11:38 Office Urine Urobilinogen Negative Last Edit by Melissa Ramirez MA on 06/15/24 11:38 Office Urine Blood Moderate Last Edit by Melissa Ramirez MA on 06/15/24 11:38 Office Urine Blood Hemolyzed Non-Hemolyzed Last Edit by Melissa Ramirez MA on 06/15/24 11:38 Office Urine Protein Negative Last Edit by Melissa Ramirez MA on 06/15/24 11:38 Office Urine Nitrate Negative Last Edit by Melissa Ramirez MA on 06/15/24 11:38 Off Ur Leukocytes Negatve Last Edit by Melissa Ramirez MA on 06/15/24 (more content not included)... Normal [facility] Urine Cultureon 02-13-2024 URC Culture exhibits no growth. Normal [facility] Comment on above: Performed By: #### L 350.1000, L400.2010, M100.2200 #### [facility] Laboratory [address] [place], [place], [phone] Cytology, Body Fluid / CSFon 11-19-2024 CYTOLOGY,BF/CSF SEE PATHOLOGY REPORT Normal [facility] Comment on above: Order Comment: URINE Result Comment: Spec imen submitted to Anatomical Pathology Department for testing. Performed By: #### L 350.999, L400.2010, M100.2199 #### [facility] Laboratory [place], [address] Pap Stain (control)on 2023 Pap Stain (control) Patient Age/Sex Location Account Attending Physician DESTINEE EASLEY 63/F LABSPEC [id number] SUSAN Prabhakar Specimen: [id number] Received: 02/12/24 Status: HOANG George Num: [id number] Spec Type: CYSPIN FL Subm Dr: SUSAN Prabhakar HEADER OPERATION: Not noted PRE-OP DIAGNOSIS: Hematuria TISSUE SUBMITTED: Urine for cytology DIAGNOSIS CYTOLOGY Urine for cytology (cytospin): Negative for high grade urothelial carcinoma (NHGUC), Livia System category II. See comment. SJ.mr 02/13/2024 COMMENT This specimen predominantly consists of squamous epithelial cells. The Livia System for urine cytology diagnostic categorization was used in the evaluation of this case. CYTOLOGY STUDY Slides are reviewed. CYTOLOGY GROSS Received is 5 ml of hazy-yellow fluid labeled with the patient's name and and designated per the requisition as urine. Submitted for cytology preparation. Mr 02/13/2024 TC:4 CPT: 05497 Signed (signature on file) Dr. Raf Ho MD 02/14/24 0920 Normal [facility] Comment on above: Performed By: #### P PAPS ####[facility] [id number] [place], [place], [phone] Urinalysis, Routine (Dipstic k)on 02-12-2024 BILIRUBIN URINE Negative Normal Negative [facility] Comment on above: Order Comment: Urine , Random Performed By: #### L 350.1000, L4, #### [facility] Laboratory [address] [place], [place], [address] Clarity (U) Clear Normal Clear [facility] Comment on above: Order Comment: Urine , Random Performed By: #### L 350.1000, L4, #### [facility] [address] [place], [address] Color (U) Straw Normal Yellow [facility] Comment on above: Order Comment: Urine , Random Performed By: #### L 350.1000, , #### [facility] [address] [place], [address] GLUCOSE, UR Normal Normal Normal [facility] Comment on above: Order Comment: Urine , Random Performed By: #### L 350.1000, , #### [facility] [address] [place], [address] KETONE UR Negative Normal Negative [facility] Comment on above: Order Comment: Urine , Random Performed By: #### L 350.1000, , #### [facility] [address] [place], [address] LEUK ESTERASE Negative Normal Negative [facility] Comment on above: Order Comment: Urine , Random Performed By: #### L 350.999, , #### [facility] [address] [place], [address] Nitrite Ql (U) Negative Normal Negative [facility] Comment on above: Order Comment: Urine , Random Performed By: #### L 350.1000, , #### [facility] [address] [place], [address] OCCULT BLOOD-UR 50 /ul Abnormal Negative [facility] Comment on above: Order Comment: Urine , Random Performed By: #### L 350.1000, , #### [facility] [address] [place], [address] pH UR 6.0 Normal 5.0 - 8.0 [facility] Comment on above: Order Comment: Urine , Random Performed By: #### L 350.1000, L4, #### [facility] [address] [place], [address] PROT DIPSTX Negative Normal Negative [facility] Comment on above: Order Comment: Urine , Random Performed By: #### L 350.1000, L4, #### [facility] [address] [place], [address] SP.GR. DIPSTX 1.010 Normal 1.002-1.030 [facility] Comment on above: Order Comment: Urine , Random Performed By: #### L 350.1000, L4, #### [facility] [address] [place], [address] UROBILI Normal Normal Normal [facility] Comment on above: Order Comment: Urine , Random Performed By: #### L 350.1000, L4, #### [facility] [address] [place], [address] Abdomen/Pelvis without Conto n 02-04-2024 Abdomen/Pelvis without Cont [facility] Imaging Services [address] [place] [address] Abdomen/Pelvis without Cont MR#: [id number] Acct: [id number] Name: DESTINEE EASLEY Rep #: [id number] : 1960 F 63 From: Denys wallace MD PCP: SUSAN Prabhakar Status: REG CLI Study: Abdomen/Pelvis without Cont Date of Exam: 01/24 04/18 Exam# [id number] Ordering Dr: Jayda Jolly [id number] STUDY: CT ABDOMEN AND PELVIS WITHOUT CONTRAST REASON FOR EXAM: Female, 63 years old. ASSESS FOR KIDNEY STONES OR ANY ABNORMALITIES RADIATION DOSAGE (If Supplied By Facility): CTDIvol = ( 19.5 ) mGy, DLP = ( 867.04 ) mGycm TECHNIQUE: Transaxial images were obtained from the dome of the diaphragm to the symphysis pubis without oral contrast, and without intravenous contrast. Sagittal and coronal images were reconstructed. Individualized dose optimization techniques were used for this CT. COMPARISON: Comparison is made with prior study dated December 06, 2022. FINDINGS: The visualized lung bases are unremarkable. The visualized portions of the heart are within normal limits. Normal liver. There are surgical clips in the gallbladder fossa consistent with a prior cholecystectomy. Normal spleen. Normal pancreas. Normal bilateral adrenal glands. Normal right kidney. Normal left kidney. There is a small hiatal hernia. Normal small intestine. Normal colon. The appendix is visualized and appears normal. Normal abdominal aorta. Normal inferior vena cava. Normal retroperitoneum. Normal urinary bladder. Normal abdominal wall. Status post bilateral total hip replacement limits the evaluation of pelvic structures. CT/Abdomen/Pelvis without Cont IMPRESSION: No renal calcification is seen. Status post cholecystectomy. Electronically Signed: Denys Radford MD at 15:33 EST Reading Location ID and State: [address] [place] [address] , Service support , CC: SUSAN Jolly Hot Car Operator: Signed Normal [facility] Abdomen Single Viewon 2023 Abdomen Single View [facility] Imaging Services [address] [place], [place] [address] Abdomen Single View MR#: [id number] Acct: [id number] Name: DESTINEE EASLEY Rep #: [id number] : 1960 F 63 From: Geovany Hutson MD PCP: SUSAN Prabhakar Status: REG CLI Study: Abdomen Single View Date of Exam: 01/29/24 Exam# [id number] Ordering Dr: Jayda Jolly [id number] STUDY: X-RAY - ABDOMEN/PELVIS REASON FOR EXAM: Female, 63 years old. KUB- STONES TECHNIQUE: Single AP view of the abdomen / pelvis. COMPARISON: 12/06/2022 FINDINGS: Status post cholecystectomy. There is an unremarkable bowel gas pattern. The visualized liver, spleen and kidneys are grossly normal in size and morphology. Normal soft tissue structures. Status post bilateral total hip arthroplasty. RAD/Abdomen Single View IMPRESSION: Normal x-ray examination of the abdomen and pelvis. Electronically Signed: Geovany Hutson MD at 9:40 EST , CC: SUSAN Jolly Hot Car Operator: Signed Normal [facility] Amylaseon 01-29-2024 SHANE 57 U/L Normal 25-115 [facility] Comment on above: Performed By: #### L 501.2400, L500.4050, L501.2450, L100.0100 #### [facility] Laboratory [address] [place], [address] CBC W/Diff, Automatedon Absolute Lymph 1.94 X10 3/uL Normal 0.83-4.51 [facility] Comment on above: Performed By: #### L 501.2400, L500.4050, L501.2450, L100.0100 #### [facility] Laboratory [address] [place], [address] Absolute Neut 7.2 X10 3/uL Normal 2.0-7.7 [facility] Comment on above: Performed By: #### L 501.2400, L500.4050, L501.2450, L100.0100 #### [facility] Laboratory [address] [place], [address] Basophils/100 WBC (Bld) 0.4 % Normal 0-1 [facility] Comment on above: Performed By: #### L 501.2400, L500.4050, L501.2450, L100.0100 #### [facility] Laboratory [address] [place], [address] Eosinophils/100 WBC (Bld) 1.7 % Normal 0-5 [facility] Comment on above: Performed By: #### L 501.2400, L500.4050, L501.2450, L100.0100 #### [facility] Laboratory [address] [place], [address] Erythrocyte distribution width (RBC) [Ratio] 13.0 % Normal 11.6-14.6 [facility] Comment on above: Performed By: #### L 501.2400, L500.4050, L501.2450, L100.0100 #### [facility] Laboratory [address] [place], [address] Hematocrit (Bld) [Volume fraction] 40.8 % Normal 37-47 [facility] Comment on above: Performed By: #### L 501.2400, L500.4050, L501.2450, L100.0100 #### [facility] Laboratory [address] [place], [address] Hemoglobin (Bld) [Mass/Vol] 12.9 g/dL Normal 12.0-15.0 [facility] Comment on above: Performed By: #### L 501.2400, L500.4050, L501.2450, L100.0100 #### [facility] Laboratory [address] [place], [address] IG% 0.200 Normal 0.0-0.9 [facility] Comment on above: Result Comment: IG% - Immature Granulocytes (promyelocytes, myelocytes and metamyelocytes) > 1% indicates that a LEFT SHIFT is Present. Performed By: #### L 501.2400, L500.4050, L501.2450, L100.0100 #### [facility] Laboratory [address] [place], [address] Lymphocytes/100 WBC (Bld) 19.2 % Normal 19-41 [facility] Comment on above: Performed By: #### L 501.2400, L500.4050, L501.2450, L100.0100 #### [facility] Laboratory [address] [place], [address] MCH (RBC) [Entitic mass] 27.9 pg Normal 27.0-32.0 [facility] Comment on above: Performed By: #### L 501.2400, L500.4050, L501.2450, L100.0100 #### [facility] Laboratory [address] [place], [address] MCHC (RBC) [Mass/Vol] 31.6 g/dL Low 32-36 [facility] Comment on above: Performed By: #### L 501.2400, L500.4050, L501.2450, L100.0100 #### [facility] Laboratory [address] [place], [address] MCV (RBC) [Entitic vol] 88.3 fL Normal 81-99 [facility] Comment on above: Performed By: #### L 501.2400, L500.4050, L501.2450, L100.0100 #### [facility] Laboratory [address] [place], [address] Monocytes/100 WBC (Bld) 7.4 % Normal 0-10 [facility] Comment on above: Performed By: #### L 501.2400, L500.4050, L501.2450, L100.0100 #### [facility] Laboratory [address] [place], [address] Neutrophils/100 WBC (Bld) 71.1 % High 47-70 [facility] Comment on above: Performed By: #### L 501.2400, L500.4050, L501.2450, L100.0100 #### [facility] Laboratory [address] [place], [address] Nucleated RBC (Bld) [#/Vol] 0 10*3/uL Normal 0-5 [facility] Comment on above: Performed By: #### L 501.2400, L500.4050, L501.2450, L100.0100 #### [facility] Laboratory [address] [place], [address] Platelet mean volume (Bld) [Entitic vol] 8.3 fL Normal 6.2-12.0 [facility] Comment on above: Performed By: #### L 501.2400, L500.4050, L501.2450, L100.0100 #### [facility] Laboratory [address] [place], [address] Platelets (Bld) [#/Vol] 393 10*3/uL Normal 150-450 [facility] Comment on above: Performed By: #### L 501.2400, L500.4050, L501.2450, L100.0100 #### [facility] Laboratory [address] [place], [address] RBC (Bld) [#/Vol] 4.62 10*6/uL Normal 4.2-5.4 [facility] Comment on above: Performed By: #### L 501.2400, L500.4050, L501.2450, L100.0100 #### [facility] Laboratory [address], [address] RDW SD 41.7 fl Normal 35.1-43.9 [facility] Comment on above: Performed By: #### L 501.2400, L500.4050, L501.2450, L100.0100 #### [facility] Laboratory [address] [place], [address] WBC (Bld) [#/Vol] 10.1 10*3/uL Normal 4.4-11.0 [facility] Comment on above: Performed By: #### L 501.2400, L500.4050, L501.2450, L100.0100 #### [facility] Laboratory [address] [place], [address] Comprehensive Metabolic Prof ilon 01-29-2024 Albumin [Mass/Vol] 3.8 g/dL Normal 3.2-5.0 [facility] Comment on above: Performed By: #### L 501.2400, L500.4050, L501.2450, L100.0100 #### [facility] Laboratory [address] [place], [address] Albumin/Globulin [Mass ratio] 1.0 {ratio} Normal 0.9-2.4 [facility] Comment on above: Performed By: #### L 501.2400, L500.4050, L501.2450, L100.0100 #### [facility] Laboratory [address] [place], [address] ALK P 101 U/L Normal 45-117 [facility] Comment on above: Performed By: #### L 501.2400, L500.4050, L501.2450, L100.0100 #### [facility] Laboratory [address] [place], [address] ALT [Catalytic activity/Vol] 36 U/L Normal 13-56 [facility] Comment on above: Performed By: #### L 501.2400, L500.4050, L501.2450, L100.0100 #### [facility] Laboratory [address] [place], [address] AST [Catalytic activity/Vol] 24 U/L Normal 15-37 [facility] Comment on above: Performed By: #### L 501.2400, L500.4050, L501.2450, L100.0100 #### [facility] Laboratory [address] [place], [address] Bilirubin [Mass/Vol] 0.40 mg/dL Normal 0.20-1.00 [facility] Comment on above: Result Comment: For patients on eltrombopag therapy, use of Dimension [place] TBIL is not recommended. Performed By: #### L 501.2400, L500.4050, L501.2450, L100.0100 #### [facility] Laboratory [address] [place], [address] BUN/CRE 16.5 RATIO Normal 10-20 [facility] Comment on above: Performed By: #### L 501.2400, L500.4050, L501.2450, L100.0100 #### [facility] Laboratory [address] [place], [address] CA,Total 9.5 mg/dL Normal 8.5-10.1 [facility] Comment on above: Performed By: #### L 501.2400, L500.4050, L501.2450, L100.0100 #### [facility] Laboratory [address] [place], [address] Chloride [Moles/Vol] 108 mmol/L High 98-107 [facility] Comment on above: Performed By: #### L 501.2400, L500.4050, L501.2450, L100.0100 #### [facility] Laboratory [address] [place], [address] CO2 [Moles/Vol] 24.0 mmol/L Normal 21.0-32.0 [facility] Comment on above: Performed By: #### L 501.2400, L500.4050, L501.2450, L100.0100 #### [facility] Laboratory [address] [place], [address] Creatinine [Mass/Vol] 0.85 mg/dL Normal 0.55-1.02 [facility] Comment on above: Result Comment: The validity of the calculated GFR GFRAA in patients over 70 years has not been determined. Clinical correlation is essential. Performed By: #### L 501.2400, L500.4050, L501.2450, L100.0100 #### [facility] Laboratory [address] [place], [address] EST GFR - AA 87 mL/min Normal >60 [facility] Comment on above: Result Comment: Afri can Prydeinig GFR Calc Performed By: #### L 501.2400, L500.4050, L501.2450, L100.0100 #### [facility] Laboratory [address] [place], [address] GAP 9 Normal 5-15 [facility] Comment on above: Performed By: #### L 501.2400, L500.4050, L501.2450, L100.0100 #### [facility] Laboratory [address] [place], [address] GFR/1.73 sq M.predicted among non-blacks MDRD (S/P/Bld) [Vol rate/Area] 72 mL/min/{1.73_m2} Normal >60 [facility] Comment on above: Result Comment: Non- GFR Calc Performed By: #### L 501.2400, L500.4050, L501.2450, L100.0100 #### [facility] Laboratory [address] [place], [address] Globulin (S) [Mass/Vol] 3.7 g/dL Normal 2.2-4.2 [facility] Comment on above: Performed By: #### L 501.2400, L500.4050, L501.2450, L100.0100 #### [facility] Laboratory [address] [place], [address] Glucose [Mass/Vol] 93 mg/dL Normal 74-106 [facility] Comment on above: Performed By: #### L 501.2400, L500.4050, L501.2450, L100.0100 #### [facility] Laboratory [address] [place], [address] Potassium [Moles/Vol] 3.7 mmol/L Normal 3.5-5.1 [facility] Comment on above: Performed By: #### L 501.2400, L500.4050, L501.2450, L100.0100 #### [facility] Laboratory [address] [place], [address] Sodium [Moles/Vol] 140 mmol/L Normal 136-145 [facility] Comment on above: Performed By: #### L 501.2400, L500.4050, L501.2450, L100.0100 #### [facility] Laboratory [address] [place], [address] T PROT 7.5 g/dL Normal 6.4-8.2 [facility] Comment on above: Performed By: #### L 501.2400, L500.4050, L501.2450, L100.0100 #### [facility] Laboratory [address] [place], [address] Urea nitrogen [Mass/Vol] 14 mg/dL Normal 7-18 [facility] Comment on above: Performed By: #### L 501.2400, L500.4050, L501.2450, L100.0100 #### [facility] Laboratory [address] [place], [address] Lipaseon 01-29-2024 Lipase [Catalytic activity/Vol] 24 U/L Normal 13-75 [facility] Comment on above: Result Comment: Jax rodrigues note: LIPASE revised reference range effective 22. New Lipase methodology. Expected to produce lower values than the previous assay method. NEW Reference Range: 13 - 75 U/L Performed By: #### L 501.2400, L500.4050, L501.2450, L100.0100 #### [facility] Laboratory [address] [place], [address] SCRN MAMM (CAD)W/BELLO BILATo n 11-16-2023 SCRN MAMM (CAD)W/BELLO BILAT [facility] Imaging Services [address] [place] [address] SCRN MAMM (CAD)W/BELLO BILAT MR#: [id number] Acct: [id number] Name: DESTINEE EASLEY Rep #: [id number] : 1960 F 63 From: Denys wallace MD PCP: Dr. Yuliya Vasquez DO Status: [facility] Study: SCRN MAMM (CAD)W/BELLO BILAT Date of Exam: 10/25 06/16 Exam# [id number] Ordering Dr: Yuliya Vasquez DO [id number] MAMMOGRAPHY - BILATERAL SCREENING REASON FOR EXAM: Female, 63 years old. Routine annual screening examination. PERTINENT HISTORY: Mother with breast cancer. TECHNIQUE: Digital bilateral breast bello (3D mammographic acquisition) in the CC and MLO projections. 2-D mediolateral oblique (MLO) and craniocaudad (CC) views of both breasts were obtained. CAD: Full Field Digital Mammography with Computer Added Detection was performed. COMPARISON: Comparison is made with prior study dated November 14, 2022 and October 17, 2021. FINDINGS: Breast Composition: The breasts are heterogeneously dense, which may obscure small masses. There are no dominant masses or suspicious calcifications. Stable small benign appearing bilateral axillary lymph nodes. No other significant abnormalities are identified. There has been no significant change since the prior study. BI/SCRN MAMM (CAD)W/BELLO BILAT IMPRESSION: Stable bilateral screening mammogram. Yearly follow-up mammogram recommended. (A) ASSESSMENT CATEGORY: BIRADS Category 2: Benign. A letter regarding these results will be sent to the patient by the facility within 30 days. Approximately 10% of breast cancers are not detected by mammography. A normal mammogram should not delay biopsy of a clinically suspicious abnormality. [id number] Electronically Signed: Denys Radford MD at 7:50 EDT Reading Location ID and State: [address] [place] [address] , Service support , CC: Dr. Yuliya Vasquez, Hot Car Operator: Signed Normal [facility] CBC W/Diff, Automatedon 07- Absolute Lymph 2.19 X10 3/uL Normal 0.83-4.51 [facility] Comment on above: Performed By: #### L 500.4050, L500.4100, L100.0100, L501.9520, L501.47526, L506.0400 ####[facility] [address] [place], [address] Absolute Neut 3.9 X10 3/uL Normal 2.0-7.7 [facility] Comment on above: Performed By: #### L 500.4050, L500.4100, L100.0100, L501.9520, L501.42180, L506.0400 ####[facility] [address] [place], [address] Basophils/100 WBC (Bld) 1.3 % High 0-1 [facility] Comment on above: Performed By: #### L 500.4050, L500.4100, L100.0100, L501.9520, L501.51733, L506.0400 ####[facility] [address] [place], [address] Eosinophils/100 WBC (Bld) 4.0 % Normal 0-5 [facility] Comment on above: Performed By: #### L 500.4050, L500.4100, L100.0100, L501.9520, L501.26692, L506.0400 ####[facility] [address] [place], [address] Erythrocyte distribution width (RBC) [Ratio] 13.2 % Normal 11.6-14.6 [facility] Comment on above: Performed By: #### L 500.4050, L500.4100, L100.0100, L501.9520, L501.46314, L506.0400 ####[facility] [address] [place], [address] Hematocrit (Bld) [Volume fraction] 43.2 % Normal 37-47 [facility] Comment on above: Performed By: #### L 500.4050, L500.4100, L100.0100, L501.9520, L501.65602, L506.0400 ####[facility] [address] [place], [address] Hemoglobin (Bld) [Mass/Vol] 13.9 g/dL Normal 12.0-15.0 [facility] Comment on above: Performed By: #### L 500.4050, L500.4100, L100.0100, L501.9520, L501.70993, L506.0400 ####[facility] [address] [place], [address] IG% 0.300 Normal 0.0-0.9 [facility] Comment on above: Result Comment: IG% - Immature Granulocytes (promyelocytes, myelocytes and metamyelocytes) > 1% indicates that a LEFT SHIFT is Present. Performed By: #### L 500.4050, L500.4100, L100.0100, L501.9520, L501.69659, L506.0400 ####[facility] [address] [place], [address] Lymphocytes/100 WBC (Bld) 31.2 % Normal 19-41 [facility] Comment on above: Performed By: #### L 500.4050, L500.4100, L100.0100, L501.9520, L501.23884, L506.0400 ####[facility] [address] [place], [address] MCH (RBC) [Entitic mass] 27.9 pg Normal 27.0-32.0 [facility] Comment on above: Performed By: #### L 500.4050, L500.4100, L100.0100, L501.9520, L501.19953, L506.0400 ####[facility] [address] [place], [address] MCHC (RBC) [Mass/Vol] 32.2 g/dL Normal 32-36 [facility] Comment on above: Performed By: #### L 500.4050, L500.4100, L100.0100, L501.9520, L501.15634, L506.0400 ####[facility] [address] [place], [address] MCV (RBC) [Entitic vol] 86.6 fL Normal 81-99 [facility] Comment on above: Performed By: #### L 500.4050, L500.4100, L100.0100, L501.9520, L501.71151, L506.0400 ####[facility] [address] [place], [address] Monocytes/100 WBC (Bld) 8.1 % Normal 0-10 [facility] Comment on above: Performed By: #### L 500.4050, L500.4100, L100.0100, L501.9520, L501.36991, L506.0400 ####[facility] [address] [place], [address] Neutrophils/100 WBC (Bld) 55.1 % Normal 47-70 [facility] Comment on above: Performed By: #### L 500.4050, L500.4100, L100.0100, L501.9520, L501.60702, L506.0400 ####[facility] [address] [place], [address] Nucleated RBC (Bld) [#/Vol] 0 10*3/uL Normal 0-5 [facility] Comment on above: Performed By: #### L 500.4050, L500.4100, L100.0100, L501.9520, L501.03420, L506.0400 ####[facility] [address] [place], [address] Platelet mean volume (Bld) [Entitic vol] 8.2 fL Normal 6.2-12.0 [facility] Comment on above: Performed By: #### L 500.4050, L500.4100, L100.0100, L501.9520, L501.14674, L506.0400 ####[facility] [address] [place], [address] Platelets (Bld) [#/Vol] 361 10*3/uL Normal 150-450 [facility] Comment on above: Performed By: #### L 500.4050, L500.4100, L100.0100, L501.9520, L501.97614, L506.0400 ####[facility] [address] [place], [address] RBC (Bld) [#/Vol] 4.99 10*6/uL Normal 4.2-5.4 [facility] Comment on above: Performed By: #### L 500.4050, L500.4100, L100.0100, L501.9520, L501.89474, L506.0400 ####[facility] [address] [place], [place], [phone]) RDW SD 41.0 fl Normal 35.1-43.9 [facility] Comment on above: Performed By: #### L 500.4050, L500.4100, L100.0100, L501.9520, L501.92675, L506.0400 ####[facility] [address] [place], [place], [phone]) WBC (Bld) [#/Vol] 7.0 10*3/uL Normal 4.4-11.0 [facility] Comment on above: Performed By: #### L 500.4050, L500.4100, L100.0100, L501.9520, L501.96541, L506.0400 ####[facility] [address] [place], [address] Comprehensive Metabolic [facility] 10-18-2023 Albumin [Mass/Vol] 3.5 g/dL Normal 3.2-5.0 [facility] Comment on above: Performed By: #### L 500.4050, L500.4100, L100.0100, L501.9520, L501.60090, L506.0400 ####[facility] [address] [place], [address] Albumin/Globulin [Mass ratio] 0.9 {ratio} Normal 0.9-2.4 [facility] Comment on above: Performed By: #### L 500.4050, L500.4100, L100.0100, L501.9520, L501.62786, L506.0400 ####[facility] [address] [place], [address] ALK P 101 U/L Normal 45-117 [facility] Comment on above: Performed By: #### L 500.4050, L500.4100, L100.0100, L501.9520, L501.08717, L506.0400 ####[facility] [address] [place], [address] ALT [Catalytic activity/Vol] 24 U/L Normal 13-56 [facility] Comment on above: Performed By: #### L 500.4050, L500.4100, L100.0100, L501.9520, L501.70374, L506.0400 ####[facility] [address] [place], [address] AST [Catalytic activity/Vol] 17 U/L Normal 15-37 [facility] Comment on above: Performed By: #### L 500.4050, L500.4100, L100.0100, L501.9520, L501.80634, L506.0400 ####[facility] [address] [place], [address] Bilirubin [Mass/Vol] 0.40 mg/dL Normal 0.20-1.00 [facility] Comment on above: Result Comment: For patients on eltrombopag therapy, use of Dimension [place] TBIL is not recommended. Performed By: #### L 500.4050, L500.4100, L100.0100, L501.9520, L501.12786, L506.0400 ####[facility] [address] [place], [address] BUN/CRE 16.3 RATIO Normal 10-20 [facility] Comment on above: Performed By: #### L 500.4050, L500.4100, L100.0100, L501.9520, L501.44755, L506.0400 ####[facility] [address] [place], [address] CA,Total 9.5 mg/dL Normal 8.5-10.1 [facility] Comment on above: Performed By: #### L 500.4050, L500.4100, L100.0100, L501.9520, L501.18675, L506.0400 ####[facility] [address] [place], [address] Chloride [Moles/Vol] 111 mmol/L High 98-107 [facility] Comment on above: Performed By: #### L 500.4050, L500.4100, L100.0100, L501.9520, L501.51090, L506.0400 ####[facility] [address] [place], [address] CO2 [Moles/Vol] 27.0 mmol/L Normal 21.0-32.0 [facility] Comment on above: Performed By: #### L 500.4050, L500.4100, L100.0100, L501.9520, L501.64560, L506.0400 ####[facility] [address] [place], [address] Creatinine [Mass/Vol] 0.92 mg/dL Normal 0.55-1.02 [facility] Comment on above: Result Comment: The validity of the calculated GFR GFRAA in patients over 70 years has not been determined. Clinical correlation is essential. Performed By: #### L 500.4050, L500.4100, L100.0100, L501.9520, L501.31305, L506.0400 ####[facility] [address] [place], [address] EST GFR - AA 79 mL/min Normal >60 [facility] Comment on above: Result Comment: Afri can Prydeinig GFR Calc Performed By: #### L 500.4050, L500.4100, L100.0100, L501.9520, L501.63285, L506.0400 ####[facility] [address] [place], [address] GAP 5 Normal 5-15 [facility] Comment on above: Performed By: #### L 500.4050, L500.4100, L100.0100, L501.9520, L501.63400, L506.0400 ####[facility] [address] [place], [address] GFR/1.73 sq M.predicted among non-blacks MDRD (S/P/Bld) [Vol rate/Area] 65 mL/min/{1.73_m2} Normal >60 [facility] Comment on above: Result Comment: Non- GFR Calc Performed By: #### L 500.4050, L500.4100, L100.0100, L501.9520, L501.10744, L506.0400 ####[facility] [address] [place], [address] Globulin (S) [Mass/Vol] 3.8 g/dL Normal 2.2-4.2 [facility] Comment on above: Performed By: #### L 500.4050, L500.4100, L100.0100, L501.9520, L501.33962, L506.0400 ####[facility] [address] [place], [address] Glucose [Mass/Vol] 89 mg/dL Normal 74-106 [facility] Comment on above: Performed By: #### L 500.4050, L500.4100, L100.0100, L501.9520, L501.86812, L506.0400 ####[facility] [address] [place], [address] Potassium [Moles/Vol] 4.0 mmol/L Normal 3.5-5.1 [facility] Comment on above: Performed By: #### L 500.4050, L500.4100, L100.0100, L501.9520, L501.93110, L506.0400 ####[facility] [address] [place], [address] Sodium [Moles/Vol] 143 mmol/L Normal 136-145 [facility] Comment on above: Performed By: #### L 500.4050, L500.4100, L100.0100, L501.9520, L501.88260, L506.0400 ####[facility] [address] [place], [address] T PROT 7.3 g/dL Normal 6.4-8.2 [facility] Comment on above: Performed By: #### L 500.4050, L500.4100, L100.0100, L501.9520, L501.67183, L506.0400 ####[facility] [address] [place], [address] Urea nitrogen [Mass/Vol] 15 mg/dL Normal 7-18 [facility] Comment on above: Performed By: #### L 500.4050, L500.4100, L100.0100, L501.9520, L501.46694, L506.0400 ####[facility] [address] [place], [address] Free T3on 10-18-2023 Free T3 [Mass/Vol] 2.3 pg/mL Normal 2.18-3.98 [facility] Comment on above: Performed By: #### L 500.4050, L500.4100, L100.0100, L501.9520, L501.14654, L506.0400 ####[facility] [address] [place], [address] Lipid Profileon 10-18-2023 Cholesterol [Mass/Vol] 199 mg/dL Normal 200 [facility] Comment on above: Result Comment: <200 mg/dL Desirable 200-240 mg/dL Borderline >240 mg/dL High Risk Performed By: #### L 500.4050, L500.4100, L100.0100, L501.9520, L501.13118, L506.0400 ####[facility] [address] [place], [address] Cholesterol in HDL [Mass/Vol] 64 mg/dL Normal [facility] Comment on above: Result Comment: The drugs N-Acetylcysteine and Metamizole may falsely depress this assay. Reference Range HDL <40 mg/dL Low HDL Cholesterol HDL >or= 60 mg/dL High HDL Cholesterol Performed By: #### L 500.4050, L500.4100, L100.0100, L501.9520, L501.16514, L506.0400 ####[facility] [address] [place], [address] Cholesterol in LDL [Mass/Vol] 122 mg/dL Normal 0-130 [facility] Comment on above: Performed By: #### L 500.4050, L500.4100, L100.0100, L501.9520, L501.75840, L506.0400 ####[facility] [address] [place], [address] Cholesterol in VLDL [Mass/Vol] 13 mg/dL Normal 5-40 [facility] Comment on above: Performed By: #### L 500.4050, L500.4100, L100.0100, L501.9520, L501.73844, L506.0400 ####[facility] [address] [place], [place], [address] Triglyceride [Mass/Vol] 67 mg/dL Normal [facility] Comment on above: Result Comment: The drugs N-Acetylcysteine and Metamizole may falsely depress this assay. Serum Triglycerides Reference Interval Normal <150 mg/dL Borderline high 150 - 199 mg/dL High 200 - 499 mg/dL Very High > or = 500 mg/dL Performed By: #### L 500.4050, L500.4100, L100.0100, L501.9520, L501.51187, L506.0400 ####[facility] [address] [place], [place], [address] T4 Free Directon 10-18-2023 T4 FREE DIRECT 1.08 ng/dL Normal 0.76-1.46 [facility] Comment on above: Performed By: #### L 500.4050, L500.4100, L100.0100, L501.9520, L501.23754, L506.0400 ####[facility] [address] [place], [place], [address] Thyroid Stim Hormone (TSH)on 10-18-2023 TSH 0.81 uIU/mL Normal 0.358-3.74 [facility] Comment on above: Performed By: #### L 500.4050, L500.4100, L100.0100, L501.9520, L501.37308, L506.0400 ####[facility] [address] [place], [place], [address] CNPDarcie 01-30-2023 R[facility] Telephone [facility] DESTINEE EASLEY ([id number]) 1960 F T Date Time Provider Department 01/30/23 NIKOLAY ALEMAN During your visit today, we recorded the following information about you: Peter Koch 01/30/2023 9:22 AM Signed NO SHOW LETTER #1 MAILED REGULAR AND CERTIFIED CALLED TO RESCHEDULE NO ANSWER LM TO CALL TO RESCHEDULE Allergies As of Date: 01/30/2023 (No Known Allergies) Date Reviewed: 01/23/2019 Reviewed by: Esdras Crockett (Rn), RN - Fully Assessed Reason for Visit: NO SHOW LETTER #1 [Other] Prescriptions as of 01/30/2023 - busPIRone (BUSPAR) 5 mg tablet - FLOVENT DISKUS 50 mcg/actuation diskus inhaler - LORazepam (ATIVAN) 0.5 mg tab - ASMANEX TWISTHALER 220 mcg (30 doses) inhaler - MOMETASONE FUROATE (ASMANEX HFA INHALATION) Inhale as instructed. - Doxycycline Monohydrate 40 mg capsule Take 40 mg by mouth. - L.ACID/L.CASEI/B.BIF /B.CASSIDY/FOS (PROBIOTIC BLEND ORAL) Take by mouth. - CETIRIZINE HCL (ZYRTEC ORAL) Take by mouth. - Cholecalciferol, Vitamin D3, 3,000 unit tab Take by mouth. - Olopatadine 0.6 % spry - ELIDEL 1 % cream - [place] [id number] rol 500 mg-500 mcg -1 mg-12.5 mg cap Take by mouth. - PROVENTIL HFA 90 mcg/actuation inhaler - amoxicillin (POLYMOX, AMOXIL) 500 mg capsule - amoxicillin-clavulan ic acid (AUGMENTIN) 875-125 mg per tablet - ORACEA 40 mg capsule - enoxaparin (LOVENOX) 40 mg/0.4 mL syrg - etodolac (LODINE) 400 mg tablet - HYDROcodone-acetamin ophen (NORCO) 5-325 mg per tablet - ASMANEX TWISTHALER 220 mcg (60 doses) aepb - oxyCODONE immediate release (PERCOLONE) 5 mg immediate release tablet - traMADol (ULTRAM) 50 mg tablet Problem List As Of Date 01/30/2023 Noted Resolved Osteoarthritis [M19.90] Primary osteoarthritis of right knee [M17.11] 02/16/2016 History of total hip arthroplasty [Z96.649] 02/16/2016 Encounter to establish care with new doctor [Z7*01/29/2023 Preventative health care [Z00.00] 01/29/2023 Screening for breast cancer [Z12.39] 01/29/2023 Screening for colon cancer [Z12.11] 01/29/2023 Letter Text Encounter Status:Closed by PETER KOCH on 01/30/23 [facility] Absolute lymphocyte countOrd ered By: Florencia Kim on 12-08-2022 Lymphocytes Auto (Unsp spec) [#/Vol] 1.59 10*3/uL 0.83-4.51 [facility] Basophil percentageOrdered B y: Florencia Kim on 12-08-2022 Basophils/100 WBC (Bld) 1.4 % 0-1 [facility] Eosinophils/100 WBC (Bld) 3.3 % 0-5 [facility] Neutrophils (Bld) [#/Vol] 5.2 10*3/uL 2.0-7.7 [facility] Neutrophils/100 WBC (Bld) 65.7 % 47-70 [facility] WBC (Bld) [#/Vol] 7.9 10*3/uL 4.4-11.0 [facility] Blood erythrocytes count (nu mber/volume)Ordered By: Florencia Kim on 12-08-2022 RBC (Bld) [#/Vol] 4.15 10*6/uL 4.2-5.4 [facility] Blood hemoglobin measurement (mass/volume)Ordered By: Florencia Kim on 12-08-2022 Hemoglobin (Bld) [Mass/Vol] 10.4 g/dL 12.0-15.0 [facility] Blood lymphocytes/100 leukoc ytesOrdered By: Florencia Kim on 12-08-2022 Lymphocytes/100 WBC (Bld) 20.2 % 19-41 [facility] Blood monocytes/100 leukocyt esOrdered By: Florencia Kim on 12-08-2022 Monocytes/100 WBC (Bld) 8.9 % 0-10 [facility] Blood platelet mean volumeOr dered By: Florencia Kim on 12-08-2022 Platelet mean volume (Bld) [Entitic vol] 7.9 fL 6.2-12.0 [facility] Determination of erythrocyte mean corpuscular volume (MCV)Ordered By: Florencia Kim on 12-08-2022 MCV (RBC) [Entitic vol] 83.4 fL 81-99 [facility] Hematocrit Auto (Bld) [Volum e fraction]Ordered By: Florencia Kim on 12-08-2022 Hematocrit (Bld) [Volume fraction] 34.6 % 37-47 [facility] Laboratory - Hematology and Cell countsOrdered By: Florencia Kim on 12-08-2022 Erythrocyte distribution width (RBC) [Entitic vol] 51.8 fL 35.1-43.9 [facility] Erythrocyte distribution width (RBC) [Ratio] 17.1 % 11.6-14.6 [facility] Immature granulocytes/100 WBC (Bld) 0.500 % 0.0-0.9 [facility] Comment on above: IG% - Immature Granu locytes (promyelocytes, myelocytes and metamyelocytes) > 1% indicates that a LEFT SHIFT is Present. MCH (RBC) [Entitic mass] 25.1 pg 27.0-32.0 [facility] Nucleated RBC/100 WBC (Bld) [Ratio] 0 % 0-5 [facility] MCHC Auto (RBC) [Mass/Vol]Or dered By: Florencia Kim on 12-08-2022 MCHC (RBC) [Mass/Vol] 30.1 g/dL 32-36 [facility] Platelets bldOrdered By: Zenia Kim on 12-08-2022 Platelets (Bld) [#/Vol] 694 10*3/uL 150-450 [facility] Basophil percentageOrdered B y: Wilfrid Ruelas on 12-07-2022 Chloride [Moles/Vol] 109 mmol/L 98-107 [facility] Glucose [Mass/Vol] 104 mg/dL 74-106 [facility] Comment on above: Fasting Glucose resu lt from 100 to 125 mg/dL suggests IMPAIRED HOMEOSTASIS per A.D.A. criteria. Potassium [Moles/Vol] 3.5 mmol/L 3.5-5.1 [facility] Sodium [Moles/Vol] 140 mmol/L 136-145 [facility] Blood platelet adequacy dete ction by light microscopyOrdered By: Wilfrid Ruelas on 12-07-2022 Platelets LM Ql (Bld) MKD INC ADEQ [facility] Hemoglobin in reticulocytes (mass per reticulocyte)Ordered By: Florencia Kim on 12-07-2022 Hemoglobin (Reticulocytes) [Entitic mass] 26.6 pg 30-35 [facility] Iron measurement (mass/mass) Ordered By: Florencia Kim on 12-07-2022 Iron (Unsp spec) [Mass/Mass] 31 ug/dL 50-170 [facility] Laboratory - Chemistry and C hemistry - challengeOrdered By: Wilfrid Ruelas on 12-07-2022 CO2 [Moles/Vol] 23.0 mmol/L 21.0-32.0 [facility] Urea nitrogen/Creatinine [Mass ratio] 17.2 mg/mg 10-20 [facility] No Panel InformationOrdered By: Wilfrid Ruelas on 12-07-2022 Estimated Creatinine Clearance Calc 68.77 ml/min [facility] Estimated GFR (MDRD) Amer 121 mL/min >60 [facility] Comment on above: GFR Calc Estimated GFR (MDRD) Non-Af Amer 100 mL/min >60 [facility] Comment on above: Non- GFR Calc No Panel InformationOrdered By: Florencia Kim on 12-07-2022 Immature Reticulocyte Fraction 24.60 % 3.00-15.90 [facility] Reticulocyte Count 2.68 % 0.5-1.5 [facility] Total Iron Binding Capacity 308 ug/dL 250-450 [facility] Review by pathologistOrdered By: Wilfrid Ruelas on 12-07-2022 Pathologist review Madhu (Unsp spec) [Interp] May foll [facility] Serum or plasma calcium toya urement (mass/volume)Ordered By: Wilfrid Ruelas on 12-07-2022 Calcium [Mass/Vol] 8.7 mg/dL 8.5-10.1 [facility] Serum or plasma creatinine m easurement (mass/volume)Ordered By: Wilfrid Ruelas on 12-07-2022 Creatinine [Mass/Vol] 0.64 mg/dL 0.55-1.02 [facility] Comment on above: The validity of the calculated GFR & GFRAA in patients over 70 years has not been determined. Clinical correlation is essential. Serum or plasma ferritin uyen surement (mass/volume)Ordered By: Florencia Kim on 12-07-2022 Ferritin [Mass/Vol] 44 ng/mL 8-252 [facility] Serum or plasma iron saturat ion measurement (mass fraction)Ordered By: Florencia Kim on 12-07-2022 Iron saturation [Mass fraction] 10.1 % 15.0-55.0 [facility] Serum or plasma urea nitroge n measurement (mass/volume)Ordered By: Wilfrid Ruelas on 12-07-2022 Urea nitrogen [Mass/Vol] 11 mg/dL 7-18 [facility] Thin prep Papanicolaou smear with manual screeningOrdered By: Wilfrid ceci on 12-07-2022 Thin prep Papanicolaou smear with manual screening 8 5-15 [facility] Absolute lymphocyte countOrd ered By: Reece Stein on 12-06-2022 Lymphocytes Auto (Unsp spec) [#/Vol] 1.20 10*3/uL 0.83-4.51 [facility] Basophil percentageOrdered B y: Reece Stein on 12-06-2022 Basophils/100 WBC (Bld) 0.6 % 0-1 [facility] Chloride [Moles/Vol] 106 mmol/L 98-107 [facility] Eosinophils/100 WBC (Bld) 0.1 % 0-5 [facility] Glucose [Mass/Vol] 104 mg/dL 74-106 [facility] Comment on above: Fasting Glucose resu lt from 100 to 125 mg/dL suggests IMPAIRED HOMEOSTASIS per A.D.A. criteria. Neutrophils (Bld) [#/Vol] 10.8 10*3/uL 2.0-7.7 [facility] Neutrophils/100 WBC (Bld) 85.1 % 47-70 [facility] Potassium [Moles/Vol] 3.6 mmol/L 3.5-5.1 [facility] Sodium [Moles/Vol] 137 mmol/L 136-145 [facility] WBC (Bld) [#/Vol] 12.7 10*3/uL 4.4-11.0 [facility] Blood erythrocytes count (nu mber/volume)Ordered By: Reece Stein on 12-06-2022 RBC (Bld) [#/Vol] 4.70 10*6/uL 4.2-5.4 [facility] Blood hemoglobin measurement (mass/volume)Ordered By: Reece Stein on 12-06-2022 Hemoglobin (Bld) [Mass/Vol] 12.0 g/dL 12.0-15.0 [facility] Blood lymphocytes/100 leukoc ytesOrdered By: Reece Stein on 12-06-2022 Lymphocytes/100 WBC (Bld) 9.4 % 19-41 [facility] Blood monocytes/100 leukocyt esOrdered By: Reece Stein on 12-06-2022 Monocytes/100 WBC (Bld) 4.3 % 0-10 [facility] Blood platelet mean volumeOr dered By: Reece Stein on 12-06-2022 Platelet mean volume (Bld) [Entitic vol] 7.9 fL 6.2-12.0 [facility] Determination of erythrocyte mean corpuscular volume (MCV)Ordered By: Reece Stein on 12-06-2022 MCV (RBC) [Entitic vol] 81.9 fL 81-99 [facility] Hematocrit Auto (Bld) [Volum e fraction]Ordered By: Reece Stein on 12-06-2022 Hematocrit (Bld) [Volume fraction] 38.5 % 37-47 [facility] Laboratory - Chemistry and C hemistry - challengeOrdered By: Reece Stein on 12-06-2022 CO2 [Moles/Vol] 23.0 mmol/L 21.0-32.0 [facility] Urea nitrogen/Creatinine [Mass ratio] 20.4 mg/mg 10-20 [facility] Laboratory - Hematology and Cell countsOrdered By: Reece Stein on 12-06-2022 Erythrocyte distribution width (RBC) [Entitic vol] 50.8 fL 35.1-43.9 [facility] Erythrocyte distribution width (RBC) [Ratio] 17.1 % 11.6-14.6 [facility] Immature granulocytes/100 WBC (Bld) 0.500 % 0.0-0.9 [facility] Comment on above: IG% - Immature Granu locytes (promyelocytes, myelocytes and metamyelocytes) > 1% indicates that a LEFT SHIFT is Present. MCH (RBC) [Entitic mass] 25.5 pg 27.0-32.0 [facility] Nucleated RBC/100 WBC (Bld) [Ratio] 0 % 0-5 [facility] MCHC Auto (RBC) [Mass/Vol]Or dered By: Reece Stein on 12-06-2022 MCHC (RBC) [Mass/Vol] 31.2 g/dL 32-36 [facility] No Panel InformationOrdered By: Reece Stein on 12-06-2022 Estimated Creatinine Clearance Calc 63.79 ml/min [facility] Estimated GFR (MDRD) Amer 111 mL/min >60 [facility] Comment on above: GFR Calc Estimated GFR (MDRD) Non-Af Amer 92 mL/min >60 [facility] Comment on above: Non- GFR Calc Platelets bldOrdered By: Felicitas Stein on 12-06-2022 Platelets (Bld) [#/Vol] 773 10*3/uL 150-450 [facility] Comment on above: CRITICAL VALUE VERIF IED. CALLED TO [id number]/13/23 1722 Lisset Lerma.RESULTS READ BACK BY SAME . Review by pathologistOrdered By: Reece Stein on 12-06-2022 Pathologist review Madhu (Unsp spec) [Interp] May foll [facility] Serum or plasma calcium toya urement (mass/volume)Ordered By: Reece Stein on 12-06-2022 Calcium [Mass/Vol] 9.4 mg/dL 8.5-10.1 [facility] Serum or plasma creatinine m easurement (mass/volume)Ordered By: Reece Stein on 12-06-2022 Creatinine [Mass/Vol] 0.69 mg/dL 0.55-1.02 [facility] Comment on above: The validity of the calculated GFR & GFRAA in patients over 70 years has not been determined. Clinical correlation is essential. Serum or plasma urea nitroge n measurement (mass/volume)Ordered By: Reece Stein on 12-06-2022 Urea nitrogen [Mass/Vol] 14 mg/dL 7-18 [facility] Thin prep Papanicolaou smear with manual screeningOrdered By: Reece Stein on 12-06-2022 Thin prep Papanicolaou smear with manual screening 8 5-15 [facility] .Auto Diffon 12-03-2022 Basophil, Absolute 0.1 10 3/mcL Normal 0.0-0.2 [facility] ([place]) Comment on above: Performed By: #### C BRIDGET, EARL, MITZI, MDW, LIP, CMP, GFR #### [address] [address] Basophils/100 WBC (Bld) 0.6 % Normal 0.0-2.5 [facility] ([place]) Comment on above: Performed By: #### C BC, EARL, MITZI, MDW, LIP, CMP, GFR #### [address] [address] Eosinophil, Absolute 0.4 10 3/mcL Normal 0.0-0.4 [facility] ([place]) Comment on above: Performed By: #### C BC, EARL, MITZI, MDW, LIP, CMP, GFR #### [address] [address] Eosinophils/100 WBC (Bld) 3.3 % Normal 0.0-7.0 [facility] ([place]) Comment on above: Performed By: #### C BC, EARL, MITZI, MDW, LIP, CMP, GFR #### [address] [address] Lymphocyte, Absolute 2.0 10 3/mcL Normal 0.8-3.9 [facility] ([place]) Comment on above: Performed By: #### C BC, EARL, MITZI, MDW, LIP, CMP, GFR #### [address] [address] Lymphocytes/100 WBC (Bld) 15.7 % Normal 10.0-50.0 [facility] ([place]) Comment on above: Performed By: #### C BC, ADKENDAL, ANEU, MDW, LIP, CMP, GFR #### [address] [address] Monocyte, Absolute 0.8 10 3/mcL Normal 0.2-1.0 [facility] ([place]) Comment on above: Performed By: #### C BC, ADIFF, ANEU, MDW, LIP, CMP, GFR #### [address] [address] Monocytes/100 WBC (Bld) 6.2 % Normal 1.7-13.0 [facility] ([place]) Comment on above: Performed By: #### C BC, ADKENDAL, ANEU, MDW, LIP, CMP, GFR #### [address] [address] Neutrophils/100 WBC (Bld) 74.2 % Normal 37.0-80.0 [facility] ([place]) Comment on above: Performed By: #### C BC, ADKENDAL, ANEU, MDW, LIP, CMP, GFR #### [address] [address] .GFRon 12-03-2022 GFR 75 ml/min/1.73sqm Normal [facility] ([place]) Comment on above: Result Comment: GFR Population mean for , Non- Americans Ages 20-29 = 116 mL/min/1.73 sq.m. Ages 30-39 = 107 mL/min/1.73 sq.m. Ages 40-49 = 99 mL/min/1.73 sq.m. Ages 50-59 = 93 mL/min/1.73 sq.m. Ages 60-69 = 85 mL/min/1.73 sq.m. Ages 70+ = 75 mL/min/1.73 sq.m. Chronic Kidney Disease: Less than 60 mL/min/1.73 square meters End Stage Renal Disease: Less than 15 mL/min/1.73 square meters Performed By: #### C BC, ADIFF, ANEU, MDW, LIP, CMP, GFR #### [address] [address] GFR Non- 62 ml/min/1.73sqm Normal [facility] ([place]) Comment on above: Result Comment: GFR Population mean for , Non- Americans Ages 20-29 = 116 mL/min/1.73 sq.m. Ages 30-39 = 107 mL/min/1.73 sq.m. Ages 40-49 = 99 mL/min/1.73 sq.m. Ages 50-59 = 93 mL/min/1.73 sq.m. Ages 60-69 = 85 mL/min/1.73 sq.m. Ages 70+ = 75 mL/min/1.73 sq.m. Chronic Kidney Disease: Less than 60 mL/min/1.73 square meters End Stage Renal Disease: Less than 15 mL/min/1.73 square meters Performed By: #### C BRIDGET, EARL, MITZI, MDW, LIP, CMP, GFR #### [address] [address] .MDWon 12-03-2022 Monocyte Distribution Width 19.37 Normal 0.00-20.00 [facility] ([place]) Comment on above: Result Comment: For ED adult patients suspected of sepsis, MDW<=20.0 does not rule out sepsis or risk of sepsis Performed By: #### C BRIDGET, MITZI ELLIOTT, MDW, LIP, CMP, GFR #### [address] [address] .NEUABSon 12-03-2022 Neutrophil, Absolute 9.3 10 3/mcL High 2.9-6.2 [facility] ([place]) Comment on above: Performed By: #### C BRIDGET, MITZI ELLIOTT, MDW, LIP, CMP, GFR #### [address] [address] CBCon 12-03-2022 Erythrocyte distribution width (RBC) [Ratio] 18.8 % High 11.5-14.5 [facility] ([place]) Comment on above: Performed By: #### C BC, EARL, ANEU, MDW, LIP, CMP, GFR #### [place] [id number] Hematocrit (Bld) [Volume fraction] 33.4 % Low 37.0-47.0 [facility] ([place]) Comment on above: Performed By: #### C BC, EARL, ANEU, MDW, LIP, CMP, GFR #### [address] [address] Hgb 10.9 G/dL Low 12.0-16.0 [facility] ([place]) Comment on above: Performed By: #### C BC, ADIFF, ANEU, MDW, LIP, CMP, GFR #### [address] [address] MCH (RBC) [Entitic mass] 25.5 pg Low 27.0-31.2 [facility] ([place]) Comment on above: Performed By: #### C BC, EARL, ANEU, MDW, LIP, CMP, GFR #### [address] [address] MCHC 32.6 G/dL Low 33.0-37.0 [facility] ([place]) Comment on above: Performed By: #### C BC, EARL, ANEU, MDW, LIP, CMP, GFR #### [address] [address] MCV (RBC) [Entitic vol] 78.4 fL Low 80.0-94.0 [facility] ([place]) Comment on above: Performed By: #### C BC, EARL, ANEU, MDW, LIP, CMP, GFR #### [address] [address] Platelet 676 10 3/mcL High 130-400 [facility] ([place]) Comment on above: Performed By: #### C BC, EARL, ANEU, MDW, LIP, CMP, GFR #### [address] [address] Platelet mean volume (Bld) [Entitic vol] 6.1 fL Low 7.4-10.4 [facility] ([place]) Comment on above: Performed By: #### C BC, ADIFF, ANEU, MDW, LIP, CMP, GFR #### [place] [id number] RBC 4.26 10 6/mcL Normal 4.20-5.40 [facility] ([place]) Comment on above: Performed By: #### C EARL GILL ANEU, PIETER, LIP, CMP, GFR #### [place] [address] WBC 12.6 10 3/mcL High 4.6-10.8 [facility] ([place]) Comment on above: Performed By: #### C EARL GILL ANEU, PIETER, LIP, CMP, GFR #### [place] [address] CDIFFAOon 12-03-2022 Clostridium difficile toxin A/B PCR Negative Normal Negative [facility] ([place]) Comment on above: Performed By: #### C DIFFAO #### [place] [address] Clostridium difficile toxin A/B PCR Int Normal [facility] ([place]) Comment on above: Result Comment: Alberto s C. difficile Negative result does not rule out the possibility of infection with toxigenic C. difficile. Brock C. difficile Assay results should not be used as the sole basis for diagnosis, treatment, or patient management decisions and should be interpreted in conjunction with other clinical and laboratory findings. See Below Performed By: #### C DIFFAO #### [place] [address] CMPon 12-03-2022 Albumin Level 3.3 G/dL Low 3.4-4.8 [facility] ([place]) Comment on above: Performed By: #### C EARL GILL ANEU, MDW, LIP, CMP, GFR #### [place] [address] Albumin/Globulin [Mass ratio] 0.9 {ratio} Low 1.1-2.5 [facility] ([place]) Comment on above: Performed By: #### C EARL GILL ANEU, W, LIP, CMP, GFR #### [place] [address] [place], [place] [address] ALP [Catalytic activity/Vol] 121 U/L Normal 40-135 [facility] ([place]) Comment on above: Performed By: #### C EARL GILL ANEU, MDW, LIP, CMP, GFR #### [address] [address] ALT [Catalytic activity/Vol] 48 U/L Normal 14-59 [facility] ([place]) Comment on above: Performed By: #### C EARL GILL ANEU, MDW, LIP, CMP, GFR #### [address] [address] AST [Catalytic activity/Vol] 28 U/L Normal 10-40 [facility] ([place]) Comment on above: Performed By: #### C EARL GLIL ANEU, MDW, LIP, CMP, GFR #### [address] [address] Bili Total 0.4 mg/dL Normal 0.2-1.0 [facility] ([place]) Comment on above: Result Comment: Use of this assay is not recommended for patients undergoing treatment with eltrombopag due to the potential for falsely elevated results. Performed By: #### C EARL GILL ANEU, MDW, LIP, CMP, GFR #### [address] [address] BUN/Creatinine Ratio 17 ratio Normal 7-27 [facility] ([place]) Comment on above: Performed By: #### C EARL GILL ANEU, MDW, LIP, CMP, GFR #### [address] [address] Calcium [Mass/Vol] 9.2 mg/dL Normal 8.4-10.2 [facility] ([place]) Comment on above: Performed By: #### C EARL GILL ANEU, MDW, LIP, CMP, GFR #### [address] [address] Chloride [Moles/Vol] 101 mmol/L Normal 98-107 [facility] ([place]) Comment on above: Performed By: #### C BC, ADIFF, ANEU, MDW, LIP, CMP, GFR #### [address] [address] CO2 [Moles/Vol] 27 mmol/L Normal 23-31 [facility] ([place]) Comment on above: Performed By: #### C BC, ADIFF, ANEU, MDW, LIP, CMP, GFR #### [address] [address] Creatinine [Mass/Vol] 0.92 mg/dL Normal 0.55-1.02 [facility] ([place]) Comment on above: Performed By: #### C BC, ADIFF, ANEU, MDW, LIP, CMP, GFR #### [address] [address] Electrolyte Balance 10.0 mEq/L Normal 4.0-15.0 [facility] ([place]) Comment on above: Performed By: #### C BC, ADIFF, ANEU, MDW, LIP, CMP, GFR #### [address] [address] Globulin 3.5 G/dL Normal [facility] ([place]) Comment on above: Performed By: #### C BC, ADIFF, ANEU, MDW, LIP, CMP, GFR #### [address] [address] Glucose [Mass/Vol] 104 mg/dL Normal 80-115 [facility] ([place]) Comment on above: Performed By: #### C BC, ADIFF, ANEU, MDW, LIP, CMP, GFR #### [address] [address] Potassium [Moles/Vol] 4.2 mmol/L Normal 3.5-5.1 [facility] ([place]) Comment on above: Performed By: #### C BC, ADIFF, ANEU, MDW, LIP, CMP, GFR #### [address] [address] Sodium [Moles/Vol] 138 mmol/L Normal 136-145 [facility] ([place]) Comment on above: Performed By: #### C BC, EARL, MITZI, MDW, LIP, CMP, GFR #### [place] [address] [place], [place] [address] Total Protein 6.8 G/dL Normal 6.4-8.2 [facility] ([place]) Comment on above: Performed By: #### C BC, ADIFF, ANEU, MDW, LIP, CMP, GFR #### [place] [address] [place], [place] [address] Urea nitrogen [Mass/Vol] 16 mg/dL Normal 7-18 [facility] ([place]) Comment on above: Performed By: #### C BC, ADIFF, ANEU, MDW, LIP, CMP, GFR #### [place] [address] [place], [place] [address] CT ABD/PELVIS W/ IV CONTRAST ONLYon 12-03-2022 CT ABD/PELVIS W/ IV CONTRAST ONLY ORIGINAL EXAMINATION: CT OF THE ABDOMEN AND PELVIS WITH CONTRAST 12/03/2022 7:00 am TECHNIQUE: CT of the abdomen and pelvis was performed with the administration of intravenous contrast. Multiplanar reformatted images are provided for review. Automated exposure control, iterative reconstruction, and/or weight based adjustment of the mA/kV was utilized to reduce the radiation dose to as low as reasonably achievable. COMPARISON: None. HISTORY: ORDERING SYSTEM PROVIDED HISTORY: Reason for Exam: pain FINDINGS: Patient refused exam following crane follower images. Underwear Cutter images demonstrate bilateral hip arthroplasty hardware. Nonobstructive bowel gas pattern is noted, large quantity of stool is noted throughout the colon to the level of the rectum. IMPRESSION: On crane follower images large quantity of stool is noted throughout the colon to the level of the rectum which could be seen in the setting of constipation. Bowel gas pattern is nonobstructive. CT examination was refused by the patient. Interpreted by: Yadiel Galdamez MD Preliminary Report By: Yadiel Galdamez MD Electronically signed By Yadiel Galdamez MD Dictated Date: 12/03/2022 7:19:14 AM Prelim Date: 12/03/2022 7:20:28 AM Sign Date: 12/03/2022 7:20:28 AM Ordering Provider: LAW Trotter [facility] ([place]) LABORATORYOrdered By: SYSTEM SYSTEM on 12-03-2022 Albumin BCP dye [Mass/Vol] 3.3 G/dL Invalid Interpretation Code 3.4 - 4.8 G/dL AO ADM SS Albumin/Globulin [Mass ratio] 0.9 {ratio} Invalid Interpretation Code 1.1 - 2.5 ratio AO ADM SS ALP [Catalytic activity/Vol] 121 U/L Invalid Interpretation Code 40 - 135 U/L AO ADM SS ALT With P-5'-P [Catalytic activity/Vol] 48 U/L Invalid Interpretation Code 14 - 59 U/L AO ADM SS AST With P-5'-P [Catalytic activity/Vol] 28 U/L Invalid Interpretation Code 10 - 40 U/L AO ADM SS Basophil, Absolute 0.1 103/mcL Invalid Interpretation Code 0.0 - 0.2 10^3/mcL AO Workflow SS Basophils/100 WBC (Bld) 0.6 % Invalid Interpretation Code 0.0 - 2.5 % AO Workflow SS Bilirubin [Mass/Vol] 0.4 mg/dL Invalid Interpretation Code 0.2 - 1.0 mg/dL AO ADM SS Comment on above: Interpretive Data: U se of this assay is not recommended for patients undergoing treatment with eltrombopag due to the potential for falsely elevated results. Calcium [Mass/Vol] 9.2 mg/dL Invalid Interpretation Code 8.4 - 10.2 mg/dL AO ADM SS Chloride [Moles/Vol] 101 mmol/L Invalid Interpretation Code 98 - 107 mmol/L AO ADM SS CO2 [Moles/Vol] 27 mmol/L Invalid Interpretation Code 23 - 31 mmol/L AO ADM SS Creatinine [Mass/Vol] 0.92 mg/dL Invalid Interpretation Code 0.55 - 1.02 mg/dL AO ADM SS Electrolyte Balance 10.0 mEq/L Invalid Interpretation Code 4.0 - 15.0 mEq/L AO ADM SS Eosinophil, Absolute 0.4 103/mcL Invalid Interpretation Code 0.0 - 0.4 10^3/mcL AO Workflow SS Eosinophils/100 WBC (Bld) 3.3 % Invalid Interpretation Code 0.0 - 7.0 % AO Workflow SS Erythrocyte distribution width (RBC) [Ratio] 18.8 % Invalid Interpretation Code 11.5 - 14.5 % AO Workflow SS GFR/1.73 sq M.predicted among blacks MDRD (S/P/Bld) [Vol rate/Area] 75 ml/min/1.73sqm Invalid Interpretation Code AO Chemistry S Comment on above: Interpretive Data: GFR Population mean for , Non- Americans Ages 20-29 = 116 mL/min/1.73 sq.m. Ages 30-39 = 107 mL/min/1.73 sq.m. Ages 40-49 = 99 mL/min/1.73 sq.m. Ages 50-59 = 93 mL/min/1.73 sq.m. Ages 60-69 = 85 mL/min/1.73 sq.m. Ages 70+ = 75 mL/min/1.73 sq.m. Chronic Kidney Disease: Less than 60 mL/min/1.73 square meters End Stage Renal Disease: Less than 15 mL/min/1.73 square meters GFR/1.73 sq M.predicted among non-blacks MDRD (S/P/Bld) [Vol rate/Area] 62 ml/min/1.73sqm Invalid Interpretation Code AO Chemistry S Comment on above: Interpretive Data: GFR Population mean for , Non- Americans Ages 20-29 = 116 mL/min/1.73 sq.m. Ages 30-39 = 107 mL/min/1.73 sq.m. Ages 40-49 = 99 mL/min/1.73 sq.m. Ages 50-59 = 93 mL/min/1.73 sq.m. Ages 60-69 = 85 mL/min/1.73 sq.m. Ages 70+ = 75 mL/min/1.73 sq.m. Chronic Kidney Disease: Less than 60 mL/min/1.73 square meters End Stage Renal Disease: Less than 15 mL/min/1.73 square meters Globulin 3.5 G/dL Invalid Interpretation Code AO ADM SS Glucose [Mass/Vol] 104 mg/dL Invalid Interpretation Code 80 - 115 mg/dL AO ADM SS Hematocrit (Bld) [Volume fraction] 33.4 % Invalid Interpretation Code 37.0 - 47.0 % AO Workflow SS Hemoglobin (Bld) [Mass/Vol] 10.9 G/dL Invalid Interpretation Code 12.0 - 16.0 G/dL AO Workflow SS Lipase [Catalytic activity/Vol] 25 U/L Invalid Interpretation Code 16 - 77 U/L AO ADM SS Lymphocyte, Absolute 2.0 103/mcL Invalid Interpretation Code 0.8 - 3.9 10^3/mcL AO Workflow SS Lymphocytes/100 WBC (Bld) 15.7 % Invalid Interpretation Code 10.0 - 50.0 % AO Workflow SS MCH (RBC) [Entitic mass] 25.5 pg Invalid Interpretation Code 27.0 - 31.2 pg AO Workflow SS MCHC 32.6 G/dL Invalid Interpretation Code 33.0 - 37.0 G/dL AO Workflow SS MCV (RBC) [Entitic vol] 78.4 fL Invalid Interpretation Code 80.0 - 94.0 fL AO Workflow SS Monocyte distribution width Auto (Bld) [Entitic vol] 19.37 1 Invalid Interpretation Code 0.00 - 20.00 AO Workflow SS Comment on above: Result Comment: For ED adult patients suspected of sepsis, MDW<=20.0 does not rule out sepsis or risk of sepsis Monocyte, Absolute 0.8 103/mcL Invalid Interpretation Code 0.2 - 1.0 10^3/mcL AO Workflow SS Monocytes/100 WBC (Bld) 6.2 % Invalid Interpretation Code 1.7 - 13.0 % AO Workflow SS Neutrophil, Absolute 9.3 103/mcL Invalid Interpretation Code 2.9 - 6.2 10^3/mcL AO Workflow SS Neutrophils/100 WBC (Bld) 74.2 % Invalid Interpretation Code 37.0 - 80.0 % AO Workflow SS Platelet mean volume (Bld) [Entitic vol] 6.1 fL Invalid Interpretation Code 7.4 - 10.4 fL AO Workflow SS Platelets (Bld) [#/Vol] 676 103/mcL Invalid Interpretation Code 130 - 400 10^3/mcL AO Workflow SS Potassium [Moles/Vol] 4.2 mmol/L Invalid Interpretation Code 3.5 - 5.1 mmol/L AO ADM SS Protein [Mass/Vol] 6.8 G/dL Invalid Interpretation Code 6.4 - 8.2 G/dL AO ADM SS RBC (Bld) [#/Vol] 4.26 106/mcL Invalid Interpretation Code 4.20 - 5.40 10^6/mcL AO Workflow SS Sodium [Moles/Vol] 138 mmol/L Invalid Interpretation Code 136 - 145 mmol/L AO ADM SS Urea nitrogen [Mass/Vol] 16 mg/dL Invalid Interpretation Code 7 - 18 mg/dL AO ADM SS Urea nitrogen/Creatinine [Mass ratio] 17 ratio Invalid Interpretation Code 7 - 27 ratio AO ADM SS WBC (Bld) [#/Vol] 12.6 103/mcL Invalid Interpretation Code 4.6 - 10.8 10^3/mcL AO Workflow SS LABORATORYOrdered By: Valarie Senior on 12-03-2022 Appearance (U) Clear (12/03/22 5:24 AM) Invalid Interpretation Code Clear AO Auto Urine SS Bilirubin Ql (U) Small *ABN* (12/03/22 5:24 AM) Invalid Interpretation Code Negative AO Auto Urine SS Color (U) Yellow (12/03/22 5:24 AM) Invalid Interpretation Code AO Auto Urine SS Glucose Test strip (U) [Mass/Vol] Negative Invalid Interpretation Code Negative AO Auto Urine SS Hemoglobin Auto test strip (U) [Mass/Vol] Small *ABN* (12/03/22 5:24 AM) Invalid Interpretation Code Negative AO Auto Urine SS Ketones Ql (U) Negative Invalid Interpretation Code Negative AO Auto Urine SS UA Leuk Est Negative (12/03/22 5:24 AM) Invalid Interpretation Code Negative AO Auto Urine SS UA Nitrite Negative (12/03/22 5:24 AM) Invalid Interpretation Code Negative AO Auto Urine SS UA pH 6.0 (12/03/22 5:24 AM) Invalid Interpretation Code 5.0 - 8.0 AO Auto Urine SS UA Protein Negative Invalid Interpretation Code Negative AO Auto Urine SS UA Spec Grav 1.025 (12/03/22 5:24 AM) Invalid Interpretation Code 1.015-1.025 AO Auto Urine SS UA Specimen Type Clean Catch (12/03/22 5:24 AM) Invalid Interpretation Code AO Auto Urine SS UA Urobilinogen 0.2 E.U./dL Invalid Interpretation Code 0.2-1.0 AO Auto Urine SS LABORATORYOrdered By: Karina Jones on 12-03-2022 C. difficile toxin A+B tcdA+tcdB genes JANEY+probe Ql (Stl) Negative *NA* (12/03/22 5:24 AM) Invalid Interpretation Code Negative AO Auto Urine SS Clostridium difficile toxin A/B PCR Int Brock C. difficile Negative result does not rule out the possibility of infection with toxigenic C. difficile. Brock C. difficile Assay results should not be used as the sole basis for diagnosis, treatment, or patient management decisions and should be interpreted in conjunction with other clinical and laboratory findings. Invalid Interpretation Code AO Auto Urine SS LIPon 12-03-2022 Lipase Level 25 U/L Normal 16-77 [facility] ([place]) Comment on above: Performed By: #### C BRIDGET, MITZI ELLIOTT, W, LIP, CMP, GFR #### [address] [address] UAon 12-03-2022 Color (U) Yellow Normal [facility] ([place]) Comment on above: Performed By: #### C BRIDGET, EARL, MITZI, W, LIP, CMP, GFR #### [address] [address] Glucose (U) [Mass/Vol] Negative Normal Negative [facility] ([place]) Comment on above: Performed By: #### C BRIDGET, MITZI ELLIOTT, W, LIP, CMP, GFR #### [address] [address] Ketones Ql (U) Negative Normal Negative [facility] ([place]) Comment on above: Performed By: #### C BRIDGET, MITZI ELLIOTT, MDW, LIP, CMP, GFR #### [address] [address] UA Appear Clear Normal Clear [facility] ([place]) Comment on above: Performed By: #### C BRIDGET, EARL, MITZI, MDW, LIP, CMP, GFR #### [address] [address] UA Bili Small Abnormal Negative [facility] ([place]) Comment on above: Performed By: #### C BRIDGET, MITZI ELLIOTT, MDW, LIP, CMP, GFR #### [address] [address] UA Blood Small Abnormal Negative [facility] ([place]) Comment on above: Performed By: #### C BRIDGET, MITZI ELLIOTT, MDW, LIP, CMP, GFR #### [address] [address] UA Leuk Est Negative Normal Negative [facility] ([place]) Comment on above: Performed By: #### C BRIDGET, EARL, MITZI, MDW, LIP, CMP, GFR #### [address] [address] UA Nitrite Negative Normal Negative [facility] ([place]) Comment on above: Performed By: #### C BC, ADIFF, ANEU, MDW, LIP, CMP, GFR #### [address] [address] UA pH 6.0 Normal 5.0 - 8.0 [facility] ([place]) Comment on above: Performed By: #### C BC, ADIFF, ANEU, MDW, LIP, CMP, GFR #### [address] [address] UA Protein Negative Normal Negative [facility] ([place]) Comment on above: Performed By: #### C BC, ADIFF, ANEU, MDW, LIP, CMP, GFR #### [address] [address] UA Spec Grav 1.025 Normal 1.015-1.025 [facility] ([place]) Comment on above: Performed By: #### C BC, ADIFF, ANEU, MDW, LIP, CMP, GFR #### [address] [address] UA Specimen Type Clean Catch Normal [facility] ([place]) Comment on above: Performed By: #### C BC, ADIFF, ANEU, MDW, LIP, CMP, GFR #### [address] [address] UA Urobilinogen 0.2 E.U./dL Normal 0.2-1.0 [facility] ([place]) Comment on above: Performed By: #### C BC, ADIFF, ANEU, MDW, LIP, CMP, GFR #### [address] [address] .Auto Diffon 11-22-2022 Basophil, Absolute 0.0 10 3/mcL Normal 0.0-0.2 [facility]) Comment on above: Performed By: #### C BC, ADIFF, ANEU, MDW, LIP, CMP, GFR #### [address] [address] Basophils/100 WBC (Bld) 0.2 % Normal 0.0-2.5 [facility] ([place]) Comment on above: Performed By: #### C BC, ADIFF, ANEU, MDW, LIP, CMP, GFR #### [address] [address] Eosinophil, Absolute 0.0 10 3/mcL Normal 0.0-0.4 [facility] ([place]) Comment on above: Performed By: #### C BC, ADIFF, ANEU, MDW, LIP, CMP, GFR #### [address] [address] Eosinophils/100 WBC (Bld) 0.0 % Normal 0.0-7.0 [facility] ([place]) Comment on above: Performed By: #### C BC, ADIFF, ANEU, MDW, LIP, CMP, GFR #### [address] [address] Lymphocyte, Absolute 1.7 10 3/mcL Normal 0.8-3.9 [facility] ([place]) Comment on above: Performed By: #### C BC, ADIFF, ANEU, MDW, LIP, CMP, GFR #### [address] [address] Lymphocytes/100 WBC (Bld) 12.6 % Normal 10.0-50.0 [facility] ([place]) Comment on above: Performed By: #### C BC, ADIFF, ANEU, MDW, LIP, CMP, GFR #### [address] [address] Monocyte, Absolute 1.4 10 3/mcL High 0.2-1.0 [facility] ([place]) Comment on above: Performed By: #### C BC, ADIFF, ANEU, MDW, LIP, CMP, GFR #### [address] [address] Monocytes/100 WBC (Bld) 10.6 % Normal 1.7-13.0 [facility] ([place]) Comment on above: Performed By: #### C BC, ADIFF, ANEU, PIETER, LIP, CMP, GFR #### [address] [address] Neutrophils/100 WBC (Bld) 76.6 % Normal 37.0-80.0 [facility] ([place]) Comment on above: Performed By: #### C BRIDGET, EARL, MITZI, W, LIP, CMP, GFR #### [address] [address] .GFRon 11-22-2022 GFR 77 ml/min/1.73sqm Normal [facility] ([place]) Comment on above: Result Comment: GFR Population mean for , Non- Americans Ages 20-29 = 116 mL/min/1.73 sq.m. Ages 30-39 = 107 mL/min/1.73 sq.m. Ages 40-49 = 99 mL/min/1.73 sq.m. Ages 50-59 = 93 mL/min/1.73 sq.m. Ages 60-69 = 85 mL/min/1.73 sq.m. Ages 70+ = 75 mL/min/1.73 sq.m. Chronic Kidney Disease: Less than 60 mL/min/1.73 square meters End Stage Renal Disease: Less than 15 mL/min/1.73 square meters Performed By: #### C BRIDGET, EARL, MITZI, W, LIP, CMP, GFR #### [address] [address] GFR Non- 63 ml/min/1.73sqm Normal [facility] ([place]) Comment on above: Result Comment: GFR Population mean for , Non- Americans Ages 20-29 = 116 mL/min/1.73 sq.m. Ages 30-39 = 107 mL/min/1.73 sq.m. Ages 40-49 = 99 mL/min/1.73 sq.m. Ages 50-59 = 93 mL/min/1.73 sq.m. Ages 60-69 = 85 mL/min/1.73 sq.m. Ages 70+ = 75 mL/min/1.73 sq.m. Chronic Kidney Disease: Less than 60 mL/min/1.73 square meters End Stage Renal Disease: Less than 15 mL/min/1.73 square meters Performed By: #### C BC, EARL, MITZI, MDW, LIP, CMP, GFR #### [address] [address] .NEUABSon 11-22-2022 Neutrophil, Absolute 10.4 10 3/mcL High 2.9-6.2 [facility] ([place]) Comment on above: Performed By: #### C BC, EARL, MITZI, MDW, LIP, CMP, GFR #### [address] [address] BMPon 11-22-2022 BUN/Creatinine Ratio 14 ratio Normal 7-27 [facility] ([place]) Comment on above: Performed By: #### C BC, EARL, ANEU, MDW, LIP, CMP, GFR #### [address] [address] Calcium [Mass/Vol] 8.9 mg/dL Normal 8.4-10.2 [facility] ([place]) Comment on above: Performed By: #### C BC, EARL, ANEU, MDW, LIP, CMP, GFR #### [address] [address] Chloride [Moles/Vol] 104 mmol/L Normal 98-107 [facility] ([place]) Comment on above: Performed By: #### C BC, EARL, ANEU, MDW, LIP, CMP, GFR #### [address] [address] CO2 [Moles/Vol] 30 mmol/L Normal 23-31 [facility] ([place]) Comment on above: Performed By: #### C BC, EARL, ANEU, MDW, LIP, CMP, GFR #### [address] [address] Creatinine [Mass/Vol] 0.90 mg/dL Normal 0.55-1.02 [facility] ([place]) Comment on above: Performed By: #### C BC, ADIFF, ANEU, MDW, LIP, CMP, GFR #### [address] [address] Electrolyte Balance 5.0 mEq/L Normal 4.0-15.0 [facility] [place]) Comment on above: Performed By: #### C BRIDGET, EARL, MITZI, MDW, LIP, CMP, GFR #### [address] [address] Glucose [Mass/Vol] 98 mg/dL Normal 80-115 [facility] ([place]) Comment on above: Performed By: #### C BC, EARL, MITZI, MDW, LIP, CMP, GFR #### [address] [address] Potassium [Moles/Vol] 4.7 mmol/L Normal 3.5-5.1 [facility] ([place]) Comment on above: Performed By: #### C BRIDGET, EARL, MITZI, MDW, LIP, CMP, GFR #### [address] [address] Sodium [Moles/Vol] 139 mmol/L Normal 136-145 [facility] ([place]) Comment on above: Performed By: #### C BRIDGET, EARL, MITZI, MDW, LIP, CMP, GFR #### [address] [address] Urea nitrogen [Mass/Vol] 13 mg/dL Normal 7-18 [facility] ([place]) Comment on above: Performed By: #### C BRIDGET, EARL, MITZI, MDW, LIP, CMP, GFR #### [address] [address] CBCon 11-22-2022 Erythrocyte distribution width (RBC) [Ratio] 18.1 % High 11.5-14.5 [facility] ([place]) Comment on above: Performed By: #### C BRIDGET, EARL, MITZI, MDW, LIP, CMP, GFR #### [address] [address] Hematocrit (Bld) [Volume fraction] 33.2 % Low 37.0-47.0 [facility] ([place]) Comment on above: Performed By: #### C BC, ADIFF, ANEU, MDW, LIP, CMP, GFR #### [address] [address] Hgb 10.8 G/dL Low 12.0-16.0 [facility] ([place]) Comment on above: Performed By: #### C BC, ADIFF, ANEU, MDW, LIP, CMP, GFR #### [place] [address] MCH (RBC) [Entitic mass] 25.2 pg Low 27.0-31.2 [facility] ([place]) Comment on above: Performed By: #### C BC, ADIFF, ANEU, MDW, LIP, CMP, GFR #### [place] [address] MCHC 32.5 G/dL Low 33.0-37.0 [facility] ([place]) Comment on above: Performed By: #### C BC, ADIFF, ANEU, MDW, LIP, CMP, GFR #### [place] [address] MCV (RBC) [Entitic vol] 77.6 fL Low 80.0-94.0 [facility] ([place]) Comment on above: Performed By: #### C BC, ADIFF, ANEU, MDW, LIP, CMP, GFR #### [place] [address] Platelet 310 10 3/mcL Normal 130-400 [facility] ([place]) Comment on above: Performed By: #### C BC, ADIFF, ANEU, MDW, LIP, CMP, GFR #### [address] [address] Platelet mean volume (Bld) [Entitic vol] 6.5 fL Low 7.4-10.4 [facility] ([place]) Comment on above: Performed By: #### C BC, ADIFF, ANEU, MDW, LIP, CMP, GFR #### [place] [address] RBC 4.28 10 6/mcL Normal 4.20-5.40 [facility] ([place]) Comment on above: Performed By: #### C BRIDGET, MITZI ELLIOTT, PIETER, LIP, CMP, GFR #### [address] [address] WBC 13.6 10 3/mcL High 4.6-10.8 [facility] ([place]) Comment on above: Performed By: #### C BRIDGET, MITZI ELLIOTT, W, LIP, CMP, GFR #### [address] [address] Gel ABOon 11-21-2022 ABO/Rh Interp Positive Invalid Interpretation Code [facility] ([place]) Comment on above: Performed By: #### C EARL GILL ANEU, PIETER, LIP, CMP, GFR #### [address] [address] Gel ABSon 11-21-2022 Antibody Screen Gel Negative Normal [facility] [place] Comment on above: Performed By: #### C EARL GILL ANEU, PIETER, LIP, CMP, GFR #### [address] [address] XR KNEE 1 OR 2 VIEWS RIGHTon 11-21-2022 XR KNEE 1 OR 2 VIEWS RIGHT ORIGINAL EXAMINATION: TWO XRAY VIEWS OF THE RIGHT KNEE 11/21/2022 1:25 pm COMPARISON: CT knee 11/03/2022. HISTORY: ORDERING SYSTEM PROVIDED HISTORY: Reason for Exam: Status Post Arthroplasty FINDINGS: Patient is status post total knee arthroplasty. There is no evidence of hardware complication. Expected postoperative change of the soft tissues is noted relating to swelling and soft tissue gas. There is a small air-fluid level of the knee joint pseudo capsule. Overlying skin archie are also evident. IMPRESSION: 1. Right total knee arthroplasty without evidence of hardware complication. 2. Expected postoperative changes of the soft tissues. Interpreted by: Stephane Bojorquez DO Preliminary Report By: Stephane Bojorquez DO Electronically signed By Stephane Bojorquez DO Dictated Date: 11/21/2022 2:04:53 PM Prelim Date: 11/21/2022 2:08:07 PM Sign Date: 11/21/2022 2:08:07 PM Ordering Provider: RIC Trotter [facility] ([place]) .Auto Diffon 11-03-2022 Basophil, Absolute 0.1 10 3/mcL Normal 0.0-0.2 [facility] ([place]) Comment on above: Performed By: #### C BC, ADIFF, ANEU, MDW, LIP, CMP, GFR #### [address] [address] Basophils/100 WBC (Bld) 1.1 % Normal 0.0-2.5 [facility] ([place]) Comment on above: Performed By: #### C BC, ADIFF, ANEU, MDW, LIP, CMP, GFR #### [address] [address] Eosinophil, Absolute 0.2 10 3/mcL Normal 0.0-0.4 [facility] ([place]) Comment on above: Performed By: #### C BC, ADIFF, ANEU, MDW, LIP, CMP, GFR #### [address] [address] Eosinophils/100 WBC (Bld) 2.7 % Normal 0.0-7.0 [facility] ([place]) Comment on above: Performed By: #### C BC, ADIFF, ANEU, MDW, LIP, CMP, GFR #### [address] [address] Lymphocyte, Absolute 1.7 10 3/mcL Normal 0.8-3.9 [facility] ([place]) Comment on above: Performed By: #### C BC, ADIFF, ANEU, MDW, LIP, CMP, GFR #### [address] [address] Lymphocytes/100 WBC (Bld) 26.6 % Normal 10.0-50.0 [facility] ([place]) Comment on above: Performed By: #### C BC, ADIFF, ANEU, MDW, LIP, CMP, GFR #### [address] [address] Monocyte, Absolute 0.9 10 3/mcL Normal 0.2-1.0 [facility] ([place]) Comment on above: Performed By: #### C BRIDGET, MITZI ELLIOTT, W, LIP, CMP, GFR #### [address] [address] Monocytes/100 WBC (Bld) 14.3 % High 1.7-13.0 [facility] ([place]) Comment on above: Performed By: #### C BRIDGET, MITZI ELLIOTT, W, LIP, CMP, GFR #### [address] [address] Neutrophils/100 WBC (Bld) 55.3 % Normal 37.0-80.0 [facility] ([place]) Comment on above: Performed By: #### C EARL GILL ANEU, W, LIP, CMP, GFR #### [address] [address] .GFRon 11-03-2022 GFR 69 ml/min/1.73sqm Normal [facility] ([place]) Comment on above: Result Comment: GFR Population mean for , Non- Americans Ages 20-29 = 116 mL/min/1.73 sq.m. Ages 30-39 = 107 mL/min/1.73 sq.m. Ages 40-49 = 99 mL/min/1.73 sq.m. Ages 50-59 = 93 mL/min/1.73 sq.m. Ages 60-69 = 85 mL/min/1.73 sq.m. Ages 70+ = 75 mL/min/1.73 sq.m. Chronic Kidney Disease: Less than 60 mL/min/1.73 square meters End Stage Renal Disease: Less than 15 mL/min/1.73 square meters Performed By: #### C EARL GILL ANEU, W, LIP, CMP, GFR #### [address] [address] GFR Non- 57 ml/min/1.73sqm Normal [facility] ([place]) Comment on above: Result Comment: GFR Population mean for , Non- Americans Ages 20-29 = 116 mL/min/1.73 sq.m. Ages 30-39 = 107 mL/min/1.73 sq.m. Ages 40-49 = 99 mL/min/1.73 sq.m. Ages 50-59 = 93 mL/min/1.73 sq.m. Ages 60-69 = 85 mL/min/1.73 sq.m. Ages 70+ = 75 mL/min/1.73 sq.m. Chronic Kidney Disease: Less than 60 mL/min/1.73 square meters End Stage Renal Disease: Less than 15 mL/min/1.73 square meters Performed By: #### C EARL GILL ANEU, MDW, LIP, CMP, GFR #### [address] [address] .NEUABSon 11-03-2022 Neutrophil, Absolute 3.6 10 3/mcL Normal 2.9-6.2 [facility] ([place]) Comment on above: Performed By: #### C EARL GILL ANEU, MDW, LIP, CMP, GFR #### [address] [address] ALBon 11-03-2022 Albumin Level 3.5 G/dL Normal 3.4-4.8 [facility] ([place]) Comment on above: Performed By: #### C EARL GILL ANEU, MDW, LIP, CMP, GFR #### [address] [address] BMPon 11-03-2022 BUN/Creatinine Ratio 10 ratio Normal 7-27 [facility] ([place]) Comment on above: Performed By: #### C EARL GILL ANEU, MDW, LIP, CMP, GFR #### [address] [address] Calcium [Mass/Vol] 9.3 mg/dL Normal 8.4-10.2 [facility] ([place]) Comment on above: Performed By: #### C EARL GILL ANEU, MDW, LIP, CMP, GFR #### [address] [address] Chloride [Moles/Vol] 107 mmol/L Normal 98-107 [facility] ([place]) Comment on above: Performed By: #### C BC, ADIFF, ANEU, MDW, LIP, CMP, GFR #### [address] [address] CO2 [Moles/Vol] 30 mmol/L Normal 23-31 [facility] ([place]) Comment on above: Performed By: #### C BC, ADIFF, ANEU, MDW, LIP, CMP, GFR #### [address] [address] Creatinine [Mass/Vol] 0.99 mg/dL Normal 0.55-1.02 [facility] ([place]) Comment on above: Performed By: #### C BC, ADIFF, ANEU, MDW, LIP, CMP, GFR #### [address] [address] Electrolyte Balance 8.0 mEq/L Normal 4.0-15.0 [facility] ([place]) Comment on above: Performed By: #### C BC, ADIFF, ANEU, MDW, LIP, CMP, GFR #### [address] [address] Glucose [Mass/Vol] 96 mg/dL Normal 80-115 [facility] ([place]) Comment on above: Performed By: #### C BC, ADIFF, ANEU, MDW, LIP, CMP, GFR #### [address] [address] Potassium [Moles/Vol] 4.4 mmol/L Normal 3.5-5.1 [facility] ([place]) Comment on above: Performed By: #### C BC, ADIFF, ANEU, MDW, LIP, CMP, GFR #### [address] [address] Sodium [Moles/Vol] 145 mmol/L Normal 136-145 [facility] ([place]) Comment on above: Performed By: #### C BC, ADIFF, ANEU, MDW, LIP, CMP, GFR #### [address] [address] Urea nitrogen [Mass/Vol] 10 mg/dL Normal 7-18 [facility] ([place]) Comment on above: Performed By: #### C BC, ADIFF, ANEU, MDW, LIP, CMP, GFR #### [address] [address] CBCon 11-03-2022 Erythrocyte distribution width (RBC) [Ratio] 16.5 % High 11.5-14.5 [facility] ([place]) Comment on above: Order Comment: Pre-A dmission Testing Performed By: #### C BC, ADIFF, ANEU, MDW, LIP, CMP, GFR #### [address] [address] Hematocrit (Bld) [Volume fraction] 36.5 % Low 37.0-47.0 [facility] ([place]) Comment on above: Order Comment: Pre-A dmission Testing Performed By: #### C BC, ADIFF, ANEU, MDW, LIP, CMP, GFR #### [place] [address] Hgb 11.7 G/dL Low 12.0-16.0 [facility] ([place]) Comment on above: Order Comment: Pre-A dmission Testing Performed By: #### C BC, ADIFF, ANEU, MDW, LIP, CMP, GFR #### [address] [address] MCH (RBC) [Entitic mass] 24.7 pg Low 27.0-31.2 [facility] ([place]) Comment on above: Order Comment: Pre-A dmission Testing Performed By: #### C BC, ADIFF, ANEU, MDW, LIP, CMP, GFR #### [address] [address] MCHC 32.1 G/dL Low 33.0-37.0 [facility] ([place]) Comment on above: Order Comment: Pre-A dmission Testing Performed By: #### C BC, ADIFF, ANEU, MDW, LIP, CMP, GFR #### [address] [address] MCV (RBC) [Entitic vol] 77.0 fL Low 80.0-94.0 [facility] ([place]) Comment on above: Order Comment: Pre-A dmission Testing Performed By: #### C BC, ADIFF, ANEU, MDW, LIP, CMP, GFR #### [address] [address] Platelet 418 10 3/mcL High 130-400 [facility] ([place]) Comment on above: Order Comment: Pre-A dmission Testing Performed By: #### C BC, ADIFF, ANEU, MDW, LIP, CMP, GFR #### [address] [address] Platelet mean volume (Bld) [Entitic vol] 6.5 fL Low 7.4-10.4 [facility] ([place]) Comment on above: Order Comment: Pre-A dmission Testing Performed By: #### C BC, ADIFF, ANEU, MDW, LIP, CMP, GFR #### [address] [address] RBC 4.75 10 6/mcL Normal 4.20-5.40 [facility] ([place]) Comment on above: Order Comment: Pre-A dmission Testing Performed By: #### C BC, ADIFF, ANEU, MDW, LIP, CMP, GFR #### [address] [address] WBC 6.5 10 3/mcL Normal 4.6-10.8 [facility] ([place]) Comment on above: Order Comment: Pre-A dmission Testing Performed By: #### C BC, ADIFF, ANEU, MDW, LIP, CMP, GFR #### [address] [address] [address] KNEE W/O CONTRAST RIGHTon 11-03-2022 CT KNEE W/O CONTRAST RIGHT ORIGINAL EXAMINATION: CT OF THE RIGHT KNEE WITHOUT CONTRAST 11/03/2022 9:27 am TECHNIQUE: CT of the right knee was performed without the administration of intravenous contrast. Multiplanar reformatted images are provided for review. Automated exposure control, iterative reconstruction, and/or weight based adjustment of the mA/kV was utilized to reduce the radiation dose to as low as reasonably achievable. COMPARISON: None. 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 Shallow trochlea noted. Tricompartmental degenerative changes are most advanced in the lateral tibiofemoral patellofemoral compartments. There are ossified intra-articular bodies. Joint effusions seen. No aggressive lesion Survey images of the ankle: No aggressive lesion IMPRESSION: Advanced degenerative changes in the right knee. Right knee effusion Lateral subluxation of the patella with a shallow trochlea Interpreted by: Stephane Verduzco MD Preliminary Report By: Stephane Verduzco MD Electronically signed By Stephane Verduzco MD Dictated Date: 11/03/2022 3:04:39 PM Prelim Date: 11/03/2022 3:07:22 PM Sign Date: 11/03/2022 3:07:22 PM Ordering Provider: RIC PALMER Normal [facility]) Gel ABOon 11-03-2022 ABO/Rh Interp Positive Invalid Interpretation Code [facility]) Comment on above: Performed By: #### C EARL GILL ANEU, MDW, LIP, CMP, GFR #### [place] [id number] Gel ABSon 11-03-2022 Antibody Screen Gel Negative Normal [facility]) Comment on above: Performed By: #### C EARL GILL ANEU, MDW, LIP, CMP, GFR #### [address] [address] LABORATORYOrdered By: Karina Jones on 11-03-2022 ABO/Rh Interp Positive Invalid Interpretation Code AO BB SS Antibody Screen Gel Negative ABSC (11/03/22 8:49 AM) Invalid Interpretation Code AO BB SS LABORATORYOrdered By: SYSTEM SYSTEM on 11-03-2022 Albumin BCP dye [Mass/Vol] 3.5 G/dL Invalid Interpretation Code 3.4 - 4.8 G/dL AO ADM SS Basophil, Absolute 0.1 103/mcL Invalid Interpretation Code 0.0 - 0.2 10^3/mcL AO Workflow SS Basophils/100 WBC (Bld) 1.1 % Invalid Interpretation Code 0.0 - 2.5 % AO Workflow SS Calcium [Mass/Vol] 9.3 mg/dL Invalid Interpretation Code 8.4 - 10.2 mg/dL AO ADM SS Chloride [Moles/Vol] 107 mmol/L Invalid Interpretation Code 98 - 107 mmol/L AO ADM SS CO2 [Moles/Vol] 30 mmol/L Invalid Interpretation Code 23 - 31 mmol/L AO ADM SS Creatinine [Mass/Vol] 0.99 mg/dL Invalid Interpretation Code 0.55 - 1.02 mg/dL AO ADM SS Electrolyte Balance 8.0 mEq/L Invalid Interpretation Code 4.0 - 15.0 mEq/L AO ADM SS Eosinophil, Absolute 0.2 103/mcL Invalid Interpretation Code 0.0 - 0.4 10^3/mcL AO Workflow SS Eosinophils/100 WBC (Bld) 2.7 % Invalid Interpretation Code 0.0 - 7.0 % AO Workflow SS Erythrocyte distribution width (RBC) [Ratio] 16.5 % Invalid Interpretation Code 11.5 - 14.5 % AO Workflow SS GFR/1.73 sq M.predicted among blacks MDRD (S/P/Bld) [Vol rate/Area] 69 ml/min/1.73sqm Invalid Interpretation Code AO Chemistry S Comment on above: Interpretive Data: GFR Population mean for , Non- Americans Ages 20-29 = 116 mL/min/1.73 sq.m. Ages 30-39 = 107 mL/min/1.73 sq.m. Ages 40-49 = 99 mL/min/1.73 sq.m. Ages 50-59 = 93 mL/min/1.73 sq.m. Ages 60-69 = 85 mL/min/1.73 sq.m. Ages 70+ = 75 mL/min/1.73 sq.m. Chronic Kidney Disease: Less than 60 mL/min/1.73 square meters End Stage Renal Disease: Less than 15 mL/min/1.73 square meters GFR/1.73 sq M.predicted among non-blacks MDRD (S/P/Bld) [Vol rate/Area] 57 ml/min/1.73sqm Invalid Interpretation Code AO Chemistry S Comment on above: Interpretive Data: GFR Population mean for , Non- Americans Ages 20-29 = 116 mL/min/1.73 sq.m. Ages 30-39 = 107 mL/min/1.73 sq.m. Ages 40-49 = 99 mL/min/1.73 sq.m. Ages 50-59 = 93 mL/min/1.73 sq.m. Ages 60-69 = 85 mL/min/1.73 sq.m. Ages 70+ = 75 mL/min/1.73 sq.m. Chronic Kidney Disease: Less than 60 mL/min/1.73 square meters End Stage Renal Disease: Less than 15 mL/min/1.73 square meters Glucose [Mass/Vol] 96 mg/dL Invalid Interpretation Code 80 - 115 mg/dL AO ADM SS Hematocrit (Bld) [Volume fraction] 36.5 % Invalid Interpretation Code 37.0 - 47.0 % AO Workflow SS Hemoglobin (Bld) [Mass/Vol] 11.7 G/dL Invalid Interpretation Code 12.0 - 16.0 G/dL AO Workflow SS Lymphocyte, Absolute 1.7 103/mcL Invalid Interpretation Code 0.8 - 3.9 10^3/mcL AO Workflow SS Lymphocytes/100 WBC (Bld) 26.6 % Invalid Interpretation Code 10.0 - 50.0 % AO Workflow SS MCH (RBC) [Entitic mass] 24.7 pg Invalid Interpretation Code 27.0 - 31.2 pg AO Workflow SS MCHC 32.1 G/dL Invalid Interpretation Code 33.0 - 37.0 G/dL AO Workflow SS MCV (RBC) [Entitic vol] 77.0 fL Invalid Interpretation Code 80.0 - 94.0 fL AO Workflow SS Monocyte, Absolute 0.9 103/mcL Invalid Interpretation Code 0.2 - 1.0 10^3/mcL AO Workflow SS Monocytes/100 WBC (Bld) 14.3 % Invalid Interpretation Code 1.7 - 13.0 % AO Workflow SS Neutrophil, Absolute 3.6 103/mcL Invalid Interpretation Code 2.9 - 6.2 10^3/mcL AO Workflow SS Neutrophils/100 WBC (Bld) 55.3 % Invalid Interpretation Code 37.0 - 80.0 % AO Workflow SS Platelet mean volume (Bld) [Entitic vol] 6.5 fL Invalid Interpretation Code 7.4 - 10.4 fL AO Workflow SS Platelets (Bld) [#/Vol] 418 103/mcL Invalid Interpretation Code 130 - 400 10^3/mcL AO Workflow SS Potassium [Moles/Vol] 4.4 mmol/L Invalid Interpretation Code 3.5 - 5.1 mmol/L AO ADM SS RBC (Bld) [#/Vol] 4.75 106/mcL Invalid Interpretation Code 4.20 - 5.40 10^6/mcL AO Workflow SS Sodium [Moles/Vol] 145 mmol/L Invalid Interpretation Code 136 - 145 mmol/L AO ADM SS Urea nitrogen [Mass/Vol] 10 mg/dL Invalid Interpretation Code 7 - 18 mg/dL AO ADM SS Urea nitrogen/Creatinine [Mass ratio] 10 ratio Invalid Interpretation Code 7 - 27 ratio AO ADM SS WBC (Bld) [#/Vol] 6.5 103/mcL Invalid Interpretation Code 4.6 - 10.8 10^3/mcL AO Workflow SS LABORATORYOrdered By: Glenna qureshi on 11-03-2022 MRSA DNA JANEY+probe Ql (Unsp spec) Not Detected 1 (11/03/22 8:49 AM) Invalid Interpretation Code Not Detected AH Auto Viro/Sero SS Comment on above: Result Comment: Note s MRSA PCR Int MRSA DNA not detected by Real-Time Polymerase Chain Reaction (PCR). A negative result may be due to intermittent colonization. Colonization may vary depending on patient treatment, patient status, or exposure to high-risk environments.As with all PCR based in vitro diagnostic tests, extremely low levels of target below the limit of detection of the assay may be detected, but results may not be reproducible. Invalid Interpretation Code Auto Viro/Sero SS MRSAPCRon 11-03-2022 MRSA (PCR) Not detected Normal Not Detected [facility] ([place]) Comment on above: Result Comment: Note s Performed By: #### M RSAPCR #### [address] [address] MRSA PCR Int Normal [facility] ([place]) Comment on above: Result Comment: MRSA DNA not detected by Real-Time Polymerase Chain Reaction (PCR). A negative result may be due to intermittent colonization. Colonization may vary depending on patient treatment, patient status, or exposure to high-risk environments. As with all PCR based in vitro diagnostic tests, extremely low levels of target below the limit of detection of the assay may be detected, but results may not be reproducible. See Below Performed By: #### M RSAPCR #### [address], [place] [address] .Auto Diffon 10-29-2022 Basophil, Absolute 0.1 10 3/mcL Normal 0.0-0.2 [facility] ([place]) Comment on above: Performed By: #### C BC, ADIFF, ANEU, MDW, LIP, CMP, GFR #### [address] [address] Basophils/100 WBC (Bld) 0.4 % Normal 0.0-2.5 [facility] ([place]) Comment on above: Performed By: #### C BC, ADIFF, ANEU, MDW, LIP, CMP, GFR #### [address] [address] Eosinophil, Absolute 0.1 10 3/mcL Normal 0.0-0.4 [facility] ([place]) Comment on above: Performed By: #### C BC, ADIFF, ANEU, MDW, LIP, CMP, GFR #### [address] [address] Eosinophils/100 WBC (Bld) 0.8 % Normal 0.0-7.0 [facility] ([place]) Comment on above: Performed By: #### C BC, ADIFF, ANEU, MDW, LIP, CMP, GFR #### [address] [address] Lymphocyte, Absolute 2.1 10 3/mcL Normal 0.8-3.9 [facility] ([place]) Comment on above: Performed By: #### C BC, ADIFF, ANEU, MDW, LIP, CMP, GFR #### [address] [address] Lymphocytes/100 WBC (Bld) 12.7 % Normal 10.0-50.0 [facility] ([place]) Comment on above: Performed By: #### C BC, ADIFF, ANEU, MDW, LIP, CMP, GFR #### [address] [address] Monocyte, Absolute 1.1 10 3/mcL High 0.2-1.0 [facility] ([place]) Comment on above: Performed By: #### C BC, ADKENDAL, ANEU, MDW, LIP, CMP, GFR #### [address] [address] Monocytes/100 WBC (Bld) 7.0 % Normal 1.7-13.0 [facility] ([place]) Comment on above: Performed By: #### C BC, ADIFF, ANEU, MDW, LIP, CMP, GFR #### [address] [address] Neutrophils/100 WBC (Bld) 79.1 % Normal 37.0-80.0 [facility] ([place]) Comment on above: Performed By: #### C BC, EARL, ANEU, MDW, LIP, CMP, GFR #### [address] [address] .GFRon 10-29-2022 GFR 69 ml/min/1.73sqm Normal [facility] ([place]) Comment on above: Result Comment: GFR Population mean for , Non- Americans Ages 20-29 = 116 mL/min/1.73 sq.m. Ages 30-39 = 107 mL/min/1.73 sq.m. Ages 40-49 = 99 mL/min/1.73 sq.m. Ages 50-59 = 93 mL/min/1.73 sq.m. Ages 60-69 = 85 mL/min/1.73 sq.m. Ages 70+ = 75 mL/min/1.73 sq.m. Chronic Kidney Disease: Less than 60 mL/min/1.73 square meters End Stage Renal Disease: Less than 15 mL/min/1.73 square meters Performed By: #### C BC, ADIFF, ANEU, MDW, LIP, CMP, GFR #### [address] [address] GFR Non- 57 ml/min/1.73sqm Normal [facility] ([place]) Comment on above: Result Comment: GFR Population mean for , Non- Americans Ages 20-29 = 116 mL/min/1.73 sq.m. Ages 30-39 = 107 mL/min/1.73 sq.m. Ages 40-49 = 99 mL/min/1.73 sq.m. Ages 50-59 = 93 mL/min/1.73 sq.m. Ages 60-69 = 85 mL/min/1.73 sq.m. Ages 70+ = 75 mL/min/1.73 sq.m. Chronic Kidney Disease: Less than 60 mL/min/1.73 square meters End Stage Renal Disease: Less than 15 mL/min/1.73 square meters Performed By: #### C BRIDGET, MITZI ELLIOTT, MDW, LIP, CMP, GFR #### [address] [address] .MDWon 10-29-2022 Monocyte Distribution Width 18.36 Normal 0.00-20.00 [facility] ([place]) Comment on above: Result Comment: For ED adult patients suspected of sepsis, MDW<=20.0 does not rule out sepsis or risk of sepsis Performed By: #### C BRIDGET, EARL, MITZI, MDW, LIP, CMP, GFR #### [place] [address] .NEUABSon 10-29-2022 Neutrophil, Absolute 12.8 10 3/mcL High 2.9-6.2 [facility] ([place]) Comment on above: Performed By: #### C BRIDGET, EARL, MITZI, MDW, LIP, CMP, GFR #### [place] [address] .Urinalysis Microscopic (AO) on 10-29-2022 UA Bacteria Trace Abnormal [facility] ([place]) Comment on above: Performed By: #### C BRIDGET, EARL, MITZI, MDW, LIP, CMP, GFR #### [address] [address] UA RBC 0-5 Abnormal None Seen [facility] ([place]) Comment on above: Performed By: #### C BC, EARL, MITZI, MDW, LIP, CMP, GFR #### [place] [id number] UA Squam Epithelial 0-5 Abnormal None [facility]en [facility] ([place]) Comment on above: Performed By: #### C BC, ADIFF, ANEU, MDW, LIP, CMP, GFR #### [address] [address] UA WBC 0-5 Abnormal None Seen [facility] ([place]) Comment on above: Performed By: #### C BC, ADIFF, ANEU, MDW, LIP, CMP, GFR #### [address] [address] BMPon 10-29-2022 BUN/Creatinine Ratio 8 ratio Normal 7-27 [facility] ([place]) Comment on above: Performed By: #### C BC, ADIFF, ANEU, MDW, LIP, CMP, GFR #### [address] [address] Calcium [Mass/Vol] 9.0 mg/dL Normal 8.4-10.2 [facility] ([place]) Comment on above: Performed By: #### C BC, ADIFF, ANEU, MDW, LIP, CMP, GFR #### [address] [address] Chloride [Moles/Vol] 103 mmol/L Normal 98-107 [facility] ([place]) Comment on above: Performed By: #### C BC, ADIFF, ANEU, MDW, LIP, CMP, GFR #### [address] [address] CO2 [Moles/Vol] 28 mmol/L Normal 23-31 [facility] ([place]) Comment on above: Performed By: #### C BC, ADIFF, ANEU, MDW, LIP, CMP, GFR #### [address] [address] Creatinine [Mass/Vol] 0.99 mg/dL Normal 0.55-1.02 [facility] ([place]) Comment on above: Performed By: #### C BC, ADIFF, ANEU, MDW, LIP, CMP, GFR #### [address] [address] Electrolyte Balance 8.0 mEq/L Normal 4.0-15.0 [facility] ([place]) Comment on above: Performed By: #### C BC, ADIFF, ANEU, MDW, LIP, CMP, GFR #### [address] [address] Glucose [Mass/Vol] 109 mg/dL Normal 80-115 [facility] ([place]) Comment on above: Performed By: #### C BC, ADIFF, ANEU, MDW, LIP, CMP, GFR #### [place] [id number] Potassium [Moles/Vol] 4.2 mmol/L Normal 3.5-5.1 [facility] ([place]) Comment on above: Performed By: #### C BC, ADIFF, ANEU, MDW, LIP, CMP, GFR #### [place] [address] Sodium [Moles/Vol] 139 mmol/L Normal 136-145 [facility] ([place]) Comment on above: Performed By: #### C BC, ADIFF, ANEU, MDW, LIP, CMP, GFR #### [address] [address] Urea nitrogen [Mass/Vol] 8 mg/dL Normal 7-18 [facility] ([place]) Comment on above: Performed By: #### C BC, ADIFF, ANEU, MDW, LIP, CMP, GFR #### [address] [address] CBCon 10-29-2022 Erythrocyte distribution width (RBC) [Ratio] 16.7 % High 11.5-14.5 [facility]) Comment on above: Performed By: #### C BC, ADIFF, ANEU, MDW, LIP, CMP, GFR #### [place] [phone] Hematocrit (Bld) [Volume fraction] 38.7 % Normal 37.0-47.0 [facility] ([place]) Comment on above: Performed By: #### C BC, ADIFF, ANEU, MDW, LIP, CMP, GFR #### [place] [phone] Hgb 12.6 G/dL Normal 12.0-16.0 [facility] ([place]) Comment on above: Performed By: #### C BC, EARL, ANEU, MDW, LIP, CMP, GFR #### [address] [address] MCH (RBC) [Entitic mass] 24.8 pg Low 27.0-31.2 [facility] ([place]) Comment on above: Performed By: #### C BC, ADKENDAL, ANEU, MDW, LIP, CMP, GFR #### [address] [address] MCHC 32.7 G/dL Low 33.0-37.0 [facility] ([place]) Comment on above: Performed By: #### C BC, EARL, ANEU, MDW, LIP, CMP, GFR #### [place] [address] MCV (RBC) [Entitic vol] 76.0 fL Low 80.0-94.0 [facility] ([place]) Comment on above: Performed By: #### C BRIDGET, EARL, ANEU, MDW, LIP, CMP, GFR #### [address] [address] Platelet 439 10 3/mcL High 130-400 [facility] ([place]) Comment on above: Performed By: #### C BC, EARL, ANEU, MDW, LIP, CMP, GFR #### [address] [address] Platelet mean volume (Bld) [Entitic vol] 6.3 fL Low 7.4-10.4 [facility] ([place]) Comment on above: Performed By: #### C BC, EARL, ANEU, MDW, LIP, CMP, GFR #### [address] [address] RBC 5.10 10 6/mcL Normal 4.20-5.40 [facility] ([place]) Comment on above: Performed By: #### C BC, EARL, ANEU, MDW, LIP, CMP, GFR #### [place] [place] [id number] [place], [place] [address] WBC 16.2 10 3/mcL High 4.6-10.8 [facility] ([place]) Comment on above: Performed By: #### C BRIDGET, EARL, MITZI, W, LIP, CMP, GFR #### [address] [place] [id number] [place], [place] [address] LABORATORYOrdered By: Estephania Velázquez on 10-29-2022 Appearance (U) Clear (10/29/22 5:15 AM) Invalid Interpretation Code Clear AO Auto Urine SS Bacteria LM.HPF (Urine sed) [#/Area] Trace /HPF Invalid Interpretation Code AO Auto Urine SS Bilirubin Ql (U) Negative (10/29/22 5:15 AM) Invalid Interpretation Code Negative AO Auto Urine SS Color (U) Yellow (10/29/22 5:15 AM) Invalid Interpretation Code AO Auto Urine SS Glucose Test strip (U) [Mass/Vol] Negative Invalid Interpretation Code Negative AO Auto Urine SS Hemoglobin Auto test strip (U) [Mass/Vol] Moderate *ABN* (10/29/22 5:15 AM) Invalid Interpretation Code Negative AO Auto Urine SS Ketones Ql (U) Negative Invalid Interpretation Code Negative AO Auto Urine SS UA Leuk Est Trace *ABN* (10/29/22 5:15 AM) Invalid Interpretation Code Negative AO Auto Urine SS UA Nitrite Negative (10/29/22 5:15 AM) Invalid Interpretation Code Negative AO Auto Urine SS UA pH 7.0 (10/29/22 5:15 AM) Invalid Interpretation Code 5.0 - 8.0 AO Auto Urine SS UA Protein Negative Invalid Interpretation Code Negative AO Auto Urine SS UA RBC 0-5 /HPF Invalid Interpretation Code None Seen AO Auto Urine SS UA Spec Grav 1.015 (10/29/22 5:15 AM) Invalid Interpretation Code 1.015-1.025 AO Auto Urine SS UA Specimen Type Clean Catch (10/29/22 5:15 AM) Invalid Interpretation Code AO Auto Urine SS UA Squam Epithelial 0-5 /HPF Invalid Interpretation Code None Seen AO Auto Urine SS UA Urobilinogen 0.2 E.U./dL Invalid Interpretation Code 0.2-1.0 AO Auto Urine SS WBC LM.HPF (Urine sed) [#/Area] 0-5 /HPF Invalid Interpretation Code None Seen AO Auto Urine SS LABORATORYOrdered By: SYSTEM SYSTEM on 10-29-2022 Basophil, Absolute 0.1 103/mcL Invalid Interpretation Code 0.0 - 0.2 10^3/mcL AO Workflow SS Basophils/100 WBC (Bld) 0.4 % Invalid Interpretation Code 0.0 - 2.5 % AO Workflow SS Calcium [Mass/Vol] 9.0 mg/dL Invalid Interpretation Code 8.4 - 10.2 mg/dL AO ADM SS Chloride [Moles/Vol] 103 mmol/L Invalid Interpretation Code 98 - 107 mmol/L AO ADM SS CO2 [Moles/Vol] 28 mmol/L Invalid Interpretation Code 23 - 31 mmol/L AO ADM SS Creatinine [Mass/Vol] 0.99 mg/dL Invalid Interpretation Code 0.55 - 1.02 mg/dL AO ADM SS Electrolyte Balance 8.0 mEq/L Invalid Interpretation Code 4.0 - 15.0 mEq/L AO ADM SS Eosinophil, Absolute 0.1 103/mcL Invalid Interpretation Code 0.0 - 0.4 10^3/mcL AO Workflow SS Eosinophils/100 WBC (Bld) 0.8 % Invalid Interpretation Code 0.0 - 7.0 % AO Workflow SS Erythrocyte distribution width (RBC) [Ratio] 16.7 % Invalid Interpretation Code 11.5 - 14.5 % AO Workflow SS GFR/1.73 sq M.predicted among blacks MDRD (S/P/Bld) [Vol rate/Area] 69 ml/min/1.73sqm Invalid Interpretation Code AO Chemistry S Comment on above: Interpretive Data: GFR Population mean for , Non- Americans Ages 20-29 = 116 mL/min/1.73 sq.m. Ages 30-39 = 107 mL/min/1.73 sq.m. Ages 40-49 = 99 mL/min/1.73 sq.m. Ages 50-59 = 93 mL/min/1.73 sq.m. Ages 60-69 = 85 mL/min/1.73 sq.m. Ages 70+ = 75 mL/min/1.73 sq.m. Chronic Kidney Disease: Less than 60 mL/min/1.73 square meters End Stage Renal Disease: Less than 15 mL/min/1.73 square meters GFR/1.73 sq M.predicted among non-blacks MDRD (S/P/Bld) [Vol rate/Area] 57 ml/min/1.73sqm Invalid Interpretation Code AO Chemistry S Comment on above: Interpretive Data: GFR Population mean for , Non- Americans Ages 20-29 = 116 mL/min/1.73 sq.m. Ages 30-39 = 107 mL/min/1.73 sq.m. Ages 40-49 = 99 mL/min/1.73 sq.m. Ages 50-59 = 93 mL/min/1.73 sq.m. Ages 60-69 = 85 mL/min/1.73 sq.m. Ages 70+ = 75 mL/min/1.73 sq.m. Chronic Kidney Disease: Less than 60 mL/min/1.73 square meters End Stage Renal Disease: Less than 15 mL/min/1.73 square meters Glucose [Mass/Vol] 109 mg/dL Invalid Interpretation Code 80 - 115 mg/dL AO ADM SS Hematocrit (Bld) [Volume fraction] 38.7 % Invalid Interpretation Code 37.0 - 47.0 % AO Workflow SS Hemoglobin (Bld) [Mass/Vol] 12.6 G/dL Invalid Interpretation Code 12.0 - 16.0 G/dL AO Workflow SS Lymphocyte, Absolute 2.1 103/mcL Invalid Interpretation Code 0.8 - 3.9 10^3/mcL AO Workflow SS Lymphocytes/100 WBC (Bld) 12.7 % Invalid Interpretation Code 10.0 - 50.0 % AO Workflow SS MCH (RBC) [Entitic mass] 24.8 pg Invalid Interpretation Code 27.0 - 31.2 pg AO Workflow SS MCHC 32.7 G/dL Invalid Interpretation Code 33.0 - 37.0 G/dL AO Workflow SS MCV (RBC) [Entitic vol] 76.0 fL Invalid Interpretation Code 80.0 - 94.0 fL AO Workflow SS Monocyte distribution width Auto (Bld) [Entitic vol] 18.36 1 Invalid Interpretation Code 0.00 - 20.00 AO Workflow SS Comment on above: Result Comment: For ED adult patients suspected of sepsis, MDW<=20.0 does not rule out sepsis or risk of sepsis Monocyte, Absolute 1.1 103/mcL Invalid Interpretation Code 0.2 - 1.0 10^3/mcL AO Workflow SS Monocytes/100 WBC (Bld) 7.0 % Invalid Interpretation Code 1.7 - 13.0 % AO Workflow SS Neutrophil, Absolute 12.8 103/mcL Invalid Interpretation Code 2.9 - 6.2 10^3/mcL AO Workflow SS Neutrophils/100 WBC (Bld) 79.1 % Invalid Interpretation Code 37.0 - 80.0 % AO Workflow SS Platelet mean volume (Bld) [Entitic vol] 6.3 fL Invalid Interpretation Code 7.4 - 10.4 fL AO Workflow SS Platelets (Bld) [#/Vol] 439 103/mcL Invalid Interpretation Code 130 - 400 10^3/mcL AO Workflow SS Potassium [Moles/Vol] 4.2 mmol/L Invalid Interpretation Code 3.5 - 5.1 mmol/L AO ADM SS RBC (Bld) [#/Vol] 5.10 106/mcL Invalid Interpretation Code 4.20 - 5.40 10^6/mcL AO Workflow SS Sodium [Moles/Vol] 139 mmol/L Invalid Interpretation Code 136 - 145 mmol/L AO ADM SS Urea nitrogen [Mass/Vol] 8 mg/dL Invalid Interpretation Code 7 - 18 mg/dL AO ADM SS Urea nitrogen/Creatinine [Mass ratio] 8 ratio Invalid Interpretation Code 7 - 27 ratio AO ADM SS WBC (Bld) [#/Vol] 16.2 103/mcL Invalid Interpretation Code 4.6 - 10.8 10^3/mcL AO Workflow SS UAon 10-29-2022 Color (U) Yellow Normal [facility] ([place]) Comment on above: Performed By: #### C EARL GILL ANEU, PIETER, LIP, CMP, GFR #### [address] [address] Glucose (U) [Mass/Vol] Negative Normal Negative [facility] ([place]) Comment on above: Performed By: #### C EARL GILL ANEU, MDW, LIP, CMP, GFR #### [address] [address] Ketones Ql (U) Negative Normal Negative [facility] ([place]) Comment on above: Performed By: #### C EARL GILL ANEU, MDW, LIP, CMP, GFR #### [address] [address] UA Appear Clear Normal Clear [facility] ([place]) Comment on above: Performed By: #### C BC, ADIFF, ANEU, MDW, LIP, CMP, GFR #### [address] [address] UA Blood Moderate Abnormal Negative [facility] ([place]) Comment on above: Performed By: #### C BC, ADIFF, ANEU, MDW, LIP, CMP, GFR #### [address] [address] UA Leuk Est Trace Abnormal Negative [facility] ([place]) Comment on above: Performed By: #### C BC, ADIFF, ANEU, MDW, LIP, CMP, GFR #### [address] [address] UA Nitrite Negative Normal Negative [facility] ([place]) Comment on above: Performed By: #### C BC, ADIFF, ANEU, MDW, LIP, CMP, GFR #### [address] [address] UA pH 7.0 Normal 5.0 - 8.0 [facility] ([place]) Comment on above: Performed By: #### C BC, ADIFF, ANEU, MDW, LIP, CMP, GFR #### [address] [address] UA Protein Negative Normal Negative [facility] ([place]) Comment on above: Performed By: #### C BC, ADIFF, ANEU, MDW, LIP, CMP, GFR #### [address] [address] UA Spec Grav 1.015 Normal 1.015-1.025 [facility] ([place]) Comment on above: Performed By: #### C BC, ADIFF, ANEU, MDW, LIP, CMP, GFR #### [address] [address] UA Specimen Type Clean Catch Normal [facility] ([place]) Comment on above: Performed By: #### C BC, ADIFF, ANEU, MDW, LIP, CMP, GFR #### [address] [address] UA Urobilinogen 0.2 E.U./dL Normal 0.2-1.0 [facility] ([place]) Comment on above: Performed By: #### C EARL GILL ANEU, MDW, LIP, CMP, GFR #### [address] [place], [place] [address] Urobilinogen (U) [Mass/Vol] Negative Normal Negative [facility] ([place]) Comment on above: Performed By: #### C EARL GILL ANEU, MDW, LIP, CMP, GFR #### [address] [place], [place] [address] US ABDOMEN LIMITEDon 023 US ABDOMEN LIMITED ORIGINAL EXAMINATION: Left lower quadrant abdomen ultrasound 10/29/2022 6:58 am COMPARISON: CT abdomen and pelvis on 11/27/2018 HISTORY: ORDERING SYSTEM PROVIDED HISTORY: Reason for Exam: LLQ abdominal pain FINDINGS: Limited ultrasound evaluation of left lower quadrant of the abdomen in the region of patient's pain was performed. No mass or abnormal fluid collection is detected. IMPRESSION: Limited ultrasound of left lower quadrant with no sign of abnormality at area of patient's pain. Interpreted by: Reuben Gonzalez MD Preliminary Report By: Reuben Gonzalez MD Electronically signed By Reuben Gonzalez MD Dictated Date: 10/29/2022 7:04:21 AM Prelim Date: 10/29/2022 7:06:48 AM Sign Date: 10/29/2022 7:06:48 AM Ordering Provider: SIVA Trotter [facility] ([place]) Absolute lymphocyte counton 10-26-2021 Lymphocytes Auto (Unsp spec) [#/Vol] 2.16 10*3/uL 0.83-4.51 [facility] Work Phone: Basophil percentageon 2021 Basophils/100 WBC (Bld) 1.2 % 0-1 [facility] Work Phone: Bilirubin [Mass/Vol] 0.40 mg/dL 0.20-1.00 [facility] Work Phone: Comment on above: For patients on eltr ombopag therapy, use of Dimension [place] TBIL is not recommended. Chloride [Moles/Vol] 110 mmol/L 98-107 [facility]: Cholesterol [Mass/Vol] 204 mg/dL <200 Wo matilde [facility] Work Phone: [phone] Comment on above: <200 mg/dL Desirable 200-240 mg/dL Borderline >240 mg/dL High Risk Eosinophils/100 WBC (Bld) 2.7 % 0-5 [facility] Work Phone: Glucose [Mass/Vol] 86 mg/dL 74-106 [facility] Work Phone: [phone] Neutrophils (Bld) [#/Vol] 3.0 10*3/uL 2.0-7.7 [facility] Work Phone: [phone] Neutrophils/100 WBC (Bld) 50.8 % 47-70 [facility] Work Phone: Potassium [Moles/Vol] 3.9 mmol/L 3.5-5.1 [facility] Work Phone: Protein [Mass/Vol] 7.0 g/dL 6.4-8.2 [facility] Work Phone: Sodium [Moles/Vol] 141 mmol/L 136-145 [facility] Work Phone: Triglyceride [Mass/Vol] 78 mg/dL <199 [facility] Work Phone: Comment on above: The drugs N-Acetylcy steine and Metamizole may falsely depress this assay.Serum Triglycerides Reference Interval Normal <150 mg/dL Borderline high 150 - 199 mg/dL High 200 - 499 mg/dL Very High > or = 500 mg/dL WBC (Bld) [#/Vol] 5.9 10*3/uL 4.4-11.0 [facility] Work Phone: Blood erythrocytes count (nu mber/volume)on 10-26-2021 RBC (Bld) [#/Vol] 4.57 10*6/uL 4.2-5.4 [facility] Work Phone: Blood hemoglobin measurement (mass/volume)on 10-26-2021 Hemoglobin (Bld) [Mass/Vol] 12.2 g/dL 12.0-15.0 [facility] Work Phone: Blood lymphocytes/100 leukoc yteson 10-26-2021 Lymphocytes/100 WBC (Bld) 36.5 % 19-41 [facility] Work Phone: Blood monocytes/100 leukocyt eson 10-26-2021 Monocytes/100 WBC (Bld) 8.6 % 0-10 [facility] Work Phone: Blood platelet mean volumeon 10-26-2021 Platelet mean volume (Bld) [Entitic vol] 8.3 fL 6.2-12.0 [facility] Work Phone: Determination of erythrocyte mean corpuscular volume (MCV)on 10-26-2021 MCV (RBC) [Entitic vol] 85.8 fL 81-99 [facility] Work Phone: Hematocrit Auto (Bld) [Volum e fraction]on 10-26-2021 Hematocrit (Bld) [Volume fraction] 39.2 % 37-47 [facility] Work Phone: Laboratory - Chemistry and C hemistry - challengeon 10-26-2021 ALP [Catalytic activity/Vol] 87 U/L 45-117 [facility] Work Phone: ALT [Catalytic activity/Vol] 26 U/L 13-56 [facility] Work Phone: CO2 [Moles/Vol] 26.0 mmol/L 21.0-32.0 [facility] Work Phone: Globulin (S) [Mass/Vol] 3.5 g/dL 2.2-4.2 [facility] Work Phone: Urea nitrogen/Creatinine [Mass ratio] 13.2 mg/mg 10-20 [facility] Work Phone: Laboratory - Hematology and Cell countson 10-26-2021 Erythrocyte distribution width (RBC) [Entitic vol] 41.1 fL 35.1-43.9 [facility] Work Phone: Erythrocyte distribution width (RBC) [Ratio] 13.2 % 11.6-14.6 [facility] Work Phone: Immature granulocytes/100 WBC (Bld) 0.200 % 0.0-0.9 [facility] Work Phone: Comment on above: IG% - Immature Granu locytes (promyelocytes, myelocytes and metamyelocytes) > 1% indicates that a LEFT SHIFT is Present. MCH (RBC) [Entitic mass] 26.7 pg 27.0-32.0 [facility] Work Phone: Nucleated RBC/100 WBC (Bld) [Ratio] 0 % 0-5 [facility] Work Phone: MCHC Auto (RBC) [Mass/Vol]on 10-26-2021 MCHC (RBC) [Mass/Vol] 31.1 g/dL 32-36 [facility] Work Phone: No Panel Informationon 10-26 Estimated GFR (MDRD) Amer 81 mL/min >60 [facility] Work Phone: Comment on above: GFR Calc Estimated GFR (MDRD) Non-Af Amer 67 mL/min >60 [facility] Work Phone: Comment on above: Non- GFR Calc Platelets bldon 10-26-2021 Platelets (Bld) [#/Vol] 359 10*3/uL 150-450 [facility] Work Phone: Serum or plasma albumin toya urement (mass/volume)on 10-26-2021 Albumin [Mass/Vol] 3.5 g/dL 3.2-5.0 [facility] Work Phone: Serum or plasma albumin/glob ulin mass ratioon 10-26-2021 Albumin/Globulin [Mass ratio] 1.0 {ratio} 0.9-2.4 [facility] Work Phone: Serum or plasma calcium toya urement (mass/volume)on 10-26-2021 Calcium [Mass/Vol] 9.7 mg/dL 8.5-10.1 [facility] Work Phone: Serum or plasma cholesterol in HDL measurement (mass/volume)on 10-26-2021 Cholesterol in HDL [Mass/Vol] 62 mg/dL >40 [facility] Work Phone: Comment on above: The drugs N-Acetylcy steine and Metamizole may falsely depress this assay. Reference Range HDL <40 mg/dL Low HDL Cholesterol HDL >or= 60 mg/dL High HDL Cholesterol Serum or plasma cholesterol in VLDL measurement (mass/volume)on 10-26-2021 Cholesterol in VLDL [Mass/Vol] 16 mg/dL 5-40 [facility] Work Phone: Serum or plasma creatinine m easurement (mass/volume)on 10-26-2021 Creatinine [Mass/Vol] 0.91 mg/dL 0.55-1.02 [facility] Work Phone: Comment on above: The validity of the calculated GFR & GFRAA in patients over 70 years has not been determined. Clinical correlation is essential. Serum or plasma low density lipoprotein (LDL) cholesterol measurement (mass/volume)on 10-26-2021 Cholesterol in LDL [Mass/Vol] 126 mg/dL 0-130 [facility] Work Phone: Serum or plasma urea nitroge n measurement (mass/volume)on 10-26-2021 Urea nitrogen [Mass/Vol] 12 mg/dL 7-18 [facility] Work Phone: Thin prep Papanicolaou smear with manual screeningon 10-26-2021 Thin prep Papanicolaou smear with manual screening 18 U/L 15-37 [facility] Work Phone: Thin prep Papanicolaou smear with manual screening 5 5-15 [facility] Work Phone: Cervical or vagninal specime n microscopic examination by cytology stain (reported ason 10-13-2021 Cytology report Cyto stain Doc (Cvx/Vag) Comment . [facility] Work Phone: Comment on above: The Pap smear is a s creening test designed to aid in thedetection of premalignant and malignant conditions of theuterine cervix. It is not a diagnostic procedure andshould not be used as the sole means of detecting cervicalcancer. Both false-positive and false-negative reports dooccur. Laboratory - Cytologyon 09-24 [employer] Cyto stain Nom (Cvx/Vag) [ID] Comment . [facility] Work Phone: Comment on above: Yanelis machado, Utilization Specialist (ASCP) Laboratory - Miscellaneous t estson 10-13-2021 Service comment (Unsp spec) [Interp] Comment . [facility] Work Phone: Comment on above: This liquid based Th inPrep(R) pap test was screened withthe use of an image guided system. Service comment (Unsp spec) [Interp] . . [facility] Work Phone: No Panel Informationon 10-13 Pap Smear Additional Comments 30-65 . [facility] Work Phone: Pap Smear QC Review Comment . [facility] Work Phone: Comment on above: Sydney Resendez, Cyto technologist Pathology report final diagnosis Narrative Comment . [facility] Work Phone: Comment on above: NEGATIVE FOR INTRAEP ITHELIAL LESION OR MALIGNANCY.CELLULAR CHANGES ASSOCIATED WITH ATROPHY ARE PRESENT. CR Shoulder 2+ Views Righton 12-18-2019 CR Shoulder 2+ Views Right Patient Name: DESTINEE EASLEY Diagnostic Radiology Exam Date/Time 12/18/2019 09:00:00 EDT Exam CR Shoulder 2+ Views Right Ordering Physician MD SASCHA, BONY Lauren Accession Number [id number] CPT4 Codes 97643 () Reason For Exam right shoulder pain Report RIGHT SHOULDER CLINICAL INDICATION: Pain Three views of the right shoulder were obtained. COMPARISON: None. FINDINGS: No fracture or dislocation of the right shoulder is identified. There is no abnormal soft tissue swelling. Moderate acromioclavicular osteoarthritis. IMPRESSION: Moderate acromioclavicular osteoarthritis. Report Dictated on Workstation: [id number] Final Dictating Physician: MD LEW NEIL Signed Date and Time: 12/18/2019 10:59 am Signed by: MD LEW NEIL Transcribed Date and Time: 12/18/2019 11:00 Normal [facility] XR Shoulder Right 2 VWon Patient Name: DESTINEE EASLEY ---Diagnostic Radiology--- Exam Date/Time 12/18/2019 09:00:00 EDT Exam CR Shoulder 2+ Views Right Ordering Physician MD MCBRIDE DEREK J Accession Number [id number] CPT4 Codes 50518 () Reason For Exam right shoulder pain Report RIGHT SHOULDER CLINICAL INDICATION: Pain Three views of the right shoulder were obtained. COMPARISON: None. FINDINGS: No fracture or dislocation of the right shoulder is identified. There is no abnormal soft tissue swelling. Moderate acromioclavicular osteoarthritis. IMPRESSION: Moderate acromioclavicular osteoarthritis. Report Dictated on Workstation: [id number] --- Final --- Dictating Physician: MD LEW NEIL Signed Date and Time: 12/18/2019 10:59 am Signed by: MD LEW NEIL Transcribed Date and Time: 12/18/2019 11:00 [facility] [place] [place] Romie, [facility] Incoming Radiology Results From [facility] - 12/18/2019 11:00 AM EDT Patient Name: DESTINEE EASLEY ---Diagnostic Radiology--- Exam Date/Time 12/18/2019 09:00:00 EDT Exam CR Shoulder 2+ Views Right Ordering Physician MD MCBRIDE DEREK J Accession Number [id number] CPT4 Codes 08512 () Reason For Exam right shoulder pain Report RIGHT SHOULDER CLINICAL INDICATION: Pain Three views of the right shoulder were obtained. COMPARISON: None. FINDINGS: No fracture or dislocation of the right shoulder is identified. There is no abnormal soft tissue swelling. Moderate acromioclavicular osteoarthritis. IMPRESSION: Moderate acromioclavicular osteoarthritis. Report Dictated on Workstation: [id number] --- Final --- Dictating Physician: MD LEW NEIL Signed Date and Time: 12/18/2019 10:59 am Signed by: MD LEW NEIL Transcribed Date and Time: 12/18/2019 11:00 [facility] 2018 Creatinine [Mass/Vol] 0.70 mg/dL Normal 0.51-0.95 [facility] Comment on above: Performed By: #### P 14 #### [facility] [address] [place], [place] [address] ALP [Catalytic activity/Vol] 87 U/L Normal 45-117 [facility] Comment on above: Performed By: #### P 14 #### [facility] [address] [place], [place] [address] Bilirubin [Mass/Vol] 0.6 mg/dL Normal 0.2-1.0 [facility] Comment on above: Performed By: #### P 14 #### [facility] [address] [place], [place] [address] Protein [Mass/Vol] 7.1 g/dL Normal 6.4-8.2 [facility] Comment on above: Performed By: #### P 14 #### [facility] [address] [place], [place] [address] ALT [Catalytic activity/Vol] 34 U/L Normal 12-78 [facility] Comment on above: Performed By: #### P 14 #### [facility] [address] [place], [place] [address] AST [Catalytic activity/Vol] 20 U/L Normal 15-37 [facility] Comment on above: Performed By: #### P 14 #### [facility] [address] [place], [place] [address] Glucose [Mass/Vol] 100 mg/dL High 70-99 [facility] Comment on above: Performed By: #### P 14 #### [facility] [address] [place], [place] [address] Albumin [Mass/Vol] 3.7 g/dL Normal 3.4-5.0 [facility] Comment on above: Performed By: #### P 14 #### [facility] [address] [place], [place] [address] Anion gap [Moles/Vol] 12 mmol/L Normal 8-16 [facility] Comment on above: Performed By: #### P 14 #### [facility] [address] [place], [place] [address] CO2 [Moles/Vol] 25 mmol/L Normal 21-32 [facility] Comment on above: Performed By: #### P 14 #### [facility] [address] [place], [place] [address] Urea nitrogen [Mass/Vol] 9 mg/dL Normal 7-18 [facility] Comment on above: Performed By: #### P 14 #### [facility] [address] [place], [place] [address] Calcium [Mass/Vol] 9.1 mg/dL Normal 8.5-10.1 [facility] Comment on above: Performed By: #### P 14 #### [facility] [address] [place], [place] [address] Chloride [Moles/Vol] 105 mmol/L Normal 98-107 [facility] Comment on above: Performed By: #### P 14 #### [facility] [address] [place], [place] [address] Potassium [Moles/Vol] 3.5 mmol/L Normal 3.5-5.1 [facility] Comment on above: Performed By: #### P 14 #### [facility] [address] [place], [place] [address] Sodium [Moles/Vol] 138 mmol/L Normal 136-145 [facility] Comment on above: Performed By: #### P 14 #### [facility] [address] [place], [place] [address] ED NOTEon 01-23-2019 ED NOTE HNO ID: [id number] Author: Ara Sanchez) JSOE Kaur Service: Emergency Medicine Author Type: Registered Nurse Type: ED Notes Filed: 01/23/2019 6:11 PM Note Text: Safety Precautions: Side rails up, Cart/Stretcher in lowest position, Call light within reach, Hospital ID band on. Family at bedside. [facility] ED NOTE HNO ID: [id number] Author: Sagrario LanierRn) JOSE Connor Service: ? Author Type: Registered Nurse Type: ED Notes Filed: 01/23/2019 4:06 PM Note Text: Bed: 05-ED Expected date: Expected time: Means of arrival: Comments: triage Normal [facility] ED NOTE HNO ID: [id number] Author: Esdras (Rn) JOSE Crockett Service: Emergency Medicine Author Type: Registered Nurse Type: ED Notes Filed: 01/23/2019 4:02 PM Note Text: PT DENIES ANY DIFF IN S/S @ THIS TIME, REFER TO EARLIER CARLOS NOTE [facility] ED PROV NOTEon 01-23-2019 ED PROV NOTE HNO ID: [id number] Author: Rajeev Cox DO Service: Emergency Medicine Author Type: Resident Type: ED Provider Notes Filed: 01/24/2019 2:34 PM Note Text: Attestation signed by Kelechi Woodson MD at 01/26/2019 11:28 AM Attending Note I evaluated the patient and personally participated in the thomas components. I agree with the resident's findings and plan as documented and have discussed the case and management of the patient's care with the resident. Signature: Kelechi Woodson MD Date: 01/26/2019 Time: 11:28 AM ED Provider Note Patient Name: Destinee Easley SERVICE DATE: 01/23/19 History Patient presents with: Nausea: pt arrives w/ cc of nausea, denies emesis pt states that she had a loose stool today, pt states that she has one bright red stool yesterday, pt has hx of diverticulitis/c-dif f, pt states that she saw a MD outpt yesterday, pt complains today of chills and tender abd diffusely HPI 58-year-old female with history of asthma, osteoporosis, cholecystectomy, multiple episodes of C. difficile and diverticulitis presents to ED for concern of abdominal pain and diarrhea. Patient states on Sunday of this week she began having some mild nausea, she had one loose bowel movement with a small amount of bright red blood mixed in the stool. She has had no further blood in her stool since then. Today she states she had approximately 3-4 episodes of loose runny stool without blood. States it feels somewhat similar to her prior episode of C. difficile. Her initial episode was back in September of this year, she had a recurrent episode beginning of December and was treated with by mouth vancomycin for both and her symptoms subsided. Complains some chills and some generalized abdominal discomfort which started today as well. No other complaints at this time. PAST MEDICAL HISTORY Diagnosis Date - Asthma - Osteoarthritis PAST SURGICAL HISTORY Procedure Laterality Date - CHOLECYSTECTOMY 1996 - TOTAL HIP REPLACEMENT Right 2012 Dr Hernandez - TOTAL HIP REPLACEMENT Left 11/2014 FAMILY HISTORY Problem Relation Age of Onset - Breast Cancer Mother - Diabetes Mother - Hypertension Mother - Diabetes Father - Hypertension Father - Arthritis Sister Social History Tobacco Use - Smoking status: Never Smoker - Smokeless tobacco: Never Used Substance and Sexual Activity - Alcohol use: Yes Comment: very light - Drug use: No - Sexual activity: Not on file ALLERGIES No Known Allergies Review of Systems Constitutional: Positive for chills. Negative for fever. HENT: Negative for rhinorrhea and sore throat. Respiratory: Negative for cough and shortness of breath. Cardiovascular: Negative for chest pain and leg swelling. Gastrointestinal: Positive for abdominal pain, blood in stool, diarrhea and nausea. Negative for constipation and vomiting. Genitourinary: Negative for dysuria, menstrual problem, vaginal bleeding and vaginal discharge. Musculoskeletal: Negative for back pain and neck pain. Skin: Negative for color change and pallor. Neurological: Negative for syncope and light-headedness. Physical Exam BP 153/82 Pulse 89 Temp (Src) 98.6 (Oral) Resp 20 Ht 5' 1 (1.55m) Wt 178 lb (80.7kg) SpO2 97% BMI 33.65 kg/(m2). Physical Exam Constitutional: She appears well-developed and well-nourished. No distress. Resting comfortably HENT: Head: Normocephalic and atraumatic. Mouth/Throat: No oropharyngeal exudate. Eyes: Pupils are equal, round, and reactive to light. Conjunctivae and EOM are normal. Right eye exhibits no discharge. Left eye exhibits no discharge. No scleral icterus. Neck: Normal range of motion. No JVD present. No tracheal deviation present. No thyromegaly present. Cardiovascular: Normal rate, regular rhythm, normal heart sounds and intact distal pulses. Exam reveals no gallop and no friction rub. No murmur heard. Pulmonary/Chest: Effort normal and breath sounds normal. No stridor. No respiratory distress. She has no wheezes. She has no rales. She exhibits no tenderness. Abdominal: Soft. She exhibits no distension. There is tenderness. There is no rebound and no guarding. Mild generalized discomfort on palpation. Not an acute abdomen Musculoskeletal: Normal range of motion. She exhibits no deformity. Neurological: She is alert. Coordination normal. Skin: Skin is warm and dry. Capillary refill takes less than 2 seconds. No rash noted. She is not diaphoretic. No erythema. No pallor. Psychiatric: She has a normal mood and affect. Judgment normal. Nursing note and vitals reviewed. Diagnostic Testing ED Labs Ordered and Reviewed COMPREHENSIVE METABOLIC PANEL (AK,AV,EU,FV,,MACARIO,[facility],SP) - Abnormal; Notable for the following components: Result Value Ref Range Glucose 100 (*) 70 - 99 mg/dL All other components within normal limits CBC + AUTO DIFF (AK,AV,EU,FV,HL,MACARIO,M M,SP) - Abnormal; Notable for the following components: WBC 14.79 (*) 3.98 - 10.04 thou/cmm MCHC 31.2 (*) 31.6 - 34.8 % RDW 16.1 (*) 11.7 - 14.4 % RDW-SD 49.1 (*) 36.4 - 46.3 fl MPV 8.4 (*) 9.4 - 12.3 fl Abs. Neut(Anc) 11.94 (*) 1.56 - 6.13 thou/cmm Abs. [place] 1.27 (*) 0.27 - 0.70 thou/cmm All other components within normal limits URINALYSIS WITH MICROSCOPIC (AK,AV,EU,FV,HL,MACARIO,M M,SP) - Abnormal; Notable for the following components: Ketones, Urine 15 (*) Negative mg/dL Hemoglobin, Urine MODERATE (*) Negative Bilirubin, Urine see below (*) Negative RBC, Urine 8.6 (*) 0.0 - 5.0 /hpf All other components within normal limits MAGNESIUM BLOOD (AK,AV,EU,FV,HL,MACARIO,M M,SP) LIPASE BLOOD (AK,AV,EU,FV,HL,MACARIO,M M,SP) MDRD GFR HCG QUALITATIVE URINE (AK,AV,EU,FV,HL,MACARIO,M M,SP) LACTIC ACID,POC(AK) LACTIC ACID,POC(AK) Procedures ED Course / Clinical Impression Clinical Impressions as of Jan 24 1430 Diarrhea, unspecified type Generalized abdominal pain MDM / Disposition / Plan MDM Patient here for abdominal pain, had 3 loose stools earlier today, history of recurrent C. difficile. She states this pain is not as intense though the liquidy stools are similar. Labs obtained show acidosis of 14.7, urinalysis shows no signs of infection, lactic was 0.8, hCG was negative, CMP largely unimpressive. At this time I do not feel patient needs a CT scan, we counseled her that should her pain worsen, intensify or change in location that she should come in for further evaluation including imaging. I believe that she can be treated. Clear for C. difficile with by mouth vancomycin, she was strongly encouraged follow-up PCP. As she was unable to give a stool sample here patient was given outpatient orders for stool samples encouraged follow-up with primary care doctor on the results of those. She was given Zofran as well here as well as a liter of fluids. At time of discharge patient's vital signs were within normal limits. She was given a prescription for by mouth vancomycin. Return precautions were given and patient verbalized her understanding. Discharged home in stable condition. She only had one isolated episode of small bright red blood in stool, she has had none since that was several days ago. Her HANDH was stable here, she can follow up outpatient for that. As patient is a nonfocal abdominal exam at low suspicion for any appendicitis, diverticulitis, ovarian torsion. In addition she has no lower pelvic pain, urinalysis was within normal limits, no concerns for urinary tract infection. The patient was DISCHARGED: Counseled patient and family regarding lab results AND radiology results AND suspected diagnosis AND need for follow-up. Discharged home with verbal and written instructions. They were instructed to return as needed for persistent or worsening symptoms or any new concerns. Condition at time of disposition: stable SIGNATURE: DO Rajeev Parks (Res) DO Kenny Resident 01/24/19 1434 Kelechi Woodson MD 01/26/19 1128 Normal [facility] ED Triage Noteon 01-23-2019 ED Triage Note HNO ID: [id number] Author: Neli Simmons (Pa) Service: Emergency Medicine Author Type: Physician Crane Follower Type: ED Triage Notes Filed: 01/23/2019 12:55 PM Note Text: ED INTAKE NOTE Patient Name: Destinee Easley Service Date: 01/23/19 BRIEF HPI: 58-year-old female with a past medical history significant for diverticulitis and C. difficile presents to the emergency department today with generalized abdominal discomfort, diarrhea and nausea. She denies any vomiting or fevers but describes chills. Additionally, she states that she had one bowel movement yesterday that had bright red blood mixed in the stool. BRIEF EXAM: Awake and Alert RRR CTAB Abd soft/mild diffuse tenderness /ND; no rebound/guarding INTAKE WORKUP: Bloodwork: CBC CMP Lipase Magnesium SIGNATURE: Neli Simmons PA-C Normal [facility] Hemogram/Diffon 01-23-2019 Abs Immature Grans 0.04 thou/cmm Normal 0.00-0.05 [facility] Comment on above: Performed By: #### C BCD1 #### [place] [address] Abs Neut (ANC) 11.94 thou/cmm High 1.56-6.13 [facility] Comment on above: Performed By: #### C BCD1 #### [facility] [address] [place], [place] [address] Abs. Baso 0.04 thou/cmm Normal 0.01-0.08 [facility] Comment on above: Result Comment: Smea r scanned; tech agrees with automated differential Performed By: #### C BCD1 #### [facility] [address] [place], [place] [address] Abs. [place] 1.27 thou/cmm High 0.27-0.70 [facility] Comment on above: Performed By: #### C BCD1 #### [facility] [address] [place], [place] [address] Basophils/100 WBC (Bld) 0.3 % Normal [facility] Comment on above: Performed By: #### C BCD1 #### [facility] [address] [place], [place] [address] Eosinophils (Bld) [#/Vol] 0.12 thou/cmm Normal 0.00-0.31 [facility] Comment on above: Performed By: #### C BCD1 #### [facility] [address] [place], [place] [address] Eosinophils/100 WBC (Bld) 0.8 % Normal [facility] Comment on above: Performed By: #### C BCD1 #### [facility] [address] [place], [place] [address] Immature Grans 0.30 % Normal [facility] Comment on above: Performed By: #### C BCD1 #### [facility] [address] [place], [place] [address] Lymphocytes (Bld) [#/Vol] 1.38 thou/cmm Normal 1.18-3.74 [facility] Comment on above: Performed By: #### C BCD1 #### [facility] [address] [place], [place] [address] Lymphocytes/100 WBC (Bld) 9.3 % Normal [facility] Comment on above: Performed By: #### C BCD1 #### [facility] [address] [place], [place] [address] Monocytes/100 WBC (Bld) 8.6 % Normal [facility] Comment on above: Performed By: #### C BCD1 #### [facility] [address] [place] [address] Seg Neutrophil 80.7 % Normal [facility] Comment on above: Performed By: #### C BCD1 #### [facility] [address] [place] [address] Erythrocyte distribution width (RBC) [Ratio] 16.1 % High 11.7-14.4 [facility] Comment on above: Performed By: #### C BCD1 #### [facility] [address] [place] [address] Hematocrit (Bld) [Volume fraction] 37.8 % Normal 34.1-44.9 [facility] Comment on above: Performed By: #### C BCD1 #### [facility] [address] [place] [address] Hemoglobin (Bld) [Mass/Vol] 11.8 g/dL Normal 11.2-15.7 [facility] Comment on above: Performed By: #### C BCD1 #### [facility] [address] [place] [address] MCH (RBC) [Entitic mass] 25.8 pg Normal 25.6-32.2 [facility] Comment on above: Performed By: #### C BCD1 #### [facility] [address] [place] [address] MCHC (RBC) [Mass/Vol] 31.2 % Low 31.6-34.8 [facility] Comment on above: Performed By: #### C BCD1 #### [facility] [address] [place] [address] MCV (RBC) [Entitic vol] 82.7 fL Normal 79.4-94.8 [facility] Comment on above: Performed By: #### C BCD1 #### [facility] [address] [place] [address] Platelet mean volume (Bld) [Entitic vol] 8.4 fL Low 9.4-12.3 [facility] Comment on above: Performed By: #### C BCD1 #### [facility] [address] [place], [place] [address] Platelets (Bld) [#/Vol] 319 thou/cmm Normal 182-369 [facility] Comment on above: Performed By: #### C BCD1 #### [facility] [address] [place], [place] [address] RBC (Bld) [#/Vol] 4.57 mil/cmm Normal 3.93-5.22 [facility] Comment on above: Performed By: #### C BCD1 #### [facility] [address] [place], [place] [address] RDW SD 49.1 fl High 36.4-46.3 [facility] Comment on above: Performed By: #### C BCD1 #### [address] [address] WBC (Bld) [#/Vol] 14.79 thou/cmm High 3.98-10.04 [facility] Comment on above: Performed By: #### C BCD1 #### [facility] [address] [place], [place] [address] Lactic Acidon 01-23-2019 Lactate [Moles/Vol] 0.8 mmol/L Normal 0.5-2.2 [facility] Comment on above: Performed By: #### E DLAG #### [address] [address] Lipase Bloodon 01-23-2019 Lipase Blood 85 U/L Normal 73-393 [facility] Comment on above: Performed By: #### L IP #### [facility] [address] [place], [place] [address] MDRD GFRon 01-23-2019 GFR/1.73 sq M predicted among non-blacks MDRD (S/P/Bld) [Vol rate/Area] mL/min/{1.73_m2} Normal >60mL/min/1. 73m2 [facility] Comment on above: Result Comment: If t he patient is , multiply the result by 1.210. Performed By: #### G FR #### [address] [place], [place] [address] Magnesium Bloodon 01-23-2019 Magnesium [Mass/Vol] 2.2 mg/dL Normal 1.6-2.6 [facility] Comment on above: Performed By: #### M AG #### [facility] [address] [place] [address] Urinalysis Routineon 019 Bacteria LM.HPF (Urine sed) [#/Area] NONE Normal None [facility] Comment on above: Performed By: #### U RIN2 #### [facility] [address] [place] [address] Ep Cells Urine 1.2 /hpf Normal 0.0-5.0 [facility] Comment on above: Performed By: #### U RIN2 #### [facility] [address] [place] [address] Hyaline Cast 0.3 /lpf Normal 0.0-1.0 [facility] Comment on above: Performed By: #### U RIN2 #### [facility] [address] [place] [address] RBC LM.HPF (Urine sed) [#/Area] 8.6 /[HPF] High 0.0-5.0 [facility] Comment on above: Performed By: #### U RIN2 #### [facility] [address] [place] [address] WBC LM.HPF (Urine sed) [#/Area] 0.6 /[HPF] Normal 0.0-5.0 [facility] Comment on above: Performed By: #### U RIN2 #### [facility] [address] [place] [address] Appearance (U) CLEAR Normal [facility] Comment on above: Performed By: #### U RIN2 #### [facility] [address] [place] [address] Bilirubin (U) [Mass/Vol] see below Abnormal Negative [facility] Comment on above: Result Comment: Dete cted (Unable to confirm). Performed By: #### U RIN2 #### [facility] [address] [place] [address] Color (U) YELLOW Normal [facility] Comment on above: Performed By: #### U RIN2 #### [facility] [address] [place] [address] Glucose Ql (U) Negative Normal Negative [facility] Comment on above: Performed By: #### U RIN2 #### [place] [address] Hemoglobin,Urine MODERATE Abnormal Negative [facility] Comment on above: Performed By: #### U RIN2 #### [place] [address] Ketone Urine 15 mg/dL Abnormal Negative [facility] Comment on above: Performed By: #### U RIN2 #### [place] [address] Leukocytes Esterase Negative Normal Negative [facility] Comment on above: Performed By: #### U RIN2 #### [place] [address] Nitrites Urine Negative Normal Negative [facility] Comment on above: Performed By: #### U RIN2 #### [place] [address] pH (U) 5.5 [pH] Normal 5.0-8.0 [facility] Comment on above: Performed By: #### U RIN2 #### [place] [address] Protein (U) [Mass/Vol] Negative Normal Negative [facility] Comment on above: Performed By: #### U RIN2 #### [place] [address] Urobilinogen,Ur 0.2 EU/dL Normal 0.2-1.0 [facility] Comment on above: Performed By: #### U RIN2 #### [facility] [address] [place] [address] Urine HCG, Qual.on 9 Beta HCG ( test) Ql (U) Negative Normal Negative [facility] Comment on above: Performed By: #### H CGUR #### [facility] [address] [place] [id number] Specific [place], Ur 1.023 Normal 1.005-1.030 [facility] Comment on above: Performed By: #### H CGUR #### [facility] [address] [place] [id number] Performed By: #### U RIN2 #### [facility] [address] [place], [place] [address] Vital Signs Date Time Vital Sign Value Performing Clinician Facility 06-15-2024 11:25-0400 Body temperature 97.8 [degF] Jayda Rik JUNIOR DATA ANALYST-C Work Phone: [facility] 06-15-2024 11:25-0400 Diastolic blood pressure 60 mm[Hg] Jayda Rik JUNIOR DATA ANALYST-C Work Phone: [facility] 06-15-2024 11:25-0400 Heart rate 78 /min Jayda Rik JUNIOR DATA ANALYST-C Work Phone: [facility] 06-15-2024 11:25-0400 SaO2% (BldA) [Mass fraction] 98 % Jayda Rik JUNIOR DATA ANALYST-C Work Phone: [facility] 06-15-2024 11:25-0400 Systolic blood pressure 110 mm[Hg] Jayda Rik JUNIOR DATA ANALYST-C Work Phone: [facility] 04-30-2024 13:54-0500 Body height 154.94 cm Jayda Rik JUNIOR DATA ANALYST-C Work Phone: [facility] 04-30-2024 13:54-0500 Body mass index (BMI) [Ratio] 34.9 kg/m2 Jayda Rik JUNIOR DATA ANALYST-C Work Phone: [facility] 04-30-2024 13:54-0500 Body weight 83.91 kg Jayda Rik JUNIOR DATA ANALYST-C Work Phone: [facility] 12-08-2022 10:07-0400 Body temperature 98.3 [degF] Dr. Yuliya Vasquez Work Phone: [facility] 12-08-2022 10:07-0400 Diastolic blood pressure 64 mm[Hg] Dr. Yuliya Vasquez Work Phone: [facility] 12-08-2022 10:07-0400 Heart rate 90 /min Dr. Yuliya Vasquez Work Phone: [facility] 12-08-2022 10:07-0400 Respiratory rate 18 /min Dr. Yuliya Vasquez Work Phone: [facility] 12-08-2022 10:07-0400 SaO2% (BldA) [Mass fraction] 97 % Dr. Yuliya Vasquez Work Phone: [facility] 12-08-2022 10:07-0400 Systolic blood pressure 117 mm[Hg] Dr. Yuliya Vasquez Work Phone: [facility] 12-07-2022 11:07-0400 Body height 154.[address] Yuliya Vasquez Work Phone: [facility] 12-07-2022 11:07-0400 Body weight 84.[address] Yuliya Vasquez Work Phone: [facility] 12-06-2022 21:32-0400 Body mass index (BMI) [Ratio] 35.2 kg/m2 Dr. Yuliya Vasquez Work Phone: [facility] 12-06-2022 19:58-0400 Body temperature 98.6 [degF] [facility] [place] [facility] 12-06-2022 19:58-0400 Diastolic blood pressure 83 mm[Hg] [facility] 12-06-2022 19:58-0400 Heart rate 95 /min [facility] 12-06-2022 19:58-0400 Respiratory rate 18 /min [facility] [place] [facility] 12-06-2022 19:58-0400 SaO2% (BldA) [Mass fraction] 97 % [facility] 12-06-2022 19:58-0400 Systolic blood pressure 156 mm[Hg] [facility] 12-06-2022 13:49-0400 Body height 154.94 cm [facility] 12-06-2022 13:49-0400 Body mass index (BMI) [Ratio] 34.6 kg/m2 [facility] 12-06-2022 13:49-0400 Body weight 83.18 kg [facility] 12-06-2022 07:51-0400 Body height 155 cm PATRICIA JIMENEZ MD [facility] 12-06-2022 07:51-0400 Body temperature 98.06 [degF] PATRICIA JIMENEZ MD [facility] 12-06-2022 07:51-0400 Body weight 80 kg PATRICIA JIMENEZ MD [facility] 12-06-2022 07:51-0400 Diastolic Blood Pressure Non-Invasive 72 1 PATRICIA JIMENEZ MD [facility] 12-06-2022 07:51-0400 Heart rate 102 /min PATRICIA JIMENEZ MD [facility] 12-06-2022 07:51-0400 Respiratory rate 18 /min PATRICIA JIMENEZ MD [facility] 12-06-2022 07:51-0400 Systolic Blood Pressure Non-Invasive 134 1 PATRICIA JIMENEZ MD [facility] 12-03-2022 07:54-0400 Diastolic Blood Pressure Non-Invasive 72 1 SHIRA ONEILL MD [facility] 12-03-2022 07:54-0400 Heart rate 85 /min SHIRA ONEILL MD [facility] 12-03-2022 07:54-0400 Mean blood pressure 88 mm[Hg] SHIRA ONEILL MD [facility] 12-03-2022 07:54-0400 Reason For Taking VItal Signs SHIRA ONEILL MD [facility] 12-03-2022 07:54-0400 Respiratory rate 16 /min SHIRA ONEILL MD [facility] 12-03-2022 07:54-0400 Systolic Blood Pressure Non-Invasive 133 1 SHIRA ONEILL MD [facility] 12-03-2022 04:45-0400 Body height 155 cm SHIRA ONEILL MD [facility] 12-03-2022 04:45-0400 Body temperature 97.7 [degF] SHIRA ONEILL MD [facility] 12-03-2022 04:45-0400 Body weight 81.8 kg SHIRA ONEILL MD [facility] 12-03-2022 04:45-0400 Diastolic Blood Pressure Non-Invasive 68 1 SHIRA ONIELL MD [facility] 12-03-2022 04:45-0400 Heart rate 97 /min SHIRA ONEILL MD [facility] 12-03-2022 04:45-0400 Respiratory rate 20 /min SHIRA ONEILL MD [facility] 12-03-2022 04:45-0400 Systolic Blood Pressure Non-Invasive 123 1 SHIRA ONEILL MD [facility] 11-03-2022 08:20-[address] RIC PALMER MD [facility] 11-03-2022 08:20-[address] RIC Smith [facility] 11-03-2022 08:20-0400 Body height [address] RIC PALMER MD [facility] 11-03-2022 08:20-0400 Body weight 81.[address] RIC PALMER MD [facility] 11-03-2022 08:20-0400 Body weight 34.05 kg/m2 DR RIC PALMER MD [facility] 11-03-2022 08:20-0400 Diastolic Blood Pressure Non-Invasive [address] RIC PALMER MD [facility] 11-03-2022 08:20-0400 Heart rate 78 /min DR RIC PALMER MD [facility] 11-03-2022 08:20-0400 Respiratory rate 18 /min DR RIC PALMER MD [facility] 11-03-2022 08:20-0400 Systolic Blood Pressure Non-Invasive [address] RIC PALMER MD [facility] 10-29-2022 08:08-0400 Diastolic Blood Pressure Non-Invasive 71 1 PATRICIA TEJADA MD [facility] 10-29-2022 08:08-0400 Heart rate 86 /min PATRICIA TEJADA MD [facility] 10-29-2022 08:08-0400 Respiratory rate 16 /min PATRICIA TEJADA MD [facility] 10-29-2022 08:08-0400 Systolic Blood Pressure Non-Invasive 120 1 PATRICIA TEJADA MD [facility] 10-29-2022 07:00-0400 Diastolic Blood Pressure Non-Invasive 96 1 PATRICIA TEJADA MD [facility] 10-29-2022 07:00-0400 Respiratory rate 18 /min PATRICIA TEJADA MD [facility] 10-29-2022 07:00-0400 Systolic Blood Pressure Non-Invasive 129 1 PATRICIA TEJADA MD [facility] 10-29-2022 05:52-0400 Diastolic Blood Pressure Non-Invasive 68 1 PATRICIA TEJADA MD [facility] 10-29-2022 05:52-0400 Heart rate 88 /min PATRICIA TEJADA MD [facility] 10-29-2022 05:52-0400 Reason For Taking VItal Signs PATRICIA TEJADA MD [facility] 10-29-2022 05:52-0400 Respiratory rate 16 /min PATRICIA TEJADA MD [facility] 10-29-2022 05:52-0400 Systolic Blood Pressure Non-Invasive 127 1 PATRICIA TEJADA MD [facility] 10-29-2022 05:02-0400 Blood Pressure Cuff Size PATRICIA TEJADA MD [facility] 10-29-2022 05:02-0400 Blood Pressure Location PATRICIA TEJADA MD [facility] 10-29-2022 05:02-0400 Blood Pressure Method PATRICIA TEJADA MD [facility] 10-29-2022 05:02-0400 Body temperature 98.78 [degF] PATRICIA TEJADA MD [facility] 10-29-2022 05:02-0400 Body weight 81.8 kg PATRICIA TEJADA MD [facility] Encounters Encounter Date Encounter Type Care Provider Facility Start: 09-27-2024 End: 09-27-2024 Emergency department patient visit DR LUIS ALBARADO DO [facility] Start: 07-21-2024 ambulatory Roderick Dye Facility :[facility] Start: 07-21-2024 End: 07-21-2024 ambulatory Jayda Rik Facility:[facility] Start: 06-16-2024 End: 06-16-2024 ambulatory Jayda Rik JUNIOR DATA ANALYST-C Work Phone: [facility] Work Phone: Start: 06-16-2024 End: 06-16-2024 Patient encounter procedure Juan Luis Goldsmith JUNIOR DATA ANALYST-C -Laboratory, Specimen Work Phone: Start: 06-15-2024 End: 06-15-2024 Patient encounter procedure Juan Luis Goldsmith JUNIOR DATA ANALYST-C -[facility] Work Phone: Start: 06-15-2024 End: 06-16-2024 ambulatory Jayda Rik Facility:[facility] Start: 04-30-2024 Non-patient / Non-visit Jayda Jolly JUNIOR DATA ANALYST-C Work Phone: [facility] Work Phone: Start: 04-30-2024 ambulatory Jayda Rik Facility:[facility] [place] Start: 02-12-2024 End: 02-12-2024 ambulatory Jayda Rik Facility:[facility] Start: 02-04-2024 End: 02-04-2024 ambulatory Jayda Rik Facility:[facility] Start: 01-29-2024 End: 01-29-2024 ambulatory Almyra Rik Facility:[facility] Start: 11-16-2023 End: 11-16-2023 ambulatory Yuliya Malys Facility:[facility] Start: 10-18-2023 End: 10-18-2023 ambulatory Yuliya Malys Facility:[facility] Start: 01-30-2023 Telephone encounter Nikolay Aleman MD Work Phone: [facility] Comment on above: NO SHOW LETTER #1 Start: 01-29-2023 Patient encounter status Nikolay Aleman MD Work Phone: [facility] Work Phone: Start: 12-08-2022 Non-patient / Non-visit Dr. Mary Carmen Vasquez Work Phone: [facility] Work Phone: Start: 12-07-2022 Non-patient / Non-visit Dr. Mary Carmen Vasquez Work Phone: [facility] Work Phone: Start: 12-06-2022 Non-patient / Non-visit Dr. Mary Carmen Vasquez Work Phone: [facility] Work Phone: Start: 12-06-2022 End: 12-08-2022 Evaluation and management of inpatient [facility]Pro[facility] Work Phone: Start: 12-06-2022 End: 12-08-[address] Yuliya Vasquez Work Phone: [facility] Work Phone: Start: 12-06-2022 End: 12-06-2022 Emergency department patient visit DR YULIYA VASQUEZ DO Facility:[facility] Start: 12-06-2022 End: 12-06-2022 Emergency department patient visit PATRICIA JIMENEZ MD [facility] Start: 12-03-2022 End: 12-03-2022 Emergency department patient visit DR YULIYA VASQUEZ DO Facility:[facility] Start: 12-03-2022 End: 12-03-2022 Emergency department patient visit SHIRA ONEILL MD [facility] Start: 11-24-2022 End: 01-19-[address] YULIYA VASQUEZ DO Facility:[facility] Start: 11-24-2022 End: 01-19-2023 Admission to same day surgery center [employer] DRAPER PA-C [facility] Start: 11-21-2022 End: 11-22-2022 ambulatory YULIYA MARAI BIT TAPPER-CELL TENDER Facility:[facility] Start: 11-14-2022 End: 11-14-2022 ambulatory [facility] Work Phone: Start: 11-14-2022 End: 11-14-2022 Patient encounter procedure [facility] Work Phone: Start: 11-03-2022 End: 11-04-[address] YULIYA VASQUEZ DO Facility:[facility] Start: 11-03-2022 End: 11-04-[address] YULIYA VASQUEZ DO Facility:[facility] Start: 11-03-2022 End: 11-03-[address] RIC PALMER MD [facility] Start: 11-03-2022 End: 11-03-[address] RIC PALMER MD [facility] Start: 10-29-2022 End: 10-29-2022 Emergency department patient visit DR YULIYA VASQUEZ DO Facility:[facility] Start: 10-29-2022 End: 10-29-2022 Emergency department patient visit PATRICIA TEJADA MD [facility] Start: 10-26-2021 End: 10-26-2021 Patient encounter [facility] Start: 10-17-2021 End: 10-17-2021 Patient encounter procedure [facility] Start: 10-13-2021 End: 10-13-2021 Patient encounter procedure [facility]-Laboratory, Specimen Start: 12-18-2019 End: 12-18-2019 Subsequent hospital visit by physician Bony Mcbride Work Phone: [facility] [place] [facility] Procedures Date Procedure Procedure Detail Performing Clinician Start: 06-16-2024 Urine culture Jayda Nick rosario JUNIOR DATA ANALYST-C Work Phone: Start: 12-06-2022 CT of abdomen and pe lvis without contrast Start: 12-06-2022 Plain X-ray abdomen Start: 11-21-2022 Total knee replacement SHIRA ONEILL MD Comment on above: ROBOTIC ASSISTED, RI GHT Start: 11-14-2022 Screening mammography Start: 10-17-2021 Screening mammography Start: 12-18-2019 Radex shoulder compl ete minimum 2 views Bony Mcbride Work Phone: Start: 12-03-2014 Total replacement of hip PATRICIA TEJADA MD Start: 09-09-2012 Total replacement of hip PATRICIA TEJADA MD section PATRICIA CHAVES MD Cholecystectomy PATRICIA Lee MD H/O: section H/O sectio n History of cholecystectomy S/P laparoscopic cholecystectomy Kidney stone (disorder) CLEMENTE TEJADA MD Plan of Treatment Date Care Activity Detail Author Start: 12-08-2022 Patient discharge [facility] Start: 12-06-2022 Following clinical pathway protocol [facility] Start: 12-06-2022 Assessment of risk of venous thromboembolism [facility] Start: 12-06-2022 Insertion of catheter into peripheral vein [facility] Start: 12-06-2022 Providing care according to standard [facility] Start: 12-06-2022 Provision of activity privileges [facility] Start: 12-06-2022 [facility] Start: 12-06-2022 Verification routine [facility] Start: 12-06-2022 Admission procedure [facility] Start: 12-06-2022 Patient referral to dietitian [facility] Start: 11-24-2022 Influenza vaccination Influenza Vaccine (#1) [facility] Start: 03-26-2022 Depression Assessment Depression Assessment [facility] Start: 01-23-2022 Diabetes Screening Diabetes Screening [facility] Start: 10-13-2021 [facility] Work Phone: Start: 2020 RSV Vaccine (1 - 1-dose 60+ series) RSV Vaccine (1 - 1-dose 60+ series) [facility] Start: 11-25-2019 Influenza vaccination Flu vaccine (#1) [place], [place] Start: 2010 Screening for malignant neoplasm of breast Breast cancer screen [place], [place] Start: 2010 Screening for malignant neoplasm of colon Colon cancer screen colonoscopy [place] Start: 2010 Shingles Vaccine (1 of 2) Shingles Vaccine (1 of 2) [place] Start: 2010 Shingrix Vaccine (1 of 2) Shingrix Vaccine (1 of 2) [facility] Start: 2005 Cologuard (FIT-DNA) Cologuard (FIT-DNA) [facility] Start: 2005 Colonoscopy Colonoscopy [facility] Start: 2005 Colorectal Cancer Screening Colorectal Cancer Screening [facility] Start: [address] Colonography [facility] Start: 2005 Fecal Occult Blood Fecal Occult Blood [facility] Start: 2005 Lipid 1996 panel - Serum or Plasma Lipid Screening [facility] Start: 2005 Sigmoidoscopy Sigmoidoscopy [facility] Start: 2000 Diabetes screen Diabetes screen [place], [place] Start: 2000 Lipid panel Lipid screen [place] Start: 2000 Mammography Mammogram Screening [facility] Start: 1990 HPV Testing HPV Testing [facility] Start: 1981 Pap Testing Pap Testing [facility] Start: 1981 Screening for malignant neoplasm of cervix Cervical cancer screen [place], [place] Start: 08-10-1979 DTaP/Tdap/Td vaccine (1 - Tdap) DTaP/Tdap/Td vaccine (1 - Tdap) [place] Start: 08-10-1979 Urine microalbumin profile DTaP,Tdap,Td Vaccine (1 - Tdap) [facility] Start: 1978 Hepatitis C Screening Hepatitis C Screening [facility] Start: 1978 HIV Screening HIV Screening [facility] Start: 08-10-1975 HIV screening HIV screen [place], [place] Start: 02-09-1961 Covid-19 Vaccine (#1) Covid-19 Vaccine (#1) [facility] Start: 1960 Hepatitis C screening [place], [place] Colonoscopy [facility] Path report.final Dx Spec [facility] Work Phone: Patient referral [facility] Work Phone: Immunizations Immunization Date Immunization Notes Care Provider Fa cility 09-27-2024 tetanus toxoid, redu temo diphtheria toxoid, and acellular pertussis vaccine, adsorbed DR LUIS ALBARADO DO [facility] 06-29-2020 Covid (Pfizer) [facility] 06-08-2020 Covid (Pfizer) [facility] Payers Date Payer Category Payer Self-pay [id number] 2022 Private Health Insurance [id number] 2022 Unknown [id number] 2019 Unknown BCBS BCBS - [place] P PO [id number] 2019-Present [address] [place] [address] [id number] 2006 Unknown [id number] 2006 Unknown [employer]THEM BLUE CARD PPO OOS [id number] 2006-Present [phone] [address] [place] [address] PPO [id number] 1960 Unknown [id number] [id number]. 627 1960 Unknown [id number] 2.840.1.200016.3.579.2. 627 1960 Unknown [id number] 2.840.1.829164.3.579.2. 62 1960 Unknown [id number] 2..840.1.420773.3.579.2. 62 1960 Unknown [id number] 2.840.1.931825.3.579.2. 62 1960 Unknown [id number] 2.840.1.782021.3.579.2. 62 1960 Unknown [id number] 2.840.1.982104.3.579.2. 62 1960 Unknown [id number] 2.840.1.851281.3.579.2. 627 Unknown [id number] Unknown [id number] Unknown [id number] 2.840.1.167354.3.579.2. 462 Unknown [id number] 2.840.1.247607.3.579.2. 462 Unknown [id number] 2.16.840.1.925959.3.579.2. 462 Unknown [id number] 2.16840.1.567723.3.579.2. 462 Unknown [id number] 2.840.1.843631.3.579.2. 462 Unknown [id number] 2.16.840.1.329302.3.579.2. 462 Unknown [id number] 2.16.840.1.651061.3.579.2. 462 Unknown [id number] 2.16.840.1.164852.3.579.2. 462 Unknown [id number] 2.16.840.1.734680.3.579.2. 462 Unknown [id number] 2.16.840.1.399924.3.579.2. 462 Social History Date Type Detail Facility Start: 11-12-2018 End: 12-18-2019 Tobacco smoking status NHIS Never smoker [facility] Start: 01-05-2015 End: 12-18-2019 Tobacco use and exposure Never used [place] Start: 11-28-2016 End: 12-18-2019 Alcohol intake Current drinker of alcohol (finding) [place] Start: 12-18-2019 History SDOH Alcohol Frequency 2 [place] Start: 1960 Sex Assigned At Not on file M [place], [place] Exposure to SARS-CoV -2 (event) Not sure [place] Start: 05-09-2021 End: 12-06-2022 Tobacco smoking status NHIS Unknown if ever smoked [facility] Start: 05-21-2019 Non-smoker [facility] Start: 1960 Sex Assigned At Female W [facility] Sex Assigned At [facility] Start: 09-22-2017 End: 01-30-2023 History of Social function [facility] Start: 09-22-2017 End: 01-30-2023 Tobacco use panel [facility] PHQ-2 Score 0 [facility] Start: 04-02-2015 Alcohol Comment very light [facility] Start: 10-20-2015 End: 06-23-2024 Sex Female (finding) [facility] Goals Date Patient Goal Desired Activity /State Functional Status Date Assessment Result Facility 12-08-2022 Functional status Ambulates;Bedside Commo de [facility] Work Phone: 12-03-2022 Functional Status Minimum assistance [facility] 10-29-2022 Functional Status Independent [facility] 10-29-[facility]22 Functional Status Standard Safet y ID band on, Call device within reach, Bed in low position, Wheels locked, Upper/Half-Length side-rails up, Visitor at bedside, Safety level maintained [facility] Mental Status Date Assessment Result Facility 12-08-2022 Cognitive function Voice/Name [facility] Work Phone: 12-03-2022 Mental Status Oriented x 4 [facility] 12-03-2022 Mental Status [facility] 10-29-2022 Mental Status Orientation Oriented x 4 [facility] 10-29-2022 Mental Status [facility] Clinical Notes 10-13-2021 to 09-27-2024 Note Date & Type Note Facility 09-27-2024 Hospital Discharg e instructions Patient Education 09/27/2024 10:51:58 Laceration, Face: Suture or Tape Face Laceration: Stitches or Tape A laceration is a cut through the skin. This will require stitches if it is deep. Minor cuts may be treated with surgical tape. Home care Your healthcare provider may prescribe an antibiotic. This is to help prevent infection. Follow all instructions for taking this medicine. Take the medicine every day until it is gone or you are told to stop. You should not have any left over. The healthcare provider may prescribe medicines for pain. Follow instructions for taking them. Follow the healthcare provider s instructions on how to care for the cut. Wash your hands with soap and warm water before and after caring for the cut. This helps prevent infection. If a bandage was applied and it becomes wet or dirty, replace it. Otherwise, leave it in place for the first 24 hours, then change it once a day or as directed. If stitches were used, clean the wound daily: oAfter removing the bandage, wash the area with soap and water. Use a wet cotton swab to loosen and remove any blood or crust that forms. oAfter cleaning, keep the wound clean and dry. Talk with your healthcare provider before putting any antibiotic ointment on the wound. Reapply a fresh bandage. oYou may remove the bandage to shower as usual after the first 24 hours, but don't soak the area in water (no swimming) until the sutures are removed. If surgical tape was used, keep the area clean and dry. If it becomes wet, blot it dry with a towel. Most facial skin wounds heal without problems. But an infection sometimes occurs despite proper treatment. Watch for the signs of infection listed below. Follow-up care Follow up with your healthcare provider as advised. Be sure to return for removal of the stitches as directed. Ask your provider how long stitches should remain in place. If surgical tape closures were used, you may remove them yourself when your provider recommends if they have not fallen off on their own. When to seek medical advice Call your healthcare provider right away if any of these occur: Wound bleeding not controlled by direct pressure Signs of infection, including increasing pain in the wound, increasing wound redness or swelling, or pus or bad odor coming from the wound Fever of 100.4 F (38 C) or higher, or as directed by your healthcare provider Stitches come apart or fall out or surgical tape falls off before 5 days Wound edges reopen Wound changes colors Numbness around the wound [id number] [employer]. [address] [place] [address]. All rights reserved. This information is not intended as a substitute for professional medical care. Always follow your healthcare professional's instructions. 09/27/2024 10:51:50 Head Injury (Adult) Head Injury (Adult) You have a head injury. It does not appear serious at this time. But symptoms of a more serious problem, such as a mild brain injury (concussion) or bruising or bleeding in the brain, may appear later. For this reason, you or someone caring for you will need to watch for the symptoms listed below. Once you re home, also be sure to follow any care instructions you re given. Home care Watch for the following symptoms Seek emergency medical care if you have any of these symptoms over the next hours to days: Headache Nausea or vomiting Dizziness Sensitivity to light or noise Unusual sleepiness or grogginess Trouble falling asleep Personality changes Vision changes Memory loss Confusion Trouble walking or clumsiness Loss of consciousness (even for a short time) Inability to be awakened Stiff neck Weakness or numbness in any part of the body Seizures General care If you were prescribed medicines for pain, use them as directed. Note: Don t take other medicines for pain without talking to your provider first. To help reduce swelling and pain, apply a cold source to the injured area for up to 20 minutes at a time. Do this as often as directed. Use a cold pack or bag of ice wrapped in a thin towel. Never apply a cold source directly to the skin. If you have cuts or scrapes as a result of your head injury, care for them as directed. For the next 24 hours (or longer, if instructed): oDon t drink alcohol or use sedatives or other medicines that make you sleepy. oDon t drive or operate machinery. oDon t do anything strenuous, such as heavy lifting or straining. oLimit tasks that require concentration. This includes reading, using a smartphone or computer, watching TV, and playing video games. oDon t return to sports or other activities that could result in another head injury. Follow-up care Follow up with your healthcare provider, or as directed. If imaging tests were done, they will be reviewed by a doctor. You will be told the results and any new findings that may affect your care. When to seek medical advice Call your healthcare provider right away if any of these occur: Pain doesn t get better or worsens New or increased swelling or bruising Fever of 100.4 F (38 C) or higher, or as directed by your provider Increased redness, warmth, drainage, or bleeding from the injured area Fluid drainage or bleeding from the nose or ears Any depression or bony abnormality in the injured area Persistent confusion or lethargy Bruising behind the ears or bruising around the eyes [id number] [employer] [place] [address]. All rights reserved. This information is not intended as a substitute for professional medical care. Always follow your healthcare professional's instructions. 09/27/2024 10:51:46 Causes of Syncope Causes of Syncope Syncope (fainting) has many causes. Sometimes it's not serious. In other cases, it's a sign of a heart problem. But treatment can help When syncope is not serious Most causes of syncope are not serious and may include: Strong feelings, such as anxiety or fear. A nerve signal may briefly change your heart rate and lower your blood pressure too much. Standing for too long. Standing may cause blood to pool in your legs. When this happens, your brain may not get all the blood it needs. Standing up too fast. Your blood pressure may not adjust fast enough to changes in posture and may drop too low. Certain medicines can also cause this problem. Examples of medicines that can cause a drop in blood pressure include diuretics, blood pressure medicines, and medicines for chest pain. Reaction to normal body functions. When you go to the bathroom, have gastrointestinal discomfort, nausea, or pain, your heart may have a natural reflex to slow down and lower blood pressure. This can result in syncope. This may also follow exercise, eating, laughter, weight lifting, or playing musical instruments like the trumpet or trombone. When heart trouble causes syncope A heart problem can lower the amount of oxygen-rich blood that gets to the brain. Heart trouble can be serious and even life threatening if not treated: A slow heart rate. Electrical signals tell the chambers of the heart when to pump. But the signals may be slowed or blocked (heart block) as they travel on the heart s electrical pathways. This can be caused by aging, scarred heart tissue, or damage from heart disease. When the heart rate slows, not enough blood is pumped. A fast heart rate. Some things can make the heart race. For instance, a heart attack can create abnormal electrical signals. These signals can make the heart suddenly beat very fast. The heart pumps before the chambers can fill with blood. So less blood gets to the brain and other parts of the body. Illegal drugs, certain medicines, heart disease, or an inherited condition can also cause this. A heart valve problem. Blood travels through the chambers of the heart as it pumps. Heart valves open and close to help move blood in the right direction. But a hardened or scarred valve may not open or close fully. As a result, less blood is pumped through the heart to the brain and body. Most often, syncope occurs when a person's aortic valve is narrowed and he or she does strenuous activity. A heart muscle problem. Some people develop a thickened heart muscle that blocks blood flow out of the heart to the body. This is called hypertrophic cardiomyopathy. Being dehydrated and having this condition can raise the risk for syncope. Whatever the cause of syncope, it's important to see your healthcare provider. You may need to be seen by a green marketing specialist, neurologist, or an ear, nose, and throat specialist. Don't drive, operate heavy machinery, or do activities in which you could fall and injure yourself if you have syncope and have not been evaluated. [id number] [employer]. [address] [place] [address]. All rights reserved. This information is not intended as a substitute for professional medical care. Always follow your healthcare professional's instructions. 09/27/2024 10:51:45 After a Concussion After a Concussion Awaken to check alertness as often as the health care provider suggests. If you had a mild concussion (a head injury), watch closely for signs of problems during the first 48 hours after the injury. Follow the doctor s advice about recovering at home. Use the tips on this handout as a guide. Note: You should not be left alone after a concussion. If no adult can stay with the injured person, let the doctor know. Have someone call 911 or your emergency number if you can't fully wake up or have a seizures or convulsions. The first 48 hours Don t take medicine unless approved by your healthcare provider. Try placing a cold, damp cloth on your head to help relieve a headache. Ask the doctor before using any medicines. Don't drink alcohol or take sedatives or medicines that make you sleepy. Don't return to sports or any activity that could cause you to hit your head until all symptoms are gone and you have been cleared by your doctor. A second head injury before fully recovering from the first one can lead to serious brain injury. Don't do activities that need a lot of concentration or a lot of attention. This will allow your brain to rest and heal more quickly. Return to regular physical and mental activity as directed and approved by your healthcare provider. Tips about sleeping For the first day or two, it may be best not to sleep for long periods of time without being checked for alertness. Follow the doctor s instructions. ? Have someone wake you every ____ hours for the next ____ hours. He or she should ask you questions to check for alertness. ? OK to sleep through the night. When to call the healthcare provider If you notice any of the following, call the healthcare provider: Vomiting. Some vomiting is common, but tell the provider about any vomiting. Clear or bloody drainage from the nose or ear Constant drowsiness or difficulty in waking up Confusion or memory loss Blurred vision or any vision changes Inability to walk or talk normally Increased weakness or problems with coordination Constant, unrelieved headache that becomes more severe Changes in behavior or personality High-pitched crying in infants Signs of stroke such as paralysis of parts of the body Uncrontrolled movements suggesting a seizure [id number] [employer] [address] [place] [address]. All rights reserved. This information is not intended as a substitute for professional medical care. Always follow your healthcare professional's instructions. Follow Up Care 09/27/2024 08:00:00 With:YULIYA VASQUEZ DO Address: [address] [place] [address]- When:5 to 7 days [facility] 09-27-2024 Note Discharge Instructions Thank you for allowing [facility] to assist you with your healthcare needs. The following is important discharge information regarding your hospital visit. Diagnosis from Today's Visit Closed head injury Facial laceration Syncope What to Do Next Instructions from Your Care Team No qualifying data available. Post Acute Orders No qualifying data available. You Need to Schedule the Following Appointments Follow Up with YULIYA VASQUEZ DO When:Within 5 to 7 days Where:[address] [place] [address] [id number]- Allergies NKA Medications Please ask your primary doctor or pharmacist before taking any other medication not listed, including over the counter drugs, herbal medications, vitamins and or supplements as they may interact with your home medications. What How Much When Instructions Last Dose New cyclobenzaprine (cyclobenzaprine 5 mg oral tablet) 1 tab(s) by mouth Three (3) times a day Duration: 7 Days Printed Prescription Unchanged aspirin (aspirin 81 mg oral delayed release tablet) 1 tab(s) by mouth Two (2) times a day Duration: 30 Days Take 81 mg aspirin twice daily with food for 4 weeks postoperatively for DVT prophylaxis. Unchanged cholecalciferol (Vitamin D3) 100 Microgram by mouth Every day Unchanged dicyclomine (dicyclomine 10 mg oral capsule) 1 cap by mouth Four (4) times a day Duration: 7 Days Unchanged etodolac (etodolac 400 mg oral tablet) 1 tab(s) by mouth Two (2) times a day Unchanged famotidine (Pepcid 20 mg oral tablet) 1 tab(s) by mouth Once a day Unchanged fluticasone (Flovent HFA 220 mcg/ inh inhalation aerosol) 1 puff(s) by inhalation Two (2) times a day as needed for Shortness of breath or wheezing Please take this list to your next doctor s visit. Bring all medications you take, including over the counter medications, herbals and other supplements with you to your doctor s visit. Patients and families are reminded to discard old lists and to update any records with all medication providers or retail pharmacies. Education Materials Face Laceration: Stitches or Tape A laceration is a cut through the skin. This will require stitches if it is deep. Minor cuts may be treated with surgical tape. Home care Your healthcare provider may prescribe an antibiotic. This is to help prevent infection. Follow all instructions for taking this medicine. Take the medicine every day until it is gone or you are told to stop. You should not have any left over. The healthcare provider may prescribe medicines for pain. Follow instructions for taking them. Follow the healthcare provider s instructions on how to care for the cut. Wash your hands with soap and warm water before and after caring for the cut. This helps prevent infection. If a bandage was applied and it becomes wet or dirty, replace it. Otherwise, leave it in place for the first 24 hours, then change it once a day or as directed. If stitches were used, clean the wound daily: oAfter removing the bandage, wash the area with soap and water. Use a wet cotton swab to loosen and remove any blood or crust that forms. oAfter cleaning, keep the wound clean and dry. Talk with your healthcare provider before putting any antibiotic ointment on the wound. Reapply a fresh bandage. oYou may remove the bandage to shower as usual after the first 24 hours, but don't soak the area in water (no swimming) until the sutures are removed. If surgical tape was used, keep the area clean and dry. If it becomes wet, blot it dry with a towel. Most facial skin wounds heal without problems. But an infection sometimes occurs despite proper treatment. Watch for the signs of infection listed below. Follow-up care Follow up with your healthcare provider as advised. Be sure to return for removal of the stitches as directed. Ask your provider how long stitches should remain in place. If surgical tape closures were used, you may remove them yourself when your provider recommends if they have not fallen off on their own. When to seek medical advice Call your healthcare provider right away if any of these occur: Wound bleeding not controlled by direct pressure Signs of infection, including increasing pain in the wound, increasing wound redness or swelling, or pus or bad odor coming from the wound Fever of 100.4 F (38 C) or higher, or as directed by your healthcare provider Stitches come apart or fall out or surgical tape falls off before 5 days Wound edges reopen Wound changes colors Numbness around the wound 1258-[address] [employer]. [address] [place] [address]. All rights reserved. This information is not intended as a substitute for professional medical care. Always follow your healthcare professional's instructions. Head Injury (Adult) You have a head injury. It does not appear serious at this time. But symptoms of a more serious problem, such as a mild brain injury (concussion) or bruising or bleeding in the brain, may appear later. For this reason, you or someone caring for you will need to watch for the symptoms listed below. Once you re home, also be sure to follow any care instructions you re given. Home care Watch for the following symptoms Seek emergency medical care if you have any of these symptoms over the next hours to days: Headache Nausea or vomiting Dizziness Sensitivity to light or noise Unusual sleepiness or grogginess Trouble falling asleep Personality changes Vision changes Memory loss Confusion Trouble walking or clumsiness Loss of consciousness (even for a short time) Inability to be awakened Stiff neck Weakness or numbness in any part of the body Seizures General care If you were prescribed medicines for pain, use them as directed. Note: Don t take other medicines for pain without talking to your provider first. To help reduce swelling and pain, apply a cold source to the injured area for up to 20 minutes at a time. Do this as often as directed. Use a cold pack or bag of ice wrapped in a thin towel. Never apply a cold source directly to the skin. If you have cuts or scrapes as a result of your head injury, care for them as directed. For the next 24 hours (or longer, if instructed): oDon t drink alcohol or use sedatives or other medicines that make you sleepy. oDon t drive or operate machinery. oDon t do anything strenuous, such as heavy lifting or straining. oLimit tasks that require concentration. This includes reading, using a smartphone or computer, watching TV, and playing video games. oDon t return to sports or other activities that could result in another head injury. Follow-up care Follow up with your healthcare provider, or as directed. If imaging tests were done, they will be reviewed by a doctor. You will be told the results and any new findings that may affect your care. When to seek medical advice Call your healthcare provider right away if any of these occur: Pain doesn t get better or worsens New or increased swelling or bruising Fever of 100.4 F (38 C) or higher, or as directed by your provider Increased redness, warmth, drainage, or bleeding from the injured area Fluid drainage or bleeding from the nose or ears Any depression or bony abnormality in the injured area Persistent confusion or lethargy Bruising behind the ears or bruising around the eyes 5891-0379 [employer]. [address] [place] [address]. All rights reserved. This information is not intended as a substitute for professional medical care. Always follow your healthcare professional's instructions. Causes of Syncope Syncope (fainting) has many causes. Sometimes it's not serious. In other cases, it's a sign of a heart problem. But treatment can help When syncope is not serious Most causes of syncope are not serious and may include: Strong feelings, such as anxiety or fear. A nerve signal may briefly change your heart rate and lower your blood pressure too much. Standing for too long. Standing may cause blood to pool in your legs. When this happens, your brain may not get all the blood it needs. Standing up too fast. Your blood pressure may not adjust fast enough to changes in posture and may drop too low. Certain medicines can also cause this problem. Examples of medicines that can cause a drop in blood pressure include diuretics, blood pressure medicines, and medicines for chest pain. Reaction to normal body functions. When you go to the bathroom, have gastrointestinal discomfort, nausea, or pain, your heart may have a natural reflex to slow down and lower blood pressure. This can result in syncope. This may also follow exercise, eating, laughter, weight lifting, or playing musical instruments like the trumpet or trombone. When heart trouble causes syncope A heart problem can lower the amount of oxygen-rich blood that gets to the brain. Heart trouble can be serious and even life threatening if not treated: A slow heart rate. Electrical signals tell the chambers of the heart when to pump. But the signals may be slowed or blocked (heart block) as they travel on the heart s electrical pathways. This can be caused by aging, scarred heart tissue, or damage from heart disease. When the heart rate slows, not enough blood is pumped. A fast heart rate. Some things can make the heart race. For instance, a heart attack can create abnormal electrical signals. These signals can make the heart suddenly beat very fast. The heart pumps before the chambers can fill with blood. So less blood gets to the brain and other parts of the body. Illegal drugs, certain medicines, heart disease, or an inherited condition can also cause this. A heart valve problem. Blood travels through the chambers of the heart as it pumps. Heart valves open and close to help move blood in the right direction. But a hardened or scarred valve may not open or close fully. As a result, less blood is pumped through the heart to the brain and body. Most often, syncope occurs when a person's aortic valve is narrowed and he or she does strenuous activity. A heart muscle problem. Some people develop a thickened heart muscle that blocks blood flow out of the heart to the body. This is called hypertrophic cardiomyopathy. Being dehydrated and having this condition can raise the risk for syncope. Whatever the cause of syncope, it's important to see your healthcare provider. You may need to be seen by a green marketing specialist, neurologist, or an ear, nose, and throat specialist. Don't drive, operate heavy machinery, or do activities in which you could fall and injure yourself if you have syncope and have not been evaluated. [id number] [employer]. [address] [place] [address], [place] [address]. All rights reserved. This information is not intended as a substitute for professional medical care. Always follow your healthcare professional's instructions. After a Concussion Awaken to check alertness as often as the health care provider suggests. If you had a mild concussion (a head injury), watch closely for signs of problems during the first 48 hours after the injury. Follow the doctor s advice about recovering at home. Use the tips on this handout as a guide. Note: You should not be left alone after a concussion. If no adult can stay with the injured person, let the doctor know. Have someone call 911 or your emergency number if you can't fully wake up or have a seizures or convulsions. The first 48 hours Don t take medicine unless approved by your healthcare provider. Try placing a cold, damp cloth on your head to help relieve a headache. Ask the doctor before using any medicines. Don't drink alcohol or take sedatives or medicines that make you sleepy. Don't return to sports or any activity that could cause you to hit your head until all symptoms are gone and you have been cleared by your doctor. A second head injury before fully recovering from the first one can lead to serious brain injury. Don't do activities that need a lot of concentration or a lot of attention. This will allow your brain to rest and heal more quickly. Return to regular physical and mental activity as directed and approved by your healthcare provider. Tips about sleeping For the first day or two, it may be best not to sleep for long periods of time without being checked for alertness. Follow the doctor s instructions. ? Have someone wake you every ____ hours for the next ____ hours. He or she should ask you questions to check for alertness. ? OK to sleep through the night. When to call the healthcare provider If you notice any of the following, call the healthcare provider: Vomiting. Some vomiting is common, but tell the provider about any vomiting. Clear or bloody drainage from the nose or ear Constant drowsiness or difficulty in waking up Confusion or memory loss Blurred vision or any vision changes Inability to walk or talk normally Increased weakness or problems with coordination Constant, unrelieved headache that becomes more severe Changes in behavior or personality High-pitched crying in infants Signs of stroke such as paralysis of parts of the body Uncrontrolled movements suggesting a seizure [id number] [employer]. [address] [place] [address], [place] [address]. All rights reserved. This information is not intended as a substitute for professional medical care. Always follow your healthcare professional's instructions. Additional Information VACCINATE! IT SAVES LIVES! Members of the community who have not yet received the COVID-19 vaccine and would like to receive it can visit one of [facility] vaccine clinics. There are many vaccine clinic locations within the [facility]. For locations and available times, please visit [email or web address].[email or web address] gov/. It is important to note that some COVID mobile vaccine clinics are held outdoors and may be canceled in rainy or stormy conditions. To learn more about pediatric vaccinations (ages 5-11), we invite you to visit the [employer] webpage. https://www.[employer].org/p ages/3437-Tkwzl-Lnccayysvji-Freq gmtmpb-Zwupi-Kvhahgbxu.html To learn more about the COVID-19 vaccine, we invite you to visit the CDC website for a list of frequently asked questions. https://www.cdc.gov/coronavirus/ 2019-ncov/vaccines/faq.html [employer] Patient Portal Access Instructions: Stay connected with your healthcare team and access your personal medical information anytime with the [employer] Patient Portal. If you would like a full copy of your medical records please contact the [facility] Medical Records Department Sunday through Sunday between 8a.m. and 4:30p.m. Please follow the directions below to access the portal: 1.Access the email account you provided upon registration to the hospital.2.Look for an invitation email from [facility].3.Open the email and access the invitation link: Accept Invitation to [employer].Fill in the required bustillo to create your account. Sign into [email or web address] with your username and password that you created in the above steps to stay up to date. You can then view a summary of results, a summary of your visits, and the ability to download your summaries to your computer or send the information securely to a physician. Remember that your healthcare information is confidential, so carefully consider who you will allow to register on the [employer] Patient Portal for access to your information. You can also access the [employer] Patient Portal on the [employer]. Simply click on Health Records under Health Data and then click on the [employer] logo. HOW TO SAFELY DISPOSE OF PRESCRIPTION MEDICATIONS Please use one of the following methods to safely dispose of your unused medications. 1.Use a drug disposal kit: the drug disposal pouch allows you to safely discard your old and unused drugs. Ask your nurse to give you one when you are discharged.2.Visit a local take-back location: Many local pharmacies and police departments have programs that collect old and unwanted prescription drugs. Call your local pharmacy or go to http://[email or web address]/4X8Zg1p to find one close to you.3.Make use of household items: Use cat litter or old coffee grounds to dispose medications if other options are not available. Mix your drugs with these household products, seal them in an airtight container and throw it into the garbage. Call [facility]: [phone] to be sure your drugs can be disposed of in this way. Some medicines may require a different approach.4.Never flush your medications down the toilet. IF YOU HAVE BEEN PRESCRIBED AN OPIOIDS FOR PAIN If you have been prescribed an opioid (such as hydrocodone, oxycodone or morphine), it is critical to understand the possible side effects and risks of opioid pain medications. Even when taken as directed, opioids can have several side effects including: Tolerance, meaning you might need to take more of a medication for the same pain relief. Nausea, vomiting and/or constipation. Sleepiness, dizziness, dry mouth, confusion, depression or itching. Physical dependence, meaning you have withdrawal symptoms when a medication is stopped ? this can develop within a few days. KNOW YOUR RESPONSIBILITIES It is important to know exactly how much and how often to take the opioid pain medications you are prescribed. Never take opioids in higher amounts or more often than prescribed. Do not combine opioids with alcohol or other drugs that cause drowsiness, such as benzodiazepines, also known as benzos, including diazepam and alprazolam, muscle relaxants or sleep aids. Never sell or share prescription opioids. This is illegal. Store opioids in a secure place and out of reach of others (including children, family, friends and visitors). The last page(s) of this document has been signed and retained as a CHART COPY Signatures Patient Education Materials Laceration, Face: Suture or Tape Head Injury (Adult) Causes of Syncope After a Concussion Medication Leaflets My discharge plan and instructions have been reviewed and explained to me and I,DESTINEE [place] understand my current condition and have read and understand these discharge instructions. I have received a written copy of the plan/instructions. If I have questions, I am aware that I should contact my doctor. Patient/Cadet Deck Signature: Date/Time: Relationship to Patient: Witness Name/Signature: Date/Time: [facility] 09-27-2024 Note Exam Date Time Procedure Performing Provider Status 09/27/24 8:59 AM XR Pelvis 1 or 2 Views HUBERT [place] MD ; Auth (Verified) [id number] ORIGINAL EXAMINATION: ONE XRAY VIEW OF THE PELVIS 09/27/2024 8:59 am COMPARISON: None. HISTORY: ORDERING SYSTEM PROVIDED HISTORY: Reason for Exam: pain; trauma patient FINDINGS: Bilateral hip prostheses are noted. Surgical hardware appears intact without evidence of loosening. There is no acute fracture. The bones are in anatomic alignment. There is no radiopaque foreign body. IMPRESSION: No acute osseous abnormality. Interpreted by: Hubert [place] MD Preliminary Report By: Hubert [place] MD Electronically signed By Hubert [place] MD Dictated Date: 09/27/2024 9:19:48 AM Prelim Date: 09/27/2024 9:20:31 AM Sign Date: 09/27/2024 9:20:31 AM Ordering Provider: LUIS ALBARADO Interpreted by: Hubert [place] MD Preliminary Report By: Hubert [place] MD Electronically signed By Hubert [place] MD Dictated Date: 09/27/2024 9:19:48 AM Prelim Date: 09/27/2024 9:20:31 AM Sign Date: 09/27/2024 9:20:31 AM Ordering Provider: LUIS ALBARADO [facility]07-05-2025 Note* Exam Date Time Procedure Performing Provider Status 09/27/24 8:58 AM XR Chest 1 View HUBERT [place] MD; Auth (Verified) [id number] ORIGINAL EXAMINATION: ONE XRAY VIEW OF THE CHEST09/27/2024 8:58 am CHEST ONE VIEW AP/PA COMPARISON: None HISTORY: ORDERING SYSTEM PROVIDED HISTORY: Reason for Exam: pain; trauma patient FINDINGS: The cardiomediastinal contours are normal. There are low lung volumes with hypoventilatory changes. There is no pleural effusion or pneumothorax. No acute osseous abnormality. IMPRESSION: Low lung volumes with hypoventilatory changes. Otherwise, no acute radiographic findings. Interpreted by: Hubert [place] MD Preliminary Report By: Hubert [place] MD Electronically signed By Hubert [place] MD Dictated Date: 09/27/2024 9:18:11 AM Prelim Date: 09/27/2024 9:18:37 AM Sign Date: 09/27/2024 9:18:37 AM Ordering Provider: LUIS ALBARADO Interpreted by: Hubert [place] MD Preliminary Report By: Hubert [place] MD Electronically signed By Hubert [place] MD Dictated Date: 09/27/2024 9:18:11 AM Prelim Date: 09/27/2024 9:18:37 AM Sign Date: 09/27/2024 9:18:37 AM Ordering Provider: LUIS ALBARADO [address]05-2025 Note* Exam Date Time Procedure Performing Provider Status 09/27/24 8:[address] Spine Cervical w/o Contrast HUBERT [place] MD; Auth (Verified) [id number] ORIGINAL EXAMINATION: CT OF THE CERVICAL SPINE WITHOUT CONTRAST09/27/2024 8:58 am TECHNIQUE: CT of the cervical spine was performed without the administration of intravenous contrast. Multiplanar reformatted images are provided for review. Automated exposure control, iterative reconstruction, and/or weight based adjustment of the mA/kV was utilized to reduce the radiation dose to as low as reasonably achievable. COMPARISON: None. HISTORY: ORDERING SYSTEM PROVIDED HISTORY: Reason for Exam: Neck pain, acute, no red flags FINDINGS: No fracture or traumatic malalignment. Vertebral body heights are maintained. There are mild to moderate multilevel degenerative changes in the spine. The prevertebral and paraspinal soft tissues demonstrate no acute abnormality. There is a 1.7 cm left thyroid lobe nodule. IMPRESSION: No acute fracture or traumatic malalignment. 1.7 cm left thyroid lobe nodule. Further evaluation with a non emergent thyroid ultrasound is recommended. Interpreted by: Hubert [place] MD Preliminary Report By: Hubert [place] MD Electronically signed By Hubert [place] MD Dictated Date: 09/27/2024 9:12:14 AM Prelim Date: 09/27/2024 9:17:04 AM Sign Date: 09/27/2024 9:17:04 AM Ordering Provider: LUIS ALBARADO Interpreted by: Hubert [place] MD Preliminary Report By: Hubert [place] MD Electronically signed By Hubert [place] MD Dictated Date: 09/27/2024 9:12:14 AM Prelim Date: 09/27/2024 9:17:04 AM Sign Date: 09/27/2024 9:17:04 AM Ordering Provider: LUIS ALBARADO [facility]07-05-2025 Note* Exam Date Time Procedure Performing Provider Status 09/27/24 8:[address] Head or Brain w/o Contrast Luis [place] MD; Auth (Verified) [id number] ORIGINAL EXAMINATION: CT OF THE HEAD WITHOUT CONTRAST09/27/2024 8:58 am TECHNIQUE: CT of the head was performed without the administration of intravenous contrast. Automated exposure control, iterative reconstruction, and/or weight based adjustment of the mA/kV was utilized to reduce the radiation dose to as low as reasonably achievable. COMPARISON: None. HISTORY: ORDERING SYSTEM PROVIDED HISTORY: Reason for Exam: Head trauma, abnormal mental status FINDINGS: There is no intracranial hemorrhage, mass, mass effect or abnormal extra-axial fluid collection. No evidence of an acute territorial infarct. The ventricles are normal. The skull base and calvarium demonstrate no abnormality. The included paranasal sinuses and mastoid air cells are clear. IMPRESSION: No acute intracranial abnormality. Interpreted by: Hubert [place] MD Preliminary Report By: Hubert [place] MD Electronically signed By Hubert [place] MD Dictated Date: 09/27/2024 9:18:45 AM Prelim Date: 09/27/2024 9:19:44 AM Sign Date: 09/27/2024 9:19:44 AM Ordering Provider: LUIS ALBARADO Interpreted by: Hubert [place] MD Preliminary Report By: Hubert [place] MD Electronically signed By Hubert [place] MD Dictated Date: 09/27/2024 9:18:45 AM Prelim Date: 09/27/2024 9:19:44 AM Sign Date: 09/27/2024 9:19:44 AM Ordering Provider: LUIS ALBARADO [facility]07-05-2025 Note* Exam Date Time Procedure Performing Provider Status 09/27/24 8:06 AM EKG [ED AOH] - CV PERGLADISLUIS L DO; A uth (Verified) ECG Final Report Sinus rhythm Abnormal R-wave progression, late transition Electronic Signature: PER LUISJOEL Otero DO 09/27/2024 08:23:32 [facility]04-28-2025 [facility] Medical Records Department [address] [place] [address] History Physical Exam 07/21/24 0824 MR#: [id number] Acct: [id number] Name: DESTINEE [place] Rep #: [id number] : [id number] 63 From: Roderick Dye DO PCP: SUSAN Prabhakar Status:REG [facility] [place] [address] HPI - General General Date of Admission: 07/21/24 Date of Service: 07/21/24 Chief Complaint: Surveillance colonoscopy HPI Narrative DESTINEE EASLEY, is a 63 F who presents today for his surveillance colonoscopy. She had a colonoscopy back in 2019. She had 2 adenomatous polyps that removed on a time. She comes back in for surveillance colonoscopy. [facility] Medical History Wears glasses Wears contact lenses History of Clostridium difficile infection Anxiety Arthritis Low iron Gastric reflux Non-smoker Asthma GERD (gastroesophageal reflux disease) Depression Diverticulitis C. difficile diarrhea Home Medications ???Medication ???Instructions ???Recorded ???Last Taken ???Type etodolac 400 mg tablet 400 mg PO DAILY #180 tabs 12/12/18 07/19/24 History albuterol sulfate 90 mcg/actuation 1 - 2 puff inhalation Q6H PRN LA N 05/21/19 Unknown History aerosol inhaler Sob /Or Wheezing buspirone 5 mg tablet 5 mg PO BID 04/30/24 07/20/24 Hist ory cetirizine 10 mg tablet 10 mg PO QDAY PRN allergy symptoms 04/30/24 Unknown History ferrous sulfate 325 mg (65 mg 325 mg PO 1200,1700 04/30/2406/30 History iron) tablet (FeroSul) linaclotide [Linzess] 145 mcg PO 3XW 04/30/24 07/17/24 H istory mometasone 100 mcg/actuation HFA 1 puff inhalation DAILY 07/21/24 0 07/20/24 History aerosol inhaler (Asmanex HFA) Allergy/AdvReac Type Severity Reaction Status Date / Time No Known Allergies Allergy Verified 07/21/24 07:18 Family History Father Asthma Diabetes Hypertension CAD (coronary artery disease) Sister Asthma Mother Breast cancer Diabetes Hypertension Surgical History History of right knee joint replacement Hx of colonoscopy with polypectomy S/P bilateral hip replacements H/O section S/P laparoscopic cholecystectomy Social History current occupational status: employed Smoking Status: Never smoker alcohol intake: never substance use type: does not use ROS Constitutional Constitutional: Denies fatigue, fever(s), poor appetite, weight gain or weight loss Gastrointestinal Gastrointestinal: Denies belching, bloating, change in bowel habits, change in stool character, chewing difficulty, coffee ground emesis, constipation, cramping, diarrhea, dyspepsia, dysphagia, early satiety, excessive flatus, fecal incontinence, heartburn, hematemesis, hematochezia, hemorrhoids, loose stools, melena, nausea, odynophagia, rectal bleeding, tenesmus, vomiting or weight changes Vital Signs Vital Signs Vital Signs: 07/21/24 07:22 07/21/24 07:25 Temperature 97.1 F L Temperature Source Temporal Pulse Rate 81 Respiratory Rate 16 Respiratory Pattern Normal Blood Pressure 148/90 H Blood Pressure Mean 109 Blood Pressure Source Monitor Blood Pressure Position Semi-Fowlers Blood Pressure Location Left Arm Pulse Ox 100 Oxygen Delivery Method Room Air Weight Weight: 190 lb Body Mass Index (BMI) 35.9 Physical Exam Const alert, oriented x3, no apparent distress and healthy appearing General Appearance: cooperative GI normal to inspection, nondistended, normoactive bowel sounds, soft to palpation, non-tender and non- distended Percussion: normal to percussion Rectal Exam: deferred Assessment Plan Assessment/Plan (1) Encounter for screening for malignant neoplasm of colon: PLAN: She will undergo surveillance colonoscopy. She was explained alternatives, risk and benefits include understanding bleeding, infection, sepsis, perforation, need emergent surgery . She will have an ASA of 3. 07/21/24 0825 Cosigner Signature (if applicable): CC: JUNIOR DATA ANALYSTArabella oJlly; Roderick Dye, SignedW[facility] Evaluation note* Diagnosis Onset Date Resolution Status Admit Date UTI (urinary tract infection) acute June 15, 2024 11:24am [facility] Work Phone: 1(672) 432-856611-07-2023 Miscellaneous Notes* Telephone Encounter - Peter Koch - 01/30/2023 9:15 AM EST NO SHOW LETTER #1 MAILED REGULAR AND CERTIFIED CALLED TO RESCHEDULE NO ANSWER LM TO CALL TO RESCHEDULE [facility] Progress note Author Florencia Kim [facility] December 07, 2022 5:15pm Note Date/Time December 07, 2022 5:15pm [facility] Medical Records Department [address] [place] [address] Progress Note - Hospitalist 12/07/22 1701 MR#: [id number] Acct: [id number] Name: DESTINEE EASLEY Rep #:[id number] : 1960 62 From: Florencia Kim DO PCP: Dr. Yuliya Vasquez DO Status:ADM MANE Location: [place] [address] Reason for Visit Reason for Visit: Constipation Subjective Subjective Mrs. Easley is a 62-year-old white female who came to the emergency department for constipation. She has a history of chronic constipation due to IBS and takes Linzess to 3 times a week. She had a total knee arthroplasty done on 11/21/2022 and has been on oxycodone with decreased mobility and decreased fluid intake since that point time. She reports she has a 3-day history of constipation. She was at [facility] department 2 times because of her constipation. Initially they gave her Benadryl and the second time she was given a fleets enema then discharged home on mag citrate. She had not been taking any stool softeners prior to this. She states she eats prunes intermittently but does not like prune juice. KUB in the emergency department showed moderate gas throughout the colon and general surgery was called by the emergency department physician. They recommended a CT scan of the abdomen pelvis was performed and this showed limited examination due to lack of contrasthowever there was some concern of obstruction. The images were reviewed by general surgery and they feel that she has a large stool burden that is causing the obstruction and there is no mechanical etiology for this other than stool. Objective Data Objective Data Vital Signs: Vital Signs Temp Pulse Resp BP Pulse Ox O2 Del Method 98.5 F 98 16 144/84 H 88 Room Air 12/07/22 10:00 12/07/22 10:00 12/07/22 10:00 12/07/22 10:00 12/07/22 10:00 12/07/22 10:00 Oxygen Delivery Method Room Air Weight: 84.5 kg Body Mass Index (BMI) 35.2 Intake & Output: Intake and Output for Last 24 Hours 12/05/22 12/06/22 12/07/22 23:59 23:59 23:59 Intake Total 1000 / 1100 2200 / 2200 Balance 1000 / 1100 2200 / 2200 Lab / Micro Data 12/07/22 06:35 12/07/22 06:35 Labs: Laboratory Results - last 24 hr 12/06/22 17:10: WBC 12.7 H, RBC 4.70, Hgb 12.0, Hct 38.5, MCV 81.9, MCH 25.5 L, MCHC 31.2 L, RDW Std Deviation 50.8 H, RDW Coeff of Marsha 17.1 H, Plt Count 773 H*, MPV 7.9, Immature Gran % (Auto) 0.500, Neut % (Auto) 85.1 H, Lymph % (Auto) 9.4 L, [place] % (Auto) 4.3, Eos % (Auto) 0.1, Baso % (Auto) 0.6, Absolute Neuts (auto) 10.8 H, Absolute Lymphs (auto) 1.20, Nucleated RBC % 0, Diff Path Review [facility], Sodium 137, Potassium 3.6, Chloride 106, Carbon Dioxide 23.0, Anion Gap 8, BUN 14, Creatinine 0.69, Estim Creat Clear Calc 63.79, Est GFR (MDRD) Af Amer 111, Est GFR (MDRD) Non-Af 92, BUN/Creatinine Ratio 20.4 H, Glucose 104, Calcium 9.4 12/07/22 06:35: WBC 10.4, RBC 4.12 L, Hgb 10.4 L, Hct 34.5 L, MCV 83.7, MCH 25.2L, MCHC 30.1 L, RDW Std Deviation 52.7 H, RDW Coeff of Marsha 17.2 H, Plt Count 762H*, MPV 8.0, Immature Gran % (Auto) 0.400, Neut % (Auto) 74.2 H, Lymph % (Auto) 17.4 L, [place] % (Auto) 6.2, Eos % (Auto) 0.9, Baso % (Auto) 0.9, Absolute Neuts (auto) 7.7, Absolute Lymphs (auto) 1.81, Nucleated RBC % 0, Diff Path [facility], Platelet Estimate [employer], Retic Count 2.68 H, Immature Retic Fraction 24.60 H, Retic Hgb Equivalent 26.6 L, Sodium 140, Potassium 3.5, Chloride 109 H,Carbon Dioxide 23.0, Anion Gap 8, BUN 11, Creatinine 0.64, Estim Creat Clear Calc 68.77, Est GFR (MDRD) Af Amer 121, Est GFR (MDRD) Non-Af 100, BUN/Creatinine Ratio 17.2, Glucose 104, Calcium 8.7, Iron 31 L, TIBC 308, Iron Saturation 10.1 L, Ferritin 44 Radiography Diagnostic Testing: Radiology Impression Abdomen/Pelvis CT 12/06/22 16:53 IMPRESSION: Limited examination given the lack of intravenous and oral contrast and significant beam hardening artifact secondary to bilateral hip arthroplasties demonstrating a dilated colon with a questionable transition point within the mid/lower colon, concerning for an obstruction or possible ileus, consider repeat examination with IV and oral contrast for further characterization. Electronically Signed: Viridiana Hooks MD at 17:49 EDT , Physical Exam Const alert, oriented x3, healthy appearing and well nourished Constitutional Narrative: Tearful, upper middle-aged, obese, white female, sitting up in bed, appears comfortable and nontoxic however quite emotional HEENT head/scalp atraumatic and moist oral mucous membranes HEENT Narrative: Mallampati 3, no thrush Head and Scalp: normocephalic Resp normal respiratory effort, no retractions, no use of accessory muscles and clearto auscultation bilaterally Auscultation: Negative for rales, rhonchi or wheezes Cardio regular rate, regular rhythm, S1 normal heart sound, S2 normal heart sound, no murmurs, no rub, no gallops and no clicks GI soft to palpation GI Narrative: Mild distention but abdomen is not tense, mild diffuse tenderness with no focal point tenderness, bowel sounds are normoactive Extremity no clubbing, cyanosis or edema Extremity Narrative: Pedal pulses are 2+, right knee incision appears to be healing well, appears that there is just about full extension but flexion seems to be limited to 45 to60 degrees at this time Neuro oriented x3, moves all extremities and no focal motor deficits Speech: speech normal Psych Psych Narrative: Affect is flat and mood is depressed, patient is tearful during our conversation Assessment & Plan Assessment/Plan (1) Constipation: QUALIFIERS: Constipation type: drug induced constipation Qualified Code(s): K59.03 - Drug induced constipation (2) Abdominal pain: QUALIFIERS: Abdominal location: right upper quadrant Qualified Code(s): R10.11 - Right upper quadrant pain (3) Thrombocytosis: PLAN: Plan Abdominal pain secondary to constipation -Constipation is likely multifactorial related to her baseline tendencies towards constipation with IBS, decreased water intake, decreased activity, and narcotic use -Patient has not really been on a bowel regimen at home -Start MiraLAX 17 g twice daily -We will give 2 doses of lactulose -Start Dulcolax -Continue enemas to help clean up the stool and hopefully help stimulate gut motility -Once patient is having bowel movements and eating I think we can get her home Thrombocytosis -Suspect reactive -We do not have any baseline lab on her previous to yesterday and about the last9 years -We will repeat in a.m. Leukocytosis -Resolved Anemia -Mild -May be related to recent surgery -Baseline is unclear -Was 12 on admission but did get IV fluids -I did obtain iron studies and they do appear to be low with a total iron of 31 TIBC of 308 and iron saturation of 10.1 -I will dose some IV iron and start her on some oral iron but will have to discuss with her the impact of oral iron on constipation as well prior to discharge IBS -Continue Linzess after discharge Right knee osteoarthritis with recent right knee arthroplasty -Surgical date was 11/21/2022 -We will have PT/OT see her tomorrow if she is not able to go home -Recommend outpatient follow-up History of C. difficile with diarrhea -No current concerns DVT prophylaxis -Continue enoxaparin daily -We will continue aspirin 81 mg p.o. twice daily at discharge CODE STATUS -Full code Charges/Coding Visit Charges Inpatient E&M: 14011 Subs Hosp L2 12/07/22 1715 <Electronically signed by Florencia Kim DO> Cosigner Signature (if applicable): CC: ~ Signed [facility] Work Phone: 1(344) 162-121109-14-2023 History and physical note Author Wilfrid Ruelas [facility] December 07, 2022 3:48am Note Date/Time December 06, 2022 7:42pm [facility] Medical Records Department [address] [place] [address] H&P Exam - Hospitalist 12/06/221941 MR#: [id number] Acct: [id number] Name: DESTINEE EASLEY Rep #:[id number] : 1960 62 From: Wilfrid Ruelas MD PCP: Dr. Yuliya Vasquez DO Status:ADM MANE Location: [place] [address] HPI - General General Date of Admission: 12/06/22 Date of Service: 12/06/22 Chief Complaint: Constipation HPI Narrative DESTINEE EASLEY, is a 62 F with a significant history of chronic constipation on Linzess that she takes about 2-3 times per week and with knee replacement on November 21, 2022 presents emergency department with 3-day history of constipation. Patient has been to [facility] ER 2 times because of her constipation. The first that she was given Bentyl. The second time reportedly she was given a Fleet enema and then discharged home on magnesium citrate. Reportedly she had some [facility] to [facility] ED physician had a KUB. ED physician discussed the case with general surgeon who recommended the patient stay at the hospital for further fluids. On this presentation at [facility] ED; of note the patient received a first Fleet at the emergency department and had a bowel movement. However she did not feel adequately emptied from her stool plus she had abdominal pain. She felt uncomfortable and could not receive a second enema as she was nauseous and had dry heaving. [facility] Medical History C. difficile diarrhea Depression Diverticulitis Home Medications etodolac 400 mg tablet 400 mg PO DAILY #180 tabs 12/12/18 [History Last Taken Unknown] albuterol sulfate 90 mcg/actuation aerosol inhaler 1 - 2 puff inhalation Q6H PRNPRN Sob &/Or Wheezing 05/21/19 [History Last Taken Unknown] aspirin 81 mg tablet,delayed release (Adult Aspirin Regimen) 81 mg PO BID 12/06/22 [History Last Taken Unknown] linaclotide .ROUTE 12/06/22 [History Last Taken Unknown] Allergy/AdvReac Type Severity Reaction Status Date / Time No Known Allergies Allergy Verified 12/06/22 19:49 Family History Father Asthma Diabetes Hypertension CAD (coronary artery disease) Sister Asthma Mother Breast cancer Diabetes Hypertension Surgical History H/O section S/P bilateral hip replacements S/P laparoscopic cholecystectomy Social History Smoking Status: Never smoker alcohol intake: never ROS ROS Narrative Pertinent positives and pertinent negatives as noted in HPI. All other systems were reviewed and are negative Vital Signs Vital Signs Vital Signs: 12/06/22 13:49 Temperature 97.8 F Temperature Source Temporal Pulse Rate 116 H Respiratory Rate 22 H Blood Pressure 127/87 H Blood Pressure Mean 100 Pulse Ox 99 Oxygen Delivery Method Room Air Weight Weight: 83.189 kg Body Mass Index (BMI) 34.6 Physical Exam Narrative Physical exam: General: Well-nourished, well-developed. Head: Normocephalic, atraumatic, no tenderness Eyes: Vision is grossly intact. EOMI ENT, no trauma, moist mucous membranes, no rhinorrhea Neck: Nontender, No thyromegaly. CVS: Regular rate and rhythm. S1-S2 present. No murmur, gallop or rub. Respiratory : clear to auscultation bilaterally, chest wall nontender Abdomen: Soft, tender abdomen, nondistended, normal bowel sounds, no masses : Deferred Back: Nontender, no CVA tenderness. Extremities: Right knee with hutchinson of removed archie, tender. Left knee nontender. Skin: Normal color, no trauma, abrasions Neuro: Alert, oriented, cranial nerves II through XII grossly intact. Psychiatry: Normal mood. Normal affect. Not depressed. Not anxious. Results Lab / Micro Data 12/06/22 17:10 12/06/22 17:10 Labs: Laboratory Results - last 24 hr 12/06/22 17:10: WBC 12.7 H, RBC 4.70, Hgb 12.0, Hct 38.5, MCV 81.9, MCH 25.5 L, MCHC 31.2 L, RDW Std Deviation 50.8 H, RDW Coeff of Marsha 17.1 H, Plt Count 773 H*, MPV 7.9, Immature Gran % (Auto) 0.500, Neut % (Auto) 85.1 H, Lymph % (Auto) 9.4 L, [place] % (Auto) 4.3, Eos % (Auto) 0.1, Baso % (Auto) 0.6, Absolute Neuts (auto) 10.8 H, Absolute Lymphs (auto) 1.20, Nucleated RBC % 0, Diff Path Review May [facility]oll, Sodium 137, Potassium 3.6, Chloride 106, Carbon Dioxide 23.0, Anion Gap 8, BUN 14, Creatinine 0.69, Estim Creat Clear Calc 63.79, Est GFR (MDRD) Af Amer 111, Est GFR (MDRD) Non-Af 92, BUN/Creatinine Ratio 20.4 H, Glucose 104, Calcium 9.4 Radiology Impression KUB X-Ray 12/06/22 15:40 IMPRESSION: Moderate amount of gas throughout the colon. Electronically Signed: Viridiana Hooks MD at 16:10 EDT Reading Location ID and State: [facility] / [place] Tel , Service support , Abdomen/Pelvis CT 12/06/22 16:53 IMPRESSION: Limited examination given the lack of intravenous and oral contrast and significant beam hardening artifact secondary to bilateral hip arthroplasties demonstrating a dilated colon with a questionable transition point within the mid/lower colon, concerning for an obstruction or possible ileus, consider repeat examination with IV and oral contrast for further characterization. Electronically Signed: Viridiana Hooks MD at 17:49 EDT , Assessment & Plan Assessment/Plan (1) Constipation: QUALIFIERS: Constipation type: drug induced constipation Qualified Code(s): K59.03 - Drug induced constipation (2) Abdominal pain: QUALIFIERS: Abdominal location: right upper quadrant Qualified Code(s): R10.11 - Right upper quadrant pain (3) Thrombocytosis: PLAN: Plan Constipation Per General surgery recommendation will repeat Fleet enema in a.m. Radiologist impression of CT scan of abdomen and pelvis: Limited examination given the lack of intravenous and oral contrast and significant beam hardening artifact secondary to bilateral hip arthroplasties demonstrating a dilated colon with a questionable transition point within the mid/lower colon, concerning for an obstruction or possible ileus, consider repeat examination with IV and oral contrast for further characterization. Abdomen/pelvis CT was independently interpreted. Dilated bowels seen. Transition point not appreciated. General surgery recommendations as above. CBC showed white count of 12,700. Platelet count of 773,000. Likely reactive. Trend. DVT prophylaxis Subcutaneous Lovenox ordered. Time spent in the patient's overall evaluation,decision-making process, review of diagnostic data, adjustment of management, discussion with other providers, nursing and ancillary staff involved in patient's care documentation, 45 minutes. Charges/Coding Visit Charges Inpatient E&M: 53843 Init Hosp L2 12/07/22 0346 <Electronically signed by Wilfrid Ruelas MD> Cosigner Signature (if applicable): CC: Dr. Wilfrid Ruelas MD; Dr. Yuliay Vasquez DO~ Signed ADDENDUM by Dr. Wilfrid Ruelas MD on 12/07/22 at 0348 Addendum Elevated blood pressure in the diagnosis of hypertension Trend. As needed hydralazine ordered. 12/07/22 034<Electronically signed by Wilfrid Ruelas MD> Cosigner Signature (if applicable): cc: Dr. Wilfrid Ruelas MD; Dr. Yuliya Vasquez DO ~* Signed [facility] Work Phone: 1(507) 917-578409-14-2023 Discharge summary Author Reece Stein [facility] December 07, 2022 12:02am Note Date/Time December 06, 2022 3:29pm [facility] Medical Records Department [address] [place] [address] Emergency Department Summary 12/06/22 MR#: [id number] Acct: [id number] Name: DESTINEE EASLEY Rep #:[id number] : 1960 62 From: Reece Stein DO PCP: Dr. Yuliya Vasquez DO Status:ADM MANE Location: [place] [address] HPI HPI - GI History of Present Illness Chief Complaint: Constipation Detail of Chief Complaint: Constipation Informant: patient Narrative Narrative: Patient presents to the emergency department complaining constipation. She has history of chronic constipation and takes Linzess. Patient recently had right knee replacement on November 21. She had been on oxycodone. Patient states that 5 days ago she started with just watery stool and went to the ER at [facility] where they did a CAT scan of her abdomen and pelvis and they put her onmedication for diarrhea. Patient then unable to have bowel movement since that time and saw her primary care physician yesterday. She was told to stay on her Linzess. This morning patient went back to [facility] where they did a fleets enema and gave her magnesium citrate and discharge her to home. Patient continues to not be able to have a bowel movement. While waiting in the waitingroom she states she is passed a small hard pebble of stool. She describes of diffuse abdominal discomfort. She had no vomiting. She had no fever. [facility] Medical History C. difficile diarrhea Depression Diverticulitis Home Medications etodolac 400 mg tablet 400 mg PO DAILY #180 tabs 12/12/18 [History Last Taken Unknown] albuterol sulfate 90 mcg/actuation aerosol inhaler 1 - 2 puff inhalation Q6H PRNPRN Sob &/Or Wheezing 05/21/19 [History Last Taken Unknown] aspirin 81 mg tablet,delayed release (Adult Aspirin Regimen) 81 mg PO BID 12/06/22 [History Last Taken Unknown] linaclotide .ROUTE 12/06/22 [History Last Taken Unknown] Allergy/AdvReac Type Severity Reaction Status Date / Time No Known Allergies Allergy Verified 12/06/22 19:49 Family History Father Asthma Diabetes Hypertension CAD (coronary artery disease) Sister Asthma Mother Breast cancer Diabetes Hypertension Surgical History H/O section S/P bilateral hip replacements S/P laparoscopic cholecystectomy Social History Smoking Status: Never smoker alcohol intake: never ROS ROS ED Review of Systems ROS Unobtainable: other Constitutional Constitutional ED: Reports lethargy; Denies chills, fever(s), sweats or weight loss Eyes Eyes: Denies blurry vision, change in vision or diplopia ENT ENT ED: Denies rhinorrhea or sore throat Cardiovascular Cardiovascular: Denies chest pain, orthopnea or racing heartbeat Respiratory/Chest Respiratory/Chest: Denies cough, dyspnea, dyspnea on exertion, orthopnea or sputum Gastrointestinal Gastrointestinal: Reports abdominal pain and constipation; Denies diarrhea, nausea or vomiting Genitourinary Genitourinary ED: Denies dysuria, hematuria or urinary frequency Musculoskeletal Musculoskeletal: Denies arthralgias, back pain, myalgias or neck pain Integumentary Denies abscess, Abrasions or rash Neurologic Neurologic: Denies headache(s) or weakness Psychiatric Psychiatric: Denies anxiety, depression or suicidal thoughts Endocrine Endocrinology: Denies polydipsia, polyphagia or polyuria Hematologic/Lymphatic Hematologic/Lymphatic: Denies easy bleeding, easy bruising or lymphadenopathy Allergic/Immunologic Allergic/Immunologic ED: Denies mouth swelling, tongue swelling or urticaria EXAM Physical Exam Const Vital Signs: 12/06/22 13:49 Temperature 97.8 F Temperature Source Temporal Pulse Rate 116 H Respiratory Rate 22 H Blood Pressure 127/87 H Blood Pressure Mean 100 Pulse Ox 99 Oxygen Delivery Method Room Air Positive well nourished and well developed General Appearance ED: well developed and NAD HEENT Reports TM's clear and moist mucous membranes normocephalic and atraumatic; Negative for trauma or tenderness Tympanic Membrane ED: Yes TM's clear Eyes PERRL and EOMs intact bilaterally General Eye ED: Negative for pale conjunctiva or scleral icterus Neck no lymphadenopathy, supple and no JVD General: Negative for tenderness Chest Wall inspection of chest normal and palpation of chest normal Chest: Negative for tenderness Resp normal respiratory effort and clear to auscultation bilaterally Effort and Inspection: Negative for respiratory distress or pain with movement Auscultation: Negative for rhonchi, wheezes or diminished lung sounds Cardio regular rate, regular rhythm, S1 normal heart sound, S2 normal heart sound and no murmurs Peripheral Pulses: pulses 2+ throughout GI normal to inspection, nondistended, normoactive bowel sounds, soft to palpation,non-distended and no masses GI Narrative: Mild diffuse tenderness throughout the abdomen. There is no rebound, rigidity, or peritoneal signs. No mass palpated. Rectal exam performed and patient did have brown stool in the rectal vault that seem to soft however not amenable to any type of disimpaction as it was relatively high up in the rectum. Back/Spine no CVA tenderness and no thoracic nor lumbar tenderness Extremity normal to inspection General Extremety ED: Negative for edema General Extremity: Negative for edema Neuro oriented x3, CN's II-XII intact bilaterally, no sensory deficits noted and gait normal Sensorium / Orientation: awake, alert, oriented to person, oriented to place andoriented to time Motor Exam: strength 5/5 throughout and strength abnormal Psych mental status grossly normal Skin no rashes or lesions noted and no wounds MDM MDM MDM Narrative Medical decision making narrative: We will obtain a KUB. We will perform soapsuds enemas. Patient had small results with enema here. She complains of being very uncomfortable having dry heaves and does not think she can tolerate a repeat enema right away. She does not feel she can go home as she is too uncomfortable. I discussed case with general surgeon on-call who recommended obtaining a CT scan to evaluate further. I did order basic labs and she had a white count of 12.7 with hemoglobin of 12 and platelet count of 773. Chemistries were unremarkable. CT scan of the abdomen pelvis without contrast obtained showed dilated colon with questionable transition point within the mid lower colon concerning for obstruction or ileus. Skin was evaluated by Dr. Murphy and she did not have any concerns regarding these findings. Recommend admission to medicine for enemas till relief. Discussed case with hospitalist will evaluate patient for admission. Etiology of thrombocytosis unclear though may be reactive. Lab Data Attestation: I reviewed the patient's lab results. Labs: Laboratory Results - last 24 hr 12/06/22 17:10 WBC 12.7 H RBC 4.70 Hgb 12.0 Hct 38.5 MCV 81.9 MCH 25.5 L MCHC 31.2 L RDW Std Deviation 50.8 H RDW Coeff of Marsha 17.1 H Plt Count 773 H* MPV 7.9 Immature Gran % (Auto) 0.500 Neut % (Auto) 85.1 H Lymph % (Auto) 9.4 L Sherburne % (Auto) 4.3 Eos % (Auto) 0.1 Baso % (Auto) 0.6 Absolute Neuts (auto) 10.8 H Absolute Lymphs (auto) 1.20 Nucleated RBC % 0 Diff Path Review May foll Sodium 137 Potassium 3.6 Chloride 106 Carbon Dioxide 23.0 Anion Gap 8 BUN 14 Creatinine 0.69 Estim Creat Clear Calc 63.79 Est GFR (MDRD) Af Amer 111 Est GFR (MDRD) Non-Af 92 BUN/Creatinine Ratio 20.4 H Glucose 104 Calcium 9.4 Radiography Diagnostic Testing: Clinical Impression(s) from Imaging Studies KUB X-Ray 12/06/22 15:40 IMPRESSION: Moderate amount of gas throughout the colon. Electronically Signed: Viridiana Hooks MD at 16:10 EDT , Abdomen/Pelvis CT 12/06/22 16:53 IMPRESSION: Limited examination given the lack of intravenous and oral contrast and significant beam hardening artifact secondary to bilateral hip arthroplasties demonstrating a dilated colon with a questionable transition point within the mid/lower colon, concerning for an obstruction or possible ileus, consider repeat examination with IV and oral contrast for further characterization. Electronically Signed: Viridiana Hooks MD at 17:49 EDT , 1 view abdomen/KUB obtained shows gaseous distention of the bowel on my interpretation without evidence of bowel obstruction. There was moderate stool within the sigmoid and rectum. Radiology in agreement. Discharge Plan Dx/Rx/DC Orders Clinical Impression: Thrombocytosis, Abdominal pain, Constipation Disposition Disposition: Acute Care Hospital [facility] Discharge Date/Time: 12/06/22 20:49 What to do if you have Problems For any increased pain, shortness of breath, bleeding, nausea or vomiting, chestpain, or any unexpected problems, contact your Primary Care Provider. Call [facility] ([phone]) or report to the closest Emergency Room. Call 911 if necessary. 12/07/22 0002 <Electronically signed by Reece Stein DO> Cosigner Signature (if applicable): CC: Dr. Yuliya Vasquez DO ~ Signed [facility] Work Phone: [phone] Hospital Discharge instructions Patient Education 12/06/2022 08:59:39 Treating Constipation Treating Constipation Constipation is a common and often uncomfortable problem. Constipation means you have bowel movements fewer than 3 times per week, or strain to pass hard, dry stool. It can last a short time. Or it can be a problem that never seems to go away. The good news is that it can often be treated and controlled. Eat more fiber One of the best ways to help treat constipation is to increase your fiber intake. You can do this either through diet or by using fiber supplements. Fiber (in whole grains, fruits, and vegetables) adds bulk and absorbs water to soften the stool. This helps the stool pass through the colon more easily. When you increase your fiber intake, do it slowly to avoid side effects such as bloating. Also increase the amount of water that you drink. Eating more of the following foods can add fiber to yourdiet. High-fiber cereals Whole grains, bran, and brown rice Vegetables such as carrots, broccoli, and greens Fresh fruits (especially apples, pears, and dried fruits like raisins and apricots) Nuts and legumes (especially beans such as lentils, kidney beans, and downing beans) Get physically active Exercise helps improve the working of your colon which helps ease constipation. Try to get some physical activity every day. If you haven t been active for a while, talk to your healthcare provider before starting again. Laxatives Your healthcare provider may suggest an uiih-zej-ykgmedb product to help ease your constipation. Heor she may suggest the use of bulk-forming agents or laxatives. The use of laxatives, if used as directed, is common and safe. Follow directions carefully when using them. See your healthcare provider for new-onset constipation, or long-term constipation, to rule out other causes such as medicines or thyroid disease. 5323-4604 [employer]. [address] [place] [address]. All rights reserved. This information is not intended as a substitute for professional medical care. Always follow yourhealthcare professional's instructions. Follow Up Care 12/06/2022 07:41:53 With:GOMEZ LOYA MD Address[address] [address] [phone] When:2-4 days [facility] 09-13-2023 Note Discharge Instructions Thank you for allowing [facility] to assist you with your healthcare needs. The following is importantdischarge information regarding your hospital visit. Diagnosis from Today's Visit Constipation Constipation-functional What to Do Next Instructions from Your Care Team No qualifying data available. Post Acute Orders No qualifying data available. You Need to Schedule the Following Appointments Follow Up with GOMEZ LOYA MD When Within 2-4 days Where: [address] [place] [address]- [phone] Allergies NKA Medications Please ask your primary doctor or pharmacist before taking any other medication not listed, including over the counter drugs, herbal medications, vitamins and or supplements as they may interact withyour home medications. What How Much When Instructions Last Dose Unchanged aspirin (aspirin 81 mg oral delayed release tablet) 1 tab(s) by mouth Two (2) times a day Duration: 30 Days Take 81 mg aspirin twice daily with food for 4 weeks postoperatively for DVT prophylaxis. Unchanged cholecalciferol (Vitamin D3) 100 Microgram by mouth Every day Unchanged dicyclomine (dicyclomine 10 mg oral capsule) 1 cap by mouth Four (4) times a day Duration: 7 Days Unchanged etodolac (etodolac 400 mg oral tablet) 1 tab(s) by mouth Two (2) times a day Unchanged famotidine (Pepcid 20 mg oral tablet) 1 tab(s) by mouth Once a day Unchanged fluticasone (Flovent HFA 220 mcg/ inh inhalation aerosol) 1 puff(s) by inhalation Two (2) times a day as needed for Shortness of breath or wheezing Unchanged vancomycin (vancomycin 125 mg oral capsule) 1 cap by mouth Every 6 hours Duration: 10 Days Please take this list to your next doctor s visit. Bring all medications you take, including over the counter medications, herbals and other supplements with you to your doctor s visit. Patients and families are reminded to discard old lists and to update any records with all medication providers or retail pharmacies. Medication Leaflets magnesium citrate (mag NEE see um SI trate) Citrate of Magnesia, Citroma Simms, Citroma Lemon What is the most important information I should know about magnesium citrate? Follow all directions on your medicine label and package. Tell each of your healthcare providers about all your medical conditions, allergies, and all medicines you use. What is magnesium citrate? Magnesium is a naturally occurring mineral that is important for many systems in the body, especially the muscles and nerves. Magnesium citrate also increases water in the intestines. Magnesium citrate is used as a laxative to treat occasional constipation. Magnesium citrate may also be used for purposes not listed in this medication guide. What should I discuss with my healthcare provider before taking magnesium citrate? Ask a doctor or pharmacist if it is safe for you to take this medicine if you have other medical conditions, especially: kidney disease; a sudden change in bowel habits that has lasted longer than 2 weeks; stomach pain, nausea, vomiting; or if you are on a low-magnesium or low-potassium diet. It is not known whether magnesium citrate will harm an unborn baby. Do not use this medicine without a doctor's advice if you are . It is not known whether magnesium citrate passes into breast milk or if it could harm a nursing baby. Do not use this medicine without a doctor's advice if you are breast-feeding a baby. How should I take magnesium citrate? Use exactly as directed on the label, or as prescribed by your doctor. Do not use in larger or smaller amounts or for longer than recommended. Take magnesium citrate on an empty stomach, at least 1 hour before or 2 hours after a meal. Measure liquid medicine with the dosing syringe provided, or with a special dose-measuring spoon ormedicine cup. If you do not have a dose-measuring device, ask your pharmacist for one. Take this medicine with a full glass of water. Magnesium citrate should produce a bowel movement within 30 minutes to 6 hours after you take the medicine. Call your doctor if your symptoms do not improve after 7 days of treatment, or if the medicine produces no results. Not having a bowel movement after using a laxative may be a sign of a condition more serious than occasional constipation. Store at room temperature away from moisture and heat. What happens if I miss a dose? Since magnesium citrate is used when needed, you may not be on a dosing schedule. If you are on a schedule, use the missed dose as soon as you remember. Skip the missed dose if it is almost time for your next scheduled dose. Do not use extra medicine to make up the missed dose. What happens if I overdose? Seek emergency medical attention or call the Poison Help line at . What should I avoid while taking magnesium citrate? Avoid taking any other medicines within 2 hours before or 2 hours after you take magnesium citrate.Laxatives can make it harder for your body to absorb certain other drugs. What are the possible side effects of magnesium citrate? Get emergency medical help if you have signs of an allergic reaction: hives; difficult breathing; swelling of your face, lips, tongue, or throat. Stop using magnesium citrate and call your doctor at once if you have: no bowel movement within 6 hours after taking the medicine; pain with bowel movements, rectal bleeding; watery diarrhea, nausea, vomiting, severe stomach pain; painful or difficult urination; flushing (warmth, redness, or tingly feeling); a light-headed feeling, like you might pass out; weak or shallow breathing, slow heartbeats; or muscle weakness, increased thirst. Common side effects may include: loose stools, diarrhea, stomach cramps; upset stomach; dizziness; or increased sweating. This is not a complete list of side effects and others may occur. Call your doctor for medical advice about side effects. You may report side effects to FDA at 9-289-VRY-3544. What other drugs will affect magnesium citrate? Other drugs may interact with magnesium citrate, including prescription and zcyy-ukx-cjojsnx medicines, vitamins, and herbal products. Tell each of your health care providers about all medicines you use now and any medicine you start or stop using. Where can I get more information? Your pharmacist can provide more information about magnesium citrate. Remember, keep this and all other medicines out of the reach of children, never share your medicines with others, and use this medication only for the indication prescribed. Every effort has been made to ensure that the information provided by [employer]. ('[employer]') is accurate, up-to-date, and complete, but no guarantee is made to that effect. Drug information contained herein may be time sensitive. [employer] information has been compiled for use by healthcare practitioners and consumers in the [place] and therefore [employer] does not warrant that uses outside of the [place] are appropriate, unless specifically indicated otherwise. [employer] drug information does not endorse drugs, diagnose patients or recommend therapy. [employer] drug information isan informational resource designed to assist licensed healthcare practitioners in caring for their p atients and/or to serve consumers viewing this service as a supplement to, and not a substitute for, the expertise, skill, knowledge and judgment of healthcare practitioners. The absence of a warningfor a given drug or drug combination in no way should be construed to indicate that the drug or drug combination is safe, effective or appropriate for any given patient. [employer] does not assume any responsibility for any aspect of healthcare administered with the aid of information [employer] provides. The information contained herein is not intended to cover all possible uses, directions, precautions, warnings, drug interactions, allergic reactions, or adverse effects. If you have questions about the drugs you are taking, check with your doctor, nurse or pharmacist. Copyright 6296-8613 [employer]. Version: 4.01. Revision Date: 11/06/2022. Education Materials Treating Constipation Constipation is a common and often uncomfortable problem. Constipation means you have bowel movements fewer than 3 times per week, or strain to pass hard, dry stool. It can last a short time. Or it can be a problem that never seems to go away. The good news is that it can often be treated and controlled. Eat more fiber One of the best ways to help treat constipation is to increase your fiber intake. You can do this either through diet or by using fiber supplements. Fiber (in whole grains, fruits, and vegetables) adds bulk and absorbs water to soften the stool. This helps the stool pass through the colon more easily. When you increase your fiber intake, do it slowly to avoid side effects such as bloating. Also increase the amount of water that you drink. Eating more of the following foods can add fiber to yourdiet. High-fiber cereals Whole grains, bran, and brown rice Vegetables such as carrots, broccoli, and greens Fresh fruits (especially apples, pears, and dried fruits like raisins and apricots) Nuts and legumes (especially beans such as lentils, kidney beans, and downing beans) Get physically active Exercise helps improve the working of your colon which helps ease constipation. Try to get some physical activity every day. If you haven t been active for a while, talk to your healthcare provider before starting again. Laxatives Your healthcare provider may suggest an maqf-uty-hugjszd product to help ease your constipation. Heor she may suggest the use of bulk-forming agents or laxatives. The use of laxatives, if used as directed, is common and safe. Follow directions carefully when using them. See your healthcare provider for new-onset constipation, or long-term constipation, to rule out other causes such as medicines or thyroid disease. 5642-6139 [employer]. [address] [place] [address], [place] [address]. All rights reserved. This information is not intended as a substitute for professional medical care. Always follow yourhealthcare professional's instructions. Additional Information VACCINATE! IT SAVES LIVES! Members of the community who have not yet received the COVID-19 vaccine and would like to receive it can visit one of [facility] vaccine clinics. There are many vaccine clinic locations within the [facility]. For locations and available times, please visit www.gettheshot.coronavirus.[place].gov/. It is important to note that some COVID mobile vaccine clinics are held outdoors and may be canceled in rainy or stormy conditions. To learn more about pediatric vaccinations (ages 5-11), we invite you to visit the [facility] webpage. [email or web address]/[email or web address] [email or web address] learn more about the COVID-19 vaccine, we invite you to visit the CDC website for a list of frequently asked questions. https://www.cdc.gov/coronavirus/2019-ncov/vaccines/faq.html [facility] Patient Portal Access Instructions: Stay connected with your healthcare team and access your personal medical information anytime with the [facility] Patient Portal. If you would like a full copy of your medical records please contact the [facility] Medical Records Department Sunday through Sunday between 8a.m. and 4:30p.m. Please follow the directions below to access the portal: 1.Access the email account you provided upon registration to the hospital.2.Look for an invitation email from [facility].3.Open the email and access the invitation link: Accept Invitation to [facility]4.Fill in the required bustillo to create your account. Sign into [email or web address] with your username and password that you created in the above steps to stay up to date. You can then view a summary of results, a summary of your visits, and the ability to download your summaries to your computer or send the information securely to a physician. Remember that your healthcare information is confidential, so carefully consider who you will allow to register on the [facility] Patient Portal for access to your information. You can also access the [facility] Patient Portal on the [employer]. Simply click on Health Records under [employer] and then click on the [employer] logo. HOW TO SAFELY DISPOSE OF PRESCRIPTION MEDICATIONS Please use one of the following methods to safely dispose of your unused medications. 1.Use a drug disposal kit: the drug disposal pouch allows you to safely discard your old and unuseddrugs. Ask your nurse to give you one when you are discharged.2.Visit a local take-back location: Many local pharmacies and police departments have programs that collect old and unwanted prescriptiondrugs. Call your local pharmacy or go to [email or web address] to find one close to you.3.Make use of household items: Use cat litter or old coffee grounds to dispose medications if other options arenot available. Mix your drugs with these household products, seal them in an airtight container andthrow it into the garbage. Call [facility]: [phone] to be sure your drugs can be disposed of in this way. Some medicines may require a different approach.4.Never flush your medications down the toilet. IF YOU HAVE BEEN PRESCRIBED AN OPIOIDS FOR PAIN If you have been prescribed an opioid (such as hydrocodone, oxycodone or morphine), it is critical to understand the possible side effects and risks of opioid pain medications. Even when taken as directed, opioids can have several side effects including: Tolerance, meaning you might need to take more of a medication for the same pain relief. Nausea, vomiting and/or constipation. Sleepiness, dizziness, dry mouth, confusion, depression or itching. Physical dependence, meaning you have withdrawal symptoms when a medication is stopped ? this can develop within a few days. KNOW YOUR RESPONSIBILITIES It is important to know exactly how much and how often to take the opioid pain medications you are prescribed. Never take opioids in higher amounts or more often than prescribed. Do not combine opioids with alcohol or other drugs that cause drowsiness, such as benzodiazepines, also known as benzos,including diazepam and alprazolam, muscle relaxants or sleep aids. Never sell or share prescriptionopioids. This is illegal. Store opioids in a secure place and out of reach of others (including children, family, friends and visitors). The last page(s) of this document has been signed and retained as a CHART COPY Signatures Patient Education Materials Treating Constipation Medication Leaflets magnesium citrate 1.745 g/30 mL oral liquid My discharge plan and instructions have been reviewed and explained to me and TRACEE Arellano VICKIE L understand my current condition and have read and understand these discharge instructions. I have received a written copy of the plan/instructions. If I have questions, I am aware that I should contact my doctor. Patient/Cadet Deck Signature: Date/Time: Relationship to Patient: Witness Name/Signature: Date/Time: [facility]09-11-2023 Note. MICRO - Microbiology PROCEDURE: Urine Culture [*1] SOURCE: Urine, Clean Catch BODY SITE: COLLECTED DATE/TIME: 12/03/2022 05:24 EDT RECEIVED DATE/TIME: 12/03/2022 19:31 EDT START DATE/TIME: 12/03/2022 19:31 EDT FREE TEXT SOURCE: FINAL REPORTS Final Report [] Verified Date/Time/Personnel: 12/04/2022 14:29 EDT 10,000 - 50,000 cfu/ml Multiple bacterial morphotypes present. Probable Contamination. Suggest recollection if clinically indicated. Performing Locations *1: This test was performed at: [facility], [address] [place] [address], [facility] , [facility] ([place])12-03-2022 Hospital Discharge instructions Patient Education 12/03/2022 06:57:13 Diarrhea, Unknown Cause Diarrhea with Uncertain Cause (Adult) Diarrhea is when stools are loose and watery. This can be caused by: Viral infections Bacterial infections Food poisoning Parasites Irritable bowel syndrome (IBS) Inflammatory bowel diseases such as ulcerative colitis, Crohn's disease, and celiac disease Food intolerance, such as to lactose, the sugar found in milk and milk products Reaction to medicines like antibiotics, laxatives, cancer drugs, and antacids Along with diarrhea, you may also have: Abdominal pain and cramping Nausea and vomiting Loss of bowel control Fever and chills Bloody stools In some cases, antibiotics may help to treat diarrhea. You may have a stool sample test. This is done to see what is causing your diarrhea, and if antibiotics will help treat it. The results of a stool sample test may take up to 2 days. The healthcare provider may not give you antibiotics until he or she has the stool test results. Diarrhea can cause dehydration. This is the loss of too much water and other fluids from the body. When this occurs, body fluid must be replaced. This can be done with oral rehydration solutions. Oral rehydration solutions are available at drugstores and grocery stores without a prescription. Sports drinks are not the best choice if you are very dehydrated. They have too much sugar and not enoughelectrolytes. Home care Follow all instructions given by your healthcare provider. Rest at home for the next 24 hours, or until you feel better. Avoid caffeine, tobacco, and alcohol. These can make diarrhea, cramping, and pain worse. If taking medicines: Desz-uyy-abubuuo nausea and diarrhea medicines are generally OK unless you experience fever or blood stool. Check with your doctor first in those circumstances. You may use acetaminophen or NSAID medicines like ibuprofen or naproxen to reduce pain and fever. Don t use these if you have chronic liver or kidney disease, or ever had a stomach ulcer or gastrointestinal bleeding. Don't use NSAID medicines if you are already taking one for another condition (like arthritis) or are on daily aspirin therapy (such as for heart disease or after a stroke). Talk with your healthcare provider first. If antibiotics were prescribed, be sure you take them until they are finished. Don t stop taking them even when you feel better. Antibiotics must be taken as a full course. To prevent the spread of illness: Remember that washing with soap and water and using alcohol-based manager engagement is the best way to prevent the spread of infection. Dry your hands with a single use towel (like a paper towel). Clean the toilet after each use. Wash your hands before eating. Wash your hands before and after preparing food. Keep in mind that people with diarrhea or vomitingshould not prepare food for others. Wash your hands after using cutting boards, countertops, and knives that have been in contact with raw foods. Wash and then peel fruits and vegetables. Keep uncooked meats away from cooked and uzxyf-ht-uwq foods. Use a food thermometer when cooking. Cook poultry to at least 165 F (74 C). Cook ground meat (beef,veal, pork, luque) to at least 160 F (71 C). Cook fresh beef, veal, luque, and pork to at least 145 F(63 C). Don t eat raw or undercooked eggs (poached or yelitza side up), poultry, meat, or unpasteurized milk and juices. Food and drinks The main goal while treating vomiting or diarrhea is to prevent dehydration. This is done by takingsmall amounts of liquids often. Keep in mind that liquids are more important than food right now. Drink only small amounts of liquids at a time. Don t force yourself to eat, especially if you are having cramping, vomiting, or diarrhea. Don t eat large amounts at a time, even if you are hungry. If you eat, avoid fatty, greasy, spicy, or fried foods. Don t eat dairy foods or drink milk if you have diarrhea. These can make diarrhea worse. During the first 24 hours you can try: Oral rehydration solutions. Sports drinks may be used if you are not too dehydrated and are otherwise healthy. Soft drinks without caffeine Sienna norberto Water (plain or flavored) Decaf tea or coffee Clear broth, consomm , or bouillon Gelatin, popsicles, or frozen fruit juice bars The second 24 hours, if you are feeling better, you can add: Hot cereal, plain toast, bread, rolls, or crackers Plain noodles, rice, mashed potatoes, chicken noodle soup, or rice soup Unsweetened canned fruit (no pineapple) Bananas As you recover: Limit fat intake to less than 15 grams per day. Don t eat margarine, butter, oils, mayonnaise, sauces, gravies, fried foods, peanut butter, meat, poultry, or fish. Limit fiber. Don t eat raw or cooked vegetables, fresh fruits except bananas, or bran cereals. Limit caffeine and chocolate. Limit dairy. Don t use spices or seasonings except salt. Go back to your normal diet over time, as you feel better and your symptoms improve. If the symptoms come back, go back to a simple diet or clear liquids. Follow-up care Follow up with your healthcare provider, or as advised. If a stool sample was taken or cultures were done, call the healthcare provider for the results as instructed. Call 911 Call 911 if you have any of these symptoms: Trouble breathing Confusion Extreme drowsiness or trouble walking Loss of consciousness Rapid heart rate Chest pain Stiff neck Seizure When to seek medical advice Call your healthcare provider right away if any of these occur: Abdominal pain that gets worse Constant lower right abdominal pain Continued vomiting and inability to keep liquids down Diarrhea more than 5 times a day Blood in vomit or stool Dark urine or no urine for 8 hours, dry mouth and tongue, tiredness, weakness, or dizziness Drowsiness New rash You don t get better in 2 to 3 days Fever of 100.4 F (38 C) or higher, or as directed by your healthcare provider [id number] [employer]. [address] [place] [address]. All rights reserved. This information is not intended as a substitute for professional medical care. Always follow yourhealthcare professional's instructions. Follow Up Care 12/03/2022 04:43:02 With:YULIYA VASQUEZ DO Address: [address] [place] [phone] When:2-4 days [facility] 09-10-2023 Emergency department Discharge summary Discharge Instructions Thank you for allowing [facility] to assist you with your healthcare needs. The following is importantdischarge information regarding your hospital visit. Diagnosis from Today's Visit Abdominal pain Diarrhea Diarrhea What to Do Next Instructions from Your Care Team Given your history of C Diff as your test is pending we will write you the prescription for it. If it is positive we will let you know. No qualifying data available. Post Acute Orders No qualifying data available. You Need to Schedule the Following Appointments Follow Up with YULIYA VASQUEZ DO When Within 2-4 days Where: [address] [place] [id number]- Allergies NKA Medications Please ask your primary doctor or pharmacist before taking any other medication not listed, including over the counter drugs, herbal medications, vitamins and or supplements as they may interact withyour home medications. What How Much When Instructions Last Dose New dicyclomine (dicyclomine 10 mg oral capsule) 1 cap by mouth Four (4) times a day Duration: 7 Days Printed Prescription New vancomycin (vancomycin 125 mg oral capsule) 1 cap by mouth Every 6 hours Duration: 10 Days Printed Prescription Unchanged acetaminophen (acetaminophen 500 mg oral tablet) 2 tab(s) by mouth Three (3) times a day as needed for as needed for pain not to exceed 3000 mg/ day Unchanged aspirin (aspirin 81 mg oral delayed release tablet) 1 tab(s) by mouth Two (2) times a day Duration: 30 Days Take 81 mg aspirin twice daily with food for 4 weeks postoperatively for DVT prophylaxis. Unchanged cholecalciferol (Vitamin D3) 100 Microgram by mouth Every day Unchanged etodolac (etodolac 400 mg oral tablet) 1 tab(s) by mouth Two (2) times a day Unchanged famotidine (Pepcid 20 mg oral tablet) 1 tab(s) by mouth Once a day Unchanged fluticasone (Flovent HFA 220 mcg/ inh inhalation aerosol) 1 puff(s) by inhalation Two (2) times a day as needed for Shortness of breath or wheezing Please take this list to your next doctor s visit. Bring all medications you take, including over the counter medications, herbals and other supplements with you to your doctor s visit. Patients and families are reminded to discard old lists and to update any records with all medication providers or retail pharmacies. Medication Leaflets vancomycin (oral) (SADAF TALAMANTES sin) Firvanq What is the most important information I should know about vancomycin? Oral vancomycin works only in the intestines and will not treat infections in other parts of the body. Follow all directions on your medicine label and package. Tell each of your healthcare providersabout all your medical conditions, allergies, and all medicines you use. What is vancomycin? Vancomycin is an antibiotic. Oral (taken by mouth) vancomycin fights bacteria in the intestines. Vancomycin is used to treat an infection of the intestines caused by Clostridium difficile, which can cause watery or bloody diarrhea. Vancomycin is also used to treat staph infections that can causeinflammation of the colon and small intestines. Oral vancomycin works only in the intestines and is not normally absorbed into the body. This medicine will not treat other types of infection. An injection form of vancomycin is available to treat serious infections in other parts of the body. Vancomycin may also be used for purposes not listed in this medication guide. What should I discuss with my healthcare provider before taking vancomycin? You should not vancomycin if you are allergic to it. Tell your doctor if you have ever had: an intestinal disorder such as inflammatory bowel disease, Crohn's disease, or ulcerative colitis; kidney disease; hearing problems; or if you are receiving any intravenous (IV) antibiotics. Tell your doctor if you are or . How should I take vancomycin? Follow all directions on your prescription label and read all medication guides or instruction sheets. Use the medicine exactly as directed. Taking more of this medicine will not make it more effective, and may cause serious or life-threatening side effects. Shake the oral solution (liquid) before you measure a dose. Use the dosing syringe provided, or usea medicine dose-measuring device (not a kitchen spoon). Use this medicine for the full prescribed length of time, even if your symptoms quickly improve. Skipping doses can increase your risk of infection that is resistant to medication. Vancomycin will not treat a viral infection such as the flu or a common cold. If you use this medicine long-term, you may need frequent medical tests. Store vancomycin capsules at room temperature, away from heat and moisture. Store the liquid medicine in the refrigerator, do not freeze. Throw away any unused liquid after 14days. What happens if I miss a dose? Take the medicine as soon as you can, but skip the missed dose if it is almost time for your next dose. Do not take two doses at one time. What happens if I overdose? Seek emergency medical attention or call the Poison Help line at . What should I avoid while using vancomycin? Follow your doctor's instructions about any restrictions on food, beverages, or activity. What are the possible side effects of vancomycin? Get emergency medical help if you have signs of an allergic reaction: hives; difficult breathing; swelling of your face, lips, tongue, or throat. Certain side effects may occur if your body absorbs vancomycin through the intestinal man. Call your doctor at once if you have: increased diarrhea that is watery or bloody; hearing loss, ringing in your ears; kidney problems--swelling, rapid weight gain, pain in your side or lower back, little or no urination; or low potassium level--leg cramps, constipation, irregular heartbeats, fluttering in your chest, increased thirst or urination, numbness or tingling, muscle weakness or limp feeling. Side effects on the kidneys may be more likely in older adults taking this medicine. Common side effects may include: low potassium; nausea; or stomach pain. This is not a complete list of side effects and others may occur. Call your doctor for medical advice about side effects. You may report side effects to FDA at 9-204-BBC-2524. What other drugs will affect vancomycin? Other drugs may affect vancomycin, including prescription and wfvm-yrl-wgzkfvk medicines, vitamins,and herbal products. Tell your doctor about all your current medicines and any medicine you start or stop using. Where can I get more information? Your pharmacist can provide more information about vancomycin. Remember, keep this and all other medicines out of the reach of children, never share your medicines with others, and use this medication only for the indication prescribed. Every effort has been made to ensure that the information provided by [employer]. ('[employer]') is accurate, up-to-date, and complete, but no guarantee is made to that effect. Drug information contained herein may be time sensitive. [employer] information has been compiled for use by healthcare practitioners and consumers in the [place] and therefore [employer] does not warrant that uses outside of the [place] are appropriate, unless specifically indicated otherwise. [employer] drug information does not endorse drugs, diagnose patients or recommend therapy. [employer] drug information isan informational resource designed to assist licensed healthcare practitioners in caring for their p atients and/or to serve consumers viewing this service as a supplement to, and not a substitute for, the expertise, skill, knowledge and judgment of healthcare practitioners. The absence of a warningfor a given drug or drug combination in no way should be construed to indicate that the drug or drug combination is safe, effective or appropriate for any given patient. [employer] does not assume any responsibility for any aspect of healthcare administered with the aid of information [employer] provides. The information contained herein is not intended to cover all possible uses, directions, precautions, warnings, drug interactions, allergic reactions, or adverse effects. If you have questions about the drugs you are taking, check with your doctor, nurse or pharmacist. Copyright 9582-0989 [employer]. Version: 13.01. Revision Date: 10/27/2022. dicyclomine (oral/injection) (aide Miller What is the most important information I should know about dicyclomine? Many drugs can affect dicyclomine. Tell your doctor about all your current medicines. What is dicyclomine? Dicyclomine is used to treat functional bowel or irritable bowel syndrome. Dicyclomine may also be used for purposes not listed in this medication guide. What should I discuss with my healthcare provider before taking dicyclomine? You should not use dicyclomine if you are allergic to it, or if you have: glaucoma; a bladder obstruction or other urination problems; a blockage in your digestive tract (stomach or intestines); severe ulcerative colitis; gastroesophageal reflux disease (GERD); a serious heart condition and active bleeding; myasthenia gravis; or if you are a baby. Not approved for use by anyone younger than 18 years old. Dicyclomine should never be given to a child younger than 6 months old. Tell your doctor if you have ever had: heart problems or high blood pressure; a stroke; ulcerative colitis; an ileostomy or colostomy; an enlarged prostate; or liver or kidney disease. Older adults may be more sensitive to the effects of this medicine. Tell your doctor if you are . Do not breastfeed. How should I take dicyclomine? Follow all directions on your prescription label and read all medication guides or instruction sheets. Your doctor may occasionally change your dose. Use the medicine exactly as directed. Dicyclomine oral is taken by mouth. Measure liquid medicine with the supplied syringe or a dose-measuring device (not a kitchen spoon). Dicyclomine injection is given in a muscle if you are unable to take the medicine by mouth. Call your doctor if your symptoms do not improve after 2 weeks. Store at room temperature away from moisture and heat. What happens if I miss a dose? Skip the missed dose and use your next dose at the regular time. Do not use two doses at one time. What happens if I overdose? Seek emergency medical attention or call the Poison Help line at . Overdose can cause nausea, vomiting, dilated pupils, weakness or loss of movement in any part of your body, trouble swallowing, fainting, or seizure (convulsions). What should I avoid while taking dicyclomine? May cause dizziness or blurred vision. Avoid driving or hazardous activity until you know how this medicine will affect you. Avoid becoming overheated or dehydrated during exercise and in hot weather. Dicyclomine can decrease sweating and you may be more prone to heat stroke. Tell your doctor if you have a fever while taking dicyclomine. Avoid using an antacid. Antacids can make it harder for your body to absorb dicyclomine oral. What are the possible side effects of dicyclomine? Get emergency medical help if you have signs of an allergic reaction: hives; difficult breathing; swelling of your face, lips, tongue, or throat. Call your doctor at once if you have: fast or slow heartbeats, pounding heartbeats or fluttering in your chest; confusion, agitation, hallucinations, unusual thoughts or behavior; problems with memory or speech; problems with balance or muscle movement; diarrhea, severe constipation, or worsening of bowel symptoms; trouble swallowing; bruising, swelling, or pain where a dicyclomine injection was given; or dehydration --dizziness, confusion, feeling very thirsty, less urination or sweating. Confusion and mood or behavior changes may be more likely in older adults. Common side effects may include: drowsiness, dizziness, weakness, nervousness; blurred vision; dry mouth; or nausea. This is not a complete list of side effects and others may occur. Call your doctor for medical advice about side effects. You may report side effects to FDA at 3-141-LGP-8407. What other drugs will affect dicyclomine? Using dicyclomine with other drugs that make you drowsy can worsen this effect. Ask your doctor before using opioid medication, a sleeping pill, a muscle relaxer, or medicine for anxiety or seizures. Tell your doctor about all your current medicines. Many drugs can affect dicyclomine, especially: bronchodilator asthma medication; cold or allergy medicine (Benadryl and others); glaucoma medication; heart medication; medicine to treat depression, anxiety, mood disorders, or mental illness; medicine to treat overactive bladder; medicine to treat Parkinson's disease; or medicine to treat stomach problems, motion sickness, or irritable bowel syndrome. This list is not complete and many other drugs may affect dicyclomine. This includes prescription and trdi-kvc-vjdiktr medicines, vitamins, and herbal products. Not all possible drug interactions arelisted here. Where can I get more information? Your pharmacist can provide more information about dicyclomine. Remember, keep this and all other medicines out of the reach of children, never share your medicines with others, and use this medication only for the indication prescribed. Every effort has been made to ensure that the information provided by [employer]. ('[employer]') is accurate, up-to-date, and complete, but no guarantee is made to that effect. Drug information contained herein may be time sensitive. [employer] information has been compiled for use by healthcare practitioners and consumers in the [place] and therefore [employer] does not warrant that uses outside of the [place] are appropriate, unless specifically indicated otherwise. [employer] drug information does not endorse drugs, diagnose patients or recommend therapy. [employer] drug information isan informational resource designed to assist licensed healthcare practitioners in caring for their p atients and/or to serve consumers viewing this service as a supplement to, and not a substitute for, the expertise, skill, knowledge and judgment of healthcare practitioners. The absence of a warningfor a given drug or drug combination in no way should be construed to indicate that the drug or drug combination is safe, effective or appropriate for any given patient. [employer] does not assume any responsibility for any aspect of healthcare administered with the aid of information [employer] provides. The information contained herein is not intended to cover all possible uses, directions, precautions, warnings, drug interactions, allergic reactions, or adverse effects. If you have questions about the drugs you are taking, check with your doctor, nurse or pharmacist. Copyright 3979-9289 [employer]. Version: 8.. Revision Date: 10/27/2022. Education Materials Diarrhea with Uncertain Cause (Adult) Diarrhea is when stools are loose and watery. This can be caused by: Viral infections Bacterial infections Food poisoning Parasites Irritable bowel syndrome (IBS) Inflammatory bowel diseases such as ulcerative colitis, Crohn's disease, and celiac disease Food intolerance, such as to lactose, the sugar found in milk and milk products Reaction to medicines like antibiotics, laxatives, cancer drugs, and antacids Along with diarrhea, you may also have: Abdominal pain and cramping Nausea and vomiting Loss of bowel control Fever and chills Bloody stools In some cases, antibiotics may help to treat diarrhea. You may have a stool sample test. This is done to see what is causing your diarrhea, and if antibiotics will help treat it. The results of a stool sample test may take up to 2 days. The healthcare provider may not give you antibiotics until he or she has the stool test results. Diarrhea can cause dehydration. This is the loss of too much water and other fluids from the body. When this occurs, body fluid must be replaced. This can be done with oral rehydration solutions. Oral rehydration solutions are available at drugstores and grocery stores without a prescription. Sports drinks are not the best choice if you are very dehydrated. They have too much sugar and not enoughelectrolytes. Home care Follow all instructions given by your healthcare provider. Rest at home for the next 24 hours, or until you feel better. Avoid caffeine, tobacco, and alcohol. These can make diarrhea, cramping, and pain worse. If taking medicines: Yjmc-pjv-rssimav nausea and diarrhea medicines are generally OK unless you experience fever or blood stool. Check with your doctor first in those circumstances. You may use acetaminophen or NSAID medicines like ibuprofen or naproxen to reduce pain and fever. Don t use these if you have chronic liver or kidney disease, or ever had a stomach ulcer or gastrointestinal bleeding. Don't use NSAID medicines if you are already taking one for another condition (like arthritis) or are on daily aspirin therapy (such as for heart disease or after a stroke). Talk with your healthcare provider first. If antibiotics were prescribed, be sure you take them until they are finished. Don t stop taking them even when you feel better. Antibiotics must be taken as a full course. To prevent the spread of illness: Remember that washing with soap and water and using alcohol-based manager engagement is the best way to prevent the spread of infection. Dry your hands with a single use towel (like a paper towel). Clean the toilet after each use. Wash your hands before eating. Wash your hands before and after preparing food. Keep in mind that people with diarrhea or vomitingshould not prepare food for others. Wash your hands after using cutting boards, countertops, and knives that have been in contact with raw foods. Wash and then peel fruits and vegetables. Keep uncooked meats away from cooked and nzwxv-mi-qua foods. Use a food thermometer when cooking. Cook poultry to at least 165 F (74 C). Cook ground meat (beef,veal, pork, luque) to at least 160 F (71 C). Cook fresh beef, veal, luque, and pork to at least 145 F(63 C). Don t eat raw or undercooked eggs (poached or yelitza side up), poultry, meat, or unpasteurized milk and juices. Food and drinks The main goal while treating vomiting or diarrhea is to prevent dehydration. This is done by takingsmall amounts of liquids often. Keep in mind that liquids are more important than food right now. Drink only small amounts of liquids at a time. Don t force yourself to eat, especially if you are having cramping, vomiting, or diarrhea. Don t eat large amounts at a time, even if you are hungry. If you eat, avoid fatty, greasy, spicy, or fried foods. Don t eat dairy foods or drink milk if you have diarrhea. These can make diarrhea worse. During the first 24 hours you can try: Oral rehydration solutions. Sports drinks may be used if you are not too dehydrated and are otherwise healthy. Soft drinks without caffeine Sienna norberto Water (plain or flavored) Decaf tea or coffee Clear broth, consomm , or bouillon Gelatin, popsicles, or frozen fruit juice bars The second 24 hours, if you are feeling better, you can add: Hot cereal, plain toast, bread, rolls, or crackers Plain noodles, rice, mashed potatoes, chicken noodle soup, or rice soup Unsweetened canned fruit (no pineapple) Bananas As you recover: Limit fat intake to less than 15 grams per day. Don t eat margarine, butter, oils, mayonnaise, sauces, gravies, fried foods, peanut butter, meat, poultry, or fish. Limit fiber. Don t eat raw or cooked vegetables, fresh fruits except bananas, or bran cereals. Limit caffeine and chocolate. Limit dairy. Don t use spices or seasonings except salt. Go back to your normal diet over time, as you feel better and your symptoms improve. If the symptoms come back, go back to a simple diet or clear liquids. Follow-up care Follow up with your healthcare provider, or as advised. If a stool sample was taken or cultures were done, call the healthcare provider for the results as instructed. Call 911 Call 911 if you have any of these symptoms: Trouble breathing Confusion Extreme drowsiness or trouble walking Loss of consciousness Rapid heart rate Chest pain Stiff neck Seizure When to seek medical advice Call your healthcare provider right away if any of these occur: Abdominal pain that gets worse Constant lower right abdominal pain Continued vomiting and inability to keep liquids down Diarrhea more than 5 times a day Blood in vomit or stool Dark urine or no urine for 8 hours, dry mouth and tongue, tiredness, weakness, or dizziness Drowsiness New rash You don t get better in 2 to 3 days Fever of 100.4 F (38 C) or higher, or as directed by your healthcare provider [id number] [employer]. [address] [place] [address]. All rights reserved. This information is not intended as a substitute for professional medical care. Always follow yourhealthcare professional's instructions. Additional Information VACCINATE! IT SAVES LIVES! Members of the community who have not yet received the COVID-19 vaccine and would like to receive it can visit one of [facility] vaccine clinics. There are many vaccine clinic locations within the [facility]. For locations and available times, please visit [email or web address] It is important to note that some COVID mobile vaccine clinics are held outdoors and may be canceled in rainy or stormy conditions. To learn more about pediatric vaccinations (ages 5-11), we invite you to visit the [facility] webpage. [email or web address] learn more about the COVID-19 vaccine, we invite you to visit the CDC website for a list of frequently asked questions. https://www.cdc.gov/coronavirus/2019-ncov/vaccines/faq.html [facility] Patient Portal Access Instructions: Stay connected with your healthcare team and access your personal medical information anytime with the [facility] Patient Portal. If you would like a full copy of your medical records please contact the [facility] Medical Records Department Sunday through Sunday between 8a.m. and 4:30p.m. Please follow the directions below to access the portal: 1.Access the email account you provided upon registration to the hospital.2.Look for an invitation email from [facility].3.Open the email and access the invitation link: Accept Invitation to [facility]4.Fill in the required bustillo to create your account. Sign into [email or web address] with your username and password that you created in the above steps to stay up to date. You can then view a summary of results, a summary of your visits, and the ability to download your summaries to your computer or send the information securely to a physician. Remember that your healthcare information is confidential, so carefully consider who you will allow to register on the [facility] Patient Portal for access to your information. You can also access the [facility] Patient Portal on the [employer]. Simply click on Health Records under [employer] and then click on the [facility] logo. HOW TO SAFELY DISPOSE OF PRESCRIPTION MEDICATIONS Please use one of the following methods to safely dispose of your unused medications. 1.Use a drug disposal kit: the drug disposal pouch allows you to safely discard your old and unuseddrugs. Ask your nurse to give you one when you are discharged.2.Visit a local take-back location: Many local pharmacies and police departments have programs that collect old and unwanted prescriptiondrugs. Call your local pharmacy or go to [email or web address] to find one close to you.3.Make use of household items: Use cat litter or old coffee grounds to dispose medications if other options arenot available. Mix your drugs with these household products, seal them in an airtight container andthrow it into the garbage. Call [facility]: [phone] to be sure your drugs can be disposed of in this way. Some medicines may require a different approach.4.Never flush your medications down the toilet. IF YOU HAVE BEEN PRESCRIBED AN OPIOIDS FOR PAIN If you have been prescribed an opioid (such as hydrocodone, oxycodone or morphine), it is critical to understand the possible side effects and risks of opioid pain medications. Even when taken as directed, opioids can have several side effects including: Tolerance, meaning you might need to take more of a medication for the same pain relief. Nausea, vomiting and/or constipation. Sleepiness, dizziness, dry mouth, confusion, depression or itching. Physical dependence, meaning you have withdrawal symptoms when a medication is stopped ? this can develop within a few days. KNOW YOUR RESPONSIBILITIES It is important to know exactly how much and how often to take the opioid pain medications you are prescribed. Never take opioids in higher amounts or more often than prescribed. Do not combine opioids with alcohol or other drugs that cause drowsiness, such as benzodiazepines, also known as benzos,including diazepam and alprazolam, muscle relaxants or sleep aids. Never sell or share prescriptionopioids. This is illegal. Store opioids in a secure place and out of reach of others (including children, family, friends and visitors). The last page(s) of this document has been signed and retained as a CHART COPY Signatures Patient Education Materials Diarrhea, Unknown Cause Medication Leaflets vancomycin (oral), dicyclomine (oral/injection) My discharge plan and instructions have been reviewed and explained to me and ITRACEE VICKIE L understand my current condition and have read and understand these discharge instructions. I have received a written copy of the plan/instructions. If I have questions, I am aware that I should contact my doctor. Patient/Cadet Deck Signature: Date/Time: Relationship to Patient: Witness Name/Signature: Date/Time: [facility]09-10-2023 Note ORIGINAL EXAMINATION: CT OF THE ABDOMEN AND PELVIS WITH CONTRAST 12/03/2022 7:00 am TECHNIQUE: CT of the abdomen and pelvis was performed with the administration of intravenous contrast. Multiplanar reformatted images are provided for review. Automated exposure control, iterative reconstruction, and/or weight based adjustment of the mA/kV was utilized to reduce the radiation dose to as low as reasonably achievable. COMPARISON: None. HISTORY: ORDERING SYSTEM PROVIDED HISTORY: Reason for Exam: pain FINDINGS: Patient refused exam following crane follower images. Underwear Cutter images demonstrate bilateral hip arthroplasty hardware. Nonobstructive bowel gas pattern is noted, large quantity of stool is noted throughout the colon to the level of the rectum. IMPRESSION: On crane follower images large quantity of stool is noted throughout the colon to the level of the rectum which could be seen in the setting of constipation. Bowel gas pattern is nonobstructive. CT examination was refused by the patient. Interpreted by: Yadiel Galdamez MD Preliminary Report By: Yadiel Galdamez MD Electronically signed By Yadiel Galdamez MD Dictated Date: 12/03/2022 7:19:14 AM Prelim Date: 12/03/2022 7:20:28 AM Sign Date: 12/03/2022 7:20:28 AM Ordering Provider: [facility]08[facility]23 Note ORIGINAL EXAMINATION: CT OF THE RIGHT KNEE WITHOUT CONTRAST 11/03/2022 9:27 am TECHNIQUE: CT of the right knee was performed without the administration of intravenous contrast. Multiplanar reformatted images are provided for review. Automated exposure control, iterative reconstruction, and/or weight based adjustment of the mA/kV was utilized to reduce the radiation dose to as low as reasonably achievable. COMPARISON: None. 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 Shallow trochlea noted. Tricompartmental degenerative changes are most advanced in the lateral tibiofemoral patellofemoral compartments. There are ossified intra-articular bodies. Joint effusions seen. No aggressive lesion Survey images of the ankle: No aggressive lesion IMPRESSION: Advanced degenerative changes in the right knee. Right knee effusion Lateral subluxation of the patella with a shallow trochlea Interpreted by: Stephane Verduzco MD Preliminary Report By: Stephane Verduzco MD Electronically signed By Stephane Verduzco MD Dictated Date: 11/03/2022 3:04:39 PM Prelim Date: 11/03/2022 3:07:22 PM Sign Date: 11/03/2022 3:07:22 PM [facility] Note Sinus rhythm Probable left atrial enlargement Electronic Signature: JUAN LUIS ANDERSON MD 11/03/2022 23:59:24[facility] 08-06-2023 Hospital Discharge instructions Patient Education 10/29/2022 07:47:39 Abdominal Pain Abdominal Pain Abdominal pain is pain in the stomach or belly area. Everyone has this pain from time to time. In many cases it goes away on its own. But abdominal pain can sometimes be due to a serious problem, such as appendicitis. So it s important to know when to get help. Causes of abdominal pain There are many possible causes of abdominal pain. Common causes in adults include: Constipation, diarrhea, or gas Stomach acid flowing back up into the esophagus (acid reflux or heartburn) Severe acid reflux, called GERD (gastroesophageal reflux disease) A sore in the lining of the stomach or small intestine (peptic ulcer) Inflammation of the gallbladder, liver, or pancreas Gallstones or kidney stones Appendicitis Intestinal blockage An internal organ pushing through a muscle or other tissue (hernia) Urinary tract infections In women, menstrual cramps, fibroids, ovarian cysts, pelvic inflammatory disease, or endometriosis Inflammation or infection of the intestines, including Crohn's disease and ulcerative colitis Irritable bowel syndrome Diagnosing the cause of abdominal pain Your healthcare provider will give you a physical exam help find the cause of your pain. If needed,you will have tests. Belly pain has many possible causes. So it can be hard to find the reason for your pain. Giving details about your pain can help. Tell your provider where and when you feel the pain, and what makes it better or worse. Also let your provider know if you have other symptoms such as: Fever Tiredness Upset stomach (nausea) Vomiting Changes in bathroom habits Blood in the stool or black, tarry stool Weight loss that you can't explain (involuntary weight loss?) Also report any family history of stomach or intestinal problems, or cancers. Tell your provider about all your alcohol use and drug use. Tell your provider about all medicines you use, including herbs, vitamins, and supplements. Treating abdominal pain Some causes of pain need emergency medical treatment right away. These include appendicitis or a bowel blockage. Other problems can be treated with rest, fluids, or medicines. Your healthcare provider can give you specific instructions for treatment or self-care based on what is causing your pain. If you have vomiting or diarrhea, sip water or other clear fluids. When you are ready to eat solid foods again, start with small amounts of edpq-uc-fseewd, low- fat foods. These include apple sauce, toast, or crackers. When to get medical care Call 911 or go to the hospital right away if you: Can t pass stool and are vomiting Are vomiting blood or have bloody diarrhea or black, tarry diarrhea Have chest, neck, or shoulder pain Feel like you might pass out Have pain in your shoulder blades with nausea Have sudden, severe belly pain Have new, severe pain unlike any you have felt before Have a belly that is rigid, hard, and hurts to touch Call your healthcare provider if you have: Pain for more than 5 days Bloating for more than 2 days Diarrhea for more than 5 days A fever of 100.4 F (38 C) or higher, or as directed by your healthcare provider Pain that gets worse Weight loss for no reason Continued lack of appetite Blood in your stool How to prevent abdominal pain Here are some tips to help prevent abdominal pain: Eat smaller amounts of food at each meal. Don't eat greasy, fried, or other high-fat foods. Don't eat foods that give you gas. Exercise regularly. Drink plenty of fluids. To help prevent GERD symptoms: Quit smoking. Reduce alcohol and foods that increase stomach acid. Don't use aspirin or owwr-dbs-lnlvtmd pain and fever medicines, if possible. This includes nonsteroidal anti-inflammatory drugs (NSAIDs). Lose excess weight. Finish eating at least 2 hours before you go to bed or lie down. Raise the head of your bed. [id number] [employer]. [address] [place] [address], [place] [address]. All rights reserved. This information is not intended as a substitute for professional medical care. Always follow yourhealthcare professional's instructions. 10/29/2022 07:47:21 Diverticulitis Diverticulitis Some people get pouches along the wall of the colon as they get older. The pouches, called diverticuli, usually cause no symptoms. If the pouches become blocked, you can get an infection. This infection is called diverticulitis. It causes pain in your lower abdomen and fever. If not treated, it canbecome a serious condition, causing an abscess to form inside the pouch. The abscess may block the intestinal tract even or rupture, spreading infection throughout the abdomen. When treatment is started early, oral antibiotics alone may be enough to cure diverticulitis. This method is tried first. But, if you don't improve or if your condition gets worse while using oral antibiotics, you may need to be admitted to the hospital for IV antibiotics. Severe cases may require surgery. Home care The following guidelines will help you care for yourself at home: During the acute illness, rest and follow your healthcare provider's instructions about diet. Sometimes you will need to follow a clear liquid diet to rest your bowel. Once your symptoms are better, you may be told to follow a low-fiber diet for some time. Include foods like: oFlake cereal, mashed potatoes, pancakes, waffles, pasta, white bread, rice, applesauce, bananas, eggs, fish, poultry, tofu, and cooked soft vegetables Take antibiotics exactly as instructed. Don't miss any doses or stop taking the medication, even ifyou feel better. Monitor your temperature and tell your healthcare provider if you have rising temperatures. Preventing future attacks Once you have an episode of diverticulitis, you are at risk for having it again. After you have recovered from this episode, you may be able to lower your risk by eating a high-fiber diet (20 gm/day to 35 gm/day of fiber). This cleans out the colon pouches that already exist and may prevent new ones from forming. Foods high in fiber include fresh fruits and edible peelings, raw or lightly cooked vegetables, whole grain cereals and breads, dried beans and peas, and bran. Other steps that can help prevent future attacks include: Take your medicines, such as antibiotics, as your healthcare provider says. Drink 6 to 8 glasses of water every day, unless told otherwise. Use a heating pad or hot water bottle to help abdominal cramping or pain. Begin an exercise program. Ask your healthcare provider how to get started. You can benefit from simple activities such as walking or gardening. Treat diarrhea with a bland diet. Start with liquids only; then slowly add fiber over time. Watch for changes in your bowel movements (constipation to diarrhea). Avoid constipation by eating a high fiber diet and taking a stool softener if needed. Get plenty of rest and sleep. Follow-up care Follow up with your healthcare provider as advised or sooner if you are not getting better in the next 2 days. When to seek medical advice Call your healthcare provider right away if any of these occur: Fever of 100.4 F (38 C) or higher, or as directed by your healthcare provider Repeated vomiting or swelling of the abdomen Weakness, dizziness, light-headedness Pain in your abdomen that gets worse, severe, or spreads to your back Pain that moves to the right lower abdomen Rectal bleeding (stools that are red, black or maroon color) Unexpected vaginal bleeding [id number] [employer]. [address] [place] [address]. All rights reserved. This information is not intended as a substitute for professional medical care. Always follow yourhealthcare professional's instructions. Follow Up Care 10/29/2022 04:56:09 With:YULIYA VASQUEZ DO Address: [address] [place] [address] When:2-4 days With:Go to emergency room if symptoms worsen Address:Unknown When:2-4 days [facility] 08-06-2023 Emergency department Discharge summary Discharge Instructions Thank you for allowing [facility] to assist you with your healthcare needs. The following is importantdischarge information regarding your hospital visit. Diagnosis from Today's Visit Abdominal pain Diverticulitis What to Do Next Instructions from Your Care Team Clear liquid diet. Advance as tolerated. Return to ED if worse. This would include fever, increasing or persistent pain or vomiting. No qualifying data available. Post Acute Orders No qualifying data available. You Need to Schedule the Following Appointments Follow Up with YULIYA VASQUEZ DO When Within 2-4 days Where: [address] [place] [address]- Follow Up with Go to emergency room if symptoms worsen When Within 2-4 days Allergies NKA Medications Please ask your primary doctor or pharmacist before taking any other medication not listed, including over the counter drugs, herbal medications, vitamins and or supplements as they may interact withyour home medications. What How Much When Why Instructions Last Dose New ciprofloxacin (Cipro 500 mg oral tablet) 1 tab(s) by mouth Every 12 hours Printed Prescription New metroNIDAZOLE (metroNIDAZOLE 500 mg oral tablet) 1 tab(s) by mouth Every 8 hours Duration: 7 Days Printed Prescription Changed acetaminophen-hydrocodone ([place] 325- 5 mg oral tablet) 1 tab(s) by mouth Every 4 hours as needed for for pain Diverticulitis Duration: 3 Days Printed Prescription Changed acetaminophen-hydrocodone ([place] 325- 5 mg oral tablet) 1 tab(s) by mouth Every 6 hours as needed for as needed for pain Acute diverticulitis Duration: 2 Days Changed ondansetron (Zofran 4 mg oral tablet) 1 tab(s) by mouth Every 8 hours Printed Prescription Changed ondansetron (Zofran ODT 4 mg oral tablet, disintegrating) 1 tab(s) by mouth Every 4 hours as needed for as needed for nausea/vomiting Unchanged etodolac (etodolac 400 mg oral tablet) 1 tab(s) by mouth Two (2) times a day Unchanged FLUoxetine (FLUoxetine 10 mg oral capsule) TAKE 1 CAPSULE BY MOUTH ONCE DAILY IN THE MORNING Unchanged fluticasone (Flovent HFA 220 mcg/ inh inhalation aerosol) 1 puff(s) by inhalation Two (2) times a day as needed for Shortness of breath or wheezing Unchanged pantoprazole (Protonix 40 mg oral enteric coated tablet) 1 tab(s) by mouth Once a day Please take this list to your next doctor s visit. Bring all medications you take, including over the counter medications, herbals and other supplements with you to your doctor s visit. Patients and families are reminded to discard old lists and to update any records with all medication providers or retail pharmacies. Medication Leaflets ciprofloxacin (oral) (SIP kiarra FLOX a sin) Cipro, Proquin XR What is the most important information I should know about ciprofloxacin? Ciprofloxacin can cause serious side effects, including tendon problems, nerve damage, serious moodor behavior changes, or low blood sugar. Stop using this medicine and call your doctor at once if you have: headache, hunger, irritability, numbness, tingling, burning pain, confusion, agitation, paranoia, problems with memory or concentration, thoughts of suicide, or sudden pain or movement problems in any of your joints. In rare cases, ciprofloxacin may cause damage to your aorta, which could lead to dangerous bleedingor . Get emergency medical help if you have severe and constant pain in your chest, stomach, or back. What is ciprofloxacin? Ciprofloxacin is a fluoroquinolone (pegm-z-VTOP-o-lone) antibiotic, it is used to treat different types of bacterial infections. It is also used to treat people who have been exposed to anthrax or certain types of plague. Ciprofloxacin extended-release is only approved for use in adults. Fluoroquinolone antibiotics can cause serious or disabling side effects that may not be reversible.Ciprofloxacin should be used only for infections that cannot be treated with a safer antibiotic. Ciprofloxacin may also be used for purposes not listed in this medication guide. What should I discuss with my healthcare provider before taking ciprofloxacin? You should not use ciprofloxacin if you are allergic to it, or if: you also take tizanidine; or you are allergic to other fluoroquinolones (levofloxacin, moxifloxacin, norfloxacin, ofloxacin). Ciprofloxacin may cause swelling or tearing of a tendon (the fiber that connects bones to muscles in the body), especially in the Achilles' tendon of the heel. This can happen during treatment or several months after you stop taking ciprofloxacin. Tendon problems may be more likely in children and older adults, or people who use steroid medicine or have had an organ transplant. Tell your doctor if you have ever had: arthritis or problems with your tendons, bones or joints (especially in children); diabetes, low blood sugar; nerve problems; an aneurysm or blood circulation problems; heart problems, or a heart attack; muscle weakness, myasthenia gravis; liver or kidney disease; a seizure, head injury, or brain tumor; trouble swallowing pills; long QT syndrome (in you or a family member); or low levels of potassium in your blood (hypokalemia). Do not give this medicine to a child without medical advice. It is not known whether this medicine will harm an unborn baby. Tell your doctor if you are . You should not breastfeed while taking ciprofloxacin and for 2 days after your last dose. Ask your doctor about if you take ciprofloxacin for anthrax exposure. How should I take ciprofloxacin? Follow all directions on your prescription label and read all medication guides or instruction sheets. Use the medicine exactly as directed. Take ciprofloxacin at the same time each day, with or without food. Shake the oral suspension (liquid) for 15 seconds before you measure a dose. Use the dosing syringeprovided, or use a medicine dose-measuring device (not a kitchen spoon). Do not give ciprofloxacin oral suspension through a feeding tube. Swallow the extended-release tablet whole and do not crush, chew, or break it. Drink plenty of liquids while you are taking ciprofloxacin. Use this medicine for the full prescribed length of time, even if your symptoms quickly improve. Skipping doses can increase your risk of infection that is resistant to medication. Ciprofloxacin willnot treat a viral infection such as the flu or a common cold. Do not share ciprofloxacin with another person. Store at room temperature away from moisture and heat. Do not allow the liquid medicine to freeze. Throw away any unused liquid after 14 days. What happens if I miss a dose? If you take regular tablets or oral suspension: Take the medicine as soon as you can, but skip the missed dose if your next dose is due in less than 6 hours. If you take extended-release tablets: Take the medicine as soon as you can, but skip the missed dose if your next dose is due in less than 8 hours. Do not take two doses at one time. What happens if I overdose? Seek emergency medical attention or call the Poison Help line at . What should I avoid while taking ciprofloxacin? Do not take ciprofloxacin with dairy products such as milk or yogurt, or with calcium-fortified juice. You may eat or drink these products with your meals, but do not use them alone when taking ciprofloxacin. Antibiotic medicines can cause diarrhea, which may be a sign of a new infection. If you have diarrhea that is watery or bloody, call your doctor before using anti-diarrhea medicine. Ciprofloxacin could make you sunburn more easily. Avoid sunlight or tanning beds. Wear protective clothing and use sunscreen (SPF 30 or higher) when you are outdoors. Tell your doctor if you have severe burning, redness, itching, rash, or swelling after being in the sun. Avoid driving or hazardous activity until you know how this medicine will affect you. Your reactions could be impaired. What are the possible side effects of ciprofloxacin? Get emergency medical help if you have signs of an allergic reaction (hives, difficult breathing, swelling in your face or throat) or a severe skin reaction (fever, sore throat, burning in your eyes,skin pain, red or purple skin rash that spreads and causes blistering and peeling). Ciprofloxacin can cause serious side effects, including tendon problems, damage to your nerves (which may be permanent), serious mood or behavior changes (after just one dose), or low blood sugar (which can lead to coma). Stop taking this medicine and call your doctor at once if you have: low blood sugar--headache, hunger, irritability, dizziness, nausea, fast heart rate, or feeling shaky; nerve damage symptoms--numbness, tingling, burning pain in your hands, arms, legs, or feet: serious mood or behavior changes--nervousness, confusion, agitation, paranoia, hallucinations, memory problems, trouble concentrating, thoughts of suicide; or signs of tendon rupture--sudden pain, swelling, bruising, tenderness, stiffness, movement problems,or a snapping or popping sound in any of your joints (rest the joint until you receive medical careor instructions). In rare cases, ciprofloxacin may cause damage to your aorta, the main blood artery of the body. This could lead to dangerous bleeding or . Get emergency medical help if you have severe and constant pain in your chest, stomach, or back. Also, stop using ciprofloxacin and call your doctor at once if you have: severe stomach pain, diarrhea that is watery or bloody; fast or pounding heartbeats, fluttering in your chest, shortness of breath, and sudden dizziness (like you might pass out); any skin rash, no matter how mild; muscle weakness, breathing problems; little or no urination; jaundice (yellowing of the skin or eyes); or increased pressure inside the skull--severe headaches, ringing in your ears, dizziness, nausea, vision problems, pain behind your eyes. Common side effects may include: nausea, vomiting, diarrhea, stomach pain; headache; or abnormal liver function tests. This is not a complete list of side effects and others may occur. Call your doctor for medical advice about side effects. You may report side effects to FDA at 3-029-LZH-3531. What other drugs will affect ciprofloxacin? Some medicines can make ciprofloxacin much less effective when taken at the same time. If you take any of the following medicines, take your ciprofloxacin dose 2 hours before or 6 hours after you take the other medicine. the ulcer medicine sucralfate, or antacids that contain calcium, magnesium, or aluminum (such as Maalox, Milk of Magnesia, Mylanta, Pepcid Complete, Rolaids, Tums, and others); didanosine (Videx) powder or chewable tablets; vitamin or mineral supplements that contain calcium, iron, magnesium, or zinc. Tell your doctor about all your other medicines, especially: clozapine, cyclosporine, methotrexate, phenytoin, probenecid, ropinirole, sildenafil, or theophylline; a blood thinner (warfarin, Coumadin, Jantoven); heart medication or a diuretic or 'water pill'; oral diabetes medicine; products that contain caffeine; medicine to treat depression or mental illness; steroid medicine (such as prednisone); o NSAIDs (nonsteroidal anti-inflammatory drugs)--aspirin, ibuprofen (Advil, Motrin), naproxen (Aleve), celecoxib, diclofenac, indomethacin, meloxicam, and others; This list is not complete. Other drugs may affect ciprofloxacin, including prescription and mhlu-qyh-gbgjuve medicines, vitamins, and herbal products. Not all possible drug interactions are listed here. Where can I get more information? Your pharmacist can provide more information about ciprofloxacin. Remember, keep this and all other medicines out of the reach of children, never share your medicines with others, and use this medication only for the indication prescribed. Every effort has been made to ensure that the information provided by [employer]. ('[employer]') is accurate, up-to-date, and complete, but no guarantee is made to that effect. Drug information contained herein may be time sensitive. [employer] information has been compiled for use by healthcare practitioners and consumers in the [place] and therefore [employer] does not warrant that uses outside of the [place] are appropriate, unless specifically indicated otherwise. [employer] drug information does not endorse drugs, diagnose patients or recommend therapy. [employer] drug information isan informational resource designed to assist licensed healthcare practitioners in caring for their p atients and/or to serve consumers viewing this service as a supplement to, and not a substitute for, the expertise, skill, knowledge and judgment of healthcare practitioners. The absence of a warningfor a given drug or drug combination in no way should be construed to indicate that the drug or drug combination is safe, effective or appropriate for any given patient. [employer] does not assume any responsibility for any aspect of healthcare administered with the aid of information [facility] provides. The information contained herein is not intended to cover all possible uses, directions, precautions, warnings, drug interactions, allergic reactions, or adverse effects. If you have questions about the drugs you are taking, check with your doctor, nurse or pharmacist. Copyright 8220-2280 [facility]. Version: 23.01. Revision Date: 10/08/2019. ondansetron (oral) (on BRITTANY se sandy) What is the most important information I should know about ondansetron? You should not use ondansetron if you are also using apomorphine (Apokyn). What is ondansetron? Ondansetron blocks the actions of chemicals in the body that can trigger nausea and vomiting. Ondansetron is used to prevent nausea and vomiting that may be caused by surgery, cancer chemotherapy, or radiation treatment. Ondansetron may be used for purposes not listed in this medication guide. What should I discuss with my health care provider before taking ondansetron? You should not use ondansetron if: you are also using apomorphine (Apokyn); or you are allergic to ondansetron or similar medicines (dolasetron, granisetron, palonosetron). To make sure ondansetron is safe for you, tell your doctor if you have: liver disease; an electrolyte imbalance (such as low levels of potassium or magnesium in your blood); congestive heart failure, slow heartbeats; a personal or family history of long QT syndrome; or a blockage in your digestive tract (stomach or intestines). Ondansetron is not expected to harm an unborn baby. Tell your doctor if you are . It is not known whether ondansetron passes into breast milk or if it could harm a nursing baby. Tell your doctor if you are breast-feeding a baby. Ondansetron is not approved for use by anyone younger than 4 years old. Ondansetron orally disintegrating tablets may contain phenylalanine. Tell your doctor if you have phenylketonuria (PKU). How should I take ondansetron? Follow all directions on your prescription label. Do not take this medicine in larger or smaller amounts or for longer than recommended. Ondansetron can be taken with or without food. The first dose of ondansetron is usually taken before the start of your surgery, chemotherapy, or radiation treatment. Follow your doctor's dosing instructions very carefully. Take the ondansetron regular tablet with a full glass of water. To take the orally disintegrating tablet (Zofran ODT): Keep the tablet in its blister pack until you are ready to take it. Open the package and peel back the foil. Do not push a tablet through the foil or you may damage the tablet. Use dry hands to remove the tablet and place it in your mouth. Do not swallow the tablet whole. Allow it to dissolve in your mouth without chewing. Swallow several times as the tablet dissolves. To use ondansetron oral soluble film (strip) (Zuplenz): Keep the strip in the foil pouch until you are ready to use the medicine. Using dry hands, remove the strip and place it on your tongue. It will begin to dissolve right away. Do not swallow the strip whole. Allow it to dissolve in your mouth without chewing. Swallow several times after the strip dissolves. If desired, you may drink liquid to help swallow the dissolved strip. Wash your hands after using Zuplenz. Measure liquid medicine with the dosing syringe provided, or with a special dose-measuring spoon ormedicine cup. If you do not have a dose-measuring device, ask your pharmacist for one. Store at room temperature away from moisture, heat, and light. Store liquid medicine in an upright position. What happens if I miss a dose? Take the missed dose as soon as you remember. Skip the missed dose if it is almost time for your next scheduled dose. Do not take extra medicine to make up the missed dose. What happens if I overdose? Seek emergency medical attention or call the Poison Help line at . Overdose symptoms may include sudden loss of vision, severe constipation, feeling light-headed, or fainting. What should I avoid while taking ondansetron? Ondansetron may impair your thinking or reactions. Be careful if you drive or do anything that requires you to be alert. What are the possible side effects of ondansetron? Get emergency medical help if you have signs of an allergic reaction: rash, hives; fever, chills, difficult breathing; swelling of your face, lips, tongue, or throat. Call your doctor at once if you have: severe constipation, stomach pain, or bloating; headache with chest pain and severe dizziness, fainting, fast or pounding heartbeats; fast or pounding heartbeats; jaundice (yellowing of the skin or eyes); blurred vision or temporary vision loss (lasting from only a few minutes to several hours); high levels of serotonin in the body--agitation, hallucinations, fever, fast heart rate, overactivereflexes, nausea, vomiting, diarrhea, loss of coordination, fainting. Common side effects may include: diarrhea or constipation; headache; drowsiness; or tired feeling. This is not a complete list of side effects and others may occur. Call your doctor for medical advice about side effects. You may report side effects to FDA at 8-286-BAR-6048. What other drugs will affect ondansetron? Ondansetron can cause a serious heart problem, especially if you use certain medicines at the same time, including antibiotics, antidepressants, heart rhythm medicine, antipsychotic medicines, and medicines to treat cancer, malaria, HIV or AIDS. Tell your doctor about all medicines you use, and those you start or stop using during your treatment with ondansetron. Taking ondansetron while you are using certain other medicines can cause high levels of serotonin to build up in your body, a condition called 'serotonin syndrome,' which can be fatal. Tell your doctor if you also use: medicine to treat depression; medicine to treat a psychiatric disorder; a narcotic (opioid) medication; or medicine to prevent nausea and vomiting. This list is not complete and many other drugs can interact with ondansetron. This includes prescription and dcil-vmr-ydlwphc medicines, vitamins, and herbal products. Give a list of all your medicines to any healthcare provider who treats you. Where can I get more information? Your pharmacist can provide more information about ondansetron. Remember, keep this and all other medicines out of the reach of children, never share your medicines with others, and use this medication only for the indication prescribed. Every effort has been made to ensure that the information provided by [employer]. ('[employer]') is accurate, up-to-date, and complete, but no guarantee is made to that effect. Drug information contained herein may be time sensitive. [employer] information has been compiled for use by healthcare practitioners and consumers in the [place] and therefore [employer] does not warrant that uses outside of the [place] are appropriate, unless specifically indicated otherwise. [employer] drug information does not endorse drugs, diagnose patients or recommend therapy. [employer] drug information isan informational resource designed to assist licensed healthcare practitioners in caring for their p atients and/or to serve consumers viewing this service as a supplement to, and not a substitute for, the expertise, skill, knowledge and judgment of healthcare practitioners. The absence of a warningfor a given drug or drug combination in no way should be construed to indicate that the drug or drug combination is safe, effective or appropriate for any given patient. [employer] does not assume any responsibility for any aspect of healthcare administered with the aid of information [employer] provides. The information contained herein is not intended to cover all possible uses, directions, precautions, warnings, drug interactions, allergic reactions, or adverse effects. If you have questions about the drugs you are taking, check with your doctor, nurse or pharmacist. Copyright [id number] [facility] [employer]. Version: 16.. Revision Date: 10/26/2022. metronidazole (oral/injection) (me cristela light) FIRST Metronidazole, Flagyl What is the most important information I should know about metronidazole? Do not drink alcohol or consume foods or medicines that contain propylene glycol while you are taking metronidazole and for at least 3 days after you stop taking it. Metronidazole has caused cancer in animal studies. However, it is not known whether this would occur in humans. Ask your doctor about your risk. What is metronidazole? Metronidazole is an antibiotic that is used to treat bacterial infections of the vagina, stomach, liver, skin, joints, brain and spinal cord, lungs, heart, or bloodstream. Metronidazole is also used to treat trichomoniasis, a sexually transmitted disease caused by a parasite. Usually both sexual partners are treated at the same time, even if one has no symptoms. Do not use metronidazole to treat any condition that has not been checked by your doctor. Metronidazole may also be used for purposes not listed in this medication guide. What should I discuss with my healthcare provider before using metronidazole? You should not use this medicine if you are allergic to metronidazole, secnidazole, or tinidazole, or if: you drank alcohol in the past 3 days; you consumed foods or medicines that contain propylene glycol in the past 3 days; or you took disulfiram (Antabuse) within the past 14 days. May harm an unborn baby. Do not use metronidazole to treat trichomoniasis during the first trimester of . Tell your doctor if you become . Not all uses of metronidazole are approved for treating children and teenagers. Metronidazole is not approved to treat vaginal infections in girls who have not begun having menstrual periods. Tell your doctor if you have ever had: liver disease; kidney disease (or if you are on dialysis); a heart rhythm disorder; a stomach or intestinal disease such as Crohn's disease; a blood cell disorder such as anemia (lack of red blood cells) or low white blood cell (WBC) counts; a fungal infection anywhere in your body; or a nerve disorder. Metronidazole has caused cancer in animal studies. However, it is not known whether this would occur in humans. Ask your doctor about your risk. You should not breastfeed within 24 hours after using metronidazole. If you use a breast pump during this time, throw out the milk and do not feed it to your baby. How should I use metronidazole? Follow all directions on your prescription label and read all medication guides or instruction sheets. Use the medicine exactly as directed. Metronidazole oral is taken by mouth. Metronidazole injection is given as an infusion into a vein. A healthcare provider will give you this injection if you are unable to take the medicine by mouth. Shake the oral suspension (liquid). Measure a dose with the supplied measuring device (not a kitchen spoon). Swallow the extended-release tablet whole and do not crush, chew, or break it. If you are treating a vaginal infection, your sexual partner may also need to take metronidazole soyou don't become reinfected. Metronidazole is usually given for up to 10 days in a row. You may need to repeat this dosage several weeks later. Keep using this medicine even if your symptoms quickly improve. Skipping doses could make your infection resistant to medication. Metronidazole will not treat a viral infection (flu or a common cold). Metronidazole will not treat a vaginal yeast infection. You may even develop a new vaginal yeast infection, which may need to be treated with antifungal medication. Tell your doctor if you have symptoms such as itching or discharge during or after treatment with metronidazole. Do not share this medicine with another person, even if they have the same symptoms you have. This medicine can affect the results of certain medical tests. Tell any doctor who treats you that you are using metronidazole. Store at room temperature away from moisture and heat. What happens if I miss a dose? Take the medicine as soon as you can, but skip the missed dose if it is almost time for your next dose. Do not take two doses at one time. What happens if I overdose? Seek emergency medical attention or call the Poison Help line at . Overdose symptoms may include nausea, vomiting, numbness, tingling, or problems with balance or muscle movement. What should I avoid while using metronidazole? While taking metronidazole and for 3 days after your last dose: Do not drink alcohol or consume foods, medicines, or other products that contain alcohol or propylene glycol. You may have unpleasant effects such as headaches, nausea, vomiting, stomach cramps, and warmth or tingling under your skin. What are the possible side effects of metronidazole? Get emergency medical help if you have signs of an allergic reaction (hives, itching, warmth or tingling; fever, joint pain; dry mouth, dry vagina; stuffy nose, difficult breathing, swelling in your face or throat) or a severe skin reaction (fever, sore throat, burning eyes, skin pain, red or purple skin rash with blistering and peeling). Call your doctor at once if you have: new or worsening symptoms of infection; painful or difficult urination; confusion; a light-headed feeling (like you might pass out); vaginal itching or discharge; or blisters or ulcers in your mouth, red or swollen gums, trouble swallowing. Stop taking the medicine and call your doctor right away if you have neurologic side effects (more likely to occur while taking metronidazole snf): numbness, tingling, or burning pain in your hands or feet; vision problems, pain behind your eyes, seeing flashes of light; muscle weakness, problems with speech or coordination; trouble speaking or understanding what is said to you; a seizure; or fever, neck stiffness, and increased sensitivity to light. Metronidazole can cause life-threatening liver problems in people with Cockayne syndrome. If you have this condition, stop taking metronidazole and contact your doctor if you have signs of liver failure--nausea, stomach pain (upper right side), dark urine, thad-colored stools, or jaundice (yellowing of the skin or eyes). Side effects may be more likely in older adults. Common side effects may include: depression, trouble sleeping, feeling irritable; headache, dizziness, weakness; nausea, vomiting, loss of appetite, stomach pain; diarrhea, constipation; unpleasant metallic taste; rash, itching; vaginal itching or discharge, pain during sex; mouth sores; or swollen, red, or 'hairy' tongue. This is not a complete list of side effects and others may occur. Call your doctor for medical advice about side effects. You may report side effects to FDA at 9-496-RRI-3988. What other drugs will affect metronidazole? Sometimes it is not safe to use certain medicines at the same time. Some drugs can affect your blood levels of other drugs you use, which may increase side effects or make the medicines less effective. Tell your doctor about all your current medicines. Many drugs can affect metronidazole, especially: an antidepressant; asthma medication; busulfan or other cancer medicine; heart or blood pressure medication; lithium or other antipsychotic medicine; medicine to treat malaria, HIV, or other infection; or a blood thinner--warfarin, Coumadin, Jantoven. This list is not complete and many other drugs may affect metronidazole. This includes prescriptionand fjlh-kdt-bhdajew medicines, vitamins, and herbal products. Not all possible drug interactions are listed here. Where can I get more information? Your pharmacist can provide more information about metronidazole. Remember, keep this and all other medicines out of the reach of children, never share your medicines with others, and use this medication only for the indication prescribed. Every effort has been made to ensure that the information provided by [employer]. ('[employer]') is accurate, up-to-date, and complete, but no guarantee is made to that effect. Drug information contained herein may be time sensitive. [employer] information has been compiled for use by healthcare practitioners and consumers in the [place] and therefore [employer] does not warrant that uses outside of the [place] are appropriate, unless specifically indicated otherwise. [employer] information does not endorse drugs, diagnose patients or recommend therapy. [employer] drug information isan informational resource designed to assist licensed healthcare practitioners in caring for their p atients and/or to serve consumers viewing this service as a supplement to, and not a substitute for, the expertise, skill, knowledge and judgment of healthcare practitioners. The absence of a warningfor a given drug or drug combination in no way should be construed to indicate that the drug or drug combination is safe, effective or appropriate for any given patient. [facility] does not assume any responsibility for any aspect of healthcare administered with the aid of information [facility] provides. The information contained herein is not intended to cover all possible uses, directions, precautions, warnings, drug interactions, allergic reactions, or adverse effects. If you have questions about the drugs you are taking, check with your doctor, nurse or pharmacist. Copyright [id number] [facility] [employer]. Version: 15.. Revision Date: 12/02/2020. acetaminophen and hydrocodone (a SEET a MIN oh fen and zaira droe KOE done) Lortab, Lortab Elixir, Verdrocet What is the most important information I should know about acetaminophen and hydrocodone? MISUSE OF OPIOID MEDICINE CAN CAUSE ADDICTION, OVERDOSE, OR . Keep the medication in a place where others cannot get to it. Taking opioid medicine during may cause life-threatening withdrawal symptoms in the . Fatal side effects can occur if you use opioid medicine with alcohol, or with other drugs that cause drowsiness or slow your breathing. Stop taking this medicine and call your doctor right away if you have skin redness or a rash that spreads and causes blistering and peeling. What is acetaminophen and hydrocodone? Acetaminophen and hydrocodone is a combination medicine used to relieve moderate to severe pain. Acetaminophen and hydrocodone contains an opioid medicine, and may be habit-forming. Acetaminophen and hydrocodone may also be used for purposes not listed in this medication guide. What should I discuss with my healthcare provider before taking acetaminophen and hydrocodone? You should not use this medicine if you are allergic to acetaminophen or hydrocodone, or if you have: severe asthma or breathing problems; or a blockage in your stomach or intestines. Tell your doctor if you have ever had: breathing problems, sleep apnea (breathing stops during sleep); liver disease; a drug or alcohol addiction; kidney disease; a head injury or seizures; urination problems; or problems with your thyroid, pancreas, or gallbladder. If you use opioid medicine while you are , your baby could become dependent on the drug. This can cause life-threatening withdrawal symptoms in the baby after it is born. Babies born dependent on opioids may need medical treatment for several weeks. Ask a doctor before using opioid medicine if you are . Tell your doctor if you notice severe drowsiness or slow breathing in the nursing baby. How should I take acetaminophen and hydrocodone? Follow all directions on your prescription label. Never take this medicine in larger amounts, or for longer than prescribed. An overdose can damage your liver or cause . Tell your doctor if you feel an increased urge to use more of this medicine. Never share this medicine with another person, especially someone with a history of drug abuse or addiction. MISUSE CAN CAUSE ADDICTION, OVERDOSE, OR . Keep the medicine in a place where others cannot get to it. Selling or giving away this medicine is against the law. Measure liquid medicine carefully. Use the dosing syringe provided, or use a medicine dose-measuring device (not a kitchen spoon). If you need surgery or medical tests, tell the doctor ahead of time that you are using this medicine. You should not stop using this medicine suddenly. Follow your doctor's instructions about tapering your dose. Store at room temperature away from moisture and heat. Keep track of your medicine. You should be aware if anyone is using it improperly or without a prescription. Do not keep leftover opioid medication. Just one dose can cause in someone using this medicine accidentally or improperly. Ask your pharmacist where to locate a drug take-back disposal program.If there is no take-back program, flush the unused medicine down the toilet. What happens if I miss a dose? Since this medicine is used for pain, you are not likely to miss a dose. Skip any missed dose if itis almost time for your next dose. Do not use two doses at one time. What happens if I overdose? Seek emergency medical attention or call the Poison Help line at . An overdose of this medicine can be fatal, especially in a child or other person using the medicine without a prescription. Overdose symptoms may include nausea, vomiting, sweating, severe drowsiness, pinpoint pupils, slow breathing, or no breathing. Your doctor may recommend you get naloxone (a medicine to reverse an opioid overdose) and keep it with you at all times. A person caring for you can give the naloxone if you stop breathing or don't wake up. Your caregiver must still get emergency medical help and may need to perform CPR (cardiopulmonary resuscitation) on you while waiting for help to arrive. Anyone can buy naloxone from a pharmacy or local health department. Make sure any person caring foryou knows where you keep naloxone and how to use it. What should I avoid while taking acetaminophen and hydrocodone? Avoid driving or operating machinery until you know how this medicine will affect you. Dizziness ordrowsiness can cause falls, accidents, or severe injuries. Do not drink alcohol. Dangerous side effects or could occur. Ask a doctor or pharmacist before using any other medicine that may contain acetaminophen (sometimes abbreviated as APAP). Taking certain medications together can lead to a fatal overdose. What are the possible side effects of acetaminophen and hydrocodone? Get emergency medical help if you have signs of an allergic reaction: hives; difficulty breathing; swelling of your face, lips, tongue, or throat. Opioid medicine can slow or stop your breathing, and may occur. A person caring for you should give naloxone and/or seek emergency medical attention if you have slow breathing with long pauses,blue colored lips, or if you are hard to wake up. In rare cases, acetaminophen may cause a severe skin reaction that can be fatal. This could occur even if you have taken acetaminophen in the past and had no reaction. Stop taking this medicine and call your doctor right away if you have skin redness or a rash that spreads and causes blistering andpeeling. Call your doctor at once if you have: noisy breathing, sighing, shallow breathing, breathing that stops; a light-headed feeling, like you might pass out; liver problems--nausea, upper stomach pain, tiredness, loss of appetite, dark urine, thad-colored stools, jaundice (yellowing of the skin or eyes); low cortisol levels-- nausea, vomiting, loss of appetite, dizziness, worsening tiredness or weakness; o high levels of serotonin in the body--agitation, hallucinations, fever, sweating, shivering, fast heart rate, muscle stiffness, twitching, loss of coordination, nausea, vomiting, diarrhea. Serious breathing problems may be more likely in older adults and in those who are debilitated or have wasting syndrome or chronic breathing disorders. Common side effects include: dizziness, drowsiness, feeling tired; nausea, vomiting, stomach pain; constipation; or headache. This is not a complete list of side effects and others may occur. Call your doctor for medical advice about side effects. You may report side effects to FDA at 1-968-MIV-3097. What other drugs will affect acetaminophen and hydrocodone? You may have breathing problems or withdrawal symptoms if you start or stop taking certain other medicines. Tell your doctor if you also use an antibiotic, antifungal medication, heart or blood pressure medication, seizure medication, or medicine to treat HIV or hepatitis C. Opioid medication can interact with many other drugs and cause dangerous side effects or . Be sure your doctor knows if you also use: cold or allergy medicines, bronchodilator asthma/COPD medication, or a diuretic ('water pill'); medicines for motion sickness, irritable bowel syndrome, or overactive bladder; other opioids--opioid pain medicine or prescription cough medicine; a sedative like Valium--diazepam, alprazolam, lorazepam, Xanax, Klonopin, Versed, and others; drugs that make you sleepy or slow your breathing--a sleeping pill, muscle relaxer, medicine to treat mood disorders or mental illness; drugs that affect serotonin levels in your body--a stimulant, or medicine for depression, Parkinson's disease, migraine headaches, serious infections, or nausea and vomiting. This list is not complete. Other drugs may affect acetaminophen and hydrocodone, including prescription and [id number] medicines, vitamins, and herbal products. Not all possible interactions are listed here. Where can I get more information? Your doctor or pharmacist can provide more information about acetaminophen and hydrocodone. Remember, keep this and all other medicines out of the reach of children, never share your medicines with others, and use this medication only for the indication prescribed. Every effort has been made to ensure that the information provided by [employer]. ('[employer]') is accurate, up-to-date, and complete, but no guarantee is made to that effect. Drug information contained herein may be time sensitive. [employer] information has been compiled for use by healthcare practitioners and consumers in the [place] and therefore [employer] does not warrant that uses outside of the [place] are appropriate, unless specifically indicated otherwise. [employer] drug information does not endorse drugs, diagnose patients or recommend therapy. [employer] drug information isan informational resource designed to assist licensed healthcare practitioners in caring for their p atients and/or to serve consumers viewing this service as a supplement to, and not a substitute for, the expertise, skill, knowledge and judgment of healthcare practitioners. The absence of a warningfor a given drug or drug combination in no way should be construed to indicate that the drug or drug combination is safe, effective or appropriate for any given patient. [employer] does not assume any responsibility for any aspect of h (more content not included)... [facility]08-06-2023 Note ORIGINAL EXAMINATION: Left lower quadrant abdomen ultrasound 10/29/2022 6:58 am COMPARISON: CT abdomen and pelvis on 11/27/2018 HISTORY: ORDERING SYSTEM PROVIDED HISTORY: Reason for Exam: LLQ abdominal pain FINDINGS: Limited ultrasound evaluation of left lower quadrant of the abdomen in the region of patient's pain was performed. No mass or abnormal fluid collection is detected. IMPRESSION: Limited ultrasound of left lower quadrant with no sign of abnormality at area of patient's pain. Interpreted by: Reuben Gonzalez MD Preliminary Report By: Reuben Gonzalez MD Electronically signed By Reuben Gonzalez MD Dictated Date: 10/29/2022 7:04:21 AM Prelim Date: 10/29/2022 7:06:48 AM Sign Date: 10/29/2022 7:06:48 AM Ordering Provider: [facility]07-21-2022 Note Pap Smear Specimen AdequacyJuly 2021 10:00amComment.Satisfactory for evaluation. Endocervical component may not bedistinguished in cases of atrophy. [facility] A#[id number] [facility] Work Phone: Comment on above:Satisfactory for evaluation. Endocervical component may not bedistinguished in cases of atrophy.Discharge summary Author Florencia Kim [facility] December 08, 2022 11:08am Note Date/Time December 08, 2022 10:51am [facility] Medical Records Department [address] [place] [address] Discharge Summary 12/08/22 1049 MR#: [id number] Acct: [id number] Name: DESTINEE EASLEY Rep #:[id number] : 1960 62 From: Florencia Kim DO PCP: Dr. Yuliya Vasquez, DO Status:ADM MANE Location: [place] [address]- Providers Date of Admission: 12/06/22 Date of Discharge: 12/08/22 Primary Care Physician: Dr. Yuliya Vasquez DO Reason For Visit: CONSTIPATION Diagnosis Discharge Diagnosis (1) Constipation: Status: Acute Code(s): K59.00 - Constipation, unspecified Qualifiers: Constipation type: drug induced constipation Qualified Code(s): K59.03 - Drug induced constipation (2) Abdominal pain: Status: Acute Code(s): R10.9 - Unspecified abdominal pain Qualifiers: Abdominal location: right upper quadrant Qualified Code(s): R10.11 - Right upper quadrant pain (3) Thrombocytosis: Status: Acute Code(s): D75.839 - Thrombocytosis, unspecified Medications at Discharge Home Medications etodolac 400 mg tablet 400 mg PO DAILY #180 tabs 12/12/18 albuterol sulfate 90 mcg/actuation aerosol inhaler 1 - 2 puff inhalation Q6H PRNPRN Sob &/Or Wheezing 05/21/19 aspirin 81 mg tablet,delayed release (Adult Aspirin Regimen) 81 mg PO BID 12/06/22 linaclotide .ROUTE 12/06/22 ferrous sulfate 325 mg (65 mg iron) tablet (FeroSul) 325 mg PO 1200,1700 #60 tabs 12/08/22 polyethylene glycol 3350 17 gram oral powder packet 17 g PO BID #0 ea 12/08/22 Hospital Course Operations None Procedures - (KUB/CT abdomen pelvis) Summary of Care Provided Minutes Spent on Discharge: 30 Hospital Course: Mrs. Easley is a 62-year-old white female who came to the emergency department for constipation. She has a history of chronic constipation due to IBS and takes Linzess to 3 times a week. She had a total knee arthroplasty done on 11/21/2022 and has been on oxycodone with decreased mobility and decreased fluid intake since that point time. She reports she has a 3-day history of constipation. She was at [facility] emergency department 2 times because of her constipation. Initially they gave her Benadryl and the second time she was given a fleets enema then discharged home on mag citrate. She had not been taking any stool softeners prior to this. She states she eats prunes intermittently but does not like prune juice. KUB in the emergency department showed moderate gas throughout the colon and general surgery was called by the emergency department physician. They recommended a CT scan of the abdomen pelvis was performed and this showed limited examination due to lack of contrasthowever there was some concern of obstruction. The images were reviewed by general surgery and they feel that she has a large stool burden that is causing the obstruction and there is no mechanical etiology for this other than stool. She received multiple enemas and was placed on an aggressive bowel regimen with MiraLAX twice daily, Dulcolax, and received 1 dose of lactulose. We were finally able to get a nice large bowel movement overnight from 12/07/2022 to 12/08/2022 and her abdominal pain had significantly improved. We did note that she had a thrombocytosis and a mild anemia. Hemoglobin was 10.4 and stable while she was hospitalized. I did assess iron studies and her iron studies are consistent with iron deficiency anemia. She was given 1 dose of IV iron and discharged home on ferrous sulfate 325 mg p.o. twice daily. We did advise her that this could worsen constipation and also make her stool dark. She was encouraged to use MiraLAX 17 g twice daily and decrease to once daily if she started having loose stool or diarrhea. I recommended a repeat CBC to be done in the next month after she has had 1 month of iron supplementation. I have asked her to take her iron supplementation with orange juice to improve absorption. I suspect this is likely related to her recent knee surgery howeverif it does not improve she may need to pursue colonoscopy if she has not done one recently. I have asked her to follow-up with her primary care physician within the next 2 weeks. She is to continue her physical therapy for her right knee and follow-up with orthopedic surgery as previously scheduled. She was able to be discharged home in stable condition on 12/08/2022. Discharge diagnoses: Abdominal pain Severe constipation Thrombocytosis Leukocytosis-resolved Iron deficiency anemia IBS Right knee osteoarthritis status post right knee total arthroplasty History of C. difficile colitis Weight / BMI Weight Weight: 84.5 kg Body Mass Index (BMI) 35.2 ABG / Lab / Microbiology Data 12/08/22 06:20 12/07/22 06:35 Laboratory: Laboratory Results - last 24 hr 12/08/22 06:20: WBC 7.9, RBC 4.15 L, Hgb 10.4 L, Hct 34.6 L, MCV 83.4, MCH 25.1 L, MCHC 30.1 L, RDW Std Deviation 51.8 H, RDW Coeff of Marsha 17.1 H, Plt Count 694H, MPV 7.9, Immature Gran % (Auto) 0.500, Neut % (Auto) 65.7, Lymph % (Auto) 20.2, [place] % (Auto) 8.9, Eos % (Auto) 3.3, Baso % (Auto) 1.4 H, Absolute Neuts (auto) 5.2, Absolute Lymphs (auto) 1.59, Nucleated RBC % 0 D/C Instructions Discharge Diet: No restrictions Discharge Activity: Return to Normal Activity Meaningful Use Info Meaningful Use Diagnoses (Choose all that apply): None applicable Discharge Plan Admission Admit Date/Time: 12/06/22 19:37 Primary Reason for Your Visit: Constipation Attending Provider: Florencia Kim Primary Care Provider: Yuliya Vasquez Consulting Providers: Wilfrid Ruelas Instructions Additional Instructions / Restrictions: 1. Please take MiraLAX 17 g twice daily and continue unless having significantly loose stool. If that occurs, decrease to once daily and may stop altogether if loose stool or diarrhea continues. 2. Would recommend continuing some sort of stool softener while on narcotics and having decreased mobility 3. Your blood counts were found to be slightly low and I assessed iron studies. Your iron was found to be a bit low so I did start iron tablets. I would continue this for 1 month supply and then have your primary care physician repeat a complete blood count to reassess your anemia. Your hemoglobin at the time of discharge was stable at 10.4. Iron can make you constipated and make your stool a bit darker than normal so please be aware of this. 4. Please take your iron with orange juice to help with absorption Discharge Orders/Prescriptions Prescriptions: New ferrous sulfate [FeroSul] 325 mg (65 mg iron) Tablet 325 mg PO 1200,1700 Qty: 60 0RF polyethylene glycol 3350 17 gram Powder In Packet 17 g PO BID Qty: 0 0RF Continued etodolac 400 mg tablet 400 mg PO DAILY Qty: 180 albuterol sulfate 1 PUFF inhaler 1 - 2 puff inhalation Q6H PRN PRN (Reason: Sob &/Or Wheezing) linaclotide [Linzess] .ROUTE aspirin [Adult Aspirin Regimen] 81 mg tablet,delayed release (DR/EC) 81 mg PO BID Referrals / Follow Up: Yuliya Vasquez DO [Primary Care Provider] - Within 2 Weeks Disposition Disposition (needs filled in before D/C Order can be placed): Home, Self Care Charges/Coding Visit Charges Inpatient E&M: 31852 Disch Hosp 12/08/22 1101 <Electronically signed by Florencia Kim DO> Cosigner Signature (if applicable): CC: Dr. Florencia Kim DO; Dr. Yuliya Vasquez DO~ Signed ADDENDUM by Dr. Florencia Kim DO on 12/08/22 at 1108 Addendum Physical Exam Const alert, oriented x3, healthy appearing and well nourished Constitutional Narrative: Very pleasant, upper middle-aged, obese, white female, sitting up in bed, appears comfortable and nontoxic sister at bedside HEENT head/scalp atraumatic and moist oral mucous membranes HEENT Narrative: Mallampati 3, no thrush Head and Scalp: normocephalic Resp normal respiratory effort, no retractions, no use of accessory muscles and clearto auscultation bilaterally Auscultation: Negative for rales, rhonchi or wheezes Cardio regular rate, regular rhythm, S1 normal heart sound, S2 normal heart sound, no murmurs, no rub, no gallops and no clicks GI soft to palpation GI Narrative: Distention had resolved and abdomen is nontender with normoactive bowel sounds Extremity no clubbing, cyanosis or edema Extremity Narrative: Pedal pulses are 2+, right knee incision appears to be healing well Neuro oriented x3, moves all extremities and no focal motor deficits Speech: speech normal Psych Psych Narrative: Affect is normal and patient is not tearful at all today, interacts appropriately and eye contact is good 12/08/22 1108<Electronically signed by Florencia Kim DO> Cosigner Signature (if applicable): cc: Dr. Florencia Kim DO; Dr. Yuliya Vasquez DO ~* Signed [facility] Work Phone: Emergency department Discharge summary* Zainab Oakes RN: PERFORM Event Display: Depart Summary ED Authored Date: Discharge Instructions Thank you for allowing [facility] to assist you with your healthcare needs. The following is importantdischarge information regarding your hospital visit. Diagnosis from Today's Visit Abdominal pain Diverticulitis What to Do Next Instructions from Your Care Team Clear liquid diet. Advance as tolerated. Return to ED if worse. This would include fever, increasing or persistent pain or vomiting. No qualifying data available. Post Acute Orders No qualifying data available. You Need to Schedule the Following Appointments Follow Up with YULIYA VASQUEZ DO When Within 2-4 days Where: [address] [place] [address] [place] [address]- Follow Up with Go to emergency room if symptoms worsen When Within 2-4 days Allergies NKA Medications Please ask your primary doctor or pharmacist before taking any other medication not listed, including over the counter drugs, herbal medications, vitamins and or supplements as they may interact withyour home medications. What How Much When Why Instructions Last Dose New ciprofloxacin (Cipro 500 mg oral tablet) 1 tab(s) by mouth Every 12 hours Printed Prescription New metroNIDAZOLE (metroNIDAZOLE 500 mg oral tablet) 1 tab(s) by mouth Every 8 hours Duration: 7 Days Printed Prescription Changed acetaminophen-hydrocodone ([place] 325- 5 mg oral tablet) 1 tab(s) by mouth Every 4 hours as needed for for pain Diverticulitis Duration: 3 Days Printed Prescription Changed acetaminophen-hydrocodone ([place] 325- 5 mg oral tablet) 1 tab(s) by mouth Every 6 hours as needed for as needed for pain Acute diverticulitis Duration: 2 Days Changed ondansetron (Zofran 4 mg oral tablet) 1 tab(s) by mouth Every 8 hours Printed Prescription Changed ondansetron (Zofran ODT 4 mg oral tablet, disintegrating) 1 tab(s) by mouth Every 4 hours as needed for as needed for nausea/vomiting Unchanged etodolac (etodolac 400 mg oral tablet) 1 tab(s) by mouth Two (2) times a day Unchanged FLUoxetine (FLUoxetine 10 mg oral capsule) TAKE 1 CAPSULE BY MOUTH ONCE DAILY IN THE MORNING Unchanged fluticasone (Flovent HFA 220 mcg/ inh inhalation aerosol) 1 puff(s) by inhalation Two (2) times a day as needed for Shortness of breath or wheezing Unchanged pantoprazole (Protonix 40 mg oral enteric coated tablet) 1 tab(s) by mouth Once a day Please take this list to your next doctor s visit. Bring all medications you take, including over the counter medications, herbals and other supplements with you to your doctor s visit. Patients and families are reminded to discard old lists and to update any records with all medication providers or retail pharmacies. Medication Leaflets ciprofloxacin (oral) (SIP kiarra FLOX a sin) Cipro, Proquin XR What is the most important information I should know about ciprofloxacin? Ciprofloxacin can cause serious side effects, including tendon problems, nerve damage, serious moodor behavior changes, or low blood sugar. Stop using this medicine and call your doctor at once if you have: headache, hunger, irritability, numbness, tingling, burning pain, confusion, agitation, paranoia, problems with memory or concentration, thoughts of suicide, or sudden pain or movement problems in any of your joints. In rare cases, ciprofloxacin may cause damage to your aorta, which could lead to dangerous bleedingor . Get emergency medical help if you have severe and constant pain in your chest, stomach, or back. What is ciprofloxacin? Ciprofloxacin is a fluoroquinolone (hhbe-o-IHAZ-o-lone) antibiotic, it is used to treat different types of bacterial infections. It is also used to treat people who have been exposed to anthrax or certain types of plague. Ciprofloxacin extended-release is only approved for use in adults. Fluoroquinolone antibiotics can cause serious or disabling side effects that may not be reversible.Ciprofloxacin should be used only for infections that cannot be treated with a safer antibiotic. Ciprofloxacin may also be used for purposes not listed in this medication guide. What should I discuss with my healthcare provider before taking ciprofloxacin? You should not use ciprofloxacin if you are allergic to it, or if: you also take tizanidine; or you are allergic to other fluoroquinolones (levofloxacin, moxifloxacin, norfloxacin, ofloxacin). Ciprofloxacin may cause swelling or tearing of a tendon (the fiber that connects bones to muscles in the body), especially in the Achilles' tendon of the heel. This can happen during treatment or several months after you stop taking ciprofloxacin. Tendon problems may be more likely in children and older adults, or people who use steroid medicine or have had an organ transplant. Tell your doctor if you have ever had: arthritis or problems with your tendons, bones or joints (especially in children); diabetes, low blood sugar; nerve problems; an aneurysm or blood circulation problems; heart problems, or a heart attack; muscle weakness, myasthenia gravis; liver or kidney disease; a seizure, head injury, or brain tumor; trouble swallowing pills; long QT syndrome (in you or a family member); or low levels of potassium in your blood (hypokalemia). Do not give this medicine to a child without medical advice. It is not known whether this medicine will harm an unborn baby. Tell your doctor if you are . You should not breastfeed while taking ciprofloxacin and for 2 days after your last dose. Ask your doctor about if you take ciprofloxacin for anthrax exposure. How should I take ciprofloxacin? Follow all directions on your prescription label and read all medication guides or instruction sheets. Use the medicine exactly as directed. Take ciprofloxacin at the same time each day, with or without food. Shake the oral suspension (liquid) for 15 seconds before you measure a dose. Use the dosing syringeprovided, or use a medicine dose-measuring device (not a kitchen spoon). Do not give ciprofloxacin oral suspension through a feeding tube. Swallow the extended-release tablet whole and do not crush, chew, or break it. Drink plenty of liquids while you are taking ciprofloxacin. Use this medicine for the full prescribed length of time, even if your symptoms quickly improve. Skipping doses can increase your risk of infection that is resistant to medication. Ciprofloxacin will not treat a viral infection such as the flu or a common cold. Do not share ciprofloxacin with another person. Store at room temperature away from moisture and heat. Do not allow the liquid medicine to freeze. Throw away any unused liquid after 14 days. What happens if I miss a dose? If you take regular tablets or oral suspension: Take the medicine as soon as you can, but skip the missed dose if your next dose is due in less than 6 hours. If you take extended-release tablets: Take the medicine as soon as you can, but skip the missed dose if your next dose is due in less than 8 hours. Do not take two doses at one time. What happens if I overdose? Seek emergency medical attention or call the Poison Help line at . What should I avoid while taking ciprofloxacin? Do not take ciprofloxacin with dairy products such as milk or yogurt, or with calcium-fortified juice. You may eat or drink these products with your meals, but do not use them alone when taking ciprofloxacin. Antibiotic medicines can cause diarrhea, which may be a sign of a new infection. If you have diarrhea that is watery or bloody, call your doctor before using anti-diarrhea medicine. Ciprofloxacin could make you sunburn more easily. Avoid sunlight or tanning beds. Wear protective clothing and use sunscreen (SPF 30 or higher) when you are outdoors. Tell your doctor if you have severe burning, redness, itching, rash, or swelling after being in the sun. Avoid driving or hazardous activity until you know how this medicine will affect you. Your reactions could be impaired. What are the possible side effects of ciprofloxacin? Get emergency medical help if you have signs of an allergic reaction (hives, difficult breathing, swelling in your face or throat) or a severe skin reaction (fever, sore throat, burning in your eyes,skin pain, red or purple skin rash that spreads and causes blistering and peeling). Ciprofloxacin can cause serious side effects, including tendon problems, damage to your nerves (which may be permanent), serious mood or behavior changes (after just one dose), or low blood sugar (which can lead to coma). Stop taking this medicine and call your doctor at once if you have: low blood sugar--headache, hunger, irritability, dizziness, nausea, fast heart rate, or feeling shaky; nerve damage symptoms--numbness, tingling, burning pain in your hands, arms, legs, or feet: serious mood or behavior changes--nervousness, confusion, agitation, paranoia, hallucinations, memory problems, trouble concentrating, thoughts of suicide; or signs of tendon rupture--sudden pain, swelling, bruising, tenderness, stiffness, movement problems,or a snapping or popping sound in any of your joints (rest the joint until you receive medical careor instructions). In rare cases, ciprofloxacin may cause damage to your aorta, the main blood artery of the body. This could lead to dangerous bleeding or . Get emergency medical help if you have severe and constant pain in your chest, stomach, or back. Also, stop using ciprofloxacin and call your doctor at once if you have: severe stomach pain, diarrhea that is watery or bloody; fast or pounding heartbeats, fluttering in your chest, shortness of breath, and sudden dizziness (like you might pass out); any skin rash, no matter how mild; muscle weakness, breathing problems; little or no urination; jaundice (yellowing of the skin or eyes); or increased pressure inside the skull--severe headaches, ringing in your ears, dizziness, nausea, vision problems, pain behind your eyes. Common side effects may include: nausea, vomiting, diarrhea, stomach pain; headache; or abnormal liver function tests. This is not a complete list of side effects and others may occur. Call your doctor for medical advice about side effects. You may report side effects to FDA at 5-280-OJZ-5761. What other drugs will affect ciprofloxacin? Some medicines can make ciprofloxacin much less effective when taken at the same time. If you take any of the following medicines, take your ciprofloxacin dose 2 hours before or 6 hours after you take the other medicine. the ulcer medicine sucralfate, or antacids that contain calcium, magnesium, or aluminum (such as Maalox, Milk of Magnesia, Mylanta, Pepcid Complete, Rolaids, Tums, and others); didanosine (Videx) powder or chewable tablets; vitamin or mineral supplements that contain calcium, iron, magnesium, or zinc. Tell your doctor about all your other medicines, especially: clozapine, cyclosporine, methotrexate, phenytoin, probenecid, ropinirole, sildenafil, or theophylline; a blood thinner (warfarin, Coumadin, Jantoven); heart medication or a diuretic or 'water pill'; oral diabetes medicine; products that contain caffeine; medicine to treat depression or mental illness; steroid medicine (such as prednisone); o NSAIDs (nonsteroidal anti-inflammatory drugs)--aspirin, ibuprofen (Advil, Motrin), naproxen (Aleve), celecoxib, diclofenac, indomethacin, meloxicam, and others; This list is not complete. Other drugs may affect ciprofloxacin, including prescription and lbwq-ghf-cmblgye medicines, vitamins, and herbal products. Not all possible drug interactions are listed here. Where can I get more information? Your pharmacist can provide more information about ciprofloxacin. Remember, keep this and all other medicines out of the reach of children, never share your medicines with others, and use this medication only for the indication prescribed. Every effort has been made to ensure that the information provided by [employer]. ('[employer]') is accurate, up-to-date, and complete, but no guarantee is made to that effect. Drug information contained herein may be time sensitive. [employer] information has been compiled for use by healthcare practitioners and consumers in the [place] and therefore [employer] does not warrant that uses outside of the [place] are appropriate, unless specifically indicated otherwise. [facility] drug information does not endorse drugs, diagnose patients or recommend therapy. [employer] drug information isan informational resource designed to assist licensed healthcare practitioners in caring for their p atients and/or to serve consumers viewing this service as a supplement to, and not a substitute for, the expertise, skill, knowledge and judgment of healthcare practitioners. The absence of a warningfor a given drug or drug combination in no way should be construed to indicate that the drug or drug combination is safe, effective or appropriate for any given patient. [employer] does not assume any responsibility for any aspect of healthcare administered with the aid of information [employer] provides. The information contained herein is not intended to cover all possible uses, directions, precautions, warnings, drug interactions, allergic reactions, or adverse effects. If you have questions about the drugs you are taking, check with your doctor, nurse or pharmacist. Copyright 1501-8035 [employer]. Version: 23.01. Revision Date: 10/08/2019. ondansetron (oral) (on BRITTANY se sandy) What is the most important information I should know about ondansetron? You should not use ondansetron if you are also using apomorphine (Apokyn). What is ondansetron? Ondansetron blocks the actions of chemicals in the body that can trigger nausea and vomiting. Ondansetron is used to prevent nausea and vomiting that may be caused by surgery, cancer chemotherapy, or radiation treatment. Ondansetron may be used for purposes not listed in this medication guide. What should I discuss with my health care provider before taking ondansetron? You should not use ondansetron if: you are also using apomorphine (Apokyn); or you are allergic to ondansetron or similar medicines (dolasetron, granisetron, palonosetron). To make sure ondansetron is safe for you, tell your doctor if you have: liver disease; an electrolyte imbalance (such as low levels of potassium or magnesium in your blood); congestive heart failure, slow heartbeats; a personal or family history of long QT syndrome; or a blockage in your digestive tract (stomach or intestines). Ondansetron is not expected to harm an unborn baby. Tell your doctor if you are . It is not known whether ondansetron passes into breast milk or if it could harm a nursing baby. Tell your doctor if you are breast-feeding a baby. Ondansetron is not approved for use by anyone younger than 4 years old. Ondansetron orally disintegrating tablets may contain phenylalanine. Tell your doctor if you have phenylketonuria (PKU). How should I take ondansetron? Follow all directions on your prescription label. Do not take this medicine in larger or smaller amounts or for longer than recommended. Ondansetron can be taken with or without food. The first dose of ondansetron is usually taken before the start of your surgery, chemotherapy, or radiation treatment. Follow your doctor's dosing instructions very carefully. Take the ondansetron regular tablet with a full glass of water. To take the orally disintegrating tablet (Zofran ODT): Keep the tablet in its blister pack until you are ready to take it. Open the package and peel back the foil. Do not push a tablet through the foil or you may damage the tablet. Use dry hands to remove the tablet and place it in your mouth. Do not swallow the tablet whole. Allow it to dissolve in your mouth without chewing. Swallow several times as the tablet dissolves. To use ondansetron oral soluble film (strip) (Zuplenz): Keep the strip in the foil pouch until you are ready to use the medicine. Using dry hands, remove the strip and place it on your tongue. It will begin to dissolve right away. Do not swallow the strip whole. Allow it to dissolve in your mouth without chewing. Swallow several times after the strip dissolves. If desired, you may drink liquid to help swallow the dissolved strip. Wash your hands after using Zuplenz. Measure liquid medicine with the dosing syringe provided, or with a special dose-measuring spoon ormedicine cup. If you do not have a dose-measuring device, ask your pharmacist for one. Store at room temperature away from moisture, heat, and light. Store liquid medicine in an upright position. What happens if I miss a dose? Take the missed dose as soon as you remember. Skip the missed dose if it is almost time for your next scheduled dose. Do not take extra medicine to make up the missed dose. What happens if I overdose? Seek emergency medical attention or call the Poison Help line at . Overdose symptoms may include sudden loss of vision, severe constipation, feeling light-headed, or fainting. What should I avoid while taking ondansetron? Ondansetron may impair your thinking or reactions. Be careful if you drive or do anything that requires you to be alert. What are the possible side effects of ondansetron? Get emergency medical help if you have signs of an allergic reaction: rash, hives; fever, chills, difficult breathing; swelling of your face, lips, tongue, or throat. Call your doctor at once if you have: severe constipation, stomach pain, or bloating; headache with chest pain and severe dizziness, fainting, fast or pounding heartbeats; fast or pounding heartbeats; jaundice (yellowing of the skin or eyes); blurred vision or temporary vision loss (lasting from only a few minutes to several hours); high levels of serotonin in the body--agitation, hallucinations, fever, fast heart rate, overactivereflexes, nausea, vomiting, diarrhea, loss of coordination, fainting. Common side effects may include: diarrhea or constipation; headache; drowsiness; or tired feeling. This is not a complete list of side effects and others may occur. Call your doctor for medical advice about side effects. You may report side effects to FDA at 6-539-WUU-5682. What other drugs will affect ondansetron? Ondansetron can cause a serious heart problem, especially if you use certain medicines at the same time, including antibiotics, antidepressants, heart rhythm medicine, antipsychotic medicines, and medicines to treat cancer, malaria, HIV or AIDS. Tell your doctor about all medicines you use, and those you start or stop using during your treatment with ondansetron. Taking ondansetron while you are using certain other medicines can cause high levels of serotonin to build up in your body, a condition called 'serotonin syndrome,' which can be fatal. Tell your doctor if you also use: medicine to treat depression; medicine to treat a psychiatric disorder; a narcotic (opioid) medication; or medicine to prevent nausea and vomiting. This list is not complete and many other drugs can interact with ondansetron. This includes prescription and vjky-azk-ttaocpw medicines, vitamins, and herbal products. Give a list of all your medicines to any healthcare provider who treats you. Where can I get more information? Your pharmacist can provide more information about ondansetron. Remember, keep this and all other medicines out of the reach of children, never share your medicines with others, and use this medication only for the indication prescribed. Every effort has been made to ensure that the information provided by [employer]. ('[employer]') is accurate, up-to-date, and complete, but no guarantee is made to that effect. Drug information contained herein may be time sensitive. [employer] information has been compiled for use by healthcare practitioners and consumers in the [place] and therefore [employer] does not warrant that uses outside of the [place] are appropriate, unless specifically indicated otherwise. [employer] drug information does not endorse drugs, diagnose patients or recommend therapy. [employer] drug information isan informational resource designed to assist licensed healthcare practitioners in caring for their p atients and/or to serve consumers viewing this service as a supplement to, and not a substitute for, the expertise, skill, knowledge and judgment of healthcare practitioners. The absence of a warningfor a given drug or drug combination in no way should be construed to indicate that the drug or drug combination is safe, effective or appropriate for any given patient. [employer] does not assume any responsibility for any aspect of healthcare administered with the aid of information [employer] provides. The information contained herein is not intended to cover all possible uses, directions, precautions, warnings, drug interactions, allergic reactions, or adverse effects. If you have questions about the drugs you are taking, check with your doctor, nurse or pharmacist. Copyright [id number] [employer]. Version: 16.. Revision Date: 10/26/2022. metronidazole (oral/injection) (me cristela light) FIRST Metronidazole, Flagyl What is the most important information I should know about metronidazole? Do not drink alcohol or consume foods or medicines that contain propylene glycol while you are taking metronidazole and for at least 3 days after you stop taking it. Metronidazole has caused cancer in animal studies. However, it is not known whether this would occur in humans. Ask your doctor about your risk. What is metronidazole? Metronidazole is an antibiotic that is used to treat bacterial infections of the vagina, stomach, liver, skin, joints, brain and spinal cord, lungs, heart, or bloodstream. Metronidazole is also used to treat trichomoniasis, a sexually transmitted disease caused by a parasite. Usually both sexual partners are treated at the same time, even if one has no symptoms. Do not use metronidazole to treat any condition that has not been checked by your doctor. Metronidazole may also be used for purposes not listed in this medication guide. What should I discuss with my healthcare provider before using metronidazole? You should not use this medicine if you are allergic to metronidazole, secnidazole, or tinidazole, or if: you drank alcohol in the past 3 days; you consumed foods or medicines that contain propylene glycol in the past 3 days; or you took disulfiram (Antabuse) within the past 14 days. May harm an unborn baby. Do not use metronidazole to treat trichomoniasis during the first trimester of . Tell your doctor if you become . Not all uses of metronidazole are approved for treating children and teenagers. Metronidazole is not approved to treat vaginal infections in girls who have not begun having menstrual periods. Tell your doctor if you have ever had: liver disease; kidney disease (or if you are on dialysis); a heart rhythm disorder; a stomach or intestinal disease such as Crohn's disease; a blood cell disorder such as anemia (lack of red blood cells) or low white blood cell (WBC) counts; a fungal infection anywhere in your body; or a nerve disorder. Metronidazole has caused cancer in animal studies. However, it is not known whether this would occur in humans. Ask your doctor about your risk. You should not breastfeed within 24 hours after using metronidazole. If you use a breast pump during this time, throw out the milk and do not feed it to your baby. How should I use metronidazole? Follow all directions on your prescription label and read all medication guides or instruction sheets. Use the medicine exactly as directed. Metronidazole oral is taken by mouth. Metronidazole injection is given as an infusion into a vein. A healthcare provider will give you this injection if you are unable to take the medicine by mouth. Shake the oral suspension (liquid). Measure a dose with the supplied measuring device (not a kitchen spoon). Swallow the extended-release tablet whole and do not crush, chew, or break it. If you are treating a vaginal infection, your sexual partner may also need to take metronidazole soyou don't become reinfected. Metronidazole is usually given for up to 10 days in a row. You may need to repeat this dosage several weeks later. Keep using this medicine even if your symptoms quickly improve. Skipping doses could make your infection resistant to medication. Metronidazole will not treat a viral infection (flu or a common cold). Metronidazole will not treat a vaginal yeast infection. You may even develop a new vaginal yeast infection, which may need to be treated with antifungal medication. Tell your doctor if you have symptoms such as itching or discharge during or after treatment with metronidazole. Do not share this medicine with another person, even if they have the same symptoms you have. This medicine can affect the results of certain medical tests. Tell any doctor who treats you that you are using metronidazole. Store at room temperature away from moisture and heat. What happens if I miss a dose? Take the medicine as soon as you can, but skip the missed dose if it is almost time for your next dose. Do not take two doses at one time. What happens if I overdose? Seek emergency medical attention or call the Poison Help line at . Overdose symptoms may include nausea, vomiting, numbness, tingling, or problems with balance or muscle movement. What should I avoid while using metronidazole? While taking metronidazole and for 3 days after your last dose: Do not drink alcohol or consume foods, medicines, or other products that contain alcohol or propylene glycol. You may have unpleasant effects such as headaches, nausea, vomiting, stomach cramps, and warmth or tingling under your skin. What are the possible side effects of metronidazole? Get emergency medical help if you have signs of an allergic reaction (hives, itching, warmth or tingling; fever, joint pain; dry mouth, dry vagina; stuffy nose, difficult breathing, swelling in your face or throat) or a severe skin reaction (fever, sore throat, burning eyes, skin pain, red or purple skin rash with blistering and peeling). Call your doctor at once if you have: new or worsening symptoms of infection; painful or difficult urination; confusion; a light-headed feeling (like you might pass out); vaginal itching or discharge; or blisters or ulcers in your mouth, red or swollen gums, trouble swallowing. Stop taking the medicine and call your doctor right away if you have neurologic side effects (more likely to occur while taking metronidazole [employer]): numbness, tingling, or burning pain in your hands or feet; vision problems, pain behind your eyes, seeing flashes of light; muscle weakness, problems with speech or coordination; trouble speaking or understanding what is said to you; a seizure; or fever, neck stiffness, and increased sensitivity to light. Metronidazole can cause life-threatening liver problems in people with Cockayne syndrome. If you have this condition, stop taking metronidazole and contact your doctor if you have signs of liver failure--nausea, stomach pain (upper right side), dark urine, thad-colored stools, or jaundice (yellowing of the skin or eyes). Side effects may be more likely in older adults. Common side effects may include: depression, trouble sleeping, feeling irritable; headache, dizziness, weakness; nausea, vomiting, loss of appetite, stomach pain; diarrhea, constipation; unpleasant metallic taste; rash, itching; vaginal itching or discharge, pain during sex; mouth sores; or swollen, red, or 'hairy' tongue. This is not a complete list of side effects and others may occur. Call your doctor for medical advice about side effects. You may report side effects to FDA at 2-675-SCD-3949. What other drugs will affect metronidazole? Sometimes it is not safe to use certain medicines at the same time. Some drugs can affect your blood levels of other drugs you use, which may increase side effects or make the medicines less effective. Tell your doctor about all your current medicines. Many drugs can affect metronidazole, especially: an antidepressant; asthma medication; busulfan or other cancer medicine; heart or blood pressure medication; lithium or other antipsychotic medicine; medicine to treat malaria, HIV, or other infection; or a blood thinner--warfarin, Coumadin, Jantoven. This list is not complete and many other drugs may affect metronidazole. This includes prescriptionand oijp-dib-ukfjavo medicines, vitamins, and herbal products. Not all possible drug interactions are listed here. Where can I get more information? Your pharmacist can provide more information about metronidazole. Remember, keep this and all other medicines out of the reach of children, never share your medicines with others, and use this medication only for the indication prescribed. Every effort has been made to ensure that the information provided by [employer]. [employer]') is accurate, up-to-date, and complete, but no guarantee is made to that effect. Drug information contained herein may be time sensitive. [employer] information has been compiled for use by healthcare practitioners and consumers in the [place] and therefore [employer] does not warrant that uses outside of the [place] are appropriate, unless specifically indicated otherwise. [facility] drug information does not endorse drugs, diagnose patients or recommend therapy. [employer] drug information isan informational resource designed to assist licensed healthcare practitioners in caring for their p atients and/or to serve consumers viewing this service as a supplement to, and not a substitute for, the expertise, skill, knowledge and judgment of healthcare practitioners. The absence of a warningfor a given drug or drug combination in no way should be construed to indicate that the drug or drug combination is safe, effective or appropriate for any given patient. [employer] does not assume any responsibility for any aspect of healthcare administered with the aid of information [employer] provides. The information contained herein is not intended to cover all possible uses, directions, precautions, warnings, drug interactions, allergic reactions, or adverse effects. If you have questions about the drugs you are taking, check with your doctor, nurse or pharmacist. Copyright 3908-1638 [employer]. Version: 15.. Revision Date: 12/02/2020. acetaminophen and hydrocodone (a SEET a MIN oh fen and zaira droe KOE done) Lortab, Lortab Elixir, Verdrocet What is the most important information I should know about acetaminophen and hydrocodone? MISUSE OF OPIOID MEDICINE CAN CAUSE ADDICTION, OVERDOSE, OR . Keep the medication in a place where others cannot get to it. Taking opioid medicine during may cause life-threatening withdrawal symptoms in the . Fatal side effects can occur if you use opioid medicine with alcohol, or with other drugs that cause drowsiness or slow your breathing. Stop taking this medicine and call your doctor right away if you have skin redness or a rash that spreads and causes blistering and peeling. What is acetaminophen and hydrocodone? Acetaminophen and hydrocodone is a combination medicine used to relieve moderate to severe pain. Acetaminophen and hydrocodone contains an opioid medicine, and may be habit-forming. Acetaminophen and hydrocodone may also be used for purposes not listed in this medication guide. What should I discuss with my healthcare provider before taking acetaminophen and hydrocodone? You should not use this medicine if you are allergic to acetaminophen or hydrocodone, or if you have: severe asthma or breathing problems; or a blockage in your stomach or intestines. Tell your doctor if you have ever had: breathing problems, sleep apnea (breathing stops during sleep); liver disease; a drug or alcohol addiction; kidney disease; a head injury or seizures; urination problems; or problems with your thyroid, pancreas, or gallbladder. If you use opioid medicine while you are , your baby could become dependent on the drug. This can cause life-threatening withdrawal symptoms in the baby after it is born. Babies born dependent on opioids may need medical treatment for several weeks. Ask a doctor before using opioid medicine if you are . Tell your doctor if you notice severe drowsiness or slow breathing in the nursing baby. How should I take acetaminophen and hydrocodone? Follow all directions on your prescription label. Never take this medicine in larger amounts, or for longer than prescribed. An overdose can damage your liver or cause . Tell your doctor if you feel an increased urge to use more of this medicine. Never share this medicine with another person, especially someone with a history of drug abuse or addiction. MISUSE CAN CAUSE ADDICTION, OVERDOSE, OR . Keep the medicine in a place where others cannot get to it. Selling or giving away this medicine is against the law. Measure liquid medicine carefully. Use the dosing syringe provided, or use a medicine dose-measuring device (not a kitchen spoon). If you need surgery or medical tests, tell the doctor ahead of time that you are using this medicine. You should not stop using this medicine suddenly. Follow your doctor's instructions about tapering your dose. Store at room temperature away from moisture and heat. Keep track of your medicine. You should be aware if anyone is using it improperly or without a prescription. Do not keep leftover opioid medication. Just one dose can cause in someone using this medicine accidentally or improperly. Ask your pharmacist where to locate a drug take-back disposal program.If there is no take-back program, flush the unused medicine down the toilet. What happens if I miss a dose? Since this medicine is used for pain, you are not likely to miss a dose. Skip any missed dose if itis almost time for your next dose. Do not use two doses at one time. What happens if I overdose? Seek emergency medical attention or call the Poison Help line at . An overdose of this medicine can be fatal, especially in a child or other person using the medicine without a prescription. Overdose symptoms may include nausea, vomiting, sweating, severe drowsiness, pinpoint pupils, slow breathing, or no breathing. Your doctor may recommend you get naloxone (a medicine to reverse an opioid overdose) and keep it with you at all times. A person caring for you can give the naloxone if you stop breathing or don't wake up. Your caregiver must still get emergency medical help and may need to perform CPR (cardiopulmonary resuscitation) on you while waiting for help to arrive. Anyone can buy naloxone from a pharmacy or local health department. Make sure any person caring foryou knows where you keep naloxone and how to use it. What should I avoid while taking acetaminophen and hydrocodone? Avoid driving or operating machinery until you know how this medicine will affect you. Dizziness ordrowsiness can cause falls, accidents, or severe injuries. Do not drink alcohol. Dangerous side effects or could occur. Ask a doctor or pharmacist before using any other medicine that may contain acetaminophen (sometimes abbreviated as APAP). Taking certain medications together can lead to a fatal overdose. What are the possible side effects of acetaminophen and hydrocodone? Get emergency medical help if you have signs of an allergic reaction: hives; difficulty breathing; swelling of your face, lips, tongue, or throat. Opioid medicine can slow or stop your breathing, and may occur. A person caring for you should give naloxone and/or seek emergency medical attention if you have slow breathing with long pauses,blue colored lips, or if you are hard to wake up. In rare cases, acetaminophen may cause a severe skin reaction that can be fatal. This could occur even if you have taken acetaminophen in the past and had no reaction. Stop taking this medicine and call your doctor right away if you have skin redness or a rash that spreads and causes blistering andpeeling. Call your doctor at once if you have: noisy breathing, sighing, shallow breathing, breathing that stops; a light-headed feeling, like you might pass out; liver problems--nausea, upper stomach pain, tiredness, loss of appetite, dark urine, thad-colored stools, jaundice (yellowing of the skin or eyes); low cortisol levels-- nausea, vomiting, loss of appetite, dizziness, worsening tiredness or weakness; o high levels of serotonin in the body--agitation, hallucinations, fever, sweating, shivering, fast heart rate, muscle stiffness, twitching, loss of coordination, nausea, vomiting, diarrhea. Serious breathing problems may be more likely in older adults and in those who are debilitated or have wasting syndrome or chronic breathing disorders. Common side effects include: dizziness, drowsiness, feeling tired; nausea, vomiting, stomach pain; constipation; or headache. This is not a complete list of side effects and others may occur. Call your doctor for medical advice about side effects. You may report side effects to FDA at [phone]-CBA-5954. What other drugs will affect acetaminophen and hydrocodone? You may have breathing problems or withdrawal symptoms if you start or stop taking certain other medicines. Tell your doctor if you also use an antibiotic, antifungal medication, heart or blood pressure medication, seizure medication, or medicine to treat HIV or hepatitis C. Opioid medication can interact with many other drugs and cause dangerous side effects or . Be sure your doctor knows if you also use: cold or allergy medicines, bronchodilator asthma/COPD medication, or a diuretic ('water pill'); medicines for motion sickness, irritable bowel syndrome, or overactive bladder; other opioids--opioid pain medicine or prescription cough medicine; a sedative like Valium--diazepam, alprazolam, lorazepam, Xanax, Klonopin, Versed, and others; drugs that make you sleepy or slow your breathing--a sleeping pill, muscle relaxer, medicine to treat mood disorders or mental illness; drugs that affect serotonin levels in your body--a stimulant, or medicine for depression, Parkinson's disease, migraine headaches, serious infections, or nausea and vomiting. This list is not complete. Other drugs may affect acetaminophen and hydrocodone, including prescription and yjkp-uqc-dnvcsad medicines, vitamins, and herbal products. Not all possible interactions are listed here. Where can I get more information? Your doctor or pharmacist can provide more information about acetaminophen and hydrocodone. Remember, keep this and all other medicines out of the reach of children, never share your medicines with others, and use this medication only for the indication prescribed. Every effort has been made to ensure that the information provided by [employer]. ('[employer]') is accurate, up-to-date, and complete, but no guarantee is made to that effect. Drug information contained herein may be time sensitive. [employer] information has been compiled for use by healthcare practitioners and consumers in the [place] and therefore [employer] does not warrant that uses outside of the [place] are appropriate, unless specifically indicated otherwise. [employer] drug information does not endorse drugs, diagnose patients or recommend therapy. [employer] drug information isan informational resource designed to assist licensed healthcare practitioners in caring for their p atients and/or to serve consumers viewing this service as a supplement to, and not a substitute for, the expertise, skill, knowledge and judgment of healthcare practitioners. The absence of a warningfor a given drug or drug combination in no way should be construed to indicate that the drug or drug combination is safe, effective or appropriate for any given patient. [employer] does not assume any responsibility for any aspect of healthcare administered with the aid of information [employer] provides. The information contained herein is not intended to cover all possible uses, directions, precautions, warnings, drug interactions, allergic reactions, or adverse effects. If you have questions about the drugs you are taking, check with your doctor, nurse or pharmacist. Copyright 5463-0854 [employer]. Version: 18.01. Revision Date: 10/23/2022. Education Materials Abdominal Pain Abdominal pain is pain in the stomach or belly area. Everyone has this pain from time to time. In many cases it goes away on its own. But abdominal pain can sometimes be due to a serious problem, such as appendicitis. So it s important to know when to get help. Causes of abdominal pain There are many possible causes of abdominal pain. Common causes in adults include: Constipation, diarrhea, or gas Stomach acid flowing back up into the esophagus (acid reflux or heartburn) Severe acid reflux, called GERD (gastroesophageal reflux disease) A sore in the lining of the stomach or small intestine (peptic ulcer) Inflammation of the gallbladder, liver, or pancreas Gallstones or kidney stones Appendicitis Intestinal blockage An internal organ pushing through a muscle or other tissue (hernia) Urinary tract infections In women, menstrual cramps, fibroids, ovarian cysts, pelvic inflammatory disease, or endometriosis Inflammation or infection of the intestines, including Crohn's disease and ulcerative colitis Irritable bowel syndrome Diagnosing the cause of abdominal pain Your healthcare provider will give you a physical exam help find the cause of your pain. If needed,you will have tests. Belly pain has many possible causes. So it can be hard to find the reason for your pain. Giving details about your pain can help. Tell your provider where and when you feel the pain, and what makes it better or worse. Also let your provider know if you have other symptoms such as: Fever Tiredness Upset stomach (nausea) Vomiting Changes in bathroom habits Blood in the stool or black, tarry stool Weight loss that you can't explain (involuntary weight loss?) Also report any family history of stomach or intestinal problems, or cancers. Tell your provider about all your alcohol use and drug use. Tell your provider about all medicines you use, including herbs, vitamins, and supplements. Treating abdominal pain Some causes of pain need emergency medical treatment right away. These include appendicitis or a bowel blockage. Other problems can be treated with rest, fluids, or medicines. Your healthcare provider can give you specific instructions for treatment or self-care based on what is causing your pain. If you have vomiting or diarrhea, sip water or other clear fluids. When you are ready to eat solid foods again, start with small amounts of hzfw-fb-eznrgn, low- fat foods. These include apple sauce, toast, or crackers. When to get medical care Call 911 or go to the hospital right away if you: Can t pass stool and are vomiting Are vomiting blood or have bloody diarrhea or black, tarry diarrhea Have chest, neck, or shoulder pain Feel like you might pass out Have pain in your shoulder blades with nausea Have sudden, severe belly pain Have new, severe pain unlike any you have felt before Have a belly that is rigid, hard, and hurts to touch Call your healthcare provider if you have: Pain for more than 5 days Bloating for more than 2 days Diarrhea for more than 5 days A fever of 100.4 F (38 C) or higher, or as directed by your healthcare provider Pain that gets worse Weight loss for no reason Continued lack of appetite Blood in your stool How to prevent abdominal pain Here are some tips to help prevent abdominal pain: Eat smaller amounts of food at each meal. Don't eat greasy, fried, or other high-fat foods. Don't eat foods that give you gas. Exercise regularly. Drink plenty of fluids. To help prevent GERD symptoms: Quit smoking. Reduce alcohol and foods that increase stomach acid. Don't use aspirin or bthz-kau-lycubff pain and fever medicines, if possible. This includes nonsteroidal anti-inflammatory drugs (NSAIDs). Lose excess weight. Finish eating at least 2 hours before you go to bed or lie down. Raise the head of your bed. [id number] [employer]. [address] [place], [place] [id number]. All rights reserved. This information is not intended as a substitute for professional medical care. Always follow yourhealthcare professional's instructions. Diverticulitis Some people get pouches along the wall of the colon as they get older. The pouches, called diverticuli, usually cause no symptoms. If the pouches become blocked, you can get an infection. This infection is called diverticulitis. It causes pain in your lower abdomen and fever. If not treated, it canbecome a serious condition, causing an abscess to form inside the pouch. The abscess may block the intestinal tract even or rupture, spreading infection throughout the abdomen. When treatment is started early, oral antibiotics alone may be enough to cure diverticulitis. This method is tried first. But, if you don't improve or if your condition gets worse while using oral antibiotics, you may need to be admitted to the hospital for IV antibiotics. Severe cases may require surgery. Home care The following guidelines will help you care for yourself at home: During the acute illness, rest and follow your healthcare provider's instructions about diet. Sometimes you will need to follow a clear liquid diet to rest your bowel. Once your symptoms are better, you may be told to follow a low-fiber diet for some time. Include foods like: oFlake cereal, mashed potatoes, pancakes, waffles, pasta, white bread, rice, applesauce, bananas, eggs, fish, poultry, tofu, and cooked soft vegetables Take antibiotics exactly as instructed. Don't miss any doses or stop taking the medication, even ifyou feel better. Monitor your temperature and tell your healthcare provider if you have rising temperatures. Preventing future attacks Once you have an episode of diverticulitis, you are at risk for having it again. After you have recovered from this episode, you may be able to lower your risk by eating a high-fiber diet (20 gm/day to 35 gm/day of fiber). This cleans out the colon pouches that already exist and may prevent new ones from forming. Foods high in fiber include fresh fruits and edible peelings, raw or lightly cooked vegetables, whole grain cereals and breads, dried beans and peas, and bran. Other steps that can help prevent future attacks include: Take your medicines, such as antibiotics, as your healthcare provider says. Drink 6 to 8 glasses of water every day, unless told otherwise. Use a heating pad or hot water bottle to help abdominal cramping or pain. Begin an exercise program. Ask your healthcare provider how to get started. You can benefit from simple activities such as walking or gardening. Treat diarrhea with a bland diet. Start with liquids only; then slowly add fiber over time. Watch for changes in your bowel movements (constipation to diarrhea). Avoid constipation by eating a high fiber diet and taking a stool softener if needed. Get plenty of rest and sleep. Follow-up care Follow up with your healthcare provider as advised or sooner if you are not getting better in the next 2 days. When to seek medical advice Call your healthcare provider right away if any of these occur: Fever of 100.4 F (38 C) or higher, or as directed by your healthcare provider Repeated vomiting or swelling of the abdomen Weakness, dizziness, light-headedness Pain in your abdomen that gets worse, severe, or spreads to your back Pain that moves to the right lower abdomen Rectal bleeding (stools that are red, black or maroon color) Unexpected vaginal bleeding [id number] [employer]. [address] [place] [id number]. All rights reserved. This information is not intended as a substitute for professional medical care. Always follow yourhealthcare professional's instructions. Additional Information VACCINATE! IT SAVES LIVES! Members of the community who have not yet received the COVID-19 vaccine and would like to receive it can visit one of [facility] vaccine clinics. There are many vaccine clinic locations within the [facility]. For locations and available times, please visit [email or web address] It is important to note that some COVID mobile vaccine clinics are held outdoors and may be canceled in rainy or stormy conditions. To learn more about pediatric vaccinations (ages 5-11), we invite you to visit the [facility] webpage. [email or web address] learn more about the COVID-19 vaccine, we invite you to visit the CDC website for a list of frequently asked questions. https://www.cdc.gov/coronavirus/2019-ncov/vaccines/faq.html [facility] Patient Portal Access Instructions: Stay connected with your healthcare team and access your personal medical information anytime with the [facility] Patient Portal. If you would like a full copy of your medical records please contact the [facility] Medical Records Department Sunday through Sunday between 8a.m. and 4:30p.m. Please follow the directions below to access the portal: 1.Access the email account you provided upon registration to the [facility].2.Look for an invitation email from [facility].3.Open the email and access the invitation link: Accept Invitation to [facility]4.Fill in the required bustillo to create your account. Sign into [email or web address] with your username and password that you created in the above steps to stay up to date. You can then view a summary of results, a summary of your visits, and the ability to download your summaries to your computer or send the information securely to a physician. Remember that your healthcare information is confidential, so carefully consider who you will allow to register on the [facility] Patient Portal for access to your information. You can also access the [employer] Patient Portal on the [employer]. Simply click on Health Records under [employer] and then click on the [employer] logo. HOW TO SAFELY DISPOSE OF PRESCRIPTION MEDICATIONS Please use one of the following methods to safely dispose of your unused medications. 1.Use a drug disposal kit: the drug disposal pouch allows you to safely discard your old and unuseddrugs. Ask your nurse to give you one when you are discharged.2.Visit a local take-back location: Many local pharmacies and police departments have programs that collect old and unwanted prescriptiondrugs. Call your local pharmacy or go to [email or web address] to find one close to you.3.Make use of household items: Use cat litter or old coffee grounds to dispose medications if other options arenot available. Mix your drugs with these household products, seal them in an airtight container andthrow it into the garbage. Call [facility]: [phone] to be sure your drugs can be disposed of in this way. Some medicines may require a different approach.4.Never flush your medications down the toilet. IF YOU HAVE BEEN PRESCRIBED AN OPIOIDS FOR PAIN If you have been prescribed an opioid (such as hydrocodone, oxycodone or morphine), it is critical to understand the possible side effects and risks of opioid pain medications. Even when taken as directed, opioids can have several side effects including: Tolerance, meaning you might need to take more of a medication for the same pain relief. Nausea, vomiting and/or constipation. Sleepiness, dizziness, dry mouth, confusion, depression or itching. Physical dependence, meaning you have withdrawal symptoms when a medication is stopped ? this can develop within a few days. KNOW YOUR RESPONSIBILITIES It is important to know exactly how much and how often to take the opioid pain medications you are prescribed. Never take opioids in higher amounts or more often than prescribed. Do not combine opioids with alcohol or other drugs that cause drowsiness, such as benzodiazepines, also known as benzos,including diazepam and alprazolam, muscle relaxants or sleep aids. Never sell or share prescriptionopioids. This is illegal. Store opioids in a secure place and out of reach of others (including children, family, friends and visitors). The last page(s) of this document has been signed and retained as a CHART COPY Signatures Patient Education Materials Abdominal Pain Diverticulitis Medication Leaflets ciprofloxacin (oral), ondansetron (oral), metronidazole (oral/injection), acetaminophen and hydrocodone My discharge plan and instructions have been reviewed and explained to me and I,DESTINEE EASLEY understand my current condition and have read and understand these discharge instructions. I have received a written copy of the plan/instructions. If I have questions, I am aware that I should contact my doctor. Patient/Cadet Deck Signature: Date/Time: Relationship to Patient: Witness Name/Signature: Date/Time: [facility] [employer] + Plan note Future Appointments Appointment Date:11/03/2022 09:30:00 AM Scheduled Provider: Location:[facility] Appointment Type:CT Knee w/o Contrast Right Future Scheduled Tests Radiology* CT Knee w/o Contrast Right 11/03/22 [facility] [employer]uation + Plan note Future Appointments Appointment Date:11/24/2022 10:30:00 AM Scheduled Provider: Location:[facility] Appointment Type:PT Outpatient Evaluation [facility] Evaluation + Plan note Future Appointments Appointment Date:12/04/2022 11:00:00 AM Scheduled Provider: Location:[facility] Appointment Type:PT Treatment - [place] Appointment Date:12/06/2022 10:30:00 AM Scheduled Provider: Location:[facility] Appointment Type:PT Treatment - [place] Appointment Date:12/08/2022 10:30:00 AM Scheduled Provider: Location:[facility] Appointment Type:PT Treatment - [place] Appointment Date:12/11/2022 11:00:00 AM Scheduled Provider: Location:[facility] Appointment Type:PT Treatment - [place] Appointment Date:12/13/2022 10:30:00 AM Scheduled Provider: Location:TY Appointment Type:PT Treatment - [place] Appointment Date:12/15/2022 10:30:00 AM Scheduled Provider: Location:TY Appointment Type:PT Treatment - [place] Appointment Date:12/18/2022 10:00:00 AM Scheduled Provider: Location:TY Appointment Type:PT Treatment - [place] Appointment Date:12/20/2022 10:30:00 AM Scheduled Provider: Location:TY Appointment Type:PT Treatment - [place] Appointment Date:12/22/2022 10:30:00 AM Scheduled Provider: Location:TY Appointment Type:formerly [facility] Diagnostic Tests Pending * Urine Culture 12/03/22 [facility] Evaluation + Plan note Future Appointments Appointment Date:12/08/2022 10:30:00 AM Scheduled Provider: Location:TY Appointment Type:PT [facility] Appointment Date:12/11/2022 11:00:00 AM Scheduled Provider: Location:TY Appointment Type:PT [facility] Appointment Date:12/13/2022 10:30:00 AM Scheduled Provider: Location:TY Appointment Type:PT [facility] Appointment Date:12/15/2022 10:30:00 AM Scheduled Provider: Location:TY Appointment Type:PT [facility] Appointment Date:12/18/2022 10:00:00 AM Scheduled Provider: Location:TY Appointment Type:PT [facility] Appointment Date:12/20/2022 10:30:00 AM Scheduled Provider: Location:TY Appointment Type:PT [facility] Appointment Date:12/22/2022 10:30:00 AM Scheduled Provider: Location:TY Appointment Type:[facility] Evaluation noteNo assessment information available [facility] Work Phone: Evaluation note* Diagnosis Onset Date Resolution Status Abdominal pain acute Constipation acute Thrombocytosis acute [facility] Work Phone: Hospital course Narrative No data available for this section [facility] Hospital Discharge instructions No data available for this section [facility] Progress note No data available for this section [facility] Reason for referral (narrative)No reason for referral [facility]: Summary Purpose Family History No Family History Records Found Relationship Condition Age at Onset Recorded Date/T gill father Asthma Unknown Diabetes mellitus Unknown Hypertension Unknown Coronary artery disease Unknown sister Asthma Unknown mother Malignant neoplasm of breast Unknown Advance Directives No Advanced Directives Records Found Advance Directive Response Recorded Date/ Time Living Will No May 21, 10:09am Power of Insurance Sales Agent No May 21, 2019 10:09am Advance Directive Response Recorded Date/ Time Living Will No December 06, 2022 4:00pm Power of Insurance Sales Agent No November 4:00pm Advance Directive Response Recorded Date/ Time Name of Medical Power of Insurance Sales Agent Michael Kumar December 06, 2022 9:30pm Living Will Yes December 06, 2022 9:30pm Power of Insurance Sales Agent Yes November 9:30pm Chief Complaint and Reason for Visit Chief Complaint SCREENING Chief Complaint SCREENING CONSTIPATION Reason for Visit Abdominal pain Constipation Thrombocytosis Chief Complaint SCREENING CONSTIPATION CONSTIPATION CONSTIPATION CONSTIPATION Reason for Visit Abdominal pain Constipation Thrombocytosis Chief Complaint Admit Date Amb Documentation April 30, 2024 1 :42pm CONCERN FOR BLADDER INFECTION May 11:24am Reason for Visit Admit Date UTI (urinary tract infection) May 11:24am Additional Source Comments INFORMATION SOURCE (unrecogn ized section and content) DATE CREATED AUTHOR 01/24/2019 [facility] DATE CREATED AUTHOR AUTHOR'S ORGANIZ ATION 01/26/2019 [facility] DATE CREATED AUTHOR AUTHOR'S ORGANIZ ATION 12/24/2019 [facility] DATE CREATED AUTHOR AUTHOR'S ORGANIZ ATION 01/21/2023 [facility] ([place]) DATE CREATED AUTHOR AUTHOR'S ORGANIZ ATION 01/31/2023 [facility] DATE CREATED AUTHOR AUTHOR'S ORGANIZ ATION 08/02/2024 [facility] DATE CREATED AUTHOR AUTHOR'S ORGANIZ ATION 10/02/2024 [facility] Goals (unrecognized section and content) Goals may be documented in a n alternate sectionGoals may be documented in an alternate sectionGoals may be documented in an alternate section No data available for this section No data available for this section No data available for this sectionGoals may be documented in an alternate section No data available for this sectionGoals may be documented in an alternate section No data available for this section No data available for this sectionGoals may be documented in an alternate section No data available for this section Patient Care team informatio n (unrecognized section and content) Team Status: Active Member Role Status Dates Dr. Yuliya Vasquez DO Family Provider Active Dr. Yuliya Vasquez DO Primary Care Provider Active Team Status: Inactive Member Role Status Dates Dr. Yuliya Vasquez DO Primary Care Provide r, Attending Provider, Referring Provider Active Team Status: Active Member Role Status Dates Dr. Yuliya Vasquez DO Primary Care Provider Active Dr. Reece Stein DO Emergency Provider Active Dr. Wilfrid Ruelas MD Admit Provider, Attending Pro vider Active Team Status: Active Member Role Status Dates Dr. Yuliya Vasquez DO Primary Care Provider Active Dr. Reece Stein DO Emergency Provider Active Dr. Wilfrid Ruelas MD Admit Provider, Attending Provider, Other Provider Active Team Status: Active Member Role Status Dates Dr. Yuliya Vasquez DO Primary Care Provider Active Dr. Reece Stein DO Emergency Provider Active Dr. Wilfrid Ruelas MD Admit Provider, Other Provide r Active Dr. Florencia Kim DO Attending Provider, Other Provide r Active Team Status: Inactive Member Role Status Dates Dr. Yuliya Vasquez DO Primary Care Provider Active Dr. Reece Stein DO Emergency Provider Active Dr. Wilfrid Ruelas MD Admit Provider, Other Provide r Active Dr. Florencia Kim DO Attending Provider Active Certified Diabetes Educator Relationship Specialty Start Date End Date Yuliya Vasquez DO PCP - General Family Medicine 04/02/15 Team Status: Active Member Role Status Dates SUSAN Prabhakar Primary Care Provider Active Team Status: Active Member Role Status Dates SUSAN Prabhakar Primary Care Provider Active Start: April 30, 2024 Leesa Crockett Attending Provider Active Start: 2024 Team Status: Inactive Member Role Status Dates SUSAN Prabhakar Primary Care Provider Active Start: June 15, 2024 End: June 15, 2024 SUSAN Prabhakar Referring Provider Active St art: June 15, 2024 End: June 15, 2024 Juan Luis Goldsmith JUNIOR DATA ANALYST, JUNIOR DATA ANALYST-C Attending Provider Active S tart: June 15, 2024 End: June 15, 2024 Team Status: Inactive Member Role Status Dates Jayda Jolly NP-Luis Primary Care Provider Active Start: June 16, 2024 End: June 16, 2024 Juan Luis Goldsmith NP, JUNIOR DATA ANALYST-C Attending Provider Active S tart: June 16, 2024 End: June 16, 2024 Source Comments (unrecognize d section and content) In the event this informatio n is protected by the Federal Confidentiality of Alcohol and Drug Abuse Patient Records regulations: The Federal rules restrict any use of the information to criminally investigate or prosecute any alcohol or drug abuse patient.[facility] Reason for Visit (unrecogniz ed section and content) Reason Comments NO SHOW LETTER #1 FOR RECORDS PERTAINING TO PATIENTS WHO ARE OR HAVE BEEN ENROLLED IN A CHEMICAL DEPENDENCY/SUBSTANCEABUSE PROGRAM, SOME INFORMATION MAY BE OMITTED. This clinical summary was aggregated from multiple sources. Caution should be exercised in using it in the provision of clinical care. This summary normalizes information from multiple sources, and as a consequence, information in this document may materially change the coding, format and clinical context of patient data. In addition, data may be omitted in some cases. CLINICAL DECISIONS SHOULD BE BASED ON THE PRIMARY CLINICAL RECORDS. [email or web address] provides no warranty or guarantee of the accuracy or completeness of information in this document.
== END | disposition home or self-care (01) ==
LOC: BFHLAB 10:14
PROVIDERS: PCP Nurse Practitioner Family; Visit Provider Nurse Practitioner Family
DX: R55 Syncope and collapse (principal); R53.83 Other fatigue
CPT/HCPCS: 36415; 80053; 82306; 82607; 82728; 83540; 84439; 84443; 85025

== ENCOUNTER → 2024-10-31 | Outpatient (CLI) | payer BC, SELFPAY ==
--- NOTE | 2024-10-31 11:34 | RAD_ITS ---
PROCEDURE: CHEST PA AND LATERAL 10/31/2024 REASON FOR EXAM: FULE OUT PNEUMONIA, COUGH X 3 WEEKS TECHNIQUE: CHEST PA AND LATERAL COMPARISON: None. RAD/Chest PA and Lateral IMPRESSION: Right upper quadrant abdominal surgical clips are seen. Lungs appear clear throughout. No pleural effusion or pneumothorax is noted. The cardiomediastinal silhouette is within the normal range. Tciw-fl-ydhtkezf degenerative changes of the visualized spine are seen. Bilate ral acromioclavicular joint degenerative changes are also seen. No acute osseous changes noted. Reading Location: [place] [id number]
--- NOTE | 2024-10-31 11:34 | RAD_ITS ---
PROCEDURE: CHEST PA AND LATERAL 10/31/2024 REASON FOR EXAM: FULE OUT PNEUMONIA, COUGH X 3 WEEKS TECHNIQUE: CHEST PA AND LATERAL COMPARISON: None. RAD/Chest PA and Lateral IMPRESSION: Right upper quadrant abdominal surgical clips are seen. Lungs appear clear throughout. No pleural effusion or pneumothorax is noted. The cardiomediastinal silhouette is within the normal range. Yapy-dy-aakdyhyy degenerative changes of the visualized spine are seen. Bilate ral acromioclavicular joint degenerative changes are also seen. No acute osseous changes noted. Reading Location: [place] [address]
== END | disposition home or self-care (01) ==
LOC: MTRAD 11:29
PROVIDERS: PCP Nurse Practitioner Family; Referring Provider Nurse Practitioner Family; Visit Provider Nurse Practitioner Family
DX: R06.02 Shortness of breath (principal); R05.9 Cough, unspecified
CPT/HCPCS: 71046

== ENCOUNTER → 2024-12-02 | Outpatient (CLI) | payer BC, SELFPAY ==
--- NOTE | 2024-12-02 07:20 | BI_ITS ---
EXAM: SCRN MAMM (CAD)W/BELLO BILAT DATE: 12/02/2024 CLINICAL HISTORY: F, Age 64 y/o , SCREENING Mother with breast cancer. TECHNIQUE: Procedure Code: [id number] Modality: MG Procedure: SCRN MAMM (CAD)W/BELLO BILAT COMPARISON: Prior exam(s) dated November 16, 2023.. FINDINGS: TISSUE DENSITY: The breasts are heterogeneously dense, which may obscure small masses. Bilateral Breast Mammographic Findings: No significant masses, calcifications or other abnormalities are identified. There is a 5.9 mm well-defined nodule in the slightly upper lateral aspect of the right breast. Stable bilateral axillary lymph nodes. BI/SCRN MAMM (CAD)W/BELLO BILAT IMPRESSION: 5.9 mm well-defined nodule in the slightly upper lateral aspect of the right br east as described. Correlation with ultrasound recommended. OVERALL FINAL ASSESSMENT BI-RADS 0: INCOMPLETE - NEED ADDITIONAL IMAGING EVALUATION. RECOMMENDATION: Ultrasound Recommended A letter with findings and recommendations will be mailed to the patient. Reading Location: [id number]
== END | disposition home or self-care (01) ==
LOC: OPBI 07:19
PROVIDERS: PCP Nurse Practitioner Family; Referring Provider Family Medicine; Visit Provider Family Medicine
DX: Z12.31 Encounter for screening mammogram for malignant neoplasm of breast (principal)
CPT/HCPCS: 77063; 77067

== ENCOUNTER → 2024-12-09 | Outpatient (CLI) | payer BC, SELFPAY ==
--- NOTE | 2024-12-09 12:58 | US_ITS ---
PROCEDURE: BREAST LIMITED UNILATERAL 12/09/2024 REASON FOR EXAM: F, Age 64 y/o , ABN MAMM COMPARISON: Prior mammogram dated December 02, 2024.. TECHNIQUE: Procedure Code: USBRSTLIMIT Modality: US Procedure: BREAST LIMITED UNILATERAL. The upper-outer quadrant of the right breast were examined with ultrasound. FINDINGS: The mammographic abnormality corresponds to a 7 mm x 5 mm x 3 mm benign- appearing lymph node at the 9 o'clock position of the breast at 7 cm from the nipple. US/Breast Limited Unilateral IMPRESSION: The mammographic abnormality corresponds to a 7 mm x 5 mm x 3 mm benign-appeari ng lymph node at the 9 o'clock position of the breast at 7 cm from the nipple. BI-RADS 2: BENIGN RECOMMENDATION: Routine annual follow-up in 1 Year Reading Location: [place] [address]
== END | disposition home or self-care (01) ==
LOC: OPUS 12:57
PROVIDERS: PCP Nurse Practitioner Family; Referring Provider Family Medicine; Visit Provider Family Medicine
DX: R92.8 Other abnormal and inconclusive findings on diagnostic imaging of breast (principal)
CPT/HCPCS: 76642

== ENCOUNTER → 2025-03-23 | Outpatient (CLI) | payer BC, SELFPAY ==
[2025-03-23 12:13] LABS: Hematocrit 43.2 % (37-47); Hemoglobin 13.9 g/dL (12.0-15.0); Immature Granulocytes Count 0.020 X10^3/uL (0.0-0.0); Mean Corp Hgb Conc 32.2 g/dL (32-36); Mean Corpuscular Volume 87.1 fL (81-99); Mean Platelet Vol. 8.4 fl (6.2-12.0); NRBC Flagged by Analyzer 0 % (0-5); Platelet Count 356 K/mm3 (150-450); RBC Distribution Width CV 13.4 % (11.6-14.6); RBC Distribution Width SD 42.6 fl (35.1-43.9); Red Blood Count 4.96 M/mm3 (4.2-5.4); White Blood Count 7.8 K/mm3 (4.4-11.0)
[2025-03-23 12:30] LABS: D-Dimer Quantitative (DVT/PE) 1.03 FEU/ug/m (0.27-0.49)
[2025-03-23 12:55] LABS: Anion Gap 10 (7-18); BUN 13 mg/dL (4-19); BUN/Creat Ratio 16.2 RATIO (10-20); Calcium,Total 9.8 mg/dL (7.6-11.0); Carbon Dioxide 24.9 mmol/L (20.0-29.0); Chloride 106 mmol/L (96-106); Glucose 92 mg/dL (70-99); Iron 61 ug/dL (50-170); Potassium 3.9 mmol/L (3.5-5.1); Pro- Brain NATRIURETIC PEPTIDE 56 pg/mL (<=900); Vitamin D,25 Hydroxy 27.8 ng/mL (30-100)
[2025-03-24 08:08] LABS: CRP, High Sensitivity 1.71 mg/L (0.00-3.00)
== END | disposition home or self-care (01) ==
LOC: BFHLAB 10:59
PROVIDERS: PCP Nurse Practitioner Family; Visit Provider Nurse Practitioner Family
DX: R06.02 Shortness of breath (principal); R07.9 Chest pain, unspecified; E61.1 Iron deficiency; R60.9 Edema, unspecified; E55.9 Vitamin D deficiency, unspecified
CPT/HCPCS: 80048; 82306; 83540; 83880; 85025; 85379; 86141

== ENCOUNTER 2025-03-24 12:22 | Emergency (ER) | payer BC, SELFPAY ==
[2025-03-24 12:22] VITALS: BP 150/94; PULSE 86; RESP 16; TEMP 36.4; O2SAT 99; BMI 34.7
--- NOTE | 2025-03-24 12:51 | EKG12_ITS ---
Test Reason : GENERAL Blood Pressure : */* mmHG Vent. Rate : 74 BPM Atrial Rate : 74 BPM P-R Int : 160 ms QRS Dur : 78 ms QT Int : 344 ms P-R-T Axes : 59 4 13 degrees QTcB Int : 381 ms Normal sinus rhythm Normal ECG Confirmed by Naga Grajeda ([id number]), pictures editor SMITH TRAN ([id number]) on 03/30/2025 8:34:36 AM Referred By: Confirmed By: Naga Grajeda
--- NOTE | 2025-03-24 13:02 | EX.ED.DYSGE1 ---
HPI History of Present Illness Chief Complaint: Abn Labs Narrative Narrative: Patient is a 64-year-old female with past medical history anxiety, GERD, depression who presented to the emergency department with concern for abnormal blood work obtained in the outpatient setting. Patient notes that she has been having difficulty with swelling in her legs as well as some shortness of breath for the last few weeks. She notes that she follow-up with her doctor in outpatient setting they did blood work and she was told that her D-dimer was very high and this could mean blood clots therefore she was sent in to be further evaluated. Patient denies any history of blood clots denies any recent travel history. [facility] Medical History Wears glasses Wears contact lenses History of Clostridium difficile infection Anxiety Arthritis Low iron Gastric reflux Non-smoker Asthma GERD (gastroesophageal reflux disease) Depression Diverticulitis C. difficile diarrhea Home Medications ?Medication ?Instructions ?Recorded ?Last Taken ?Type etodolac 400 mg tablet 400 mg PO DAILY #180 tabs 12/12/18 07/19/24 History albuterol sulfate 90 mcg/actuation 1 - 2 puff inhalation Q6H PRN PRN 05/21/19 Unknown History aerosol inhaler Sob &/Or Wheezing buspirone 5 mg tablet 5 mg PO BID 04/30/24 07/20/24 History cetirizine 10 mg tablet 10 mg PO QDAY PRN allergy symptoms 04/30/24 Unknown History ferrous sulfate 325 mg (65 mg 325 mg PO 1200,1700 04/30/24 06/30/24 History iron) tablet (FeroSul) linaclotide [Linzess] 145 mcg PO 3XW 04/30/24 07/17/24 History mometasone 100 mcg/actuation HFA 1 puff inhalation DAILY 07/21/24 07/20/24 History aerosol inhaler (Asmanex HFA) Allergy/AdvReac Type Severity Reaction Status Date / Time No Known Allergies Allergy Verified 03/24/25 12:24 Family History Father Asthma Diabetes Hypertension CAD (coronary artery disease) Sister Asthma Mother Breast cancer Diabetes Hypertension Surgical History History of right knee joint replacement Hx of colonoscopy with polypectomy S/P bilateral hip replacements H/O section S/P laparoscopic cholecystectomy Social History current occupational status: employed Smoking Status: Never smoker alcohol intake: never substance use type: does not use ROS ROS ED ROS Narrative Constitutional: Denies any fevers, chills, headaches Eyes: Denies double vision blurry vision Cardiovascular: Denies chest pain Respiratory: Complains of shortness of breath as noted above denies coughing Abdomen: Denies abdominal pain nausea vomit diarrhea : Denies urinary symptoms Neurological: Denies any numbness, weakness, tingling Musculoskeletal: Denies back pain Skin: Denies any rashes or lesions EXAM Physical Exam Narrative Exam Narrative: General: Patient is lying in bed rest comfortably did not appear to be in acute distress Head: Atraumatic, normocephalic Eyes: PERRL bilaterally, EOMI bilaterally, no conjunctival injection noted Neck: Soft, supple, trachea midline Cardiovascular: Regular rate and rhythm Respiratory: Clear to auscultation bilaterally Extremities: Patient has 1+ pitting edema in the bilateral lower extremities Neurological: Patient following commands that she was at [facility] year is 2024 Skin: Warm, dry, intact no rashes or lesions noted Const Vital Signs: 03/24/25 12:22 03/24/25 12:41 03/24/25 14:12 Temperature 97.6 F L Temperature Source Temporal Pulse Rate 86 88 Respiratory Rate 16 18 Respiratory Effort Normal Respiratory Pattern Normal Blood Pressure 150/94 H Blood Pressure Mean 112 Pulse Ox 99 99 Oxygen Delivery Method Room Air Room Air MDM MDM MDM Narrative Medical decision making narrative: Patient is a 64-year-old female who presented to the emergency department with a chief complaint of elevated D-dimer in outpatient setting. On the differential diagnose includes but limited to ACS, pneumonia, pneumothorax, pulmonary embolism, CHF. Once workup is obtained reviewed she will be reevaluated. Patient states that she has never had a echo nor has she had a stress test. Patient's CBC reviewed from yesterday March 23, 2025 which showed a white blood count normal at 7.8, hemoglobin 13.9, plate count of 356. Patient D-dimer was elevated 1.03 sodium normal 141, potassium normal at 3.9, creatinine 0.82. Patient's troponin was noted to be normal today at 6 with a proBNP normal at 40 EKG reviewed showed sinus rhythm with a rate of 74 bpm with MN interval 160. Patient's CTA of the chest reviewed which showed no evidence of pulmonary embolism no acute chest abnormalities. Patient ambulated well here in the emergency department no hypoxia no tachycardia. Given the patient has not ever had a stress test or a echocardiogram will schedule her for 1 here from the emergency department with instructions to follow-up with them in the outpatient setting and return with worsening symptoms or any concerns. She is agreeable this plan all question concerns answered she was discharged home in stable condition Lab Data Labs: Laboratory Results - last 24 hr 03/24/25 13:25 Troponin T High Sens 6 NT pro BNP II 40 Radiography Diagnostic Testing: Clinical Impression(s) from Imaging Studies Chest CTA 03/24/25 13:37 IMPRESSION: No evidence of pulmonary embolism. No acute chest abnormalities. Reading Location: [facility] Discharge Plan Triage Chief Complaint: Abn Labs ED Provider: Aleksey Hood Dx/Rx/DC Orders Clinical Impression: Shortness of breath, Localized swelling of both lower legs, Abnormal laboratory test Prescriptions: No Action etodolac 400 mg tablet 400 mg PO DAILY Qty: 180 buspirone 5 mg tablet 5 mg PO BID cetirizine 10 mg tablet 10 mg PO QDAY PRN (Reason: allergy symptoms) ferrous sulfate [FeroSul] 325 mg (65 mg iron) tablet 325 mg PO 1200,1700 Rx Instructions: For the week prior to giving blood albuterol sulfate 1 PUFF inhaler 1 - 2 puff inhalation Q6H PRN PRN (Reason: Sob &/Or Wheezing) linaclotide [Linzess] 145 mcg PO 3XW Asmanex HFA 100 mcg/actuation HFA aerosol inhaler 1 puff inhalation DAILY Other Ambulatory Orders: Echo Complete (Routine) Facility: [facility] - Location: [facility] Ordered By: Dr. Aleksey Hood Stress Test Echo W/Contrast (Routine) Facility: [facility] - Location: [facility] Ordered By: Dr. Aleksey Hood Primary Care Provider: Jayda Jolly Referrals: Jayda Jolly, [employer] [Primary Care Provider, Family Practice] Activity Restrictions/Additional Instructions: Follow-up with your doctor in outpatient setting. Go to your scheduled stress test appointment. Your CT of your chest did not show any blood clots. Print Language: Setswana Disposition Disposition: Home, Self Care
[2025-03-24] MEDS: 0.9% Normal Saline (1000mL) 1,000 ML 999 ML IV (13:24)
--- NOTE | 2025-03-24 13:37 | CT_ITS ---
PROCEDURE: CTA CHEST W/WO CONTRAST 03/24/2025 REASON FOR EXAM: SOB, ELEVATED DIMER TECHNIQUE: Procedure Code: [id number] Modality: CT Procedure: CTA CHEST W/WO CONTRAST Multiplanar Sagittal and Coronal images were obtained. CONTRAST: Isovue 370 VOLUME: 75 mL One or more dose reduction techniques were used (e.g., Automated exposure control, adjustment of the mA and/or kV according to patient size, use of iterative reconstruction technique). RADIATION DOSE SUMMARY: CTDlvol: 14.04 mGy DLP: 475.31 mGycm COMPARISON: None. # of known CTs in the past 12 months: 0 # of known Cardiac Nuclear Medicine Studies in the past 12 months: 0 FINDINGS: Thoracic Aorta: No aneurysm. No dissection. Heart: No cardiomegaly. Atherosclerotic calcifications of the coronary arteries. Pulmonary Vessels: No evidence of pulmonary embolism. Hardware: None. Lymph nodes: No lymphadenopathy. Lungs and Airways: Clear. Pleura: No pleural effusion or pneumothorax. Upper Abdomen: No acute abdominal abnormalities. Bones: No acute bony abnormalities. CT/CTA Chest W/WO Contrast IMPRESSION: No evidence of pulmonary embolism. No acute chest abnormalities. Reading [facility]
[2025-03-24 13:59] LABS: Pro- Brain NATRIURETIC PEPTIDE 40 pg/mL (<=900); Troponin T High Sensitivity 6 ng/L (<=14)
[2025-03-24 14:12] VITALS: PULSE 88; RESP 18; O2SAT 99
[2025-03-24 15:14] VITALS: BP 171/84; PULSE 90; RESP 18; TEMP 36.7; O2SAT 99
== END 2025-03-24 15:17 | disposition home or self-care (01) ==
PROVIDERS: Emergency Provider Emergency Medicine; PCP Nurse Practitioner Family; Visit Provider Emergency Medicine
DX: R06.02 Shortness of breath (principal); I50.9 Heart failure, unspecified; E87.0 Hyperosmolality and hypernatremia; K21.9 Gastro-esophageal reflux disease without esophagitis; M79.89 Other specified soft tissue disorders; R79.89 Other specified abnormal findings of blood chemistry
CPT/HCPCS: 71275; 83880; 84484; 93005; 96360; 96361; 99283; Q9967